=== PATIENT | male | born 1950 | race Two or more races ===

== ENCOUNTER 2024-09-24 12:18 | Inpatient (IN) | payer MEDICARE, MEDICAID, SELFPAY ==
[2024-09-24] VITALS (21 sets, daily range): BP systolic 134–183; BP diastolic 70–99; PULSE 83–107; RESP 15–100; TEMP 36.7–37.5; O2SAT 96–100; BMI 25.0; BMI 27.8
--- NOTE | 2024-09-24 12:20 | EKG_ITS ---
[facility] Test Date: 2024-09-24 Pat Name: LEONOR MCGRATH Department: Room: - Gender: Male Power[employer]: : 1950 Requested By: Erma Perez Order Number: [id number] Reading MD: Erma Perez Measurements Intervals [place] Rate: 87 P: 71 FL: 174 QRS: 9 QRSD: 80 T: 81 QT: 337 QTc: 408 Interpretive Statements SINUS RHYTHM Compared to ECG 08/01/2022 16:19:36 Sinus tachycardia no longer present /store/S0/[id number].pdf
--- NOTE | 2024-09-24 12:20 | XR_ITS ---
Examination: CT brain head without contrast. 2-D sagittal coronal reconstructions Date and time of exam:September 24, 2024 at 1222 hours Comparison August 01, 2022 INDICATIONS: Stroke alert today altered mental status CTDI: vol (mGy):57.4 DLP: (mGycm):1110 Technique: Multiple CT axial sections of the brain have been obtained, 5 mm slice thickness. Contrast has not been administered. 2-D sagittal, coronal reconstructions have been obtained Low dose protocols were performed. One or more of the following dose reduction techniques were used; automated exposure control, adjustment of the mA and/or KV according to patient size, use of iterative reconstruction technique. Findings: Large left frontal craniotomy with ipsilateral dilatation of the left ventricle noted on the prior study Extensive encephalomalacia in the left cerebral hemisphere also noted on the prior study No interval hemorrhage or mass effect IMPRESSION: No interval acute hemorrhage or mass effect
--- NOTE | 2024-09-24 12:20 | XR_ITS ---
Examination: CTA carotids with intravenous contrast CTA brain, head with intravenous contrast. 2-D sagittal, coronal reconstructions. 3-D reconstructions. Exam date and time: September 24, 2024 1234 hours INDICATIONS: Stroke alert, onset focal neurologic deficit today CTDI: vol (mGy) 11.2 DLP: (mGycm) 433 Technique: Multiple CTA axial brain, head carotid images post intravenous contrast injection 75 cc, Isovue-370. 2-D sagittal, coronal reconstructions. 3-D reconstructions, 3-D post processing including vascular maximum intensity projection images. Low dose protocols were performed. One or more of the following dose reduction techniques were used; automated exposure control, adjustment of the mA and/or KV according to patient size, use of iterative reconstruction technique. Findings: No significant common carotid carotid bifurcation or internal carotid artery stenoses Codominant vertebral arteries with no critical stenoses No cerebral large vessel arterial occlusions thrombus dissection or cerebral aneurysm IMPRESSION: No significant neck arterial stenoses No cerebral large vessel arterial occlusions
--- NOTE | 2024-09-24 12:22 | PD.EDAMS ---
Altered Mental Status RME/HPI General Chief Complaint: Altered Mental Status Stated Complaint: ams Time Seen by Provider: 09/24/24 12:20 Arrival date/time: 09/24/24 12:18 RME / HPI RME / HPI narrative: 74 year old male with history of CVA, brain tumor s/p left frontal craniotomy with residual expressive aphasia, hypertension, diabetes, COPD on 4L home oxygen presents to the ED BIBA from home for evaluation of altered mental status today. Per medics, on their arrival patient a GCS of 3, not following commands, tachycardic at 102bpm, prehospital BS 32. State they administered a total of 250mL D10 and repeat BS 162. However, report mental status did not improve. On arrival to ED patient GCS of 6 and not following commands. Evidently at baseline patient is nonverbal, able to communicate by nodding head, tracks with eyes, and able to get himself around in his home by wheelchair. Related Data Home Medications ?Medication ?Instructions ?Recorded ?Confirmed atorvastatin 40 mg tablet 40 mg PO QPM 11/04/19 08/02/22 montelukast 10 mg tablet 10 mg PO QDAY 11/04/19 08/02/22 tamsulosin 0.4 mg capsule 0.4 mg PO QDAY 10/11/20 08/02/22 escitalopram oxalate 10 mg tablet 10 mg PO QDAY 12/15/20 08/02/22 amlodipine 5 mg tablet 5 mg PO QDAY 05/31/21 08/02/22 insulin glargine 100 unit/mL (3 50 unit subcut QAM 05/31/21 08/02/22 mL) subcutaneous pen (Lantus Solostar U-100 Insulin) umeclidinium 62.5 mcg-vilanterol 1 inh inhalation QDAY 05/31/21 08/02/22 25 mcg/actuation powdr for inhalation (Anoro Ellipta) albuterol sulfate 90 mcg/actuation 2 inh inhalation QID PRN shortness 06/25/22 08/02/22 aerosol inhaler (Ventolin HFA) of breath or wheezing prednisone 10 mg tablet 10 mg PO QDAY 08/02/22 08/02/22 Previous Rx's ?Medication ?Instructions ?Recorded gabapentin 300 mg capsule 300 mg PO BID PRN pain #14 caps 10/18/22 Allergies Allergy/AdvReac Type Severity Reaction Status Date / Time silicone Allergy Severe Fever Verified 08/01/22 15:46 tuberculin,PPD,multi-puncture Allergy Verified 08/01/22 15:46 Review of Systems Review of Systems ROS Unobtainable: unobtainable due to mental status Past Medical History Past Medical History NEUROLOGIC: Positive Neurological Disorders (APHASIA), Cerebrovascular Accident, Transient Ischemic Attacks (TIA), Dementia and Brain Tumor CARDIAC: Positive Cardiac Disorders, Hypercholesterolemia and Hypertension RESPIRATORY: Positive Chronic Obstructive Pulmonary Disease (COPD) and Asthma GENITOURINARY: Positive Benign Prostatic Hyperplasia ENDOCRINE: Positive Endocrine Disorders and Diabetes Mellitus Type 2 Surgical History SURGICAL: Positive Neurologic Surgery Social History SMOKING STATUS: Unknown if ever smoked SECOND HAND EXPOSURE: No SUBSTANCE USE: does not use ED Exam Narrative Physical exam: GENERAL APPEARANCE: Not following commands, looking from side to side HEENT: Normocephalic, atraumatic; pupils equal, round, reactive to light; EOMI; mucous membranes pink, moist; oropharynx clear NECK: Supple LUNGS: CTABL; no wheezes, no rales, no rhonchi HEART: Regular rate, regular rhythm; normal S1, S2; no murmurs ABDOMEN: non distended; normal BS; soft, no tenderness, no guarding, no rebound; no masses, no organomegaly, no hernia BACK: no CVA tenderness NEUROLOGIC: Not following commands, looking from side to side, left arm is flaccid, right arm is contractured, bilateral legs are flaccid SKIN: warm, dry, normal color; no rashes Course Course Course Narrative: 1219: Patient evaluated in ED room 4 and stroke alert called overhead. 1545: I spoke with patients grandson at bedside. States at baseline the patient is able to get up out of bed and to his wheelchair and gets around their home. States patient has yet to return to his baseline. Quality Measures Suspected type of Stroke: Non Acute Last know well: unknown Tenecteplase given: Reason(s) TPA not given: Outside the time window not given stroke Orders Category Date Time Status Admit to Inpatient Status Routine Admission 09/24/24 17:41 Active Patient Condition Routine Admission 09/24/24 17:41 Ordered Activity as Tolerated Routine Care 09/24/24 17:41 Ordered Bedside Blood Glucose NOW Care 09/24/24 12:20 Active Heat Sealing Machine Operator NOW Care 09/24/24 12:20 Active Continuous Pulse Oximetry NOW Care 09/24/24 12:20 Completed EKG (ED ONLY) *Do not use* NOW Care 09/24/24 12:20 Completed Glucose [Bedside Blood Glucose] Q6HR Care 09/24/24 17:45 Active In and Out Catheter NEEDED Care 09/24/24 12:20 Completed Insert IV NOW Care 09/24/24 12:20 Active NIH Stroke Scale now Care 09/24/24 12:20 Active NPO NOW Care 09/24/24 12:20 Active NPO NOW Care 09/24/24 17:42 Active Notify provider NEEDED Care 09/24/24 17:41 Active Nurse Swallow Screen x1 Care 09/24/24 12:20 Active Consult to Neurology / Tele-Neurology Routine Cons 09/24/24 12:20 Active Diet NPO (NOW) Diet 09/24/24 17:[address] angio stroke protocol Stat Exams 09/24/24 12:[address] stroke protocol Stat Exams 09/24/24 12:20 Completed EKG (ED Only) Stat Exams 09/24/24 12:20 Draft A1C [Glycohemoglobin w (eAG)] AM DRAW Lab 09/25/24 05:00 Ordered B-Type Natriuretic Peptide Stat Lab 09/24/24 12:35 Completed Blood Culture (Lab) Stat Lab 09/24/24 14:24 Received CBC AM DRAW Lab 09/25/24 05:00 Ordered CBC AM DRAW Lab 09/26/24 05:00 Ordered CBC AM DRAW Lab 09/27/24 05:00 Ordered CBC Stat Lab 09/24/24 12:35 Completed Comprehensive Metabolic Panel AM DRAW Lab 09/25/24 05:00 Ordered Comprehensive Metabolic Panel AM DRAW Lab 09/26/24 05:00 Ordered Comprehensive Metabolic Panel AM DRAW Lab 09/27/24 05:00 Ordered Comprehensive Metabolic Panel Stat Lab 09/24/24 12:35 Completed Drug Screen,Urine Stat Lab 09/24/24 13:28 Completed Lactate (Lactic Acid) Stat Lab 09/24/24 14:24 Completed Lipid Panel AM DRAW Lab 09/25/24 05:00 Ordered Magnesium AM DRAW Lab 09/25/24 05:00 Ordered Magnesium Stat Lab 09/24/24 12:35 Completed Partial Thromboplastin Time Stat Lab 09/24/24 12:35 Completed Phosphorous AM DRAW Lab 09/25/24 05:00 Ordered Procalcitonin Stat Lab 09/24/24 12:35 Completed Prothrombin Time with INR Stat Lab 09/24/24 12:35 Completed Thyroid Stimulating Hormone AM DRAW Lab 09/25/24 05:00 Ordered Troponin I Stat Lab 09/24/24 12:35 Completed Urinalysis Stat Lab 09/24/24 13:28 Completed Urine Culture Stat Lab 09/24/24 12:20 Received Acetaminophen Tab [Tylenol Tab] Med 09/24/24 17:41 Active 650 mg PO Q6H PRN Dextrose 10%-Water 1000 ml [D10w 1000 ml] 1,000 ml Med 09/24/24 17:45 Active IV 50 mls/hr Dextrose 50% Syr [D50w Syringe Abboject] Med 09/24/24 17:46 Active 25 ml IV Q15MIN PRN Dextrose 50% Syr [D50w Syringe Abboject] Med 09/24/24 17:06 Discontinued 50 ml IV .STK-MED ONE Dextrose 50% Syr [D50w Syringe Abboject] Med 09/24/24 17:46 Active 50 ml IV Q15MIN PRN Dextrose 50% Syr [D50w Syringe Abboject] Med 09/24/24 17:11 Discontinued 50 ml IV X1 ONE Enoxaparin [Lovenox] Med 09/24/24 17:45 Active 40 mg SC QDAY Glucagon Inj Med 09/24/24 17:46 Active 1 mg IM Q15MIN PRN Insulin Regular Med 09/24/24 18:00 Active See Protocol SC Q6HR Ondansetron Inj [Zofran Inj] Med 09/24/24 12:20 Active 4 mg IV Q4HR PRN Senna [Senokot] Med 09/24/24 17:41 Active 1 tab PO QDAY PRN Code Status Routine Oth 09/24/24 17:41 Ordered Oxygen Delivery NOW RT 09/24/24 12:20 Active Oxygen Delivery PRN RT 09/24/24 17:41 Active Vital Signs Vital signs: Vital Signs Temperature 98.6 F 09/24/24 12:53 Pulse Rate 86 09/24/24 12:53 Respiratory Rate 15 09/24/24 12:53 Blood Pressure 183/97 H 09/24/24 12:53 Pulse Oximetry (%) 100 09/24/24 12:53 Oxygen Delivery Method Nasal Cannula 09/24/24 12:53 Oxygen Flow Rate 2 09/24/24 12:53 Pulse ox is 100% on 2L nasal cannula which is adequate. Altered Mental Status MDM Narrative MDM Narrative:: Yamini Live am scribing for and in the presence of Dr. Ren. Patient data External records reviewed:: [facility] previous records (I reviewed admission from 08/02/2022 through 08/05/2022) and EMS form Clinical information provided by:: EMS Social determinants that could affect healthcare access:: none Patient has the following chronic illnesses:: CVA, brain tumor s/p left frontal craniotomy with residual expressive aphasia, hypertension, diabetes, COPD on 4L home oxygen How is presenting disease/condition affected by chronic disease/condition?: exacerbated by Evaluation data The following diagnostics were reviewed and interpreted by me:: lab results, radiology exam(s) and EKG tracing(s) (sinus rhythm, rate 87, no STEMI ) Lab and/or radiology exams considered but not ordered:: None Interpretation Summary: Ordering Physician: Erma Ren MD Date of Service: 09/24/24 Procedure(s): CT stroke protocol Accession Number(s): [id number] cc: Edward Zhang MD; Erma Ren MD~ Examination: CT brain head without contrast. 2-D sagittal coronal reconstructions Date and time of exam:September 24, 2024 at 1222 hours Comparison August 01, 2022 INDICATIONS: Stroke alert today altered mental status CTDI: vol (mGy):57.4 DLP: (mGycm):1110 Technique: Multiple CT axial sections of the brain have been obtained, 5 mm slice thickness. Contrast has not been administered. 2-D sagittal, coronal reconstructions have been obtained Low dose protocols were performed. One or more of the following dose reduction techniques were used; automated exposure control, adjustment of the mA and/or KV according to patient size, use of iterative reconstruction technique. Findings: Large left frontal craniotomy with ipsilateral dilatation of the left ventricle noted on the prior study Extensive encephalomalacia in the left cerebral hemisphere also noted on the prior study No interval hemorrhage or mass effect IMPRESSION: No interval acute hemorrhage or mass effect Dictated By: Edward Zhang MD Signed By: <Electronically signed by Edward Zhang MD in OV> 09/24/24 1240 Ordering Physician: Erma Ren MD Date of Service: 09/24/24 Procedure(s): CT angio stroke protocol Accession Number(s): [id number] cc: Edward Zhang MD; Erma Ren MD~ Examination: CTA carotids with intravenous contrast CTA brain, head with intravenous contrast. 2-D sagittal, coronal reconstructions. 3-D reconstructions. Exam date and time: September 24, 2024 1234 hours INDICATIONS: Stroke alert, onset focal neurologic deficit today CTDI: vol (mGy) 11.2 DLP: (mGycm) 433 Technique: Multiple CTA axial brain, head carotid images post intravenous contrast injection 75 cc, Isovue-370. 2-D sagittal, coronal reconstructions. 3-D reconstructions, 3-D post processing including vascular maximum intensity projection images. Low dose protocols were performed. One or more of the following dose reduction techniques were used; automated exposure control, adjustment of the mA and/or KV according to patient size, use of iterative reconstruction technique. Findings: No significant common carotid carotid bifurcation or internal carotid artery stenoses Codominant vertebral arteries with no critical stenoses No cerebral large vessel arterial occlusions thrombus dissection or cerebral aneurysm IMPRESSION: No significant neck arterial stenoses No cerebral large vessel arterial occlusions Dictated By: Edward Zhang MD Signed By: <Electronically signed by Edward Zhang MD in OV> 09/24/24 135 Medications / Prescriptions Medications or Prescriptions considered but not ordered:: None Medication administrations:: Medication Administration History Acetaminophen (Acetaminophen 325 Mg Tablet) 650 mg PO Q6H PRN PRN Reason: Fever >100.3 or pain 1-3 Stop: 10/24/24 17:40 Dextrose (Dextrose 50%-Water Inj 50 Ml Syringe) 25 ml IV Q15MIN PRN PRN Reason: BG 50-70 responsive npo pt Stop: 10/24/24 17:45 Dextrose (Dextrose 50%-Water Inj 50 Ml Syringe) 50 ml IV Q15MIN PRN PRN Reason: BG <50 OR BG <70 & pt unresponsive Stop: 10/24/24 17:45 Enoxaparin Sodium (Enoxaparin Sod Inj 40 Mg/0.4 Ml Syringe) 40 mg SC QDAY MERLY Stop: 10/08/24 17:44 Glucagon (Glucagon Inj 1 Mg Vial) 1 mg IM Q15MIN PRN PRN Reason: BG <70, and no IV access Dextrose (D10w 1000 Ml) 1,000 mls @ 50 mls/hr IV .Q20H MERLY Stop: 09/25/24 13:44 Insulin Human Regular (Insulin Hum Regular 1 Unit/0.01 Ml (Per Unit)) 0 unit SC Q6HR MERLY; Protocol Stop: 10/24/24 17:59 Ondansetron HCl (Ondansetron Inj 2 Mg/Ml Inj 2 Ml) 4 mg IV Q4HR PRN PRN Reason: NAUSEA OR VOMITING Stop: 10/24/24 12:19 Sennosides (Senna Tablet) 1 tab PO QDAY PRN; Protocol PRN Reason: constipation Stop: 10/24/24 17:40 Discontinued Medications Dextrose (Dextrose 50%-Water Inj 50 Ml Syringe) 50 ml IV X1 ONE Stop: 09/24/24 17:12 Last Admin: 09/24/24 17:15 Dose: 50 ml Documented By: ED Dextrose (Dextrose 50%-Water Inj 50 Ml Syringe) Confirm Administered Dose 50 ml IV .STK-MED ONE Stop: 09/24/24 17:07 Last Admin: 09/24/24 17:18 Dose: Not Given Documented By: ED Non-Admin Reason: Duplicate Medication on eMAR See above Consultations Consultation(s) initiated? (list below): Yes Consultation #1 (Physician, Specialty, Details): I spoke with teleneurologist Dr. Pickard. States patient is not a tpa candidate as he is out of the 4.5 time window. Time: 12:40 Consultation #2 (Physician, Specialty, Details): I spoke with resident Dr. Mendes working with Dr. Pereira. Discussed patients PMHx, HPI, ED course, exam findings, labs, and radiology results. The hospitalist agree to accept the patient for admission. Diagnosis Differential diagnosis altered mental status: altered mental status, dementia, hypoglycemia, hyponatremia, subarachnoid hemorrhage, sepsis and other (CVA, TIA ) Most likely diagnosis given after review of the tests above:: AMS Hypoglycemia Admission Indicated Admission indicated?: indicated Admission Request Was there a request for admission?: Yes Admission Attestation Admission request attestation: Discussed case with [] from Hospitalist service regarding admission. Discussed patients ED course, exam findings, labs, and radiology results. The Hospitalist [agrees,declines] to accept the patient for admission. Disposition Plan Disposition Plan: Admit Discharge Plan Plan Patient Disposition: Admit Acute Care w/in Hospital Prescriptions/Referrals Prescriptions/Med Rec: No Action escitalopram oxalate 10 mg Tablet 10 mg PO QDAY amlodipine 5 mg Tablet 5 mg PO QDAY insulin glargine [Lantus Solostar U-100 Insulin] 100 unit/mL (3 mL) insulin pen 50 unit SUBCUT QAM Anoro Ellipta 62.5-25 mcg/actuation blister with device 1 inh INHALATION QDAY atorvastatin 40 mg Tablet 40 mg PO QPM montelukast 10 mg Tablet 10 mg PO QDAY tamsulosin 0.4 mg Capsule 0.4 mg PO QDAY albuterol sulfate [Ventolin HFA] 90 mcg/actuation HFA aerosol inhaler 2 inh inhalation QID PRN (Reason: shortness of breath or wheezing) prednisone 10 mg tablet 10 mg PO QDAY gabapentin 300 mg capsule 300 mg PO BID PRN (Reason: pain) Qty: 14 0RF Problem List Clinical Impression: Altered mental status, Hypoglycemia Patient/Caregiver Discharge Instructions Print Language: Mexican Stand Alone Forms: Brinda Award Info., Patient Portal Info Letter
--- NOTE | 2024-09-24 12:41 | PD.TNEUROPRO ---
Tele Neuro Progress Note Progress Note Date 09/24/24 Progress Note Narrative [facility] Consult [facility] Patient Name:???Delroy Ngo Date of :???1950 Identification Number:??? Date of Service:???09/24/2024 12:23:39 Diagnosis:Encephalopathy Impression: ?74 y/o h/o stroke, HTN, DM, hyperlipidemia and COPD who presents to the ED with worsening AMS in the setting of hypoglycemia. No focal deficits on exam Our recommendations are outlined below. Recommendations: ? Stroke/Telemetry Floor ? Neuro Checks ? Bedside Swallow Eval ? DVT Prophylaxis ? IV Fluids, Normal Saline ? Head of Bed 30 Degrees ? Euglycemia and Avoid Hyperthermia (PRN Acetaminophen) ? Initiate or continue Aspirin 81 MG daily ? Antihypertensives PRN if Blood pressure is greater than 220/120 or there is a concern for End organ damage/contraindications for permissive HTN. If blood pressure is greater than 220/120 give labetalol PO or IV or Vasotec IV with a goal of 15% reduction in BP during the first 24 hours. ?Toxic, metabolic and infectious work-up as per ED and primary team ?ASA 81 if no contraindications Sign Out: ? Discussed with Emergency Department Provider Advanced Imaging: Advanced Imaging Deferred because: Case discussed with Dr. Ren. No focal neurologic deficits. Low suspicion for LVO given the clinical presentation and current clinical exam. Can reconsider advanced neuroimaging if patient's symptoms recur or worsen or develops new symptoms. Metrics: Last Known Well: Unknown Dispatch Time: 09/24/2024 12:23:39 Arrival Time: 09/24/2024 12:18:00 Initial Response Time: 09/24/2024 12:25:32Symptoms: AMS. Initial patient interaction: 09/24/2024 12:30:31 NIHSS Assessment Completed: 09/24/2024 12:34:15Patient is not a candidate for Thrombolytic. Thrombolytic Medical Decision: 09/24/2024 12:34:15Patient was not deemed candidate for Thrombolytic because of following reasons: other diagnosis suspected Case discussed with Dr. Ren. Unclear last known well. No focal neurologic deficits. . I personally Reviewed the CT Head and it Showed left hemispheric encephalomalacia and cerebral atrophy Primary Provider Notified of Diagnostic Impression and Management Plan on: 09/24/2024 12:40:12 History of Present Illness:Patient is a 74 year old Male. Patient was brought by EMS for symptoms of AMS. 74 y/o h/o stroke, HTN, DM, hyperlipidemia and COPD who presents to the ED with worsening AMS in the setting of hypoglycemia (32). Emergent telestroke consult requested. Patient is reportedly confused at baseline, but was noted to be worse today. Unclear last known well. Dextrose given by EMS. Patient is drowsy and generally weak. Patient cannot provide a history. No focal deficits on exam. Initial GCS was reported to be 3 at the scene. Mental status has improved since dextrose. CT brain reviewed and case discussed with Dr. Ren (ED attending) Medications: Anticoagulant use:??Unknown Antiplatelet use:?Unknown Reviewed EMR for current medications Allergies:? Reviewed Allergies Unable To Obtain Due To:?Patient Is Confused Social History: Unable To Obtain Due To Patient Status :?Patient Is Confused Family History: Family History Cannot Be Obtained Because:Patient Is Confused ROS :?ROS Cannot Be Obtained Because:? Patient Is Confused Past Surgical History: Past Surgical History Cannot Be Obtained Because: Patient Is Confused Examination: BP(183/97),?Pulse(88),?Blood Glucose(136) 1A: Level of Consciousness - Requires repeated stimulation to arouse?+ 2 1B: Ask Month and Age - Could Not Answer Either Question Correctly?+ 2 1C: Blink Eyes & Squeeze Hands - Performs 0 Tasks?+ 2 2: Test Horizontal Extraocular Movements - Normal?+ 0 3: Test Visual Thomas - No Visual Loss?+ 0 4: Test Facial Palsy (Use Grimace if Obtunded) - Normal symmetry?+ 0 5A: Test Left Arm Motor Drift - No Drift for 10 Seconds?+ 0 5B: Test Right Arm Motor Drift - No Drift for 10 Seconds?+ 0 6A: Test Left Leg Motor Drift - No Effort Against Moclips?+ 3 6B: Test Right Leg Motor Drift - No Effort Against Moclips?+ 3 7: Test Limb Ataxia (FNF/Heel-Butt) - Does Not Understand?+ 0 8: Test Sensation - Normal; No sensory loss?+ 0 9: Test Language/Aphasia - Mute/Global Aphasia: No Usable Speech/Auditory Comprehension?+ 3 10: Test Dysarthria - Mute/Anarthric?+ 2 11: Test Extinction/Inattention - No abnormality?+ 0 NIHSS Score:?17 Pre-Morbid Modified [place] Scale:Unable to assess Spoke with :?Dr. Ren Consent could not be obtained due to patient status and family not available. Patient is being evaluated for possible acute neurologic impairment and high probability of imminent or life-threatening deterioration. I spent total of 20 minutes providing care to this patient, including time for face to face visit via telemedicine, review of medical records, imaging studies and discussion of findings with providers, the patient and/or family. Dr Darin Pickard [facility] For Inpatient follow-up with [facility] physician please call [facility] at . As we are not an outpatient service for any post hospital discharge needs please contact the hospital for assistance. If you have any questions for the [facility] physicians or need to reconsult for clinical or diagnostic changes please contact us via [facility] at .
[2024-09-24 12:52] LABS: Basophils # (Auto) 0.1 Thou/mm3 (0.0-0.2); Basophils % (Auto) 1 % (0-2.5); Eosinophils % (Auto) 0 % (0-10); Hematocrit 39.7 % (41.0-53.0); Hemoglobin 13.7 g/dL (13.5-16.0); Immature Granulocytes % (Auto) 0 % (0-0); Immature Granulocytes Auto 0.04 Thou/mm3 (0.00-0.00); Lymphocytes # (Auto) 0.8 Thou/mm3 (1.0-4.8); Lymphocytes % (Auto) 5 % (10-50); Mean Corpuscular HGB Conc 34.5 g/dl (31.0-37.0); Mean Corpuscular Hemoglobin 30.6 pg (25.0-35.0); Mean Corpuscular Volume 89 fL (80-100); Monocytes # (Auto) 1.5 Thou/mm3 (0.0-0.8); Monocytes % (Auto) 10 % (0-12); Neutrophils # (Auto) 12.8 Thou/mm3 (1.8-7.7); Neutrophils % (Auto) 84 % (37-80); Nucleated Red Blood Cell % 0 /100 WBC (0); Platelet Count 258 Thou/mm3 (140-440); RDW Standard Deviation 40.7 fL (35.1-43.9); Red Blood Count 4.48 Miln/mm3 (4.50-5.90); White Blood Count 15.2 Thou/mm3 (3.8-10.6)
[2024-09-24 13:00] LABS: Partial Thromboplastin Time 26.2 Seconds (22.0-36.0); Prothrombin Time 10.6 Seconds (9.0-12.2)
[2024-09-24 13:18] LABS: Alanine Aminotransferase 20 U/L (10-49); Albumin, Serum 3.6 gm/dL (3.4-4.8); Albumin/Globulin Ratio 1.3 (1.2-2.2); Alkaline Phosphatase 90 U/L (46-116); Anion Gap 6 (7-16); Aspartate Amino Transferase 27 U/L (0-34); B-Type Natriuretic Peptide < 20 pg/mL (0-100); BUN/Creatinine Ratio 26 Ratio (12-20); Bilirubin,Total 0.6 mg/dL (0.3-1.2); Blood Urea Nitrogen 26 mg/dL (9-23); Calcium 9.1 mg/dL (8.3-10.6); Calcium (Corrected) 9.4 mg/dL (8.5-10.1); Carbon Dioxide 32.5 mMol/L (20.0-31.0); Chloride 102 mMol/L (98-107); Estimated Creatinine Clearance 58.6 mL/min (>60); Globulin 2.7 gm/dL (2.3-3.5); Glucose 137 mg/dL (74-106); Magnesium 1.8 mg/dL (1.6-2.6); Osmolality,Calculated 286 (275-295); Sodium 140 mMol/L (136-145); Total Protein 6.3 gm/dL (5.7-8.2); Troponin I < 0.020 ng/mL (0.0-0.045); eGFR > 60 See Note
[2024-09-24 13:45] LABS: Collection Type, Urine Catheter
[2024-09-24 14:02] LABS: Bilirubin,Urine Negative (Negative); Blood,Urine Trace (Negative); Clarity,Urine Clear (Clear/Hazy); Color,Urine Lt-Yellow (Lt Yel-Yel); Glucose, Urine Negative (Negative); Ketones,Urine Negative (Negative); Leukocyte Esterase,Urine Negative (Negative); Nitrite,Urine Negative (Negative); PH,Urine 6.5 (5.0-7.0); Protein,Urine 2+ (Neg - Trace); RBC,Urine 1 /hpf (0-3); Specific Gravity,Urine 1.027 (1.001-1.035); Squamous Epithelial Cell,Urine 1 /hpf (0-5); Urobilinogen,Urine Negative mg/dL (0.0-1.0); WBC,Urine 2 /hpf (0-5)
[2024-09-24 14:09] LABS: Amphetamine/Methamp Scrn,U Negative (Negative); Barbiturate Screen,Urine Negative (Negative); Benzodiazepines Screen,Urine Negative (Negative); Benzoylecgonine Screen, Ur Negative (Negative); Fentanyl Screen,Urine Negative (Negative); Opiate Screen,Urine Negative (Negative); THC Screen,Urine Positive (Negative)
[2024-09-24 14:28] LABS: Lactate (Lactic Acid) 0.8 mMol/L (0.4-2.0)
[2024-09-24 15:44] LABS: Procalcitonin 0.11 ng/ml (0.0-0.49)
[2024-09-24] MEDS: DEXTROSE 50%-WATER INJ 50 ML SYRINGE IV (17:15)
--- NOTE | 2024-09-24 17:52 | ESHP_ITS ---
<Statement entered by Viky Mendes MD - 09/24/24 19:31> Patient is a 74 year old male with PMH of CVA, brain tumor s/p L frontal craniotomy and resulting expressive aphasia, DM2, COPD on 4L, GCS of 11 at baseline who was BIBA to the ED for AMS. Onsite blood glucose was 32 and was given D10 on site. Due to encephalopathy, stroke alert was called. Upon evaluation, patient was GCS of 7. Bedside blood sugar was 24 so was given an amp of D50, with significant improvement back to GCS of 11. Vitals were stable, and labs were generally unremarkable aside from mild leukocytosis. No rito source of infection was noted on physical exam. Patient to be admitted for acute hypoglycemia and acute encephalopathy. For his hypoglycemia, will give D10 at very low rate with frequent blood sugar checks. He is insulin dependent, so will follow up on home meds. For his acute encephalopathy, will complete stroke rule out and see if his mentation improves with treating the hypoglycemia. Will follow up with family at home for better history of events leading to admission. Viky Mendes MD PGY-3 Documentation for date of: 09/24/24 HPI History of Present Illness Chief complaint: AMS, hypoglycemia History of present illness: Delroy Ngo is 74 yr male with PMH of CVA, brain tumor S/PE left frontal craniotomy, expressive aphasia, hypertension, insulin-dependent diabetes, COPD on 4 L O2, BPH who was presented to ED via ambulance due to altered mental status. And route to the ED GCS score 3 and blood sugars 32. He was administered 250 mL of D10 with improvement of sugars to 162 and still slightly altered. Most history was obtained per chart review and nursing. Patient was given additional dose of D50 while at bedside. He was minimally responsive to sternal rub/painful stimuli. Blood sugars were 24 before the D50 and improved to 160 afther the D50. Per nursing, family was at bedside in the morning. Family stated that patient is able to complete ADLs but mostly non verbal since stroke. Patient admitted for acute encephalopathy most likely due to hypoglycemia. Labs: Leukocytosis 15, Hb 13.7, sodium 140, potassium 4, bicarb 32, BUN 26, creatinine 1.0. Lactic acid normal. GCS at bedside 7. Stroke alert was called and teleneuro was consulted. NIHSS score 17 most likely due to patient's aphasia. CT head negative for hemorrhage or mass effect. CTA head neck negative for stenosis or LVO. Patient did not receive any tPA. PMH: as noted above PSH: craniectomy FamHx: unknown Social: lives at daughters home who takes care of him. No drinking, smoking, or drugs Allergies: silicone-fever Meds: Tamsulosin 0.4 daily, prednisone 10 mg daily, 50 units insulin glargine, atorvastatin 40 mg daily, amlodipine 5 mg daily, albuterol inhaler (med rec still pending) Review of Systems Constitutional Comments: Unobtainable Exam Vital Signs Temp Pulse Resp BP Pulse Ox O2 Del Method O2 Flow Rate 98.0 F 98 15 170/82 H 96 Nasal Cannula 2 09/24/24 16:14 09/24/24 16:14 09/24/24 16:14 09/24/24 16:14 09/24/24 16:14 09/24/24 12:53 09/24/24 12:53 Narrative Exam General: elderly male, minimally responsive, malodorous HEENT: NCAT, No JVD noted. Mucosa moist. Missing few teeth. Pupils are equal and reactive to light bilaterally Cardiovascular: Normal S1 and S2. Regular rate and rhythm. Respiratory: Lungs are clear to auscultation bilaterally. No wheezing or crackles heard. Abdomen: Soft, nontender, not distended, normal bowel sounds. Skin: Warm to touch, dry, no rashes noted, diffuse purpura Musculoskeletal: No gross injuries. No pitting edema Neuro: GCS7 Results: Labs 09/26/24 05:20 09/26/24 05:20 Labs: Short CBC 09/24/24 Range/Units 12:35 WBC 15.2 H (3.8-10.6) Thou/mm3 Hgb 13.7 (13.5-16.0) g/dL Hct 39.7 L (41.0-53.0) % Plt Count 258 (140-440) Thou/mm3 BMP 09/24/24 12:35 Sodium 140 Potassium 4.0 Chloride 102 Carbon Dioxide 32.5 H BUN 26 H Creatinine 1.0 Glucose 137 H Calcium 9.1 Cardiac Enzymes 09/24/24 Range/Units 12:35 Troponin I < 0.020 (0.0-0.045) ng/mL Liver Function 02/13/25 Range/Units 12:35 Total Bilirubin 0.6 (0.3-1.2) mg/dL AST 27 (0-34) U/L ALT 20 (10-49) U/L Alkaline Phosphatase 90 (46-116) U/L Albumin 3.6 (3.4-4.8) gm/dL Urine 09/24/24 Range/Units 13:28 Urine Color Lt-Yellow (Lt Yel-Yel) Urine Clarity Clear (Clear/Hazy) Urine pH 6.5 (5.0-7.0) Ur Specific [place] 1.027 (1.001-1.035) Urine Protein 2+ A (Neg - Trace) Urine Glucose (UA) Negative (Negative) Quality Measures Quality Measures stroke Suspected type of Stroke: Non Acute Tenecteplase given: Reason(s) Tenecteplase not given: Outside the time window not given Rehab services: Speech Language Pathology eval ordered VTE Prophylaxis: pharmaceutical Antithrombotic by day 2:: not indicated (describe) Statin ordered: n/a Anticoagulation ordered for A-fib or flutter (current or hx): not indicated Advance care planning discussed with:: child Medications Home Medications and Allergies Home Medications ?Medication ?Instructions ?Recorded ?Confirmed ?Type atorvastatin 40 mg tablet 40 mg PO QPM 11/04/19 History tamsulosin 0.4 mg capsule 0.4 mg PO QDAY 10/11/2009/12 History escitalopram oxalate 10 mg tablet 10 mg PO QDAY 09/24/24 History amlodipine 5 mg tablet 5 mg PO QDAY 05/31/21 History albuterol sulfate 90 mcg/actuation 2 inh inhalation QI D PRN shortness 06/25/22 09/24/24 History aerosol inhaler (Ventolin HFA) of breath or wheezing prednisone 10 mg tablet 10 mg PO QDAY 08/02/2209/24 History albuterol sulfate 5 mg/mL(0.5 %) 5 mg inhalation TID 0 09/24/24 09/24/24 History solution for nebulization Allergies Allergy/AdvReac Type Severity Reaction Status Date / Time silicone Allergy Severe Fever Verified 08/01/22 15:46 tuberculin,PPD,multi-puncture Allergy Verified 08/01/22 15:46 Visit Medications Acetaminophen (Acetaminophen 325 Mg Tablet) 650 mg PO Q6H PRN PRN Reason: Fever >100.3 or pain 1-3 Stop: 10/24/24 17:40 Dextrose (Dextrose 50%-Water Inj 50 Ml Syringe) 25 ml IV Q15MIN PRN PRN Reason: BG 50-70 responsive npo pt Stop: 10/24/24 17:45 Dextrose (Dextrose 50%-Water Inj 50 Ml Syringe) 50 ml IV Q15MIN PRN PRN Reason: BG <50 OR BG <70 & pt unresponsive Stop: 10/24/24 17:45 Enoxaparin Sodium (Enoxaparin Sod Inj 40 Mg/0.4 Ml Syringe) 40 mg SC QDAY MERLY Stop: 10/08/24 17:44 Glucagon (Glucagon Inj 1 Mg Vial) 1 mg IM Q15MIN PRN PRN Reason: BG <70, and no IV access Dextrose (D10w 1000 Ml) 1,000 mls @ 50 mls/hr IV .Q20H MERLY Stop: 09/25/24 13:44 Insulin Human Regular (Insulin Hum Regular 1 Unit/0.01 Ml (Per Unit)) 0 unit SC Q6HR MERLY; Protocol Stop: 10/24/24 17:59 Ondansetron HCl (Ondansetron Inj 2 Mg/Ml Inj 2 Ml) 4 mg IV Q4HR PRN PRN Reason: NAUSEA OR VOMITING Stop: 10/24/24 12:19 Sennosides (Senna Tablet) 1 tab PO QDAY PRN; Protocol PRN Reason: constipation Stop: 10/24/24 17:40 Discontinued Medications Dextrose (Dextrose 50%-Water Inj 50 Ml Syringe) 50 ml IV X1 ONE Stop: 09/24/24 17:12 Last Admin: 09/24/24 17:15 Dose: 50 ml Assessment & Plan Plan Delroy Ngo is 74 yr male with PMH of CVA, brain tumor S/PE left frontal craniotomy, expressive aphasia, hypertension, insulin-dependent diabetes, COPD on 4 L O2, BPH who was presented to ED via ambulance due to altered mental status. And route to the ED GCS score 3 and blood sugars 32. He was administered 250 mL of D10 with improvement of sugars to 162 and still slightly altered. Stroke alert was called. Patient admitted for acute encephalopathy most likely due to hypoglycemia. #Hypoglycemia DDx: Overuse exogenouse insulin, insulinoma, infection, medication side effect, hepatic dysfunction Most likely due to overuse of insulin in this patient. Family was contacted and said that last insulin administration was yesterday morning. Typically takes 55 units of Lantus. Daughter Chyna, assist patient with medication. And route to ED sugars were 32 with improvement to 160 after 250 mL of D10. On physical exam at bedside blood sugars dropped again to 24 and improved to 160s with D10 push. Patient is still altered however has normal response and opens eyes to name when sugars improved. ?Glucose checks every 6 hours ? D10 W drip at 75 cc/h ? Watch sugars and adjust drip for goal of 180?200 ?Follow-up with TSH ? Daily CMP #Acute encephalopathy 2/2 hypoglycemia Refer above. #Leukocytosis DDx: Chronic steroid use, infection however source is unclear, physiologic stress WBC 15.2. -daily CBC -Follow-up urine culture and blood culture #Rule out CVA Due to altered status teleneuro was consulted after stroke alert. Low suspicion of acute stroke, NIHSS score 17. CT head negative for hemorrhage or mass effect. CTA head/neck neck negative for stenosis/LVO. ?aspirin 81 mg daily ?Physical therapy/speech pathology referral pending ? N.p.o. until patient passes bedside swallow screen ? Head of bed elevation 30 degrees ? Continue permissive hypertension for 24 hours as per neurorecommendations ? 10 mg IV labetalol every 4 hours as needed if BP 220/120 ?Lipid panel pending #Hx COPD Patient does not appear to be in COPD exacerbation. Sickle exam clear to wheezing. Per daughter, he uses 4 L O2 at night and steroids which seems to be the only course of treatment adequately controls the exacerbations. -Prednisone 10 mg daily -However as patient is altered and currently n.p.o., will resume IV Solu-Medrol 40 mg daily -resume albuterol -Follow-up chest x-ray -Resume 4 L O2 at bedtime -Goal O2 saturation 88-92% #History of insulin dependent type 2 diabetes On admission initial glucose 32. Last A1c 9.9 on 08/02/22. Patient takes 55 until glargine for diabetes at home. -Held home medications -Bedside blood glucose checks q6hr -Insulin lispro sliding scale -Carb consistent low diet -Diabetes education -A1c pending #Hx BPH Per daughter, patient is wheelchair-bound and needs assistance with using bathroom as he is wheelchair-bound. Has history of frequent UTIs. Wears diaper. UA negative for UTI ? Resume home medication tamsulosin 0.4 mg daily -Consider inserting Nuñez if poor urine output #Hx HTN Home medication amlodipine 5 mg daily ? Hold for permissive hypertension for 24 hours Health maintenance: Dispo: tele. Hypoglycemia glucose checks q6hr. DVT prophylaxis: Lovenox 40 daily CODE STATUS: Full code Diet: NPO pending swallow eval The patient's management plan was discussed with my attending physician Dr. Pereira and senior Dr. Mendes. Sandra Olvera, PGY-1 Attending Provider Attestation/Addendum I have discussed and was present for the essential components of the history, physical examination, diagnosis, and treatment plan with the resident. I agree with the patient's care as documented by the resident and amended herein by me. Reed Pereira DO. Although this document has been carefully reviewed, there may still be some phonetic and other typographical errors. These errors are purely grammatical due to imperfections in the software program and should not be construed in any way to compromise the substance of the patient's medical care during this visit.
[2024-09-24] MEDS: ENOXAPARIN SOD INJ 40 MG/0.4 ML SYRINGE SC (19:00)
[2024-09-24] MEDS: DEXTROSE 10%-WATER 1000 ML 1,000 ML 75 ML IV (19:00)
--- NOTE | 2024-09-24 19:08 | XR_ITS ---
Examination: AP chest single view Technique one AP portable sitting chest single view Exam date and time: September 24, 2024 1915 hrs. Indications: COPD diagnosis with shortness of breath today. Findings: Normal heart size No pneumonia or pulmonary edema Mild elevation right hemidiaphragm Impression: No pneumonia or pulmonary edema
[2024-09-24] MEDS: DEXTROSE 10%-WATER 1000 ML 1,000 ML 125 ML IV (21:17)
[2024-09-25] VITALS (8 sets, daily range): BP systolic 101–156; BP diastolic 58–83; PULSE 81–100; RESP 14–97; TEMP 36.5–36.9; O2SAT 94–97; BMI 27.6
[2024-09-25 05:58] LABS: Basophils # (Auto) 0.1 Thou/mm3 (0.0-0.2); Basophils % (Auto) 0 % (0-2.5); Eosinophils % (Auto) 0 % (0-10); Hemoglobin 13.2 g/dL (13.5-16.0); Immature Granulocytes % (Auto) 0 % (0-0); Immature Granulocytes Auto 0.04 Thou/mm3 (0.00-0.00); Lymphocytes # (Auto) 0.5 Thou/mm3 (1.0-4.8); Lymphocytes % (Auto) 3 % (10-50); Mean Corpuscular HGB Conc 34.7 g/dl (31.0-37.0); Mean Corpuscular Hemoglobin 30.9 pg (25.0-35.0); Mean Corpuscular Volume 89 fL (80-100); Monocytes # (Auto) 0.3 Thou/mm3 (0.0-0.8); Monocytes % (Auto) 2 % (0-12); Neutrophils # (Auto) 13.1 Thou/mm3 (1.8-7.7); Neutrophils % (Auto) 94 % (37-80); Nucleated Red Blood Cell % 0 /100 WBC (0); Platelet Count 240 Thou/mm3 (140-440); RDW Standard Deviation 40.8 fL (35.1-43.9); Red Blood Count 4.27 Miln/mm3 (4.50-5.90); White Blood Count 13.9 Thou/mm3 (3.8-10.6)
[2024-09-25 06:39] LABS: Glucose Estimated Average 197 mg/dL (80-131); Hemoglobin A1C 8.5 % Hgb (4.8-6.0)
[2024-09-25 06:42] LABS: Alanine Aminotransferase 19 U/L (10-49); Albumin, Serum 3.4 gm/dL (3.4-4.8); Albumin/Globulin Ratio 1.3 (1.2-2.2); Alkaline Phosphatase 84 U/L (46-116); Anion Gap 6 (7-16); Aspartate Amino Transferase 25 U/L (0-34); BUN/Creatinine Ratio 18 Ratio (12-20); Bilirubin,Total 0.7 mg/dL (0.3-1.2); Blood Urea Nitrogen 18 mg/dL (9-23); Calcium 8.9 mg/dL (8.3-10.6); Calcium (Corrected) 9.4 mg/dL (8.5-10.1); Carbon Dioxide 26.8 mMol/L (20.0-31.0); Cardiac Risk Estimate 2.6 RATIO (4.0-6.7); Chloride 102 mMol/L (98-107); Cholesterol 131 mg/dL (132-200); Estimated Creatinine Clearance 58.4 mL/min (>60); Globulin 2.6 gm/dL (2.3-3.5); Glucose 167 mg/dL (74-106); HDL Cholesterol 50 mg/dL (40-60); LDL Cholesterol,Calculated 71 mg/dL (0-130); Magnesium 1.9 mg/dL (1.6-2.6); Osmolality,Calculated 276 (275-295); Phosphorous 2.6 mg/dL (2.4-5.1); Potassium 4.2 mMol/L (3.4-5.1); Sodium 135 mMol/L (136-145); Thyroid Stimulating Hormone 0.66 uIU/mL (0.55-4.78); Triglycerides 49 mg/dL (30-150); eGFR > 60 See Note
--- NOTE | 2024-09-25 09:51 | PCS.ST ---
Swallow Evaluation completed. See report for details. Recommend to advance diet to chopped. Provide swallowing precautions with drinking liquids. ST will follow
[2024-09-25] MEDS: TAMSULOSIN HCL 0.4 MG CAPSULE PO (09:58)
[2024-09-25] MEDS: ESCITALOPRAM OXALATE 10 MG TABLET PO (09:58)
[2024-09-25] MEDS: ENOXAPARIN SOD INJ 40 MG/0.4 ML SYRINGE SC (09:59)
[2024-09-25] MEDS: ASPIRIN EC 81 MG TABEC PO (09:59)
[2024-09-25] MEDS: amLODIPine BESYLATE 5 MG TABLET PO (12:56)
--- NOTE | 2024-09-25 14:20 | PD.RESPRO ---
Documentation for date of: 09/25/24 Subjective Subjective Interval history: Patient seen and examined at bedside. Overnight glucose continued to remain on the lower side while on D10 drip. Rate was increased to 125 cc/h. After patient had passed swallow eval he was given some juice and improved to 174 in the morning. Patient is more responsive than yesterday. Opens eyes to name and grunts as responses. WBCs improved 13.9, A1c 8.5. IV methylprednisone discontinued. Resumed prednisone 10 mg daily which patient takes at home for control of his COPD. D10 drip was held-- will continue to monitor sugars. Anticipate discharge in next 24 hours pending culture results. Will adjust home lantus at time of d/c. Exam Vital Signs Temp Pulse Resp BP Pulse Ox O2 Del Method O2 Flow Rate 98.0 F 96 20 125/64 95 Room Air 2 09/25/24 12:00 09/25/24 12:56 09/25/24 12:00 09/25/24 12:56 09/25/24 12:00 09/25/24 12:00 09/24/24 12:53 Narrative Exam General: elderly male, opens eyes spontaneously HEENT: NCAT, No JVD noted. Mucosa moist. Missing few teeth. Pupils are equal and reactive to light bilaterally Cardiovascular: Normal S1 and S2. Regular rate and rhythm. Respiratory: Lungs are clear to auscultation bilaterally. No wheezing or crackles heard. Abdomen: Soft, nontender, not distended, normal bowel sounds. Skin: Warm to touch, dry, no rashes noted, diffuse purpura Musculoskeletal: No gross injuries. No pitting edema Neuro: GCS10, grunts as response Objective Labs 09/25/24 04:59 09/25/24 04:59 Labs: Laboratory Results - last 24 hr 09/24/24 09/24/24 09/25/24 12:35 14:24 04:59 WBC 13.9 H RBC 4.27 L Hgb 13.2 L Hct 38.0 L MCV 89 MCH 30.9 MCHC 34.7 RDW Std Deviation 40.8 Plt Count 240 Neut % (Auto) 94 H Lymph % (Auto) 3 L Esmeralda % (Auto) 2 Eos % (Auto) 0 Baso % (Auto) 0 Neut # (Auto) 13.1 H Lymph # (Auto) 0.5 L Esmeralda # (Auto) 0.3 Eos # (Auto) 0.0 Baso # (Auto) 0.1 Immature Gran # (Auto) 0.04 H Absolute Nucleated RBC 0.00 Immature Gran % 0 Nucleated RBC % 0 Sodium 135 L Potassium 4.2 Chloride 102 Carbon Dioxide 26.8 Anion Gap 6 L BUN 18 Creatinine 1.0 Estim Creat Clear Calc 58.4 L eGFR > 60 BUN/Creatinine Ratio [address] Glu mg/dL 197 H Hemoglobin A1c 8.5 H Calculated Osmolality 276 Lactic Acid 0.8 Calcium 8.9 Corrected Calcium 9.4 Phosphorus 2.6 Magnesium 1.9 Total Bilirubin 0.7 AST 25 ALT 19 Alkaline Phosphatase 84 Total Protein 6.0 Albumin 3.4 Globulin 2.6 Albumin/Globulin Ratio 1.3 Triglycerides 49 Cholesterol 131 L LDL Cholesterol, Calc 71 HDL Cholesterol 50 Cholesterol/HDL Ratio 2.6 L Procalcitonin 0.11 TSH 0.66 Quality Measures Quality Measures stroke Suspected type of Stroke: Non Acute Tenecteplase given: Reason(s) Tenecteplase not given: Outside the time window not given Rehab services: Speech Language Pathology eval ordered VTE Prophylaxis: pharmaceutical Antithrombotic by day 2:: not indicated (describe) Statin ordered: n/a Anticoagulation ordered for A-fib or flutter (current or hx): not indicated Advance care planning discussed with:: child Assessment & Plan Assessment Current Active Medications: Generic Name Dose Route Start Last Admin Trade Name Freq PRN Reason Stop Dose Admin Acetaminophen 650 mg 09/24/24 17:41 Acetaminophen 325 Mg Tablet PO 10/24/24 17:40 Q6H PRN Fever >100.3 or pain 1-3 Albuterol/Ipratropium 3 ml 09/24/24 19:12 Albuterol/Ipratropium (Duoneb) Rt Deepali 3 Ml Nebu INH 10/25/24 00:59 Q6HRRT PRN COPD Amlodipine Besylate 5 mg 09/25/24 11:45 09/25/24 12:56 Amlodipine Besylate 5 Mg Tablet PO 10/25/24 11:44 5 mg QDAY MERLY Administration Aspirin 81 mg 09/24/24 19:05 09/25/24 09:59 Aspirin Ec 81 Mg Tabec PO 10/24/24 19:04 81 mg DAILY MERLY Administration Atorvastatin Calcium 40 mg 09/25/24 21:00 Atorvastatin Calcium 20 Mg Tablet PO 10/25/24 20:59 QPM MERLY Dextrose 25 ml 09/24/24 17:46 Dextrose 50%-Water Inj 50 Ml Syringe IV 10/24/24 17:45 Q15MIN PRN BG 50-70 responsive npo pt Dextrose 50 ml 09/24/24 17:46 Dextrose 50%-Water Inj 50 Ml Syringe IV 10/24/24 17:45 Q15MIN PRN BG <50 OR BG <70 & pt unresponsive Enoxaparin Sodium 40 mg 09/24/24 17:45 09/25/24 09:59 Enoxaparin Sod Inj 40 Mg/0.4 Ml Syringe SC 10/08/24 17:44 40 mg QDAY MERLY Administration Escitalopram Oxalate 10 mg 09/25/24 09:00 09/25/24 09:58 Escitalopram Oxalate 10 Mg Tablet PO 10/25/24 08:59 10 mg QDAY MERLY Administration Ondansetron HCl 4 mg 09/24/24 12:20 Ondansetron Inj 2 Mg/Ml Inj 2 Ml IV 10/24/24 12:19 Q4HR PRN NAUSEA OR VOMITING Prednisone 10 mg 09/26/24 11:45 Prednisone 5 Mg Tablet PO 10/26/24 11:44 QDAY MERLY Sennosides 1 tab 09/24/24 17:41 Senna Tablet PO 10/24/24 17:40 QDAY PRN constipation Protocol Tamsulosin HCl 0.4 mg 09/25/24 09:00 09/25/24 09:58 Tamsulosin Hcl 0.4 Mg Capsule PO 10/25/24 08:59 0.4 mg QDAY MERLY Administration Plan Delroy Ngo is 74 yr male with PMH of CVA, brain tumor S/PE left frontal craniotomy, expressive aphasia, hypertension, insulin-dependent diabetes, COPD on 4 L O2, BPH who was presented to ED via ambulance due to altered mental status. And route to the ED GCS score 3 and blood sugars 32. He was administered 250 mL of D10 with improvement of sugars to 162 and still slightly altered. Stroke alert was called. Patient admitted for acute encephalopathy most likely due to hypoglycemia. #Hypoglycemia-resolved DDx: Overuse exogenouse insulin, insulinoma, infection, medication side effect, hepatic dysfunction Most likely due to overuse of insulin in this patient. Family was contacted and said that last insulin administration was yesterday morning. Typically takes 55 units of Lantus. Daughter Chyna, assist patient with medication. And route to ED sugars were 32 with improvement to 160 after 250 mL of D10. On physical exam at bedside blood sugars dropped again to 24 and improved to 160s with D10 push. Patient is still altered however has normal response and opens eyes to name when sugars improved. TSH normal 0.66 ?Glucose checks every 6 hours ? stop D10 W drip ? Daily CMP -adjust lantus dose at time of d/c #Acute encephalopathy 2/2 hypoglycemia-resolved Refer above. #Leukocytosis-improving DDx: Chronic steroid use, infection however source is unclear, physiologic stress WBC 15.2-->13.9 -daily CBC -urine culture and blood culture pending #Rule out CVA Due to altered status teleneuro was consulted after stroke alert. Low suspicion of acute stroke, NIHSS score 17. CT head negative for hemorrhage or mass effect. CTA head/neck neck negative for stenosis/LVO. Lipid pannel: TAG 49, cholesterol 131, LDL 71, HDL 50 Passed swallow screen. ?aspirin 81 mg daily ? Head of bed elevation 30 degrees -resuming home antihypertensives #Hx COPD Patient does not appear to be in COPD exacerbation. Sickle exam clear to wheezing. Per daughter, he uses 4 L O2 at night and steroids which seems to be the only course of treatment adequately controls the exacerbations. -resume home Prednisone 10 mg daily -stop IV solu medrol 40mg -resume albuterol -Resume 4 L O2 at bedtime -Goal O2 saturation 88-92% #History of insulin dependent type 2 diabetes On admission initial glucose 32. Last A1c 9.9 on 08/02/22. Patient takes 55 until glargine for diabetes at home. A1c 8.5 on 09/25/24 -Held home medications -Bedside blood glucose checks q6hr -Insulin lispro sliding scale -Carb consistent low diet -Diabetes education -adjust lantus dose before discharge #Hx BPH Per daughter, patient is wheelchair-bound and needs assistance with using bathroom as he is wheelchair-bound. Has history of frequent UTIs. Wears diaper. UA negative for UTI ? Resume home medication tamsulosin 0.4 mg daily -Consider inserting Nuñez if poor urine output #Hx HTN Home medication amlodipine 5 mg daily Health maintenance: Dispo: d/c pending urine/blood culture DVT prophylaxis: Lovenox 40 daily CODE STATUS: Full code Diet: Carb consistent The patient's management plan was discussed with my attending physician Dr. Pereira and senior Dr. Mendes. Sandra Olvera, PGY-1
--- NOTE | 2024-09-25 15:21 | PC.SS ---
Initial assessment: this is 74 year old male admitted for AMS. Patient's daughter Chyna, contacted to assist with providing information. Patient lives at home with daughter Chyna, who is the patient's SS caregiver. Per Chyna, the patient is wheelchair dependent. Patient utilizes home O2 during the night on 4L. Patient has home O2 concentrator at home. Patient PCP is Dr. Clinton at [facility]. Pharmacy is [facility] in [place], [place]. Patient's alternate medical decision maker is Chyna Crawley. Discharge plan is for patient to return home, family is able to assist with transportation home. D/c plan: home Next of kin: Chyna Crawley
--- NOTE | 2024-09-25 15:32 | PC.SS ---
Rounding note: pending cultures. Plan to d/c tomorrow.
--- NOTE | 2024-09-25 16:53 | PD.RESDS ---
Planned Discharge Date 09/26/24 DS: Providers Provider Date of admission: 09/24/24 17:41 Primary care physician: Jeremy Clinton MD Admitting Provider: Rufus Pereira DO Attending Provider on Admission: Rufus Pereira DO Consults: 09/24/24 12:20 Consult to Neurology / Tele-Neurology Routine Comment: Consulting Provider: [facility] 09/25/24 00:07 [facility] Referral - Knowledge Deficit Routine Comment: Positive screening for knowledge deficit needs. [facility] Referral - Nutrition Routine Comment: Positive screening for nutrition needs. [facility] Referral - Transportation Routine Comment: Positive screening for transportation needs. [facility] Referral - Utilities Routine Comment: Positive screening for utility assistance needs. Attending Provider on DC: Sandra Olvera MD Discharging Provider: Sandra Olvera MD DS: Diagnosis Problem List Completed Was Problem List Reviewed/Reconciled?: Yes Hospital Course Hospital Course Hospital course: Reason for hospitalization: acute encephalopathy 2/2 hypoglycemia Delroy Ngo is 74 yr male with PMH of CVA, brain tumor at s/p left frontal craniotomy, expressive aphasia due to dementia, hypertension, insulin-dependent diabetes, COPD on 4 L O2, BPH who was presented to [facility] ED on 09/24/24 via ambulance due to altered mental status. And route to the ED, GCS score 3 and blood sugars 32. He was administered 250 mL of D10 with improvement of sugars to 162 and still slightly altered. Patient was admitted for acute encephalopathy secondary to hypoglycemia. Labs showed Leukocytosis (15), BUN (26), Cr (1.0). Lactic acid normal, GCS 7, UA negative for UTI. Stroke alert was called CT head negative for hemorrhage or mass effect. CTA head neck negative for stenosis or LVO. Patient did not receive any tPA. Patient was started on DVT 10 drip which continued overnight. Sugars improved in the morning with goal of 180?200. His mental status improved opening eyes spontaneously. Responded to questions with grunting. Family at bedside stated that he is at baseline. Following day labs showed improvement in leukocytosis. Patient's home glargine units were adjusted. He will be discharged on 30 units glargine versus previous 50 units. Blood cultures were negative at 24 hours. Patient is now in stable condition and ready for discharge. Recommendations were given as below. Discharge Recommendations: Stop taking 50 units insulin. Start taking 30 units glargine every morning and check sugars. Inhale 1 puff Bagsimi in each nostril if sugars are low. Continue previous home medications. Follow up with PCP within 1 week. Return to ED if symptoms return. Hospital Diagnoses: #Hypoglycemia-resolved #Acute encephalopathy 2/2 hypoglycemia-resolved #Leukocytosis #Rule out CVA #Hx COPD #History of insulin dependent type 2 diabetes #Hx BPH #Hx HTN The patient's management plan was discussed with my attending physician Dr. Pereira. Sandra Olvera MD, PGY-1 Time Spent with Patient Time attestation: Total time spent providing and/or coordinating discharge services: Time spent: Greater than 30 minutes Exam Vital Signs Temp Pulse Resp BP Pulse Ox O2 Del Method O2 Flow Rate 97.8 F 90 16 101/58 L 95 Room Air 2 09/25/24 16:00 09/25/24 16:00 09/25/24 16:00 09/25/24 16:00 09/25/24 16:00 09/25/24 16:00 09/24/24 12:53 Narrative Exam General: elderly male, sleeping, opens eye spontaneously HEENT: NCAT, No JVD noted. Mucosa moist. Missing few teeth. Pupils are equal and reactive to light bilaterally Cardiovascular: Normal S1 and S2. Regular rate and rhythm. Respiratory: Lungs are clear to auscultation bilaterally. No wheezing or crackles heard. Abdomen: Soft, nontender, not distended, normal bowel sounds. Skin: Warm to touch, dry, no rashes noted, diffuse purpura Musculoskeletal: No gross injuries. No pitting edema Neuro: GCS10 Discharge Plan Plan Patient Disposition: HOME (Self Care) Patient condition on transfer: Stable Prescriptions/Referrals Prescriptions/Med Rec: New (DME) pen needle, diabetic 29 gauge x 1/2 needle See Rx Instructions .Route Qty: 100 3RF Rx Instructions: As directed Baqsimi 3 mg/actuation spray,non-aerosol 3 mg intranasal PRN PRN (Reason: for low blood sugars) Qty: 1 0RF (DME) FreeStyle Lavinia 3 [place] Misc See Rx Instructions .Route Qty: 1 0RF Rx Instructions: As directed (DME) FreeStyle Lavinia 3 Sensor Device See Rx Instructions .Route Qty: 1 0RF Rx Instructions: As directed insulin glargine [Lantus Solostar U-100 Insulin] 100 unit/mL (3 mL) insulin pen 30 unit subcut QAM Qty: 2 0RF Continued escitalopram oxalate 10 mg Tablet 10 mg PO QDAY amlodipine 5 mg Tablet 5 mg PO QDAY atorvastatin 40 mg Tablet 40 mg PO QPM tamsulosin 0.4 mg Capsule 0.4 mg PO QDAY albuterol sulfate [Ventolin HFA] 90 mcg/actuation HFA aerosol inhaler 2 inh inhalation QID PRN (Reason: shortness of breath or wheezing) prednisone 10 mg tablet 10 mg PO QDAY albuterol sulfate 5 mg/mL solution for nebulization 5 mg inhalation TID Discontinued insulin glargine [Lantus Solostar U-100 Insulin] 100 unit/mL (3 mL) insulin pen 50 unit SUBCUT QAM Patient Comments: Per family pt taking 60 units Referrals: Jeremy Clinton MD [Primary Care Provider] - Patient/Caregiver Discharge Instructions Other Discharge Activity Instructions:: Stop taking 50 units insulin. Start taking 30 units glargine every morning and check sugars. Inhale 1 puff Bagsimi in each nostril if sugars are low (severe hypoglycemia) Continue previous home medications. Follow up with PCP within 1 week. Patient may benefit from starting metformin for his diabetes (A1c 8.5) Return to ED if symptoms return. Education Materials: Hypoglycemia (Low Blood Sugar), Glucose Check Steps Print Language: Nepali Stand Alone Forms: Brinda Award Info., Patient Portal Info Letter Discharge Order Discharge Orders: Discharge (Routine); Ordered 09/25/24 Ordered By: Viky Mendes Quality Discharge Quality Measures VTE prophylaxis MD Attestestation MD Attestation I have discussed and was present for the essential components of the discharge history, physical examination, diagnosis, and discharge treatment plan with the resident. I agree with the patient's discharge care as documented by the resident and amended herein by me. Reed Pereira DO. The patient/daughter understood all discharge instructions, all questions were answered satisfactorily. The patient/daughter was instructed to return to the Emergency Department is symptoms worsened or persisted. Patient was back to his baseline at discharge, blood sugar well-controlled, cultures negative. Instructed family to bring the patient back to the emergency department for persistent or worsening symptoms. We did reduce the patient's Lantus to 30 units daily from his normal 55 however he will need close follow-up with PCP within 1 week for further monitoring and adjustment. The family understood, all questions answered satisfactorily. Patient was stable, afebrile and tolerating p.o. intake at time of discharge. Although this document has been carefully reviewed, there may still be some phonetic and other typographical errors. These errors are purely grammatical due to imperfections in the software program and should not be construed in any way to compromise the substance of the patient's medical care during this visit.
[2024-09-25] MEDS: ACETAMINOPHEN 325 MG TABLET 650 MG PO (19:39)
[2024-09-25] MEDS: ATORVASTATIN CALCIUM 20 MG TABLET 40 MG PO (20:14)
--- NOTE | 2024-09-25 21:39 | PC.NURSE ---
pt resting on bed with eyes open, no acute distress. pt alert to self. pt had multiple attempts trying to get out of bed, redirected but poor outcome. Wasiq notified and seen pt.. 1:1 customer trainer sitter placed in room.
[2024-09-26] VITALS (7 sets, daily range): BP systolic 127–158; BP diastolic 70–86; PULSE 76–93; RESP 15–97; TEMP 36.2–36.6; O2SAT 94–97; BMI 26.2
[2024-09-26 05:40] LABS: Basophils # (Auto) 0.2 Thou/mm3 (0.0-0.2); Basophils % (Auto) 1 % (0-2.5); Eosinophils # (Auto) 0.1 Thou/mm3 (0.0-0.5); Eosinophils % (Auto) 1 % (0-10); Hemoglobin 12.8 g/dL (13.5-16.0); Immature Granulocytes % (Auto) 0 % (0-0); Immature Granulocytes Auto 0.03 Thou/mm3 (0.00-0.00); Lymphocytes % (Auto) 16 % (10-50); Mean Corpuscular HGB Conc 34.6 g/dl (31.0-37.0); Mean Corpuscular Volume 90 fL (80-100); Monocytes # (Auto) 1.7 Thou/mm3 (0.0-0.8); Monocytes % (Auto) 13 % (0-12); Neutrophils # (Auto) 8.7 Thou/mm3 (1.8-7.7); Neutrophils % (Auto) 69 % (37-80); Nucleated Red Blood Cell % 0 /100 WBC (0); Platelet Count 249 Thou/mm3 (140-440); RDW Standard Deviation 39.8 fL (35.1-43.9); Red Blood Count 4.13 Miln/mm3 (4.50-5.90); White Blood Count 12.6 Thou/mm3 (3.8-10.6)
[2024-09-26 06:15] LABS: Alanine Aminotransferase 20 U/L (10-49); Albumin, Serum 3.2 gm/dL (3.4-4.8); Albumin/Globulin Ratio 1.2 (1.2-2.2); Alkaline Phosphatase 82 U/L (46-116); Anion Gap 5 (7-16); Aspartate Amino Transferase 21 U/L (0-34); BUN/Creatinine Ratio 22 Ratio (12-20); Bilirubin,Total 0.8 mg/dL (0.3-1.2); Blood Urea Nitrogen 22 mg/dL (9-23); Calcium 8.8 mg/dL (8.3-10.6); Calcium (Corrected) 9.4 mg/dL (8.5-10.1); Carbon Dioxide 30.6 mMol/L (20.0-31.0); Chloride 106 mMol/L (98-107); Estimated Creatinine Clearance 53.4 mL/min (>60); Globulin 2.6 gm/dL (2.3-3.5); Glucose 127 mg/dL (74-106); Osmolality,Calculated 288 (275-295); Potassium 3.6 mMol/L (3.4-5.1); Sodium 142 mMol/L (136-145); Total Protein 5.8 gm/dL (5.7-8.2); eGFR > 60 See Note
[2024-09-26] MEDS: ESCITALOPRAM OXALATE 10 MG TABLET PO (09:40)
[2024-09-26] MEDS: ENOXAPARIN SOD INJ 40 MG/0.4 ML SYRINGE SC (09:40)
[2024-09-26] MEDS: amLODIPine BESYLATE 5 MG TABLET PO (09:40)
[2024-09-26] MEDS: ASPIRIN EC 81 MG TABEC PO (09:40)
[2024-09-26] MEDS: TAMSULOSIN HCL 0.4 MG CAPSULE PO (09:40)
--- NOTE | 2024-09-26 10:59 | PD.RESPRO ---
Documentation for date of: 09/25/24 Subjective Subjective Interval history: Patient seen and examined at bedside. Back to baseline. He is able to follow basic commands and answers yes/no questions. He was to be discharged yesterday, but patient remained overnight. Family will pick him up today. Exam Vital Signs Temp Pulse Resp BP Pulse Ox O2 Del Method O2 Flow Rate 97.1 F 76 15 158/83 H 96 Room Air 2 09/26/24 08:00 09/26/24 09:40 09/26/24 08:00 09/26/24 09:40 09/26/24 08:00 09/26/24 08:00 09/24/24 12:53 Narrative Exam General: elderly male, awake, cheerful HEENT: NCAT, No JVD noted. Mucosa moist. Missing few teeth. Pupils are equal and reactive to light bilaterally Cardiovascular: Normal S1 and S2. Regular rate and rhythm. Respiratory: Lungs are clear to auscultation bilaterally. No wheezing or crackles heard. Abdomen: Soft, nontender, not distended, normal bowel sounds. Skin: Warm to touch, dry, no rashes noted, diffuse purpura Musculoskeletal: No gross injuries. No pitting edema Neuro: GCS10 Objective Labs 09/26/24 05:20 09/26/24 05:20 Labs: Laboratory Results - last 24 hr 09/26/24 05:20 WBC 12.6 H RBC 4.13 L Hgb 12.8 L Hct 37.0 L MCV 90 MCH 31.0 MCHC 34.6 RDW Std Deviation 39.8 Plt Count 249 Neut % (Auto) 69 Lymph % (Auto) 16 [place] % (Auto) 13 H Eos % (Auto) 1 Baso % (Auto) 1 Neut # (Auto) 8.7 H Lymph # (Auto) 2.0 [place] # (Auto) 1.7 H Eos # (Auto) 0.1 Baso # (Auto) 0.2 Immature Gran # (Auto) 0.03 H Absolute Nucleated RBC 0.00 Immature Gran % 0 Nucleated RBC % 0 Sodium 142 Potassium 3.6 D Chloride 106 Carbon Dioxide 30.6 Anion Gap 5 L BUN 22 Creatinine 1.0 Estim Creat Clear Calc 53.4 L eGFR > 60 BUN/Creatinine Ratio 22 H Glucose 127 H Calculated Osmolality 288 Calcium 8.8 Corrected Calcium 9.4 Total Bilirubin 0.8 AST 21 ALT 20 Alkaline Phosphatase 82 Total Protein 5.8 Albumin 3.2 L Globulin 2.6 Albumin/Globulin Ratio 1.2 Quality Measures Quality Measures VTE prophylaxis Advance care planning discussed with:: child Assessment & Plan Assessment Current Active Medications: Generic Name Dose Route Start Last Admin Trade Name Freq PRN Reason Stop Dose Admin Acetaminophen 650 mg 09/24/24 17:41 09/25/24 19:39 Acetaminophen 325 Mg Tablet PO 10/24/24 17:40 650 mg Q6H PRN Administration Fever >100.3 or pain 1-3 Albuterol/Ipratropium 3 ml 09/24/24 19:12 Albuterol/Ipratropium (Duoneb) Rt Deepali 3 Ml Nebu INH 10/25/24 00:59 Q6HRRT PRN COPD Amlodipine Besylate 5 mg 09/25/24 11:45 09/26/24 09:40 Amlodipine Besylate 5 Mg Tablet PO 10/25/24 11:44 5 mg QDAY MERLY Administration Aspirin 81 mg 09/24/24 19:05 09/26/24 09:40 Aspirin Ec 81 Mg Tabec PO 10/24/24 19:04 81 mg DAILY MERLY Administration Atorvastatin Calcium 40 mg 09/25/24 21:00 09/25/24 20:14 Atorvastatin Calcium 20 Mg Tablet PO 10/25/24 20:59 40 mg QPM MERLY Administration Dextrose 25 ml 09/24/24 17:46 Dextrose 50%-Water Inj 50 Ml Syringe IV 10/24/24 17:45 Q15MIN PRN BG 50-70 responsive npo pt Dextrose 50 ml 09/24/24 17:46 Dextrose 50%-Water Inj 50 Ml Syringe IV 10/24/24 17:45 Q15MIN PRN BG <50 OR BG <70 & pt unresponsive Enoxaparin Sodium 40 mg 09/24/24 17:45 09/26/24 09:40 Enoxaparin Sod Inj 40 Mg/0.4 Ml Syringe SC 10/08/24 17:44 40 mg QDAY MERLY Administration Escitalopram Oxalate 10 mg 09/25/24 09:00 09/26/24 09:40 Escitalopram Oxalate 10 Mg Tablet PO 10/25/24 08:59 10 mg QDAY MERLY Administration Ondansetron HCl 4 mg 09/24/24 12:20 Ondansetron Inj 2 Mg/Ml Inj 2 Ml IV 10/24/24 12:19 Q4HR PRN NAUSEA OR VOMITING Prednisone 10 mg 09/26/24 11:45 Prednisone 5 Mg Tablet PO 10/26/24 11:44 QDAY MERLY Sennosides 1 tab 09/24/24 17:41 Senna Tablet PO 10/24/24 17:40 QDAY PRN constipation Protocol Tamsulosin HCl 0.4 mg 09/25/24 09:00 09/26/24 09:40 Tamsulosin Hcl 0.4 Mg Capsule PO 10/25/24 08:59 0.4 mg QDAY [facility] Administration Plan #Hypoglycemia-resolved DDx: Overuse exogenouse insulin, insulinoma, infection, medication side effect, hepatic dysfunction Most likely due to overuse of insulin in this patient. Family was contacted and said that last insulin administration was yesterday morning. Typically takes 55 units of Lantus. Daughter Chyna, assist patient with medication. And route to ED sugars were 32 with improvement to 160 after 250 mL of D10. On physical exam at bedside blood sugars dropped again to 24 and improved to 160s with D10 push. Patient is still altered however has normal response and opens eyes to name when sugars improved. ?Glucose checks every 6 hours ? Watch sugars and adjust drip for goal of 180?200 #Acute encephalopathy 2/2 hypoglycemia-resolved Refer above. #Leukocytosis-improved DDx: Chronic steroid use, infection however source is unclear, physiologic stress WBC 15.2. -daily CBC -Follow-up urine culture and blood culture #Rule out CVA Due to altered status teleneuro was consulted after stroke alert. Low suspicion of acute stroke, NIHSS score 17. CT head negative for hemorrhage or mass effect. CTA head/neck neck negative for stenosis/LVO. ?aspirin 81 mg daily ?Physical therapy/speech pathology referral pending ? N.p.o. until patient passes bedside swallow screen ? Head of bed elevation 30 degrees ? Continue permissive hypertension for 24 hours as per neurorecommendations ? 10 mg IV labetalol every 4 hours as needed if BP 220/120 ?Lipid panel pending #Hx COPD Patient does not appear to be in COPD exacerbation. Sickle exam clear to wheezing. Per daughter, he uses 4 L O2 at night and steroids which seems to be the only course of treatment adequately controls the exacerbations. -Prednisone 10 mg daily -However as patient is altered and currently n.p.o., will resume IV Solu-Medrol 40 mg daily -resume albuterol -Follow-up chest x-ray -Resume 4 L O2 at bedtime -Goal O2 saturation 88-92% #History of insulin dependent type 2 diabetes On admission initial glucose 32. Last A1c 9.9 on 08/02/22. Patient takes 55 until glargine for diabetes at home. -Held home medications -Bedside blood glucose checks q6hr -Insulin lispro sliding scale -Carb consistent low diet -Diabetes education -d/c with 30 untils glargine #Hx BPH Per daughter, patient is wheelchair-bound and needs assistance with using bathroom as he is wheelchair-bound. Has history of frequent UTIs. Wears diaper. UA negative for UTI ? Resume home medication tamsulosin 0.4 mg daily #Hx HTN -amlodipine 5 mg daily Health maintenance: Dispo: d/c order placed yesterday. Will leave today DVT prophylaxis: Lovenox 40 daily CODE STATUS: Full code The patient's management plan was discussed with my attending physician Dr. Pereira. Sandra Olvera, PGY-1 Attending Provider Attestation/Addendum I have discussed and was present for the essential components of the history, physical examination, diagnosis, and treatment plan with the resident. I agree with the patient's care as documented by the resident and amended herein by me. Reed Pereira DO. Although this document has been carefully reviewed, there may still be some phonetic and other typographical errors. These errors are purely grammatical due to imperfections in the software program and should not be construed in any way to compromise the substance of the patient's medical care during this visit.
[2024-09-26] MEDS: predniSONE 5 MG TABLET 10 MG PO (11:33)
== END 2024-09-26 16:08 | disposition home or self-care (01) | DRG 638 ==
LOC: SERX 18:15 → SERHOLD 18:17 → S2NX 23:33
PROVIDERS: Admitting Provider Student in an Organized Health Care Education/Training Program; Emergency Provider Emergency Medicine; PCP Family Medicine; Visit Provider Student in an Organized Health Care Education/Training Program
DX: E11.649 Type 2 diabetes mellitus with hypoglycemia without coma (principal); G93.49 Other encephalopathy; J44.9 Chronic obstructive pulmonary disease, unspecified; I69.320 Aphasia following cerebral infarction; I10 Essential (primary) hypertension; N40.0 Benign prostatic hyperplasia without lower urinary tract symptoms; D72.829 Elevated white blood cell count, unspecified; E78.5 Hyperlipidemia, unspecified; Z87.440 Personal history of urinary (tract) infections; Z99.81 Dependence on supplemental oxygen; Z79.4 Long term (current) use of insulin; F03.90 Unspecified dementia, unspecified severity, without behavioral disturbance, psychotic disturbance, mood disturbance, and anxiety
CPT/HCPCS: 36415; 70450; 70496; 70498; 71045; 80053; 80061; 80307; 81001; 83036; 83605; 83735; 83880; 84100; 84145; 84443; 84484; 85025; 85610; 85730; 87040; 87086; 92610; 93005; 96372; 99285; A4649; J1650; J2919; J7512; Q9967; A9270

== ENCOUNTER 2024-11-04 05:25 | Inpatient (IN) | payer MEDICARE, MEDICAID, SELFPAY ==
[2024-11-04] VITALS (57 sets, daily range): BP systolic 79–132; BP diastolic 52–83; PULSE 93–116; RESP 13–97; TEMP 36.1–36.6; O2SAT 92–100
--- NOTE | 2024-11-04 05:41 | PD.EDAMS ---
Altered Mental Status RME/HPI General Chief Complaint: Altered Mental Status Stated Complaint: ALOC Time Seen by Provider: 11/04/24 05:40 Arrival date/time: 11/04/24 05:25 RME / HPI RME / HPI narrative: This section includes all my notes and documentations, including HPI, PE, and ED course. Aaron Tovar MD HPI: 74-year-old male here to be evaluated for AMS. Family not present. According to EMS, he was his normal self the day before yesterday. According to EMS, the house is filthy with clothes and objects and feces everywhere. Hyperglycemia noted. Patient is oxygen dependent. Patient can't give us any history. ROS: Unable to obtain from the patient due to current clinical condition. Physical Exam: General: Opens eyes to verbal stimulus. Localizes to pain. Does not follow commands. Only moans and groans. Possibly in pain. No respiratory distress noted. Eyes: Conjunctivae and lids clear. PERRL. EOMI. ENT: No nasal congestion. No signs of head trauma. Neck: Supple. Heart: Sinus tachycardia noted. Lungs: No respiratory distress. Moderately decreased air movement with bilateral rails. Abdomen: Soft with equivocal tenderness. Skin: Warm and dry. Scattered sores, varying in size and shape and age. Feet and hands edematous. Neuro: Cranial nerves II to XII grossly normal. No obvious peripheral motor deficits. I ordered diagnostic tests. At 6 AM, the care of the patient was transferred to Dr aRmirez. Aaron Tovar MD Related Data Home Medications ?Medication ?Instructions ?Recorded ?Confirmed atorvastatin 40 mg tablet 40 mg PO QPM 11/04/19 09/24/24 tamsulosin 0.4 mg capsule 0.4 mg PO QDAY 10/11/20 09/24/24 escitalopram oxalate 10 mg tablet 10 mg PO QDAY 12/15/20 09/24/24 amlodipine 5 mg tablet 5 mg PO QDAY 05/31/21 09/24/24 albuterol sulfate 90 mcg/actuation 2 inh inhalation QID PRN shortness 06/25/22 09/24/24 aerosol inhaler (Ventolin HFA) of breath or wheezing prednisone 10 mg tablet 10 mg PO QDAY 08/02/22 09/24/24 albuterol sulfate 5 mg/mL(0.5 %) 5 mg inhalation TID 09/24/24 09/24/24 solution for nebulization Previous Rx's ?Medication ?Instructions ?Recorded blood-glucose meter,continuous #1 ea 09/25/24 (FreeStyle Lavinia 3 [place]) blood-glucose sensor (FreeStyle #1 ea 09/25/24 Lavinia 3 Sensor device) glucagon 3 mg/actuation nasal 3 mg intranasal PRN PRN for low 09/25/24 spray (Baqsimi) blood sugars #1 ea pen needle, diabetic 29 gauge x #100 ea 09/25/24 1/2 insulin glargine 100 unit/mL (3 30 unit (0.3 mL) subcut QAM Type 09/26/24 mL) subcutaneous pen (Lantus II Diabetes #2 mL Solostar U-100 Insulin) Allergies Allergy/AdvReac Type Severity Reaction Status Date / Time silicone Allergy Severe Fever Verified 08/01/22 15:46 tuberculin,PPD,multi-puncture Allergy Verified 08/01/22 15:46 Course Quality Measures none Orders Category Date Time Status Bedside COVID-19 Antigen Test NOW Care 11/04/24 05:40 Active Bedside Influenza A&B Antigen Test NOW Care 11/04/24 05:40 Active Nu[place]ez to [place] Routine Care 11/04/24 05:40 Ordered Saline [Insert IV] NOW Care 11/04/24 05:40 Active Vital Signs Vital signs: Vital Signs Temperature 97.9 F 11/04/24 05:29 Pulse Rate 103 H 11/04/24 05:29 Respiratory Rate 17 11/04/24 05:29 Blood Pressure 96/59 L 11/04/24 05:29 Pulse Oximetry (%) 92 L 11/04/24 05:29 Oxygen Delivery Method Room Air 11/04/24 05:29 Altered Mental Status Patient data External records reviewed:: [facility] previous records and EMS form Clinical information provided by:: EMS Social determinants that could affect healthcare access:: other (specify) (Unknown) Patient has the following chronic illnesses:: DM and COPD How is presenting disease/condition affected by chronic disease/condition?: exacerbated by Evaluation data The following diagnostics were reviewed and interpreted by me:: other (specify) (Diagnostics ordered.) Lab and/or radiology exams considered but not ordered:: None Interpretation Summary: Diagnostics ordered. Medications / Prescriptions Medications or Prescriptions considered but not ordered:: None Medication administrations:: IV fluid and insulin. Consultations Consultation(s) initiated? (list below): No Diagnosis Differential diagnosis altered mental status: alcoholic intoxication, altered mental status, delirium, dementia, hypoglycemia, hyponatremia, subarachnoid hemorrhage and sepsis Most likely diagnosis given after review of the tests above:: Pending diagnostics. Admission Indicated Admission indicated?: not indicated Explain why admission is indicated or not indicated:: Pending diagnostics. Admission Request Was there a request for admission?: No Disposition Plan Disposition Plan: other (specify) (Care of the patient was transferred to the next shift physician.) Discharge Plan Prescriptions/Referrals Prescriptions/Med Rec: No Action escitalopram oxalate 10 mg Tablet 10 mg PO QDAY amlodipine 5 mg Tablet 5 mg PO QDAY atorvastatin 40 mg Tablet 40 mg PO QPM tamsulosin 0.4 mg Capsule 0.4 mg PO QDAY albuterol sulfate [Ventolin HFA] 90 mcg/actuation HFA aerosol inhaler 2 inh inhalation QID PRN (Reason: shortness of breath or wheezing) prednisone 10 mg tablet 10 mg PO QDAY albuterol sulfate 5 mg/mL solution for nebulization 5 mg inhalation TID (DME) pen needle, diabetic 29 gauge x 1/2 needle See Rx Instructions .Route Qty: 100 3RF Rx Instructions: As directed Baqsimi 3 mg/actuation spray,non-aerosol 3 mg intranasal PRN PRN (Reason: for low blood sugars) Qty: 1 0RF (DME) FreeStyle Lavinia 3 [place] Misc See Rx Instructions .Route Qty: 1 0RF Rx Instructions: As directed (DME) FreeStyle Lavinia 3 Sensor Device See Rx Instructions .Route Qty: 1 0RF Rx Instructions: As directed insulin glargine [Lantus Solostar U-100 Insulin] 100 unit/mL (3 mL) insulin pen 30 unit subcut QAM Qty: 2 0RF Problem List Clinical Impression: AMS (altered mental status) Patient/Caregiver Discharge Instructions Print Language: Bulgarian
--- NOTE | 2024-11-04 05:48 | XR_ITS ---
Examination: CT chest, without intravenous contrast. CT abdomen, without intravenous contrast. CT pelvis, without intravenous contrast. 2-D sagittal and coronal reconstructions. 3-D reconstructions. Date and time of exam:November 04, 2024 at 0827 hours Comparison August 02, 2022 INDICATIONS: Onset altered mental status chest pain shortness of breath abdominal pain today CTDI vol (mgy) 12.1 DLP ([id number] Technique: Multiple CT images, 3.0 mm slice thickness, obtained chest, abdomen, pelvis, with the high-resolution 64 slice scanner.. Sagittal and coronal 2-D reconstructions are obtained. 3-D reconstructions Low dose protocols were performed. One or more of the following dose reduction techniques were used; automated exposure control, adjustment of the mA and/or KV according to patient size, use of iterative reconstruction technique. Findings: Thoracic aortic calcification no aneurysmal dilatation Pulmonary artery segments are not enlarged Moderate calcification left anterior descending coronary artery. No mediastinal lymphadenopathy 7 mm pulmonary nodule right upper lobe image 68 Mild pneumonia right base No visualized liver or splenic lesion No pancreatic or adrenal mass No renal or ureteral calculi, no hydronephrosis Mildly fluid distended small bowel loops in the anterior abdomen No pericecal inflammatory change No diverticulitis Normal seminal vesicles Transverse prostate dimension 4.1 cm Urinary bladder is contracted around a Nuñez catheter urinary bladder wall thickening Severe osteopenia, chronic osteoporotic compression L3 Mild diffuse rectal wall thickening IMPRESSION: 7 mm pulmonary nodule right upper lobe Mild pneumonia right base Mildly fluid distended small bowel loops in the anterior abdomen, differential would include ileus, enteritis, clinical correlation advised Diffuse thickening of urinary bladder wall, differential would include cystitis, recommend urinary bladder sonography follow-up Mild diffuse rectal wall thickening, differential would include proctitis
--- NOTE | 2024-11-04 05:48 | XR_ITS ---
Examination: AP chest single view Technique one AP portable semiupright chest single view Exam date and time: November 04 2024 at 0559 hours Comparison September 24, 2024 INDICATIONS: Shortness of breath loss of consciousness today FINDINGS: Normal heart size. No aspiration pneumonia. The osseous structures are intact IMPRESSION: No aspiration pneumonia
--- NOTE | 2024-11-04 05:48 | XR_ITS ---
Examination: CT brain head without contrast. 2-D sagittal coronal reconstructions Date and time of exam:November 04, 2024 0823 hours Comparison September 24, 2024 INDICATIONS: Altered mental status today CTDI: vol (mGy):52.4 DLP: (mGycm):1114 Technique: Multiple CT axial sections of the brain have been obtained, 5 mm slice thickness. Contrast has not been administered. 2-D sagittal, coronal reconstructions have been obtained Low dose protocols were performed. One or more of the following dose reduction techniques were used; automated exposure control, adjustment of the mA and/or KV according to patient size, use of iterative reconstruction technique. Findings: Left frontal parietal craniotomy defect again noted Stable ventricular enlargement particularly left lateral ventricular system with encephalomalacia in the left cerebral hemisphere Extensive chronic microvascular white matter change No interval acute hemorrhage or mass effect IMPRESSION: No interval acute hemorrhage. Chronic changes as above
--- NOTE | 2024-11-04 05:48 | EKG_ITS ---
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
[2024-11-04] MEDS: SODIUM CHLORIDE 0.9% 1000 ML 1,000 ML 999 ML IV (05:54)
--- NOTE | 2024-11-04 05:54 | PD.EDADDENDU ---
Emergency Room Addendum Addendum Narrative: 0600: Care assumed from Dr. Tovar, the previous shift emergency physician. Past medical, surgical, social and family history reviewed. Vitals and home medications reviewed. I will assume the care of the patient at this time. Please refer to the emergency department record for history and examination from initial visit.? Physical exam by me shows patient under no acute distress at this time.
[2024-11-04 06:01] LABS: Collection Type, Urine Clean Catch; Lactate (Lactic Acid) 2.2 mMol/L (0.4-2.0)
[2024-11-04] MEDS: INSULIN HUM REGULAR 1 UNIT/0.01 ML (PER UNIT) 10 UNIT IV (06:01)
[2024-11-04 06:07] LABS: Base Excess -3 (-3-3); HCO3 22 mEq/L (20-26); Inspired O2, VO2 Liters 3 L/min; O2 Saturation 93 % (91-98); PCO2 39 mmHg (32.0-48.0); PO2 78 mmHg (83-108); pH, Arterial 7.37 (7.35-7.45)
[2024-11-04 06:08] LABS: Allen Test Performed/OK; Puncture Site Left Radial
--- NOTE | 2024-11-04 06:08 | PD.EDADDENDU ---
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 Tovar. Patient is a 74 years old male with PMH of CVA, brain tumor at s/p left frontal craniotomy, expressive aphasia due to dementia, hypertension, insulin-dependent diabetes, COPD on 4 L O2, BPH presented to the ED by ambulance due to AMS. His blood sugar was high. EMS reported poor living conditions. Patient was admitted due to hypoglycemia 1 month ago due to hypoglycemia and his insulin was readjusted. Patient appears confused and reports no complaints responding only okay to all questions. Gen: Well-developed elderly male. HEENT: NCAT, PERRLA, EOMI, dry mucus membranes, anicteric conjunctivae, poor dentition. CVS: normal S1 and S2. Regular tachycardia. No M/R/G. Resp: decreased B/L bases. No rhonchi, rales, crackles or wheezing. Abd: soft, suprapubic tenderness noted, non-distended. BS+ in all 4 quadrants. MSK: Good ROM in BUE & BLE. No edema. B/L feet are hyperemic but non-tender to touch. Multiple wounds over BLE. Neuro: CN II-XII grossly intact. Strength 5/5 in BUE & BLE. Alert and oriented x0. Work up: FS glucose 320, ABG pH 7.37, pCO2 39, pO2 78. EKG showed sinus tachycardia and non-specific ST changes. Labs showed Na 165 (corrected for hyperglycemia 169), Cl 127, Cr 5, eGFR 11, glucose 372, A1C 11%, lactic acid 2.2, PO4 6.2, CR 194. Free water deficit 6L. UA showed WBC 25, bacteria 1+, positive LE. CXR unremarkable. 0830: nephrology consulted, patient started on D5W 90cc/hr and bolus of 1L LR given. 0845: ICU team consulted for admission. Critical care time: 35 min excluding billable procedures. Plan of care discussed with attending Dr. Ramirez. James Akhtar MD, PGY 2. Disclaimer: This note was dictated by speech recognition. 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
[2024-11-04 06:24] LABS: INR 1.1 (0.9-1.3); Partial Thromboplastin Time 27.7 Seconds (22.0-36.0); Prothrombin Time 11.7 Seconds (9.0-12.2)
[2024-11-04 06:26] LABS: D-Dimer 3150 ng/mL (<600)
[2024-11-04 06:28] LABS: Basophils # (Auto) 0.1 Thou/mm3 (0.0-0.2); Basophils % (Auto) 0 % (0-2.5); Eosinophils % (Auto) 0 % (0-10); Hematocrit 46.1 % (41.0-53.0); Hemoglobin 15.4 g/dL (13.5-16.0); Immature Granulocytes % (Auto) 1 % (0-0); Immature Granulocytes Auto 0.11 Thou/mm3 (0.00-0.00); Lymphocytes # (Auto) 0.7 Thou/mm3 (1.0-4.8); Lymphocytes % (Auto) 3 % (10-50); Mean Corpuscular HGB Conc 33.4 g/dl (31.0-37.0); Mean Corpuscular Hemoglobin 30.5 pg (25.0-35.0); Mean Corpuscular Volume 91 fL (80-100); Monocytes % (Auto) 4 % (0-12); Neutrophils # (Auto) 22.2 Thou/mm3 (1.8-7.7); Neutrophils % (Auto) 92 % (37-80); Nucleated Red Blood Cell % 0 /100 WBC (0); Platelet Count 143 Thou/mm3 (140-440); RDW Standard Deviation 45.5 fL (35.1-43.9); Red Blood Count 5.05 Miln/mm3 (4.50-5.90); White Blood Count 24.1 Thou/mm3 (3.8-10.6)
[2024-11-04 06:33] LABS: Amphetamine/Methamp Scrn,U Negative (Negative); Barbiturate Screen,Urine Negative (Negative); Benzodiazepines Screen,Urine Negative (Negative); Benzoylecgonine Screen, Ur Negative (Negative); Fentanyl Screen,Urine Negative (Negative); Opiate Screen,Urine Negative (Negative); THC Screen,Urine Negative (Negative)
[2024-11-04 06:42] LABS: Ammonia 23 uMol/L (11-32)
[2024-11-04 07:19] LABS: Glucose Estimated Average 269 mg/dL (80-131)
[2024-11-04 07:24] LABS: B-Type Natriuretic Peptide 20 pg/mL (0-100)
[2024-11-04 07:37] LABS: Amorphous Crystals,Urine Present (Absent); Bacteria,Urine 1+; Bilirubin,Urine Negative (Negative); Blood,Urine Trace (Negative); Color,Urine Yellow (Lt Yel-Yel); Glucose, Urine 3+ (Negative); Hyaline Casts,Urine 1 /hpf (0-1); Ketones,Urine Negative (Negative); Leukocyte Esterase,Urine Positive (Negative); Nitrite,Urine Negative (Negative); PH,Urine 5.5 (5.0-7.0); Protein,Urine 2+ (Neg - Trace); RBC,Urine 1 /hpf (0-3); Specific Gravity,Urine 1.021 (1.001-1.035); Squamous Epithelial Cell,Urine 8 /hpf (0-5); Urobilinogen,Urine Negative mg/dL (0.0-1.0); WBC,Urine 25 /hpf (0-5)
[2024-11-04 07:50] LABS: Acetaminophen < 2.0 mcg/mL (10.0-20.0); Alanine Aminotransferase 45 U/L (10-49); Albumin, Serum 3.3 gm/dL (3.4-4.8); Albumin/Globulin Ratio 1.1 (1.2-2.2); Alcohol, Blood Medical < 3.0 mg/dL (0-10.0); Alkaline Phosphatase 155 U/L (46-116); Amylase < 20 U/L (30-118); Anion Gap 16 (7-16); Aspartate Amino Transferase 24 U/L (0-34); Bilirubin,Direct 0.1 mg/dL (0.0-0.3); Bilirubin,Total 0.5 mg/dL (0.3-1.2); C-Reactive Protein > 10.0 mg/dL (0.0-0.9); Calcium 8.3 mg/dL (8.3-10.6); Calcium (Corrected) 8.9 mg/dL (8.5-10.1); Carbon Dioxide 21.8 mMol/L (20.0-31.0); Chloride 127 mMol/L (98-107); Creatine Kinase 194 U/L (34-171); Glucose 372 mg/dL (74-106); Lipase 21 U/L (12-53); Magnesium 2.2 mg/dL (1.6-2.6); Phosphorous 6.2 mg/dL (2.4-5.1); Potassium 4.7 mMol/L (3.4-5.1); Salicylate < 3.0 mg/dL; Total Protein 6.3 gm/dL (5.7-8.2); eGFR 11 See Note
[2024-11-04 08:01] LABS: Sodium 165 mMol/L (136-145)
[2024-11-04 08:15] LABS: Clarity,Urine Cloudy (Clear/Hazy); Culture Indicated,Urine Yes
[2024-11-04 08:16] LABS: Sperm,Urine Present
[2024-11-04 08:23] LABS: BUN/Creatinine Ratio 24 Ratio (12-20); Osmolality,Calculated 379 (275-295)
--- NOTE | 2024-11-04 08:29 | XR_ITS ---
Examination: Retroperitoneal ultrasound, complete Technique: Multiple high resolution grayscale images of the retroperitoneum obtained, including kidneys and bladder. Exam date and time:November 04, 2024 1143 hours INDICATIONS: Acute renal insufficiency on laboratory examination today. FINDINGS: Right kidney 10.6 cm cortex 1.6 cm 8mm lower pole calculus Left kidney 9.1 cm renal cortex 1.5 cm Small left renal cyst, lower pole 15 mm upper pole 16 mm midpole 10 mm Moderate bilateral renal parenchymal scar formation Contracted urinary bladder No prostatomegaly IMPRESSION: Bilateral renal cortical thinning 8mm nonobstructing right renal calculus
[2024-11-04] MEDS: RINGERS LACTATED 1000 ML 1,000 ML 999 ML IV (08:49)
[2024-11-04 08:58] LABS: Reflex Lactate? Y
[2024-11-04 09:12] LABS: Sed Rate (ESR) 24 mm/hr (0-20)
[2024-11-04 09:15] LABS: Procalcitonin 1.03 ng/ml (0.0-0.49); Thyroid Stimulating Hormone 0.85 uIU/mL (0.55-4.78); Troponin I < 0.020 ng/mL (0.0-0.045)
[2024-11-04 09:24] LABS: Blood Urea Nitrogen 120 mg/dL (9-23)
[2024-11-04 09:26] LABS: Lactic Acid, 3 HR 1.8 mMol/L (0.4-2.0)
--- NOTE | 2024-11-04 09:47 | ESHP_ITS ---
<Statement entered by Colin Michele MD - 11/04/24 14:47> TOTAL CC TIME: 45 MIN I saw and evaluated the patient. I reviewed the resident?s note and agree with findings and plan as documented in the resident?s note. Upon my evaluation, this patient had a high probability of imminent or life- threatening deterioration due to severe hyponatremia acute kidney injury, likely prerenal, and sepsis from UTI which required my direct attention, intervention, and personal management. This time is exclusive of time spent on procedures, which are documented separately if performed. Continue with IV fluid, changed to lactated Ringer's, agree with D5W, follow-up with next sodium and adjust appropriately. Goal reduction in sodium is by 6 to 8 mEq over 24 hours. Monitor renal function carefully and avoid nephrotoxic agents. Continue antibiotics and follow-up all culture results Documentation for date of: 11/04/24 HPI History of Present Illness History of present illness: Patient is a 74 years old male with PMH of CVA, brain tumor at s/p left frontal craniotomy, expressive aphasia due to dementia, hypertension, insulin- dependent diabetes, COPD on 4 L O2, BPH presented to the ED by ambulance due to AMS. Blood sugar in 400s per EMS. EMS reported poor living conditions with patient found lying down covered in feces. Patient was admitted due to hypoglycemia 1 month ago due to hypoglycemia and his insulin was readjusted. Patient unable to answer questions and denies being in any pain or discomfort. Sodium in ED found to be 165, hyperglycemic in high 300s with corrected sodium at 169. Nephrology consulted by ED. Patient administered 10U insulin in ED and began correction for hypernatremia with 2L crystalloid and D5W. Review of Systems Review of Systems ROS Unobtainable: unobtainable due to mental status Past Medical History Past Medical History NEUROLOGIC: Positive Neurological Disorders (APHASIA), Cerebrovascular Accident, Transient Ischemic Attacks (TIA), Dementia and Brain Tumor CARDIAC: Positive Cardiac Disorders, Hypercholesterolemia and Hypertension RESPIRATORY: Positive Chronic Obstructive Pulmonary Disease (COPD) and Asthma GENITOURINARY: Positive Benign Prostatic Hyperplasia ENDOCRINE: Positive Endocrine Disorders and Diabetes Mellitus Type 2 Family History OTHER FAMILY HX: noncontributory Surgical History SURGICAL: Positive Neurologic Surgery Social History SMOKING STATUS: Unknown if ever smoked SECOND HAND EXPOSURE: No SUBSTANCE USE: does not use Exam Vital Signs Temp Pulse Resp BP Pulse Ox O2 Del Method O2 Flow Rate 97.9 F 103 H 18 91/56 L 98 Nasal Cannula 2 11/04/24 08:39 11/04/24 08:39 11/04/24 08:39 11/04/24 08:39 11/04/24 08:39 11/04/24 08:39 11/04/24 08:39 Constitutional Constitutional: no acute distress Routine HEENT Exam Head: Present atraumatic Eye: Present EOMI and PERRL ENT: Present mucous membranes dry Routine Neck Exam Neck: Present supple and trachea midline Routine Respiratory Exam Respiratory: Present chest non-tender, no resp distress and decreased breath sounds (in bases bilaterally) Routine Cardiovascular Exam Cardiovascular: Present RRR, S1 and S2 Routine Abdominal Exam Abdominal: Present soft; Absent tenderness or distended Routine Skin Exam Skin: Present intact and dry Routine Neurological Exam Neurological: Present altered mental status and moving all extremities; Absent sensory deficit, motor deficit or facial asymmetry Results: Labs 11/04/24 05:50 11/04/24 09:20 Labs: Short CBC 11/04/24 Range/Units 05:50 WBC 24.1 H (3.8-10.6) Thou/mm3 Hgb 15.4 (13.5-16.0) g/dL Hct 46.1 (41.0-53.0) % Plt Count 143 D (140-440) Thou/mm3 BMP 11/04/24 05:50 Sodium 165 H* Potassium 4.7 Chloride 127 H* Carbon Dioxide 21.8 BUN 120 H* Creatinine 5.0 H* Glucose 372 H Calcium 8.3 Cardiac Enzymes 11/04/24 Range/Units 05:50 Total Creatine Kinase 194 H (34-171) U/L Troponin I < 0.020 (0.0-0.045) ng/mL Liver Function 11/04/24 Range/Units 05:50 Total Bilirubin 0.5 (0.3-1.2) mg/dL Direct Bilirubin 0.1 (0.0-0.3) mg/dL AST 24 (0-34) U/L ALT 45 (10-49) U/L Alkaline Phosphatase 155 H (46-116) U/L Albumin 3.3 L (3.4-4.8) gm/dL Urine 11/04/24 Range/Units 05:50 Urine Color Yellow (Lt Yel-Yel) Urine Clarity Cloudy A (Clear/Hazy) Urine pH 5.5 (5.0-7.0) Ur Specific [place] 1.021 (1.001-1.035) Urine Protein 2+ A (Neg - Trace) Urine Glucose (UA) 3+ A (Negative) ABG Interpretation ABG results: 11/04/24 06:04 ABG pH 7.37 ABG pCO2 39 ABG pO2 78 L ABG HCO3 22 ABG O2 Saturation 93 ABG Base Excess -3 Quality Measures Quality Measures VTE prophylaxis Advance care planning discussed with:: child Medications Home Medications and Allergies Home Medications ?Medication ?Instructions ?Recorded ?Confirmed ?Type atorvastatin 40 mg tablet 40 mg PO QPM 11/04/19 History tamsulosin 0.4 mg capsule 0.4 mg PO QDAY 10/11/2009/12 History escitalopram oxalate 10 mg tablet 10 mg PO QDAY 09/24/24 History amlodipine 5 mg tablet 5 mg PO QDAY 05/31/21 History albuterol sulfate 90 mcg/actuation 2 inh inhalation QI D PRN shortness 06/25/22 09/24/24 History aerosol inhaler (Ventolin HFA) of breath or wheezing prednisone 10 mg tablet 10 mg PO QDAY 08/02/2209/24 History albuterol sulfate 5 mg/mL(0.5 %) 5 mg inhalation TID 0 09/24/24 09/24/24 History solution for nebulization Allergies Allergy/AdvReac Type Severity Reaction Status Date / Time silicone Allergy Severe Fever Verified 08/01/22 15:46 tuberculin,PPD,multi-puncture Allergy Verified 08/01/22 15:46 Visit Medications Acetaminophen (Acetaminophen 325 Mg Tablet) 650 mg PO Q6H PRN PRN Reason: Fever >101.5 Stop: 12/04/24 09:23 Dextrose (Dextrose 50%-Water Inj 50 Ml Syringe) 25 ml IV Q15MIN PRN PRN Reason: BG 50-70 responsive npo pt Stop: 12/04/24 09:26 Dextrose (Dextrose 50%-Water Inj 50 Ml Syringe) 50 ml IV Q15MIN PRN PRN Reason: BG <50 OR BG <70 & pt unresponsive Stop: 12/04/24 09:26 Glucagon (Glucagon Inj 1 Mg Vial) 1 mg IM Q15MIN PRN PRN Reason: BG <70, and no IV access Dextrose (D5w) 500 mls @ 90 mls/hr IV .Q5H34M [facility] Stop: 12/04/24 08:29 Insulin Human Lispro (Insulin Lispro (Admelog) 1 Unit/0.01 Ml Unit) 0 unit SC AC [facility]; Protocol Stop: 12/04/24 11:29 Ondansetron HCl (Ondansetron Inj 2 Mg/Ml Inj 2 Ml) 4 mg IV Q6H PRN; Protocol PRN Reason: NAUSEA OR VOMITING Stop: 12/04/24 09:23 Sennosides (Senna Tablet) 1 tab PO QDAY PRN; Protocol PRN Reason: constipation Stop: 12/04/24 09:23 Discontinued Medications Sodium Chloride (Ns) 1,000 mls @ 999 mls/hr IV .Q1H1M ONE Stop: 11/04/24 06:47 Last Infusion: 11/04/24 06:55 Dose: Infused Sodium Chloride (Ns) 1,000 mls @ 999 mls/hr IV .Q1H1M ONE Stop: 11/04/24 09:23 Last Admin: 11/04/24 08:50 Dose: Not Given Lactated Ringer's (Lactated Ringers) 1,000 mls @ 999 mls/hr IV .Q1H1M ONE Stop: 11/04/24 09:38 Last Admin: 11/04/24 08:49 Dose: 999 mls/hr Insulin Human Regular (Insulin Hum Regular 1 Unit/0.01 Ml (Per Unit)) 10 unit IV X1 ONE Stop: 11/04/24 05:48 Last Admin: 11/04/24 06:01 Dose: 10 unit Assessment & Plan Assessment Assessment & Plan Plan Delroy Ngo is 74 yr male with PMH of CVA, brain tumor S/PE left frontal craniotomy, expressive aphasia, hypertension, insulin-dependent diabetes, COPD on 4 L O2, BPH who was presented to ED via ambulance due to altered mental status 2/2 hypernatremia [employer] #Hx of CVA and craniectomy #Altered mental status 2/2 hypernatremia See below Baseline GCS11, able to say yes but not verbalize more than that CVS #Hx HTN - On amlodipine outpatient, will resume once patient hemodynamically stable #Hx HLD - On atorvastatin, pending med recs Resp #Hx COPD, chronic -Resume supplemental O2 PRN -Goal O2 saturation 88-92% #PNA -CT read R PNA consistent with decreased lung sounds in b/l basilar field -Zosyn #RUL Pulmonary nodule -Seen on CT increased from 2mm in 08/02/2022 to 7mm in recent scan GI No indication for stress ulcer ppx at this time Renal #Hypernatremia 2/2 poor oral intake and poor living conditions at home, likely compounded by acute infection Sodium measured 165, corrected with glucose to be 169 Rec'd 2L crystalloid by ED -D5W gtt at 90mL/hr -Q3hr sodium checks -Decrease sodium by no more than 8mEq in first 24 hrs -Free water deficit 1.7L #HILDA, prerenal Unknown baseline Endo #History of insulin dependent type 2 diabetes On admission initial glucose in ED in 300s. Patient takes 55 units glargine for diabetes at home. A1C -Bedside blood glucose checks q6hr -Insulin lispro sliding scale -Diabetes education -A1c pending Hem No issues ID #[id number] -Patient wears diapers and gets frequent UTIs -Has Nuñez inserted in ED -On Zosyn #PNA -See above Dispo: ICU DVT prophylaxis: Heparin SQ CODE STATUS: Full code Diet: NPO pending swallow sergioal
[2024-11-04 09:59] LABS: Sodium 166 mMol/L (136-145)
[2024-11-04] MEDS: DEXTROSE 5%-WATER 500 ML 90 ML IV (10:06)
[2024-11-04] MEDS: PIPER/TAZO 3.375 GM PREMIX 3.375 GM/50 ML BAG IV ×2 (10:50→21:12)
--- NOTE | 2024-11-04 11:38 | PC.NURSE ---
Patient daughter now at bedside with patient. Patient is alert and responsive with daughter. Per daughter patient is nonverbal says one letter words and understands both bolivian and pashto. Per daughter patient is in wheelchair and non-ambulatory at home. Patient is cared for by daughter. Patient with hx of prevoius CVA with right side defecit and also brain tumor resection/craniotomy to left side. Patient call light is within reach.
[2024-11-04] MEDS: HEPARIN SOD INJ 5000 UNIT/ML VIAL SC ×2 (12:26→21:12)
[2024-11-04] MEDS: INSULIN LISPRO (AdmeLOG) 1 UNIT/0.01 ML UNIT SC ×2 (12:30→18:11)
[2024-11-04 13:20] LABS: Alanine Aminotransferase 40 U/L (10-49); Alkaline Phosphatase 138 U/L (46-116); Anion Gap 14 (7-16); Aspartate Amino Transferase 28 U/L (0-34); BUN/Creatinine Ratio 23 Ratio (12-20); Bilirubin,Total 0.5 mg/dL (0.3-1.2); Calcium 8.3 mg/dL (8.3-10.6); Calcium (Corrected) 9.1 mg/dL (8.5-10.1); Carbon Dioxide 20.5 mMol/L (20.0-31.0); Chloride 130 mMol/L (98-107); Creatinine (Component) 4.5 mg/dL (0.6-1.3); Glucose 207 mg/dL (74-106); Osmolality,Calculated 363 (275-295); Potassium 4.4 mMol/L (3.4-5.1); eGFR 13 See Note
[2024-11-04 13:37] LABS: Blood Urea Nitrogen 105 mg/dL (9-23)
[2024-11-04 13:38] LABS: Sodium 164 mMol/L (136-145)
--- NOTE | 2024-11-04 14:20 | ESCONSULT_ITS ---
HPI Data of Consult Requesting Physician: Colin Michele MD Admitting Provider: Colin Michele MD Attending Provider: Colin Michele MD Primary Care Provider: Jeremy Clinton MD Consult Narrative Reason for consult: Hypernatremia History of present illness: Delroy Ngo is 74 yr male with PMH of CVA, brain tumor at s/p left frontal craniotomy, expressive aphasia due to dementia, hypertension, insulin- dependent diabetes, COPD on 4 L O2, and BPH who presented to ED from home due to AMS. En route, blood sugar was in 400s. Per EMS, patient found in poor living conditions. Patient was unable to answer questions and mostly would say yes . Sodium in ED found to be 165, hyperglycemia in high 300s with corrected sodium at 169. Nephrology was consulted HILDA and hypernatremia. He was given 10U insulin in ED for correction of hypernatremia with 2L crystalloid and D5W. UA showed WBC 25, bacteria 1+, positive LE. CXR unremarkable. MH: as noted above PSH: craniectomy FamHx: unknown Social: lives at daughters home who takes care of him. No drinking, smoking, or drugs Allergies: silicone-fever Meds: Tamsulosin 0.4 daily, prednisone 10 mg daily, 50 units insulin glargine, atorvastatin 40 mg daily, amlodipine 5 mg daily, albuterol inhaler cc:: cc: Colin Michele MD Review of Systems Review of Systems Systems Reviewed: All systems reviewed, normal except as documented Exam Vital Signs Temp Pulse Resp BP Pulse Ox O2 Del Method O2 Flow Rate 97.8 F 100 19 95/61 98 Nasal Cannula 3 11/04/24 13:00 11/04/24 13:00 11/04/24 13:00 11/04/24 13:00 11/04/24 13:00 11/04/24 13:00 11/04/24 13:00 Narrative Exam General: elderly male, sleeping, No acute distress, does not answer properly HEENT: NCAT, No JVD noted. Mucosa dry. Pupils are equal and reactive to light bilaterally Cardiovascular: Normal S1 and S2. Regular rate and rhythm. Respiratory: Lungs are clear to auscultation bilaterally. No wheezing or crackles heard. Abdomen: Soft, nontender, not distended, normal bowel sounds. Skin: Warm to touch, dry, senile purpura, healing scabs through LE Musculoskeletal: No gross injuries. Able to move all 4 extremities. No pitting edema Neuro: Alert and oriented x0. No focal neuro deficits. Results Labs 11/05/24 04:49 11/05/24 14:00 Labs: Short CBC 11/04/24 Range/Units 05:50 WBC 24.1 H (3.8-10.6) Thou/mm3 Hgb 15.4 (13.5-16.0) g/dL Hct 46.1 (41.0-53.0) % Plt Count 143 D (140-440) Thou/mm3 BMP 11/04/24 11/04/24 11/04/24 05:50 09:20 12:23 Sodium 165 H* 166 H* 164 H* Potassium 4.7 4.4 Chloride 127 H* 130 H* Carbon Dioxide 21.8 20.5 BUN 120 H* 105 H* Creatinine 5.0 H* 4.5 H* D Glucose 372 H 207 H D Calcium 8.3 8.3 Cardiac Enzymes 11/04/24 Range/Units 05:50 Total Creatine Kinase 194 H (34-171) U/L Troponin I < 0.020 (0.0-0.045) ng/mL Liver Function 11/04/24 11/04/24 Range/Units 05:50 12:23 Total Bilirubin 0.5 0.5 (0.3-1.2) mg/dL Direct Bilirubin 0.1 (0.0-0.3) mg/dL AST 24 28 (0-34) U/L ALT 45 40 (10-49) U/L Alkaline Phosphatase 155 H 138 H (46-116) U/L Albumin 3.3 L 3.0 L (3.4-4.8) gm/dL Urine 11/04/24 Range/Units 05:50 Urine Color Yellow (Lt Yel-Yel) Urine Clarity Cloudy A (Clear/Hazy) Urine pH 5.5 (5.0-7.0) Ur Specific [place] 1.021 (1.001-1.035) Urine Protein 2+ A (Neg - Trace) Urine Glucose (UA) 3+ A (Negative) ABG Interpretation ABG results: 11/04/24 06:04 ABG pH 7.37 ABG pCO2 39 ABG pO2 78 L ABG HCO3 22 ABG O2 Saturation 93 ABG Base Excess -3 Quality Measures Quality Measures VTE prophylaxis Advance care planning discussed with:: other Medications Home Medications and Allergies Home Medications ?Medication ?Instructions ?Recorded ?Confirmed ?Type atorvastatin 40 mg tablet 40 mg PO QPM 11/04/19 History tamsulosin 0.4 mg capsule 0.4 mg PO QDAY 10/11/2009/12 History escitalopram oxalate 10 mg tablet 10 mg PO QDAY 09/24/24 History amlodipine 5 mg tablet 5 mg PO QDAY 05/31/21 History albuterol sulfate 90 mcg/actuation 2 inh inhalation QI D PRN shortness 06/25/22 09/24/24 History aerosol inhaler (Ventolin HFA) of breath or wheezing prednisone 10 mg tablet 10 mg PO QDAY 08/02/2209/24 History albuterol sulfate 5 mg/mL(0.5 %) 5 mg inhalation TID 0 09/24/24 09/24/24 History solution for nebulization Allergies Allergy/AdvReac Type Severity Reaction Status Date / Time silicone Allergy Severe Fever Verified 08/01/22 15:46 tuberculin,PPD,multi-puncture Allergy Verified 08/01/22 15:46 Visit Medications Acetaminophen (Acetaminophen 325 Mg Tablet) 650 mg PO Q6H PRN PRN Reason: Fever >101.5 Stop: 12/04/24 09:23 Dextrose (Dextrose 50%-Water Inj 50 Ml Syringe) 25 ml IV Q15MIN PRN PRN Reason: BG 50-70 responsive npo pt Stop: 12/04/24 09:26 Dextrose (Dextrose 50%-Water Inj 50 Ml Syringe) 50 ml IV Q15MIN PRN PRN Reason: BG <50 OR BG <70 & pt unresponsive Stop: 12/04/24 09:26 Glucagon (Glucagon Inj 1 Mg Vial) 1 mg IM Q15MIN PRN PRN Reason: BG <70, and no IV access Heparin Sodium (Porcine) (Heparin Sod Inj 5000 Unit/Ml Vial) 5,000 unit SC Q8HR [facility] Stop: 11/18/24 10:44 Last Admin: 11/04/24 12:26 Dose: 5,000 unit Dextrose (D5w) 500 mls @ 90 mls/hr IV .Q5H34M [facility] Stop: 12/04/24 08:29 Last Admin: 11/04/24 10:06 Dose: 90 mls/hr Piperacillin/Tazobactam/Dextrose (Zosyn) 3.375 gm in 50 mls @ 12.5 mls/hr IV Q12HR [facility]; Protocol Stop: 11/11/24 20:59 Insulin Human Lispro (Insulin Lispro (Admelog) 1 Unit/0.01 Ml Unit) 0 unit SC [facility]; Protocol Stop: 12/04/24 11:29 Last Admin: 11/04/24 12:30 Dose: 1 unit Ondansetron HCl (Ondansetron Inj 2 Mg/Ml Inj 2 Ml) 4 mg IV Q6H PRN; Protocol PRN Reason: NAUSEA OR VOMITING Stop: 12/04/24 09:23 Sennosides (Senna Tablet) 1 tab PO QDAY PRN; Protocol PRN Reason: constipation Stop: 12/04/24 09:23 Discontinued Medications Heparin Sodium (Porcine) (Heparin Sod Inj 5000 Unit/Ml Vial) 5,000 unit SC Q8HR ONE Stop: 11/04/24 10:39 Last Admin: 11/04/24 10:50 Dose: Not Given Sodium Chloride (Ns) 1,000 mls @ 999 mls/hr IV .Q1H1M ONE Stop: 11/04/24 06:47 Last Infusion: 11/04/24 06:55 Dose: Infused Sodium Chloride (Ns) 1,000 mls @ 999 mls/hr IV .Q1H1M ONE Stop: 11/04/24 09:23 Last Admin: 11/04/24 08:50 Dose: Not Given Lactated Ringer's (Lactated Ringers) 1,000 mls @ 999 mls/hr IV .Q1H1M ONE Stop: 11/04/24 09:38 Last Infusion: 11/04/24 09:30 Dose: Infused Piperacillin/Tazobactam/Dextrose (Zosyn) 3.375 gm in 50 mls @ 100 mls/hr IV X1 ONE Stop: 11/04/24 10:44 Last Infusion: 11/04/24 11:22 Dose: Infused Insulin Human Regular (Insulin Hum Regular 1 Unit/0.01 Ml (Per Unit)) 10 unit IV X1 ONE Stop: 11/04/24 05:48 Last Admin: 11/04/24 06:01 Dose: 10 unit Sodium Chloride (Sodium Chloride Rt 10% 15 Ml Nebu) 5 ml INH X1 ONE Stop: 11/04/24 11:12 Assessment & Plan Plan Huber is 74 yr male with PMH of CVA, brain tumor S/PE left frontal craniotomy, expressive aphasia, hypertension, insulin-dependent diabetes, COPD on 4 L O2, BPH who was presented to ED via ambulance due to altered mental status 2/2 hypernatremia #Hyperosmolar hypercholremic hypernatremia #HILDA, prerenal Most likely pre renal in setting of dehydration. Baseline Cr appears to be around 1.0. Admission sodium measured 165, corrected with glucose to be 169, chloride 127, blood sugar in 300, phosphate 6.2, osm 379. Cr 5.0. Kidney u/s bilateral renal cortical thinning, 8mm non obstructing right renal calculus. -continue D5W gtt at 90mL/hr -Q3hr sodium checks -Decrease sodium by no more than 8mEq in first 24 hrs -Free water deficit ~2L -monitor IOs -urine electrolytes pending #8mm right renal calculus #Complicated UTI #Hx of CVA and craniectomy #Altered mental status 2/2 hypernatremia #Hx HTN #Hx HLD #Hx COPD, chronic #PNA #RUL Pulmonary nodule #History of insulin dependent type 2 diabetes #PNA The patient's management plan was discussed with my attending physician Dr. Singer. Sandra Olvera, PGY-1 Attending Provider Attestation/Addendum Pt seen and examined. Labs and radiology reviewed. Agree with assessment and plan and findings by resident. Bradley Singer MD
--- NOTE | 2024-11-04 14:44 | PC.NURSE ---
RN spoke with Vidya pharmacist, per Vidya non admin 1400 dose, to close time frame to previous dose administered.
--- NOTE | 2024-11-04 14:55 | PC.RT ---
PT UNABLE TO FOLLOW DIRECTIONS FOR SPUTUM SAMPLE
[2024-11-04] MEDS: DEXTROSE 5%-WATER 500 ML 50 ML IV ×2 (15:14→23:10)
[2024-11-04 15:28] LABS: Sodium 165 mMol/L (136-145)
[2024-11-04 16:15] LABS: Chloride,Urine Random 35.9 mMol/L (55.0-125.0); Creatinine,Random Urine 186 mg/dL (30-125); Potassium,Urine Random 83 mMol/L (12-62); Protein Total, Random Urine 126 mg/dL (1-14)
--- NOTE | 2024-11-04 16:40 | PC.CC ---
Patient is a 74 year-old male who presents to the hospital for AMS/Hypernatremia. Yanira ZAMAN made face to face contact with patient. Due to patient's AMS he is unable to complete initial assessment. ASW completed initial assessment with patient's daughter, Chyna Crawley . Daughter reports the patient lives at home with her and patient uses a wheelchair to ambulation. Patient has been having difficulty transferring from his bed into his wheelchair. Patient requires assistance in completing all ADLs. Patient requires a C-PAP, Oxygen at night, and has nebulizer for when needed. Patient receives primary care with Jeremy Clinton and uses the pharmacy at [facility]. Upon discharge patient will be going back home and the family is not interested in SNF placement. automotive services manager to follow up with any discharge needs.
[2024-11-04 18:17] LABS: Sodium 162 mMol/L (136-145)
[2024-11-04] MEDS: DEXTROSE 5%-WATER 500 ML 20 ML IV (18:44)
--- NOTE | 2024-11-04 18:48 | PC.NURSE ---
Per Dr Castro decrease D5W% to 20ml/hr
--- NOTE | 2024-11-04 18:59 | PC.NURSE ---
RN report given to Nick Grier. Patient transferring to room 257.
[2024-11-04 22:42] LABS: Sodium 165 mMol/L (136-145)
[2024-11-04 23:52] LABS: Sodium 159 mMol/L (136-145)
[2024-11-05] VITALS (33 sets, daily range): BP systolic 97–132; BP diastolic 52–85; PULSE 73–103; RESP 13–97; TEMP 36.2–37; O2SAT 94–99
[2024-11-05 03:29] LABS: Sodium 164 mMol/L (136-145)
[2024-11-05] MEDS: HEPARIN SOD INJ 5000 UNIT/ML VIAL SC ×3 (05:45→22:07)
[2024-11-05 05:58] LABS: Basophils % (Auto) 0 % (0-2.5); Eosinophils # (Auto) 0.1 Thou/mm3 (0.0-0.5); Eosinophils % (Auto) 0 % (0-10); Hematocrit 40.1 % (41.0-53.0); Hemoglobin 13.1 g/dL (13.5-16.0); Immature Granulocytes % (Auto) 0 % (0-0); Immature Granulocytes Auto 0.05 Thou/mm3 (0.00-0.00); Lymphocytes # (Auto) 0.9 Thou/mm3 (1.0-4.8); Lymphocytes % (Auto) 6 % (10-50); Mean Corpuscular HGB Conc 32.7 g/dl (31.0-37.0); Mean Corpuscular Volume 95 fL (80-100); Monocytes # (Auto) 0.8 Thou/mm3 (0.0-0.8); Monocytes % (Auto) 5 % (0-12); Neutrophils # (Auto) 13.5 Thou/mm3 (1.8-7.7); Neutrophils % (Auto) 88 % (37-80); Nucleated Red Blood Cell % 0 /100 WBC (0); Platelet Count 102 Thou/mm3 (140-440); RDW Standard Deviation 46.7 fL (35.1-43.9); Red Blood Count 4.23 Miln/mm3 (4.50-5.90); White Blood Count 15.4 Thou/mm3 (3.8-10.6)
[2024-11-05 07:18] LABS: Anion Gap 14 (7-16); Carbon Dioxide 20.5 mMol/L (20.0-31.0); Chloride 129 mMol/L (98-107); Potassium 4.4 mMol/L (3.4-5.1); Sodium 163 mMol/L (136-145)
[2024-11-05 07:19] LABS: Alanine Aminotransferase 33 U/L (10-49); Alkaline Phosphatase 139 U/L (46-116); Aspartate Amino Transferase 33 U/L (0-34); BUN/Creatinine Ratio 22 Ratio (12-20); Bilirubin,Total 0.5 mg/dL (0.3-1.2); Blood Urea Nitrogen 116 mg/dL (9-23); Calcium 8.1 mg/dL (8.3-10.6); Calcium (Corrected) 8.9 mg/dL (8.5-10.1); Creatinine (Component) 5.3 mg/dL (0.6-1.3); Estimated Creatinine Clearance 10.9 mL/min (>60); Globulin 2.9 gm/dL (2.3-3.5); Glucose 144 mg/dL (74-106); Magnesium 2.1 mg/dL (1.6-2.6); Osmolality,Calculated 362 (275-295); Phosphorous 5.1 mg/dL (2.4-5.1); Total Protein 5.9 gm/dL (5.7-8.2); eGFR 11 See Note
[2024-11-05] MEDS: DEXTROSE 5%-WATER 500 ML 40 ML IV (08:18)
[2024-11-05 08:57] LABS: Sodium 165 mMol/L (136-145)
[2024-11-05] MEDS: RINGERS LACTATED 1000 ML 1,000 ML 999 ML IV ×2 (09:47→10:43)
--- NOTE | 2024-11-05 10:04 | ESPR_ITS ---
<Statement entered by Colin Michele MD - 11/05/24 14:00> TOTAL CC TIME: 45 MIN I saw and evaluated the patient. I reviewed the resident?s note and agree with findings and plan as documented in the resident?s note. Upon my evaluation, this patient had a high probability of imminent or life- threatening deterioration due to acute severe hypernatremia complicated by acute kidney injury and possible ATN and sepsis from a urinary tract infection required my direct attention, intervention, and personal management. This time is exclusive of time spent on procedures, which are documented separately if performed. Monitor renal panel every 4 hours, rate of correction should be targeted to achieve a goal reduction in sodium of approximately 8 mEq over 24 hours. Continued IV fluids will be required due to the patient's volume depleted stage and acute kidney injury. Avoid nephrotoxic agents. No acute hemodialysis needs. Nephrology consult obtained Documentation for date of: 11/05/24 Subjective Subjective Interval history: Patient is a 74-year-old male with past medical history of CVA, brain tumor status post left frontal craniotomy, expressive aphasia, hypertension, insulin- dependent diabetes, COPD on home oxygen, BPH was admitted to ICU for severe hyponatremia treatment management. 11/05/2024 patient was seen and examined at bedside. Overnight no acute event, sodium dropped to 159, D5W rate was decreased to 40 cc/h, repeat sodium 165, free water deficit is about 6 L patient will be needing to restore intravascular volume, will give additional 2 L of LR, will continue close monitor sodium level every 3 hour. Renal panel still the same, patient most likely has a diabetic nephropathy, however will continue close monitor renal panel, patient had only 280 mL of urine output since yesterday. Nephrology is on board, will follow with recommendations. Exam Vital Signs Temp Pulse Resp BP Pulse Ox O2 Del Method O2 Flow Rate 98.6 F 97 22 H 128/64 96 Room Air 3 11/05/24 04:00 11/05/24 07:00 11/05/24 07:00 11/05/24 07:00 11/05/24 07:00 11/05/24 04:00 11/04/24 17:42 Narrative Exam GENERAL: no acute distress, AAO x1-2, minimally responsive, responds yes or no. HEENT:. Mucous membranes dry. PERRL.Large old surgical scar, well-healed on the left frontal and left parietal regions head. NECK: Supple, no lymphadenopathy, no carotid bruits. CARDIOVASCULAR: RRR. Normal S1/S2, No m/r/g. No pitting edema of bilateral LEs. RESPIRATORY: CTAB. No wheezing, rhonchi, crackles. GASTROINTESTINAL: Abdomen soft, non tender no palpable masses. Bowel sounds present in all 4 quadrants. MUSCULOSKELETAL:? No cyanosis or edema, no visible joint swelling. INTEGUMENTARY: No obvious rashes, no jaundice, normal turgor. Objective Labs 11/05/24 04:49 11/05/24 08:14 Labs: Laboratory Results - last 24 hr 11/04/24 11/04/24 11/04/24 12:23 15:01 15:20 WBC RBC Hgb Hct MCV MCH MCHC RDW Std Deviation Plt Count Neut % (Auto) Lymph % (Auto) [place] % (Auto) Eos % (Auto) Baso % (Auto) Neut # (Auto) Lymph # (Auto) [place] # (Auto) Eos # (Auto) Baso # (Auto) Immature Gran # (Auto) Absolute Nucleated RBC Immature Gran % Nucleated RBC % Sodium 164 H* 165 H* Potassium 4.4 Chloride 130 H* Carbon Dioxide 20.5 Anion Gap 14 BUN 105 H* Creatinine 4.5 H* D Estim Creat Clear Calc Not Performed. eGFR 13 L* BUN/Creatinine Ratio 23 H Glucose 207 H D Calculated Osmolality 363 H Calcium 8.3 Corrected Calcium 9.1 Phosphorus Magnesium Total Bilirubin 0.5 AST 28 ALT 40 Alkaline Phosphatase 138 H Total Protein 6.0 Albumin 3.0 L Globulin 3.0 Albumin/Globulin Ratio 1.0 L Ur Random Creatinine 186 H U Random Total Protein 126 H Ur Random Sodium 37.0 Ur Random Potassium 83 H Ur Random Chloride 35.9 L 11/04/24 11/04/24 11/04/24 17:10 21:10 23:11 WBC RBC Hgb Hct MCV MCH MCHC RDW Std Deviation Plt Count Neut % (Auto) Lymph % (Auto) [place] % (Auto) Eos % (Auto) Baso % (Auto) Neut # (Auto) Lymph # (Auto) [place] # (Auto) Eos # (Auto) Baso # (Auto) Immature Gran # (Auto) Absolute Nucleated RBC Immature Gran % Nucleated RBC % Sodium 162 H* 165 H* 159 H Potassium Chloride Carbon Dioxide Anion Gap BUN Creatinine Estim Creat Clear Calc eGFR BUN/Creatinine Ratio Glucose Calculated Osmolality Calcium Corrected Calcium Phosphorus Magnesium Total Bilirubin AST ALT Alkaline Phosphatase Total Protein Albumin Globulin Albumin/Globulin Ratio Ur Random Creatinine U Random Total Protein Ur Random Sodium Ur Random Potassium Ur Random Chloride 11/05/24 11/05/24 11/05/24 02:19 04:49 08:14 WBC 15.4 H D RBC 4.23 L Hgb 13.1 L D Hct 40.1 L MCV 95 MCH 31.0 MCHC 32.7 RDW Std Deviation 46.7 H Plt Count 102 L D Neut % (Auto) 88 H Lymph % (Auto) 6 L [place] % (Auto) 5 Eos % (Auto) 0 Baso % (Auto) 0 Neut # (Auto) 13.5 H Lymph # (Auto) 0.9 L [place] # (Auto) 0.8 Eos # (Auto) 0.1 Baso # (Auto) 0.0 Immature Gran # (Auto) 0.05 H Absolute Nucleated RBC 0.00 Immature Gran % 0 Nucleated RBC % 0 Sodium 164 H* 163 H* 165 H* Potassium 4.4 Chloride 129 H* Carbon Dioxide 20.5 Anion Gap 14 BUN 116 H* Creatinine 5.3 H* D Estim Creat Clear Calc 10.9 L eGFR 11 L* BUN/Creatinine Ratio 22 H Glucose 144 H D Calculated Osmolality 362 H Calcium 8.1 L Corrected Calcium 8.9 Phosphorus 5.1 Magnesium 2.1 Total Bilirubin 0.5 AST 33 ALT 33 Alkaline Phosphatase 139 H Total Protein 5.9 Albumin 3.0 L Globulin 2.9 Albumin/Globulin Ratio 1.0 L Ur Random Creatinine U Random Total Protein Ur Random Sodium Ur Random Potassium Ur Random Chloride ABG Interpretation ABG results: 11/04/24 06:04 ABG pH 7.37 ABG pCO2 39 ABG pO2 78 L ABG HCO3 22 ABG O2 Saturation 93 ABG Base Excess -3 Quality Measures Quality Measures VTE prophylaxis Advance care planning discussed with:: child (daughter) Assessment & Plan Assessment Current Active Medications: Generic Name Dose Route Start Last Admin Trade Name Freq PRN Reason Stop Dose Admin Acetaminophen 650 mg 11/04/24 09:24 Acetaminophen 325 Mg Tablet PO 12/04/24 09:23 Q6H PRN Fever >101.5 Dextrose 25 ml 11/04/24 09:27 Dextrose 50%-Water Inj 50 Ml Syringe IV 12/04/24 09:26 Q15MIN PRN BG 50-70 responsive npo pt Dextrose 50 ml 11/04/24 09:27 Dextrose 50%-Water Inj 50 Ml Syringe IV 12/04/24 09:26 Q15MIN PRN BG <50 OR BG <70 & pt unresponsive Glucagon 1 mg 11/04/24 09:27 Glucagon Inj 1 Mg Vial IM Q15MIN PRN BG <70, and no IV access Heparin Sodium (Porcine) 5,000 unit 11/04/24 10:45 11/05/24 05:45 Heparin Sod Inj 5000 Unit/Ml Vial SC 11/18/24 10:44 5,000 unit Q8HR [facility] Administration Dextrose 500 mls @ 40 mls/hr 11/05/24 03:32 11/05/24 05:16 D5w IV 12/05/24 03:31 Not Given .[id number] [facility] Lactated Ringer's 1,000 mls @ 999 mls/hr 11/05/24 09:24 11/05/24 09:47 Lactated Ringers IV 11/05/24 10:24 999 mls/hr .Q1H1M ONE Administration Lactated Ringer's 1,000 mls @ 999 mls/hr 11/05/24 09:25 Lactated Ringers IV 11/05/24 10:25 .Q1H1M ONE Ceftriaxone Sodium/Dextrose 1 g in 50 mls @ 100 mls/hr 11/05/24 09:26 Rocephin/D5w 1gm Iv Premix IV 11/12/24 09:25 QDAY [facility] Insulin Human Lispro 0 unit 11/04/24 11:30 11/05/24 08:12 Insulin Lispro (Admelog) 1 Unit/0.01 Ml Unit SC 12/04/24 11:29 Not Given AC [facility] Protocol Ondansetron HCl 4 mg 11/04/24 09:24 Ondansetron Inj 2 Mg/Ml Inj 2 Ml IV 12/04/24 09:23 Q6H PRN NAUSEA OR VOMITING Protocol Sennosides 1 tab 11/04/24 09:24 Senna Tablet PO 12/04/24 09:23 QDAY PRN constipation Protocol Plan Delroy Ngo is 74 yr male with PMH of CVA, brain tumor S/PE left frontal craniotomy, expressive aphasia, hypertension, insulin-dependent diabetes, COPD on 4 L O2, BPH who was presented to ED via ambulance due to altered mental status 2/2 hypernatremia [employer] #Hx of CVA and craniectomy #Altered mental status 2/2 hypernatremia See below Baseline GCS11, able to say yes but not verbalize more than that CVS #Hx HTN - On amlodipine outpatient, will resume once patient hemodynamically stable #Hx HLD - On atorvastatin Resp #Hx COPD, chronic -Resume supplemental O2 PRN -Goal O2 saturation 88-92% #PNA -CT read R PNA consistent with decreased lung sounds in b/l basilar field -Rocephin #RUL Pulmonary nodule -Seen on CT increased from 2mm in 08/02/2022 to 7mm in recent scan GI PPI prophylaxis Renal #Hypernatremia 2/2 poor oral intake and poor living conditions at home, likely compounded by acute infection Sodium measured 165, corrected with glucose to be 169 Rec'd 2L crystalloid by ED US renal:Bilateral renal cortical thinning. 8mm nonobstructing right renal calculus -Give additional 2 LR, as Free water deficit is about 6 L with sodium goal 140, -Q3hr sodium checks -Decrease sodium by no more than 8mEq in first 24 hrs -Free water deficit 1.7L #HILDA, prerenal in the setting of dehydration #Diabetic nephropathy Creatinine baseline is 1 -IVF -Monitor renal function -Monitor urine output Endo #History of insulin dependent type 2 diabetes On admission initial glucose in ED in 300s. Patient takes 55 units glargine for diabetes at home. A1C -Bedside blood glucose checks q6hr -Insulin lispro sliding scale -Diabetes education -A1c 11 Hem No issues ID #[id number] consistent for UTI -Patient wears diapers and gets frequent UTIs -Has Nuñez inserted in ED -Zosyn was de-escalated to ceftriaxone -Cultures pending #PNA -See above Disposition: ICU DVT prophylaxis: Heparin GI prophylaxis: PPI Diet: N.p.o. Lines: PIV CODE STATUS:Full code Patient care was discussed with attending physician Dr. Ryne Castro MD PGY-2
[2024-11-05] MEDS: cefTRIAXone/D5w 1gm IV premix 1 G/50 ML BAG IV (10:43)
[2024-11-05 11:55] LABS: Sodium 161 mMol/L (136-145)
[2024-11-05 12:53] LABS: Creatine Kinase 151 U/L (34-171)
[2024-11-05 14:19] LABS: Sodium 160 mMol/L (136-145)
[2024-11-05] MEDS: RINGERS LACTATED 1000 ML 1,000 ML 150 ML IV (14:54)
--- NOTE | 2024-11-05 15:02 | PD.RESPRO ---
Documentation for date of: 11/05/24 Subjective Subjective Interval history: Patient examined at bedside. Remains on D5W for hypernatremia. Rate was decreased yesterday. Most recent sodium at 2pm shows improvement to 160. Potassium 4.4, Cr uptrended to 5.3. Urine output overnight was 260mL. Will continue to monitor closely. Possible HD due to worsening kidney function indicated by increasing creatnine. Repeat CK 150. Exam Vital Signs Temp Pulse Resp BP Pulse Ox O2 Del Method O2 Flow Rate 97.1 F 97 20 123/71 96 Room Air 3 11/05/24 12:00 11/05/24 14:49 11/05/24 14:49 11/05/24 14:00 11/05/24 14:00 11/05/24 04:00 11/04/24 17:42 Narrative Exam GENERAL: no acute distress, AAO x1-2, minimally responsive, responds yes or no. HEENT:. Mucous membranes dry. PERRL.Large old surgical scar, well-healed on the left frontal and left parietal regions head. NECK: Supple, no lymphadenopathy, no carotid bruits. CARDIOVASCULAR: RRR. Normal S1/S2, No m/r/g. No pitting edema of bilateral LEs. RESPIRATORY: CTAB. No wheezing, rhonchi, crackles. GASTROINTESTINAL: Abdomen soft, non tender no palpable masses. Bowel sounds present in all 4 quadrants. MUSCULOSKELETAL:? No cyanosis or edema, no visible joint swelling. INTEGUMENTARY: No obvious rashes, no jaundice, normal turgor. Objective Labs 11/07/24 05:55 11/07/24 14:11 Labs: Laboratory Results - last 24 hr 11/04/24 11/04/24 11/04/24 15:01 15:20 17:10 WBC RBC Hgb Hct MCV MCH MCHC RDW Std Deviation Plt Count Neut % (Auto) Lymph % (Auto) [place] % (Auto) Eos % (Auto) Baso % (Auto) Neut # (Auto) Lymph # (Auto) [place] # (Auto) Eos # (Auto) Baso # (Auto) Immature Gran # (Auto) Absolute Nucleated RBC Immature Gran % Nucleated RBC % Sodium 165 H* 162 H* Potassium Chloride Carbon Dioxide Anion Gap BUN Creatinine Estim Creat Clear Calc eGFR BUN/Creatinine Ratio Glucose Calculated Osmolality Calcium Corrected Calcium Phosphorus Magnesium Total Bilirubin AST ALT Alkaline Phosphatase Total Creatine Kinase Total Protein Albumin Globulin Albumin/Globulin Ratio Ur Random Creatinine 186 H U Random Total Protein 126 H Ur Random Sodium 37.0 Ur Random Potassium 83 H Ur Random Chloride 35.9 L 11/04/24 11/04/24 11/05/24 21:10 23:11 02:19 WBC RBC Hgb Hct MCV MCH MCHC RDW Std Deviation Plt Count Neut % (Auto) Lymph % (Auto) [place] % (Auto) Eos % (Auto) Baso % (Auto) Neut # (Auto) Lymph # (Auto) [place] # (Auto) Eos # (Auto) Baso # (Auto) Immature Gran # (Auto) Absolute Nucleated RBC Immature Gran % Nucleated RBC % Sodium 165 H* 159 H 164 H* Potassium Chloride Carbon Dioxide Anion Gap BUN Creatinine Estim Creat Clear Calc eGFR BUN/Creatinine Ratio Glucose Calculated Osmolality Calcium Corrected Calcium Phosphorus Magnesium Total Bilirubin AST ALT Alkaline Phosphatase Total Creatine Kinase Total Protein Albumin Globulin Albumin/Globulin Ratio Ur Random Creatinine U Random Total Protein Ur Random Sodium Ur Random Potassium Ur Random Chloride 11/05/24 11/05/24 11/05/24 04:49 08:14 11:16 WBC 15.4 H D RBC 4.23 L Hgb 13.1 L D Hct 40.1 L MCV 95 MCH 31.0 MCHC 32.7 RDW Std Deviation 46.7 H Plt Count 102 L D Neut % (Auto) 88 H Lymph % (Auto) 6 L [place] % (Auto) 5 Eos % (Auto) 0 Baso % (Auto) 0 Neut # (Auto) 13.5 H Lymph # (Auto) 0.9 L [place] # (Auto) 0.8 Eos # (Auto) 0.1 Baso # (Auto) 0.0 Immature Gran # (Auto) 0.05 H Absolute Nucleated RBC 0.00 Immature Gran % 0 Nucleated RBC % 0 Sodium 163 H* 165 H* 161 H* Potassium 4.4 Chloride 129 H* Carbon Dioxide 20.5 Anion Gap 14 BUN 116 H* Creatinine 5.3 H* D Estim Creat Clear Calc 10.9 L eGFR 11 L* BUN/Creatinine Ratio 22 H Glucose 144 H D Calculated Osmolality 362 H Calcium 8.1 L Corrected Calcium 8.9 Phosphorus 5.1 Magnesium 2.1 Total Bilirubin 0.5 AST 33 ALT 33 Alkaline Phosphatase 139 H Total Creatine Kinase 151 D Total Protein 5.9 Albumin 3.0 L Globulin 2.9 Albumin/Globulin Ratio 1.0 L Ur Random Creatinine U Random Total Protein Ur Random Sodium Ur Random Potassium Ur Random Chloride 11/05/24 14:00 WBC RBC Hgb Hct MCV MCH MCHC RDW Std Deviation Plt Count Neut % (Auto) Lymph % (Auto) [place] % (Auto) Eos % (Auto) Baso % (Auto) Neut # (Auto) Lymph # (Auto) [place] # (Auto) Eos # (Auto) Baso # (Auto) Immature Gran # (Auto) Absolute Nucleated RBC Immature Gran % Nucleated RBC % Sodium 160 H Potassium Chloride Carbon Dioxide Anion Gap BUN Creatinine Estim Creat Clear Calc eGFR BUN/Creatinine Ratio Glucose Calculated Osmolality Calcium Corrected Calcium Phosphorus Magnesium Total Bilirubin AST ALT Alkaline Phosphatase Total Creatine Kinase Total Protein Albumin Globulin Albumin/Globulin Ratio Ur Random Creatinine U Random Total Protein Ur Random Sodium Ur Random Potassium Ur Random Chloride ABG Interpretation ABG results: 11/04/24 06:04 ABG pH 7.37 ABG pCO2 39 ABG pO2 78 L ABG HCO3 22 ABG O2 Saturation 93 ABG Base Excess -3 Quality Measures Quality Measures VTE prophylaxis Advance care planning discussed with:: other Assessment & Plan Assessment Current Active Medications: Generic Name Dose Route Start Last Admin Trade Name Freq PRN Reason Stop Dose Admin Acetaminophen 650 mg 11/04/24 09:24 Acetaminophen 325 Mg Tablet PO 12/04/24 09:23 Q6H PRN Fever >101.5 Dextrose 25 ml 11/04/24 09:27 Dextrose 50%-Water Inj 50 Ml Syringe IV 12/04/24 09:26 Q15MIN PRN BG 50-70 responsive npo pt Dextrose 50 ml 11/04/24 09:27 Dextrose 50%-Water Inj 50 Ml Syringe IV 12/04/24 09:26 Q15MIN PRN BG <50 OR BG <70 & pt unresponsive Glucagon 1 mg 11/04/24 09:27 Glucagon Inj 1 Mg Vial IM Q15MIN PRN BG <70, and no IV access Heparin Sodium (Porcine) 5,000 unit 11/04/24 10:45 11/05/24 14:54 Heparin Sod Inj 5000 Unit/Ml Vial SC 11/18/24 10:44 5,000 unit Q8HR [facility] Administration Dextrose 500 mls @ 40 mls/hr 11/05/24 03:32 11/05/24 14:55 D5w IV 12/05/24 03:31 0 mls/hr .[id number] [facility] Infusion Ceftriaxone Sodium/Dextrose 1 g in 50 mls @ 100 mls/hr 11/05/24 09:26 11/05/24 10:43 Rocephin/D5w 1gm Iv Premix IV 11/12/24 09:25 100 mls/hr QDAY [facility] Administration Lactated Ringer's 1,000 mls @ 150 mls/hr 11/05/24 14:38 11/05/24 14:54 Lactated Ringers IV 12/05/24 14:37 150 mls/hr .[id number] [facility] Administration Insulin Human Lispro 0 unit 11/04/24 11:30 11/05/24 11:28 Insulin Lispro (Admelog) 1 Unit/0.01 Ml Unit SC 12/04/24 11:29 Not Given AC [facility] Protocol Ondansetron HCl 4 mg 11/04/24 09:24 Ondansetron Inj 2 Mg/Ml Inj 2 Ml IV 12/04/24 09:23 Q6H PRN NAUSEA OR VOMITING Protocol Pantoprazole Sodium 40 mg 11/06/24 09:00 Pantoprazole 40 Mg Tablet PO 12/06/24 08:59 QDAY [facility] Sennosides 1 tab 11/04/24 09:24 Senna Tablet PO 12/04/24 09:23 QDAY PRN constipation Protocol Plan Huber is 74 yr male with PMH of CVA, brain tumor S/PE left frontal craniotomy, expressive aphasia, hypertension, insulin-dependent diabetes, COPD on 4 L O2, BPH who was presented to ED via ambulance due to altered mental status 2/2 hypernatremia #Hyperosmolar hypercholremic hypernatremia-resolving #HILDA, prerenal Most likely pre renal in setting of dehydration. Baseline Cr appears to be around 1.0. Admission sodium measured 165, corrected with glucose to be 169, chloride 127, blood sugar in 300, phosphate 6.2, osm 379. Cr 5.0. Kidney u/s bilateral renal cortical thinning, 8mm non obstructing right renal calculus. -continue D5W gtt at 40mL/hr -Q3hr sodium checks -Decrease sodium by no more than 8mEq in next 24 hrs -Free water deficit ~1.5L -monitor IOs -urine electrolytes pending -will closely monitor kidney function. Possible dialysis if worsening. #8mm right renal calculus #Complicated UTI #Hx of CVA and craniectomy #Altered mental status 2/2 hypernatremia #Hx HTN #Hx HLD #Hx COPD, chronic #PNA #RUL Pulmonary nodule #History of insulin dependent type 2 diabetes #PNA The patient's management plan was discussed with my attending physician Dr. Singer. Sandra Olvera, PGY-1 Attending Provider Attestation/Addendum Pt seen and examined. Labs and radiology reviewed. Agree with assessment and plan and findings by resident. Bradley Singer MD
--- NOTE | 2024-11-05 17:17 | PC.PT ---
PT eval only. Patient is non-ambulatory and appears to be at his baseline/PLOF based on chart review and history. Patient is not a candidate for skilled PT intervention at this time. Please see PT eval details.
[2024-11-05] MEDS: INSULIN LISPRO (AdmeLOG) 1 UNIT/0.01 ML UNIT SC (17:40)
[2024-11-05 18:38] LABS: Albumin, Serum 2.7 gm/dL (3.4-4.8); Anion Gap 11 (7-16); BUN/Creatinine Ratio 22 Ratio (12-20); Calcium 7.6 mg/dL (8.3-10.6); Calcium (Corrected) 8.6 mg/dL (8.5-10.1); Carbon Dioxide 21.6 mMol/L (20.0-31.0); Chloride 126 mMol/L (98-107); Creatinine (Component) 5.2 mg/dL (0.6-1.3); Estimated Creatinine Clearance 11.1 mL/min (>60); Glucose 170 mg/dL (74-106); Osmolality,Calculated 354 (275-295); Sodium 159 mMol/L (136-145); eGFR 11 See Note
[2024-11-05 18:45] LABS: Blood Urea Nitrogen 112 mg/dL (9-23)
[2024-11-05 21:14] LABS: Sodium 161 mMol/L (136-145)
[2024-11-05] MEDS: RINGERS LACTATED 1000 ML 1,000 ML 100 ML IV (22:07)
[2024-11-05] MEDS: DEXTROSE 5%-WATER 500 ML 50 ML IV (22:08)
[2024-11-06] VITALS (28 sets, daily range): BP systolic 110–151; BP diastolic 60–87; PULSE 60–92; RESP 11–98; O2SAT 93–99; BMI 24.0; BMI 23.9
[2024-11-06 00:05] LABS: Sodium 161 mMol/L (136-145)
[2024-11-06] MEDS: HEPARIN SOD INJ 5000 UNIT/ML VIAL SC ×3 (05:32→21:48)
[2024-11-06 05:57] LABS: Basophils % (Auto) 0 % (0-2.5); Eosinophils # (Auto) 0.2 Thou/mm3 (0.0-0.5); Eosinophils % (Auto) 2 % (0-10); Hematocrit 36.1 % (41.0-53.0); Hemoglobin 11.8 g/dL (13.5-16.0); Immature Granulocytes % (Auto) 0 % (0-0); Immature Granulocytes Auto 0.03 Thou/mm3 (0.00-0.00); Lymphocytes # (Auto) 1.2 Thou/mm3 (1.0-4.8); Lymphocytes % (Auto) 13 % (10-50); Mean Corpuscular HGB Conc 32.7 g/dl (31.0-37.0); Mean Corpuscular Hemoglobin 30.5 pg (25.0-35.0); Mean Corpuscular Volume 93 fL (80-100); Monocytes # (Auto) 0.8 Thou/mm3 (0.0-0.8); Monocytes % (Auto) 9 % (0-12); Neutrophils # (Auto) 7.1 Thou/mm3 (1.8-7.7); Neutrophils % (Auto) 77 % (37-80); Nucleated Red Blood Cell % 0 /100 WBC (0); Platelet Count 102 Thou/mm3 (140-440); RDW Standard Deviation 45.2 fL (35.1-43.9); Red Blood Count 3.87 Miln/mm3 (4.50-5.90); White Blood Count 9.3 Thou/mm3 (3.8-10.6)
[2024-11-06 06:50] LABS: Alanine Aminotransferase 31 U/L (10-49); Albumin, Serum 2.8 gm/dL (3.4-4.8); Albumin/Globulin Ratio 1.1 (1.2-2.2); Alkaline Phosphatase 114 U/L (46-116); Anion Gap 10 (7-16); Aspartate Amino Transferase 32 U/L (0-34); BUN/Creatinine Ratio 22 Ratio (12-20); Bilirubin,Total 0.5 mg/dL (0.3-1.2); Calcium 7.6 mg/dL (8.3-10.6); Calcium (Corrected) 8.6 mg/dL (8.5-10.1); Creatinine (Component) 5.1 mg/dL (0.6-1.3); Estimated Creatinine Clearance 11.3 mL/min (>60); Globulin 2.5 gm/dL (2.3-3.5); Glucose 161 mg/dL (74-106); Magnesium 1.8 mg/dL (1.6-2.6); Osmolality,Calculated 350 (275-295); Phosphorous 4.5 mg/dL (2.4-5.1); Potassium 3.8 mMol/L (3.4-5.1); Sodium 158 mMol/L (136-145); Total Protein 5.3 gm/dL (5.7-8.2); eGFR 11 See Note
[2024-11-06 07:14] LABS: Chloride 126 mMol/L (98-107)
[2024-11-06] MEDS: INSULIN LISPRO (AdmeLOG) 1 UNIT/0.01 ML UNIT SC ×3 (07:58→16:52)
[2024-11-06] MEDS: DEXTROSE 5%-WATER 500 ML 50 ML IV (08:01)
[2024-11-06] MEDS: RINGERS LACTATED 1000 ML 1,000 ML 100 ML IV (08:01)
[2024-11-06] MEDS: cefTRIAXone/D5w 1gm IV premix 1 G/50 ML BAG IV (08:02)
[2024-11-06] MEDS: PANTOPRAZOLE 40 MG TABLET PO (08:02)
--- NOTE | 2024-11-06 10:42 | ESPR_ITS ---
Documentation for date of: 11/06/24 Subjective Subjective Interval history: Patient is a 74-year-old male with past medical history of CVA, brain tumor status post left frontal craniotomy, expressive aphasia, hypertension, insulin- dependent diabetes, COPD on home oxygen, BPH was admitted to ICU for severe hyponatremia treatment management. 11/05/2024 patient was seen and examined at bedside. Overnight no acute event, sodium dropped to 159, D5W rate was decreased to 40 cc/h, repeat sodium 165, free water deficit is about 6 L patient will be needing to restore intravascular volume, will give additional 2 L of LR, will continue close monitor sodium level every 3 hour. Renal panel still the same, patient most likely has a diabetic nephropathy, however will continue close monitor renal panel, patient had only 280 mL of urine output since yesterday. Nephrology is on board, will follow with recommendations. 11/06/2024 : Patient was examined bedside this morning, no acute overnight event. His sodium went up to 161 so started him back on D5W at the rate 50 cc/hr with LR at the rate of 100 mL/h. Morning sodium was 158 will do sodium checks every 4 hours. In 24 hours he had 1.2 L of urine output. His creatinine has been stable at 5 . Will continue to monitor his urine output hold dialysis for today. Nephrology following. urine culture was negative , antibiotics discontinued. will Dc foleys catheter . Exam Vital Signs Temp Pulse Resp BP Pulse Ox O2 Del Method O2 Flow Rate 97.1 F 81 19 127/71 96 Room Air 3 11/05/24 12:00 11/06/24 09:00 11/06/24 09:00 11/06/24 09:00 11/06/24 09:00 11/05/24 04:00 11/04/24 17:42 Narrative Exam GENERAL: no acute distress, AAO x1-2, minimally responsive, responds yes or no. HEENT:. Mucous membranes dry. PERRL.Large old surgical scar, well-healed on the left frontal and left parietal regions head. NECK: Supple, no lymphadenopathy, no carotid bruits. CARDIOVASCULAR: RRR. Normal S1/S2, No m/r/g. No pitting edema of bilateral LEs. RESPIRATORY: CTAB. No wheezing, rhonchi, crackles. GASTROINTESTINAL: Abdomen soft, non tender no palpable masses. Bowel sounds present in all 4 quadrants. MUSCULOSKELETAL:? No cyanosis or edema, no visible joint swelling. INTEGUMENTARY: No obvious rashes, no jaundice Objective Labs 11/06/24 05:12 11/06/24 14:14 Labs: Laboratory Results - last 24 hr 11/05/24 11/05/24 11/05/24 11:16 14:00 17:21 WBC RBC Hgb Hct MCV MCH MCHC RDW Std Deviation Plt Count Neut % (Auto) Lymph % (Auto) [place] % (Auto) Eos % (Auto) Baso % (Auto) Neut # (Auto) Lymph # (Auto) [place] # (Auto) Eos # (Auto) Baso # (Auto) Immature Gran # (Auto) Absolute Nucleated RBC Immature Gran % Nucleated RBC % Sodium 161 H* 160 H 159 H Potassium 4.0 Chloride 126 H* Carbon Dioxide 21.6 Anion Gap 11 BUN 112 H* Creatinine 5.2 H* Estim Creat Clear Calc 11.1 L eGFR 11 L* BUN/Creatinine Ratio 22 H Glucose 170 H Calculated Osmolality 354 H Calcium 7.6 L Corrected Calcium 8.6 Phosphorus 5.0 Magnesium Total Bilirubin AST ALT Alkaline Phosphatase Total Creatine Kinase 151 D Total Protein Albumin 2.7 L Globulin Albumin/Globulin Ratio 11/05/24 11/05/24 11/06/24 20:30 23:40 05:12 WBC 9.3 D RBC 3.87 L Hgb 11.8 L Hct 36.1 L MCV 93 MCH 30.5 MCHC 32.7 RDW Std Deviation 45.2 H Plt Count 102 L Neut % (Auto) 77 Lymph % (Auto) 13 [place] % (Auto) 9 Eos % (Auto) 2 Baso % (Auto) 0 Neut # (Auto) 7.1 Lymph # (Auto) 1.2 [place] # (Auto) 0.8 Eos # (Auto) 0.2 Baso # (Auto) 0.0 Immature Gran # (Auto) 0.03 H Absolute Nucleated RBC 0.00 Immature Gran % 0 Nucleated RBC % 0 Sodium 161 H* 161 H* 158 H Potassium 3.8 Chloride 126 H* Carbon Dioxide 22.0 Anion Gap 10 BUN Creatinine 5.1 H* Estim Creat Clear Calc 11.3 L eGFR 11 L* BUN/Creatinine Ratio 22 H Glucose 161 H Calculated Osmolality 350 H Calcium 7.6 L Corrected Calcium 8.6 Phosphorus 4.5 Magnesium 1.8 Total Bilirubin 0.5 AST 32 ALT 31 Alkaline Phosphatase 114 D Total Creatine Kinase Total Protein 5.3 L Albumin 2.8 L Globulin 2.5 Albumin/Globulin Ratio 1.1 L ABG Interpretation ABG results: 11/04/24 06:04 ABG pH 7.37 ABG pCO2 39 ABG pO2 78 L ABG HCO3 22 ABG O2 Saturation 93 ABG Base Excess -3 Quality Measures Quality Measures VTE prophylaxis Advance care planning discussed with:: patient Assessment & Plan Assessment Current Active Medications: Generic Name Dose Route Start Last Admin Trade Name Freq PRN Reason Stop Dose Admin Acetaminophen 650 mg 11/04/24 09:24 Acetaminophen 325 Mg Tablet PO 12/04/24 09:23 Q6H PRN Fever >101.5 Dextrose 25 ml 11/04/24 09:27 Dextrose 50%-Water Inj 50 Ml Syringe IV 12/04/24 09:26 Q15MIN PRN BG 50-70 responsive npo pt Dextrose 50 ml 11/04/24 09:27 Dextrose 50%-Water Inj 50 Ml Syringe IV 12/04/24 09:26 Q15MIN PRN BG <50 OR BG <70 & pt unresponsive Glucagon 1 mg 11/04/24 09:27 Glucagon Inj 1 Mg Vial IM Q15MIN PRN BG <70, and no IV access Heparin Sodium (Porcine) 5,000 unit 11/04/24 10:45 11/06/24 05:32 Heparin Sod Inj 5000 Unit/Ml Vial SC 11/18/24 10:44 5,000 unit Q8HR MERLY Administration Dextrose 500 mls @ 50 mls/hr 11/05/24 21:57 11/06/24 08:01 D5w IV 12/05/24 21:55 50 mls/hr .Q10H MERLY Administration Lactated Ringer's 1,000 mls @ 100 mls/hr 11/05/24 21:57 11/06/24 08:01 Lactated Ringers IV 12/05/24 21:55 100 mls/hr .Q10H MERLY Administration Insulin Human Lispro 0 unit 11/04/24 11:30 11/06/24 07:58 Insulin Lispro (Admelog) 1 Unit/0.01 Ml Unit SC 12/04/24 11:29 1 unit AC MERLY Administration Protocol Ondansetron HCl 4 mg 11/04/24 09:24 Ondansetron Inj 2 Mg/Ml Inj 2 Ml IV 12/04/24 09:23 Q6H PRN NAUSEA OR VOMITING Protocol Pantoprazole Sodium 40 mg 11/06/24 09:00 11/06/24 08:02 Pantoprazole 40 Mg Tablet PO 12/06/24 08:59 40 mg QDAY MERLY Administration Sennosides 1 tab 11/04/24 09:24 Senna Tablet PO 12/04/24 09:23 QDAY PRN constipation Protocol Plan Delroy Ngo is 74 yr male with PMH of CVA, brain tumor S/PE left frontal craniotomy, expressive aphasia, hypertension, insulin-dependent diabetes, COPD on 4 L O2, BPH who was presented to ED via ambulance due to altered mental status 2/2 hypernatremia [employer] #Hx of CVA and craniectomy #Altered mental status 2/2 hypernatremia- baseline -Baseline GCS11, able to say yes but not verbalize more than that CVS #Hx HTN -On amlodipine outpatient, will resume once patient hemodynamically stable, -Currently normotensive #Hx HLD - On atorvastatin Resp #Hx COPD, chronic -Resume supplemental O2 PRN -Goal O2 saturation 88-92% #PNA as per CT -CT read R PNA consistent with decreased lung sounds in b/l basilar field -Rocephin discontinued today , he is asymptomatic #RUL Pulmonary nodule -Seen on CT increased from 2mm in 08/02/2022 to 7mm in recent scan -follow up outpatient GI PPI prophylaxis Renal #Hypernatremia 2/2 poor oral intake and poor living conditions at home, likely compounded by acute infection Sodium measured 165, corrected with glucose to be 169 Rec'd 2L crystalloid by ED US renal:Bilateral renal cortical thinning. 8mm nonobstructing right renal calculus -Give additional 2 LR, as Free water deficit is about 6 L with sodium goal 140, -Q4hr sodium checks -Decrease sodium by no more than 8mEq in first 24 hrs -Free water deficit 1.8L(for goal of 150 ) -will continue D5W @90 ml/hr #HILDA, prerenal in the setting of dehydration vs ATN #Diabetic nephropathy Creatinine baseline is 1 -IVF -renal function, CR 5.1 today -urine output- 1200 L in 24 hr - will continue to monitor no dialysis for today Endo #History of insulin dependent type 2 diabetes On admission initial glucose in ED in 300s. Patient takes 55 units glargine for diabetes at home. -Bedside blood glucose checks q6hr -Insulin lispro sliding scale -Diabetes education -A1c 11 Hem No issues ID #[id number] consistent for UTI -Patient wears diapers and gets frequent UTIs -Has Nuñez inserted in ED, will discontinue today -Urine culture - negative -Discontinued ceftriaxone today Disposition: ICU DVT prophylaxis: Heparin GI prophylaxis: PPI Diet: renal witn no salt Lines: PIV CODE STATUS:Full code Patient care was discussed with attending physician Dr. Ryne Ervin MD,PGY-3
[2024-11-06 10:52] LABS: Sodium 160 mMol/L (136-145)
[2024-11-06] MEDS: DEXTROSE 5%-WATER 500 ML 90 ML IV ×2 (11:38→16:00)
--- NOTE | 2024-11-06 11:51 | PD.RESPRO ---
Documentation for date of: 11/06/24 Subjective Subjective Interval history: Patient examined at bedside. Overnight urine output was 840mL. Hypernatremia has improved to 158, potassium 3.8, slight downtrend in Cr to 5.1 today. He received total of 4L LR yesterday. Continue D5W at 50 cc/hr for hypernatremia. Will hold off dialysis for now and continue to closely monitor. Exam Vital Signs Temp Pulse Resp BP Pulse Ox O2 Del Method O2 Flow Rate 97.1 F 81 19 127/71 96 Room Air 3 11/05/24 12:00 11/06/24 09:00 11/06/24 09:00 11/06/24 09:00 11/06/24 09:00 11/05/24 04:00 11/04/24 17:42 Narrative Exam General: no acute distress, AAO x1-2, minimally responsive, responds yes or no. HEENT: NCAT, No JVD noted. Mucosa moist. Pupils are equal and reactive to light bilaterally, Large old surgical scar, well-healed on the left frontal and left parietal regions head. Cardiovascular: Normal S1 and S2. Regular rate and rhythm. Respiratory: Lungs are clear to auscultation bilaterally. No wheezing or crackles heard. Abdomen: Soft, nontender, not distended, normal bowel sounds. Skin: Warm to touch, dry, scabs through LE Musculoskeletal: No gross injuries. Able to move all 4 extremities. No pitting edema Neuro: Alert and oriented x3. No focal neuro deficits. Psych: Normal affect and mood Objective Labs 11/07/24 05:55 11/07/24 14:11 Labs: Laboratory Results - last 24 hr 11/05/24 11/05/24 11/05/24 11:16 14:00 17:21 WBC RBC Hgb Hct MCV MCH MCHC RDW Std Deviation Plt Count Neut % (Auto) Lymph % (Auto) [place] % (Auto) Eos % (Auto) Baso % (Auto) Neut # (Auto) Lymph # (Auto) [place] # (Auto) Eos # (Auto) Baso # (Auto) Immature Gran # (Auto) Absolute Nucleated RBC Immature Gran % Nucleated RBC % Sodium 161 H* 160 H 159 H Potassium 4.0 Chloride 126 H* Carbon Dioxide 21.6 Anion Gap 11 BUN 112 H* Creatinine 5.2 H* Estim Creat Clear Calc 11.1 L eGFR 11 L* BUN/Creatinine Ratio 22 H Glucose 170 H Calculated Osmolality 354 H Calcium 7.6 L Corrected Calcium 8.6 Phosphorus 5.0 Magnesium Total Bilirubin AST ALT Alkaline Phosphatase Total Creatine Kinase 151 D Total Protein Albumin 2.7 L Globulin Albumin/Globulin Ratio 11/05/24 11/05/24 11/06/24 20:30 23:40 05:12 WBC 9.3 D RBC 3.87 L Hgb 11.8 L Hct 36.1 L MCV 93 MCH 30.5 MCHC 32.7 RDW Std Deviation 45.2 H Plt Count 102 L Neut % (Auto) 77 Lymph % (Auto) 13 [place] % (Auto) 9 Eos % (Auto) 2 Baso % (Auto) 0 Neut # (Auto) 7.1 Lymph # (Auto) 1.2 [place] # (Auto) 0.8 Eos # (Auto) 0.2 Baso # (Auto) 0.0 Immature Gran # (Auto) 0.03 H Absolute Nucleated RBC 0.00 Immature Gran % 0 Nucleated RBC % 0 Sodium 161 H* 161 H* 158 H Potassium 3.8 Chloride 126 H* Carbon Dioxide 22.0 Anion Gap 10 BUN Creatinine 5.1 H* Estim Creat Clear Calc 11.3 L eGFR 11 L* BUN/Creatinine Ratio 22 H Glucose 161 H Calculated Osmolality 350 H Calcium 7.6 L Corrected Calcium 8.6 Phosphorus 4.5 Magnesium 1.8 Total Bilirubin 0.5 AST 32 ALT 31 Alkaline Phosphatase 114 D Total Creatine Kinase Total Protein 5.3 L Albumin 2.8 L Globulin 2.5 Albumin/Globulin Ratio 1.1 L 11/06/24 10:35 WBC RBC Hgb Hct MCV MCH MCHC RDW Std Deviation Plt Count Neut % (Auto) Lymph % (Auto) [place] % (Auto) Eos % (Auto) Baso % (Auto) Neut # (Auto) Lymph # (Auto) [place] # (Auto) Eos # (Auto) Baso # (Auto) Immature Gran # (Auto) Absolute Nucleated RBC Immature Gran % Nucleated RBC % Sodium 160 H Potassium Chloride Carbon Dioxide Anion Gap BUN Creatinine Estim Creat Clear Calc eGFR BUN/Creatinine Ratio Glucose Calculated Osmolality Calcium Corrected Calcium Phosphorus Magnesium Total Bilirubin AST ALT Alkaline Phosphatase Total Creatine Kinase Total Protein Albumin Globulin Albumin/Globulin Ratio ABG Interpretation ABG results: 11/04/24 06:04 ABG pH 7.37 ABG pCO2 39 ABG pO2 78 L ABG HCO3 22 ABG O2 Saturation 93 ABG Base Excess -3 Quality Measures Quality Measures VTE prophylaxis Advance care planning discussed with:: other Assessment & Plan Assessment Current Active Medications: Generic Name Dose Route Start Last Admin Trade Name Freq PRN Reason Stop Dose Admin Acetaminophen 650 mg 11/04/24 09:24 Acetaminophen 325 Mg Tablet PO 12/04/24 09:23 Q6H PRN Fever >101.5 Dextrose 25 ml 11/04/24 09:27 Dextrose 50%-Water Inj 50 Ml Syringe IV 12/04/24 09:26 Q15MIN PRN BG 50-70 responsive npo pt Dextrose 50 ml 11/04/24 09:27 Dextrose 50%-Water Inj 50 Ml Syringe IV 12/04/24 09:26 Q15MIN PRN BG <50 OR BG <70 & pt unresponsive Glucagon 1 mg 11/04/24 09:27 Glucagon Inj 1 Mg Vial IM Q15MIN PRN BG <70, and no IV access Heparin Sodium (Porcine) 5,000 unit 11/04/24 10:45 11/06/24 05:32 Heparin Sod Inj 5000 Unit/Ml Vial SC 11/18/24 10:44 5,000 unit Q8HR MERLY Administration Lactated Ringer's 1,000 mls @ 100 mls/hr 11/05/24 21:57 11/06/24 08:01 Lactated Ringers IV 12/05/24 21:56 100 mls/hr .Q10H MERLY Administration Dextrose 500 mls @ 90 mls/hr 11/06/24 11:34 D5w IV 12/06/24 11:33 .Q5H34M MERLY Insulin Human Lispro 0 unit 11/04/24 11:30 11/06/24 07:58 Insulin Lispro (Admelog) 1 Unit/0.01 Ml Unit SC 12/04/24 11:29 1 unit AC MERLY Administration Protocol Ondansetron HCl 4 mg 11/04/24 09:24 Ondansetron Inj 2 Mg/Ml Inj 2 Ml IV 12/04/24 09:23 Q6H PRN NAUSEA OR VOMITING Protocol Pantoprazole Sodium 40 mg 11/06/24 09:00 11/06/24 08:02 Pantoprazole 40 Mg Tablet PO 12/06/24 08:59 40 mg QDAY MERLY Administration Sennosides 1 tab 11/04/24 09:24 Senna Tablet PO 12/04/24 09:23 QDAY PRN constipation Protocol Plan Huber is 74 yr male with PMH of CVA, brain tumor S/PE left frontal craniotomy, expressive aphasia, hypertension, insulin-dependent diabetes, COPD on 4 L O2, BPH who was presented to ED via ambulance due to altered mental status 2/2 hypernatremia #Hyperosmolar hypercholremic hypernatremia-resolving #HILDA, prerenal Most likely pre renal in setting of dehydration. Baseline Cr appears to be around 1.0. Admission sodium measured 165, corrected with glucose to be 169, chloride 127, blood sugar in 300, phosphate 6.2, osm 379. Cr 5.0. Kidney u/s bilateral renal cortical thinning, 8mm non obstructing right renal calculus. -continue D5W maintainence -Q3hr sodium checks -Decrease sodium by no more than 8mEq in next 24 hrs -Free water deficit 1.8L for goal of 150 -monitor IOs -urine electrolytes pending -will closely monitor kidney function. No indication for dialysis at this time. #8mm right renal calculus #Complicated UTI #Hx of CVA and craniectomy #Altered mental status 2/2 hypernatremia #Hx HTN #Hx HLD #Hx COPD, chronic #PNA #RUL Pulmonary nodule #History of insulin dependent type 2 diabetes #PNA The patient's management plan was discussed with my attending physician Dr. Singer. Sandra Olvera, PGY-1 Attending Provider Attestation/Addendum Pt seen and examined. Labs and radiology reviewed. Agree with assessment and plan and findings by resident. Bradley Singer MD
[2024-11-06 13:58] LABS: Blood Urea Nitrogen 111 mg/dL (9-23)
[2024-11-06 14:38] LABS: Sodium 158 mMol/L (136-145)
--- NOTE | 2024-11-06 16:18 | PC.SS ---
Verbal APS report submitted to APS staff, Arminda Jones. Written report faxed to [phone]. Soc 341 filed in patient's chart. Bedside nurse updated.
--- NOTE | 2024-11-06 17:16 | PC.SS ---
volunteer services coordinator to follow up with APS at time of patient's discharge to confirm patient's transition home.
[2024-11-06 18:04] LABS: Sodium 158 mMol/L (136-145)
[2024-11-06] MEDS: DEXTROSE 5%-WATER 500 ML 120 ML IV ×2 (18:15→21:48)
[2024-11-06 22:46] LABS: Sodium 157 mMol/L (136-145)
[2024-11-07] VITALS (31 sets, daily range): BP systolic 120–167; BP diastolic 60–110; PULSE 65–92; RESP 14–99; TEMP 36.1–36.7; O2SAT 94–99; BMI 23.6
[2024-11-07] MEDS: INSULIN LISPRO (AdmeLOG) 1 UNIT/0.01 ML UNIT SC ×5 (00:29→23:23)
[2024-11-07] MEDS: DEXTROSE 5%-WATER 500 ML 120 ML IV ×2 (02:12→06:14)
[2024-11-07 02:36] LABS: Sodium 159 mMol/L (136-145)
[2024-11-07] MEDS: HEPARIN SOD INJ 5000 UNIT/ML VIAL SC ×3 (05:08→21:51)
[2024-11-07 06:16] LABS: Basophils % (Auto) 0 % (0-2.5); Eosinophils # (Auto) 0.2 Thou/mm3 (0.0-0.5); Eosinophils % (Auto) 3 % (0-10); Hematocrit 36.7 % (41.0-53.0); Hemoglobin 12.2 g/dL (13.5-16.0); Immature Granulocytes % (Auto) 1 % (0-0); Immature Granulocytes Auto 0.03 Thou/mm3 (0.00-0.00); Lymphocytes # (Auto) 0.9 Thou/mm3 (1.0-4.8); Lymphocytes % (Auto) 15 % (10-50); Mean Corpuscular HGB Conc 33.2 g/dl (31.0-37.0); Mean Corpuscular Hemoglobin 30.1 pg (25.0-35.0); Mean Corpuscular Volume 91 fL (80-100); Monocytes # (Auto) 0.7 Thou/mm3 (0.0-0.8); Monocytes % (Auto) 12 % (0-12); Neutrophils # (Auto) 4.1 Thou/mm3 (1.8-7.7); Neutrophils % (Auto) 70 % (37-80); Nucleated Red Blood Cell % 0 /100 WBC (0); Platelet Count 92 Thou/mm3 (140-440); RDW Standard Deviation 42.8 fL (35.1-43.9); Red Blood Count 4.05 Miln/mm3 (4.50-5.90); White Blood Count 5.9 Thou/mm3 (3.8-10.6)
[2024-11-07 06:56] LABS: Alanine Aminotransferase 28 U/L (10-49); Albumin, Serum 2.8 gm/dL (3.4-4.8); Albumin/Globulin Ratio 1.1 (1.2-2.2); Alkaline Phosphatase 110 U/L (46-116); Anion Gap 11 (7-16); Aspartate Amino Transferase 33 U/L (0-34); BUN/Creatinine Ratio 19 Ratio (12-20); Bilirubin,Total 0.5 mg/dL (0.3-1.2); Blood Urea Nitrogen 89 mg/dL (9-23); Calcium 7.9 mg/dL (8.3-10.6); Calcium (Corrected) 8.9 mg/dL (8.5-10.1); Carbon Dioxide 21.9 mMol/L (20.0-31.0); Chloride 122 mMol/L (98-107); Creatinine (Component) 4.8 mg/dL (0.6-1.3); Globulin 2.6 gm/dL (2.3-3.5); Glucose 253 mg/dL (74-106); Magnesium 1.8 mg/dL (1.6-2.6); Osmolality,Calculated 343 (275-295); Phosphorous 3.8 mg/dL (2.4-5.1); Potassium 3.5 mMol/L (3.4-5.1); Sodium 155 mMol/L (136-145); Total Protein 5.4 gm/dL (5.7-8.2); eGFR 12 See Note
[2024-11-07] MEDS: RINGERS LACTATED 1000 ML 1,000 ML 100 ML IV (06:59)
--- NOTE | 2024-11-07 09:54 | ESPR_ITS ---
<Statement entered by Colin Michele MD - 11/08/24 11:25> TOTAL TIME: 45MINUTES ON DIRECT MEDICAL CARE, MANAGEMENT - COORDINATION AND COUNSELING > 50% OF TOTAL TIME I saw and evaluated the patient. I reviewed the resident?s note and agree with findings and plan as documented in the resident?s note. Continue free water as ordered. Patient has failed swallow evaluation and PEG tube may even be required. Follow-up will swallow evaluation will be prudent once sodium is within normal limits which may improve the patient's cognition further. Stable to be transferred out of ICU Documentation for date of: 11/07/24 Subjective Subjective Interval history: Patient is a 74-year-old male with past medical history of CVA, brain tumor status post left frontal craniotomy, expressive aphasia, hypertension, insulin- dependent diabetes, COPD on home oxygen, BPH was admitted to ICU for severe hyponatremia treatment management. 11/05/2024 patient was seen and examined at bedside. Overnight no acute event, sodium dropped to 159, D5W rate was decreased to 40 cc/h, repeat sodium 165, free water deficit is about 6 L patient will be needing to restore intravascular volume, will give additional 2 L of LR, will continue close monitor sodium level every 3 hour. Renal panel still the same, patient most likely has a diabetic nephropathy, however will continue close monitor renal panel, patient had only 280 mL of urine output since yesterday. Nephrology is on board, will follow with recommendations. 11/06/2024 : Patient was examined bedside this morning, no acute overnight event. His sodium went up to 161 so started him back on D5W at the rate 50 cc/hr with LR at the rate of 100 mL/h. Morning sodium was 158 will do sodium checks every 4 hours. In 24 hours he had 1.2 L of urine output. His creatinine has been stable at 5 . Will continue to monitor his urine output hold dialysis for today. Nephrology following. urine culture was negative , antibiotics discontinued. will Dc foleys catheter . 11/07/2024. Patient was seen and examined at bedside no acute overnight events. Sodium was corrected to 154, currently patient is D5W 150 cc/h. LR was held. Patient failed water swallow test, he is choking on water, will continue thick liquid diet patient was encouraged to increase p.o. intake. Nurse was notified to chart oral intake. Continue close monitor for fluid status. Patient is making a good urine output. Also blood sugar is not well controlled, we will start Lantus 5 units, patient was on insulin sliding scale. Renal panel slowly improving, creatinine down to 4.8 from 5.1, making adequate urine output. Continue monitor renal panel. Patient currently stable to be transferred to telemetry, hospitalist team was notified. Exam Vital Signs Temp Pulse Resp BP Pulse Ox O2 Del Method O2 Flow Rate 97.5 F 81 18 153/77 H 98 Room Air 3 11/07/24 08:00 11/07/24 09:00 11/07/24 09:00 11/07/24 09:00 11/07/24 09:00 11/07/24 08:00 11/04/24 17:42 Narrative Exam GENERAL: no acute distress, AAO x1-2, minimally responsive, responds yes or no. HEENT:. Mucous membranes dry. PERRL.Large old surgical scar, well-healed on the left frontal and left parietal regions head. NECK: Supple, no lymphadenopathy, no carotid bruits. CARDIOVASCULAR: RRR. Normal S1/S2, No m/r/g. No pitting edema of bilateral LEs. RESPIRATORY: CTAB. No wheezing, rhonchi, crackles. GASTROINTESTINAL: Abdomen soft, non tender no palpable masses. Bowel sounds present in all 4 quadrants. MUSCULOSKELETAL:? No cyanosis or edema, no visible joint swelling. INTEGUMENTARY: No obvious rashes, no jaundice, normal turgor. Objective Labs 11/07/24 05:55 11/07/24 09:50 Labs: Laboratory Results - last 24 hr 11/06/24 11/06/24 11/06/24 05:12 10:35 14:14 WBC RBC Hgb Hct MCV MCH MCHC RDW Std Deviation Plt Count Neut % (Auto) Lymph % (Auto) [place] % (Auto) Eos % (Auto) Baso % (Auto) Neut # (Auto) Lymph # (Auto) [place] # (Auto) Eos # (Auto) Baso # (Auto) Immature Gran # (Auto) Absolute Nucleated RBC Immature Gran % Nucleated RBC % Sodium 160 H 158 H Potassium Chloride Carbon Dioxide Anion Gap BUN 111 H* Creatinine Estim Creat Clear Calc eGFR BUN/Creatinine Ratio Glucose Calculated Osmolality Calcium Corrected Calcium Phosphorus Magnesium Total Bilirubin AST ALT Alkaline Phosphatase Total Protein Albumin Globulin Albumin/Globulin Ratio 11/06/24 11/06/24 11/07/24 17:45 22:21 02:09 WBC RBC Hgb Hct MCV MCH MCHC RDW Std Deviation Plt Count Neut % (Auto) Lymph % (Auto) [place] % (Auto) Eos % (Auto) Baso % (Auto) Neut # (Auto) Lymph # (Auto) [place] # (Auto) Eos # (Auto) Baso # (Auto) Immature Gran # (Auto) Absolute Nucleated RBC Immature Gran % Nucleated RBC % Sodium 158 H 157 H 159 H Potassium Chloride Carbon Dioxide Anion Gap BUN Creatinine Estim Creat Clear Calc eGFR BUN/Creatinine Ratio Glucose Calculated Osmolality Calcium Corrected Calcium Phosphorus Magnesium Total Bilirubin AST ALT Alkaline Phosphatase Total Protein Albumin Globulin Albumin/Globulin Ratio 11/07/24 05:55 WBC 5.9 RBC 4.05 L Hgb 12.2 L Hct 36.7 L MCV 91 MCH 30.1 MCHC 33.2 RDW Std Deviation 42.8 Plt Count 92 L Neut % (Auto) 70 Lymph % (Auto) 15 [place] % (Auto) 12 Eos % (Auto) 3 Baso % (Auto) 0 Neut # (Auto) 4.1 Lymph # (Auto) 0.9 L [place] # (Auto) 0.7 Eos # (Auto) 0.2 Baso # (Auto) 0.0 Immature Gran # (Auto) 0.03 H Absolute Nucleated RBC 0.00 Immature Gran % 1 H Nucleated RBC % 0 Sodium 155 H Potassium 3.5 Chloride 122 H* Carbon Dioxide 21.9 Anion Gap 11 BUN 89 H Creatinine 4.8 H* Estim Creat Clear Calc 12.0 L eGFR 12 L* BUN/Creatinine Ratio 19 Glucose 253 H D Calculated Osmolality 343 H Calcium 7.9 L Corrected Calcium 8.9 Phosphorus 3.8 Magnesium 1.8 Total Bilirubin 0.5 AST 33 ALT 28 Alkaline Phosphatase 110 Total Protein 5.4 L Albumin 2.8 L Globulin 2.6 Albumin/Globulin Ratio 1.1 L ABG Interpretation ABG results: 11/04/24 06:04 ABG pH 7.37 ABG pCO2 39 ABG pO2 78 L ABG HCO3 22 ABG O2 Saturation 93 ABG Base Excess -3 Quality Measures Quality Measures VTE prophylaxis Advance care planning discussed with:: patient Assessment & Plan Assessment Current Active Medications: Generic Name Dose Route Start Last Admin Trade Name Freq PRN Reason Stop Dose Admin Acetaminophen 650 mg 11/04/24 09:24 Acetaminophen 325 Mg Tablet PO 12/04/24 09:23 Q6H PRN Fever >101.5 Dextrose 25 ml 11/04/24 09:27 Dextrose 50%-Water Inj 50 Ml Syringe IV 12/04/24 09:26 Q15MIN PRN BG 50-70 responsive npo pt Dextrose 50 ml 11/04/24 09:27 Dextrose 50%-Water Inj 50 Ml Syringe IV 12/04/24 09:26 Q15MIN PRN BG <50 OR BG <70 & pt unresponsive Glucagon 1 mg 11/04/24 09:27 Glucagon Inj 1 Mg Vial IM Q15MIN PRN BG <70, and no IV access Heparin Sodium (Porcine) 5,000 unit 11/04/24 10:45 11/07/24 05:08 Heparin Sod Inj 5000 Unit/Ml Vial SC 11/18/24 10:44 5,000 unit Q8HR MERLY Administration Dextrose 500 mls @ 150 mls/hr 11/07/24 06:50 11/07/24 07:00 D5w IV 12/07/24 06:49 Not Given .Q3H20M MERLY Lactated Ringer's 1,000 mls @ 100 mls/hr 11/07/24 06:50 11/07/24 09:54 Lactated Ringers IV 12/07/24 06:49 0 mls/hr .Q10H MERLY Infusion Insulin Human Lispro 0 unit 11/06/24 19:00 11/07/24 06:12 Insulin Lispro (Admelog) 1 Unit/0.01 Ml Unit SC 12/06/24 18:59 2 unit Q6H MERLY Administration Protocol Ondansetron HCl 4 mg 11/04/24 09:24 Ondansetron Inj 2 Mg/Ml Inj 2 Ml IV 12/04/24 09:23 Q6H PRN NAUSEA OR VOMITING Protocol Pantoprazole Sodium 40 mg 11/06/24 09:00 11/06/24 08:02 Pantoprazole 40 Mg Tablet PO 12/06/24 08:59 40 mg QDAY MERLY Administration Sennosides 1 tab 11/04/24 09:24 Senna Tablet PO 12/04/24 09:23 QDAY PRN constipation Protocol Plan Delroy Ngo is 74 yr male with PMH of CVA, brain tumor S/PE left frontal craniotomy, expressive aphasia, hypertension, insulin-dependent diabetes, COPD on 4 L O2, BPH who was presented to ED via ambulance due to altered mental status 2/2 hypernatremia BLOCK TESTER #Hx of CVA and craniectomy #Altered mental status 2/2 hypernatremia- baseline -Baseline GCS11, able to say yes but not verbalize more than that CVS #Hx HTN -On amlodipine outpatient, will resume once patient hemodynamically stable, -Currently normotensive #Hx HLD - On atorvastatin Resp #Hx COPD, chronic -Resume supplemental O2 PRN -Goal O2 saturation 88-92% #PNA as per CT -CT read R PNA consistent with decreased lung sounds in b/l basilar field -abx discontinued , he is asymptomatic #RUL Pulmonary nodule -Seen on CT increased from 2mm in 08/02/2022 to 7mm in recent scan -follow up outpatient GI PPI prophylaxis Renal #Hypernatremia 2/2 poor oral intake and poor living conditions at home, likely compounded by acute infection Sodium measured 165, corrected with glucose to be 169 Rec'd 2L crystalloid by ED US renal:Bilateral renal cortical thinning. 8mm nonobstructing right renal calculus -Received multiple boluses, as Free water deficit is about 6 L with sodium goal 140, -Q4hr sodium checks -Decrease sodium by no more than 8mEq in first 24 hrs -will continue D5W @150 ml/hr #HILDA, prerenal in the setting of dehydration vs ATN #Diabetic nephropathy Creatinine baseline is 1 -IVF -renal function, CR 5.1->4.8 today -Patient is having adequate urine output 24 hr -will continue to monitor no dialysis for today Endo #History of insulin dependent type 2 diabetes On admission initial glucose in ED in 300s. Patient takes 55 units glargine for diabetes at home. -Bedside blood glucose checks q6hr -Lantus 5 at bedtime -Insulin lispro sliding scale -Diabetes education -A1c 11 Hem No issues ID #[id number] consistent for UTI -Patient wears diapers and gets frequent UTIs -Discontinue Nuñez -Urine culture - negative -Discontinued antibiotic Disposition: ICU DVT prophylaxis: Heparin GI prophylaxis: PPI Diet: renal with no salt, thick liquid, patient chokes on water Lines: PIV CODE STATUS:Full code Patient care was discussed with attending physician Dr. Ryne Castro MD PGY-2
[2024-11-07 10:30] LABS: Sodium 154 mMol/L (136-145)
[2024-11-07] MEDS: DEXTROSE 5%-WATER 1,000 ML 150 ML IV (11:21)
--- NOTE | 2024-11-07 12:48 | ESPR_ITS ---
Documentation for date of: 11/07/24 Subjective Subjective Interval history: Pt is seen and examined at bedside in ICU. Pt was admitted to the ICU due to hypernatremia. Pt has has broca's aphasia but can formulated some words. Pt complain to severe right foot pain. Denies any traumatic injury to it however is unsure if he stepped on something. Vitals are stable, pt is saturating on room air. labs are significant for Hgb 12.2, Hct 36.7, plt 92, Na 150 at 2pm, cr 4.8 and GFR 12. Exam Vital Signs Temp Pulse Resp BP Pulse Ox O2 Del Method O2 Flow Rate 97.5 F 81 21 H 148/74 H 98 Room Air 3 11/07/24 08:00 11/07/24 11:00 11/07/24 11:00 11/07/24 11:00 11/07/24 11:00 11/07/24 08:00 11/04/24 17:42 Narrative Exam GENERAL: Awake and alert, has broca's aphagia NEURO: unable to fully asses due to level of comprehension pt has, but he has flaccid paralysis of the right UE HEENT: Atraumatic, Normocephalic. mucous membranes moist. Eyes open, symmetrical, & clear HEART: Normal Heart Sounds LUNGS: Clear to auscultation with no wheezing or crackles. ABDOMEN: soft, non-distended, non-tender, bowel sounds heard, no guarding or rebound tenderness SKIN: No Rash or ecchymoses EXTREMITIES: No edema, pedal pulses palpated, moderate tenderness to palpation over the right foot Objective Labs 11/08/24 06:05 11/08/24 10:00 Labs: Laboratory Results - last 24 hr 11/06/24 11/06/24 11/06/24 05:12 14:14 17:45 WBC RBC Hgb Hct MCV MCH MCHC RDW Std Deviation Plt Count Neut % (Auto) Lymph % (Auto) [place] % (Auto) Eos % (Auto) Baso % (Auto) Neut # (Auto) Lymph # (Auto) [place] # (Auto) Eos # (Auto) Baso # (Auto) Immature Gran # (Auto) Absolute Nucleated RBC Immature Gran % Nucleated RBC % Sodium 158 H 158 H Potassium Chloride Carbon Dioxide Anion Gap BUN 111 H* Creatinine Estim Creat Clear Calc eGFR BUN/Creatinine Ratio Glucose Calculated Osmolality Calcium Corrected Calcium Phosphorus Magnesium Total Bilirubin AST ALT Alkaline Phosphatase Total Protein Albumin Globulin Albumin/Globulin Ratio 11/06/24 11/07/24 11/07/24 22:21 02:09 05:55 WBC 5.9 RBC 4.05 L Hgb 12.2 L Hct 36.7 L MCV 91 MCH 30.1 MCHC 33.2 RDW Std Deviation 42.8 Plt Count 92 L Neut % (Auto) 70 Lymph % (Auto) 15 [place] % (Auto) 12 Eos % (Auto) 3 Baso % (Auto) 0 Neut # (Auto) 4.1 Lymph # (Auto) 0.9 L [place] # (Auto) 0.7 Eos # (Auto) 0.2 Baso # (Auto) 0.0 Immature Gran # (Auto) 0.03 H Absolute Nucleated RBC 0.00 Immature Gran % 1 H Nucleated RBC % 0 Sodium 157 H 159 H 155 H Potassium 3.5 Chloride 122 H* Carbon Dioxide 21.9 Anion Gap 11 BUN 89 H Creatinine 4.8 H* Estim Creat Clear Calc 12.0 L eGFR 12 L* BUN/Creatinine Ratio 19 Glucose 253 H D Calculated Osmolality 343 H Calcium 7.9 L Corrected Calcium 8.9 Phosphorus 3.8 Magnesium 1.8 Total Bilirubin 0.5 AST 33 ALT 28 Alkaline Phosphatase 110 Total Protein 5.4 L Albumin 2.8 L Globulin 2.6 Albumin/Globulin Ratio 1.1 L 11/07/24 09:50 WBC RBC Hgb Hct MCV MCH MCHC RDW Std Deviation Plt Count Neut % (Auto) Lymph % (Auto) [place] % (Auto) Eos % (Auto) Baso % (Auto) Neut # (Auto) Lymph # (Auto) [place] # (Auto) Eos # (Auto) Baso # (Auto) Immature Gran # (Auto) Absolute Nucleated RBC Immature Gran % Nucleated RBC % Sodium 154 H Potassium Chloride Carbon Dioxide Anion Gap BUN Creatinine Estim Creat Clear Calc eGFR BUN/Creatinine Ratio Glucose Calculated Osmolality Calcium Corrected Calcium Phosphorus Magnesium Total Bilirubin AST ALT Alkaline Phosphatase Total Protein Albumin Globulin Albumin/Globulin Ratio ABG Interpretation ABG results: 11/04/24 06:04 ABG pH 7.37 ABG pCO2 39 ABG pO2 78 L ABG HCO3 22 ABG O2 Saturation 93 ABG Base Excess -3 Quality Measures Quality Measures VTE prophylaxis Advance care planning discussed with:: other Assessment & Plan Assessment Current Active Medications: Generic Name Dose Route Start Last Admin Trade Name Tlq PRN Reason Stop Dose Admin Acetaminophen 650 mg 11/04/24 09:24 Acetaminophen 325 Mg Tablet PO 12/04/24 09:23 Q6H PRN Fever >101.5 Dextrose 25 ml 11/04/24 09:27 Dextrose 50%-Water Inj 50 Ml Syringe IV 12/04/24 09:26 Q15MIN PRN BG 50-70 responsive npo pt Dextrose 50 ml 11/04/24 09:27 Dextrose 50%-Water Inj 50 Ml Syringe IV 12/04/24 09:26 Q15MIN PRN BG <50 OR BG <70 & pt unresponsive Glucagon 1 mg 11/04/24 09:27 Glucagon Inj 1 Mg Vial IM Q15MIN PRN BG <70, and no IV access Heparin Sodium (Porcine) 5,000 unit 11/04/24 10:45 11/07/24 05:08 Heparin Sod Inj 5000 Unit/Ml Vial SC 11/18/24 10:44 5,000 unit Q8HR MERLY Administration Lactated Ringer's 1,000 mls @ 100 mls/hr 11/07/24 06:50 11/07/24 09:54 Lactated Ringers IV 12/07/24 06:49 0 mls/hr .Q10H MERLY Infusion Dextrose 1,000 mls @ 150 mls/hr 11/07/24 11:16 11/07/24 11:21 D5w IV 12/07/24 11:15 150 mls/hr .Q6H40M MERLY Administration Insulin Glargine 5 unit 11/07/24 21:00 Insulin Glargine (Lantus) 5 Unit/0.05 Ml (Per 5 Units) SC 12/07/24 20:59 HS [facility]1983 Insulin Human Lispro 0 unit 11/07/24 12:35 Insulin Lispro (Admelog) 1 Unit/0.01 Ml Unit SC 12/07/24 12:34 ACHS [facility]1983 Protocol Ondansetron HCl 4 mg 11/04/24 09:24 Ondansetron Inj 2 Mg/Ml Inj 2 Ml IV 12/04/24 09:23 Q6H PRN NAUSEA OR VOMITING Protocol Pantoprazole Sodium 40 mg 11/06/24 09:00 11/07/24 11:30 Pantoprazole 40 Mg Tablet PO 12/06/24 08:59 Not Given QDAY MERLY Sennosides 1 tab 11/04/24 09:24 Senna Tablet PO 12/04/24 09:23 QDAY PRN constipation Protocol Plan Huber is 74 yr male with PMH of brain tumor at s/p left frontal craniotomy, Acute CVA with residual deficit of broca's aphagia, hypertension, insulin-dependent diabetes, COPD on 4 L O2, BPH who was presented to [facility] ED on 11/04/24 via ambulance due to altered mental status. Pt was admitted to the ICU on 11/04-11/07 for hypernatremia which is slowly corrected over the last few days. #Hypernatremia -2/2 poor oral intake and poor living conditions at home, likely compounded by acute infection -on admission Sodium measured 165, corrected with glucose to be 169 - Pt Rec'd 2L crystalloid by ED US renal:Bilateral renal cortical thinning. 8mm nonobstructing right renal calculus -Give additional 2 LR, as Free water deficit is about 6 L with sodium goal 140, -Q4hr sodium checks -Decrease sodium by no more than 8mEq in first 24 hrs -Free water deficit 1.8L(for goal of 150 ) -will continue D5W 75 ml/hr #HILDA, prerenal in the setting of dehydration vs ATN #Diabetic nephropathy Creatinine baseline is 1, Creatinine on admission 5.0 -IV fluids given and will continue with maintenance fluids -avoid nephrotoxic drugs and renally dose medications -Pt is making urine, and continues to have increased urine output -nephrology consulted and following #Hx. of CVA, residual deficit of #Broca's aphasia #new onset of dysphagia #Hx of brain tumor s/p craniotomy in childhood -Pt has history of significant stroke that has left him with residual deficits of broca's aphasia as well as wheel chair bound. -At baseline pt was able to swallow however, during this hospital admission it is noticed pt has increased difficulty with swallowing solids, liquids including thickened liquids -Speech therapy evaluation was done during his ICU stay and recommended to avoid oral intake -Will discuss with family alternative options including PEG tube -GI is consulted and will be evaluating #Insulin dependent type 2 diabetes, uncontrolled -A1c 11.0 on 11/04/24 -Glargine 5 units HS -Insulin sliding scale started adn hypoglycemia protocol in place #Hx HTN -resumed home amlodipine 5 mg daily #Hx COPD -Currently Patient is not in COPD exacerbation. Per daughter, he uses 4 L O2 at night and steroids which seems to be the only course of treatment adequately controls the exacerbations. -take Prednisone 10 mg daily at home as well as 4L O2 -Goal O2 saturation 88-92% , will resume supplemental O2 if O2 saturating is below 88%, currently pt is comfortably saturating above 95% on room air #Hx BPH -Per daughter, patient is wheelchair-bound and needs assistance with using bathroom. Has history of frequent UTIs. Wears diaper. -urine analysis during this admission is negative for UTI -unable to resume home tamsulosin 0.4 mg daily due to pt has increased difficulty with swallow. Health Maintenance Disposition: telemetry DVT Prophylaxis: Heparin 5000 units SC Q8 hrs GI Prophylaxis: Pantoprozol-40 IV Qday Diet: NPO due to dysphagia, pending further evaluation by GI specialist Lines: Peripheral lines Code status: Full Assessment and plan discussed with my attending physician Dr. Jody Joyner (PGY-1)- Internal medicine resident Attending Provider Attestation/Addendum I reviewed labs, imaging, EKG, home medications and prior available records. Face to face evaluation was performed by me. I have personally examined the patient and discussed assessment and plan with the IM team. I reviewed the resident note and agree with the plan with exceptions as below. Hypernatremia HILDA, possible prerenal Uncontrolled diabetes mellitus with hyperglycemia Brain tumor status postcraniotomy with neurodeficits Expressive aphasia Dysphagia COPD Chronic hypoxic respiratory failure 8 mm right renal calculus Decreased the rate of D5W Close monitoring of BMP. Avoid rapid correction Repeat CT scan of the head given the concern for new focal neurodeficit after discussion with the patient's sister Monitor kidney function. Avoid nephrotoxins. Renally dose medications N.p.o. Consulted GI for EGD Nephrology consulted Started Lantus plus sliding scale insulin. Monitor fingersticks Outpatient follow-up with urology
--- NOTE | 2024-11-07 14:40 | XR_ITS ---
Examination: Foot, right, 3 views Technique: AP, oblique, lateral views foot, 3 views Date and time of exam: November 07, 2024 1459 hrs. Indications: Right foot pain beginning 2 days ago Findings: Significant osteopenia Moderate narrowing first metatarsophalangeal joint Soft tissue swelling surrounding the foot Apparent soft tissue defect dorsum of the foot at the level in attendance on the lateral view No rito cortical bone destruction If soft tissue abscess, early osteomyelitis or clinical considerations, consider MRI foot without contrast follow-up Impression: Significant osteopenia No fracture No rito cortical bone destruction
[2024-11-07 14:52] LABS: Sodium 150 mMol/L (136-145)
--- NOTE | 2024-11-07 16:54 | XR_ITS ---
Examination: CT brain head without contrast. 2-D sagittal coronal reconstructions Date and time of exam:November 07, 2024, 1804 hours Comparison November 04, 2024 INDICATIONS: Onset altered mental status beginning November 04, 2024, clinical diagnosis CVA CTDI: vol (mGy):53.9 DLP: (mGycm):1108 Technique: Multiple CT axial sections of the brain have been obtained, 5 mm slice thickness. Contrast has not been administered. 2-D sagittal, coronal reconstructions have been obtained Low dose protocols were performed. One or more of the following dose reduction techniques were used; automated exposure control, adjustment of the mA and/or KV according to patient size, use of iterative reconstruction technique. Findings: Again noted large left frontotemporal parietal craniotomy defect with extensive left cerebral hemisphere encephalomalacia and ipsilateral ventricular enlargement Right ventricle is enlarged to a lesser degree No interval hemorrhage or mass effect No cranial vault fracture IMPRESSION: Again noted extensive chronic changes including left cerebral hemisphere encephalomalacia No interval hemorrhage or mass effect As clinically warranted, brain MRI follow-up would best assess for acute ischemic change
--- NOTE | 2024-11-07 18:18 | PD.IMCONS ---
HPI Data of Consult Requesting Physician: Medhat Vera MD Primary Care Provider: Jeremy Clinton MD Consult Narrative Reason for consult: Dysphagia History of present illness: 74 years old male evaluated in the ICU room 257 with dysphagia Daughter was likely present during my interview with the patient who is aphasic Daughter told me that for the last few days she has been noticing that he is choking a lot And even difficult for him to swallow water He has a very interesting past medical history with brain tumor at childhood requiring left frontal craniotomy CVA aphasia dementia hypertension insulin-dependent diabetes mellitus and COPD on 4 L nasal cannula He lives at home with her daughter and it was an ambulance call when he was found flat on the face on the floor with the feces all around him Living conditions at home were not very good No hematemesis cc:: cc: Medhat Vera MD Review of Systems Review of Systems ROS Unobtainable: unobtainable due to medical condition Past Medical History Surgical History OTHER SURGICAL HX: As in the history of present illness Meds Home Medications and Allergies Home Medications ?Medication ?Instructions ?Recorded ?Confirmed ?Type atorvastatin 40 mg tablet 40 mg PO QPM 11/04/19 09/24/24 History tamsulosin 0.4 mg capsule 0.4 mg PO QDAY 10/11/20 09/24/24 History escitalopram oxalate 10 mg tablet 10 mg PO QDAY 12/15/20 09/24/24 History amlodipine 5 mg tablet 5 mg PO QDAY 05/31/21 09/24/24 History albuterol sulfate 90 mcg/actuation 2 inh inhalation QID PRN shortness 06/25/22 09/24/24 History aerosol inhaler (Ventolin HFA) of breath or wheezing prednisone 10 mg tablet 10 mg PO QDAY 08/02/22 09/24/24 History albuterol sulfate 5 mg/mL(0.5 %) 5 mg inhalation TID 09/24/24 09/24/24 History solution for nebulization Allergies Allergy/AdvReac Type Severity Reaction Status Date / Time silicone Allergy Severe Fever Verified 08/01/22 15:46 tuberculin,PPD,multi-puncture Allergy Verified 08/01/22 15:46 Exam Vital Signs Temp Pulse Resp BP Pulse Ox O2 Del Method O2 Flow Rate 97.6 F 92 20 150/73 H 99 Room Air 3 11/07/24 16:00 11/07/24 16:00 11/07/24 16:00 11/07/24 16:00 11/07/24 16:00 11/07/24 16:00 11/04/24 17:42 Constitutional Comments: Chronically ill-appearing Routine Respiratory Exam Comments: Scattered rhonchi Routine Abdominal Exam Comments: Soft nontender Results Labs 11/07/24 05:55 11/07/24 14:11 Labs: Short CBC 11/07/24 Range/Units 05:55 WBC 5.9 (3.8-10.6) Thou/mm3 Hgb 12.2 L (13.5-16.0) g/dL Hct 36.7 L (41.0-53.0) % Plt Count 92 L (140-440) Thou/mm3 BMP 11/06/24 11/07/24 11/07/24 22:21 02:09 05:55 Sodium 157 H 159 H 155 H Potassium 3.5 Chloride 122 H* Carbon Dioxide 21.9 BUN 89 H Creatinine 4.8 H* Glucose 253 H D Calcium 7.9 L 11/07/24 11/07/24 09:50 14:11 Sodium 154 H 150 H Potassium Chloride Carbon Dioxide BUN Creatinine Glucose Calcium Liver Function 11/07/24 Range/Units 05:55 Total Bilirubin 0.5 (0.3-1.2) mg/dL AST 33 (0-34) U/L ALT 28 (10-49) U/L Alkaline Phosphatase 110 (46-116) U/L Albumin 2.8 L (3.4-4.8) gm/dL ABG Interpretation ABG results: 11/04/24 06:04 ABG pH 7.37 ABG pCO2 39 ABG pO2 78 L ABG HCO3 22 ABG O2 Saturation 93 ABG Base Excess -3 Assessment and Plan Additional Assessment & Plan Additional Plan: # Dysphagia Informed consent obtained from the daughter in the presence of the patient for fiberoptic esophagogastroduodenoscopy with possible esophageal dilatation possible biopsies under intravenous moderate sedation scheduled for tomorrow N.p.o. midnight tonight TSH JAMIE Other medical problems include CVA Brain tumor requiring left frontal craniotomy Expressive aphasia Dementia Essential hypertension Dehydration with hypernatremia IDDM COPD on home oxygen at 4 L nasal cannula Thank you very much for the opportunity to participate in the care of this patient
[2024-11-07 18:56] LABS: Sodium 151 mMol/L (136-145)
[2024-11-07] MEDS: DEXTROSE 5%-WATER 1,000 ML 75 ML IV (21:12)
[2024-11-07] MEDS: INSULIN GLARGINE (Lantus) 5 UNIT/0.05 ML (PER 5 UNITS) SC (21:51)
[2024-11-07 23:15] LABS: Sodium 151 mMol/L (136-145)
[2024-11-08] VITALS (16 sets, daily range): BP systolic 107–156; BP diastolic 60–83; PULSE 70–102; RESP 8–96; TEMP 36.2–36.8; O2SAT 94–100; BMI 23.4
[2024-11-08 03:01] LABS: Sodium 151 mMol/L (136-145)
--- NOTE | 2024-11-08 04:20 | PC.NURSE ---
CORRUGATOR HELPER found patient trying to get out of bed and his feet dangling on the bed. Bed alarm was already on but did not go off. Avasure is started for patient safety.
[2024-11-08] MEDS: HEPARIN SOD INJ 5000 UNIT/ML VIAL SC ×3 (05:16→21:48)
[2024-11-08] MEDS: INSULIN LISPRO (AdmeLOG) 1 UNIT/0.01 ML UNIT SC ×3 (05:16→23:26)
[2024-11-08 07:05] LABS: Anion Gap 9 (7-16); BUN/Creatinine Ratio 16 Ratio (12-20); Basophils % (Auto) 1 % (0-2.5); Blood Urea Nitrogen 70 mg/dL (9-23); Calcium 7.8 mg/dL (8.3-10.6); Carbon Dioxide 25.5 mMol/L (20.0-31.0); Chloride 117 mMol/L (98-107); Creatinine (Component) 4.3 mg/dL (0.6-1.3); Eosinophils # (Auto) 0.2 Thou/mm3 (0.0-0.5); Eosinophils % (Auto) 3 % (0-10); Estimated Creatinine Clearance 13.4 mL/min (>60); Glucose 194 mg/dL (74-106); Hematocrit 35.3 % (41.0-53.0); Hemoglobin 12.1 g/dL (13.5-16.0); Immature Granulocytes % (Auto) 1 % (0-0); Immature Granulocytes Auto 0.04 Thou/mm3 (0.00-0.00); Lymphocytes % (Auto) 13 % (10-50); Mean Corpuscular HGB Conc 34.3 g/dl (31.0-37.0); Mean Corpuscular Hemoglobin 30.3 pg (25.0-35.0); Mean Corpuscular Volume 89 fL (80-100); Monocytes # (Auto) 0.6 Thou/mm3 (0.0-0.8); Monocytes % (Auto) 8 % (0-12); Neutrophils # (Auto) 5.6 Thou/mm3 (1.8-7.7); Neutrophils % (Auto) 75 % (37-80); Nucleated Red Blood Cell % 0 /100 WBC (0); Osmolality,Calculated 325 (275-295); Platelet Count 99 Thou/mm3 (140-440); RDW Standard Deviation 40.2 fL (35.1-43.9); Red Blood Count 3.99 Miln/mm3 (4.50-5.90); Sodium 151 mMol/L (136-145); White Blood Count 7.5 Thou/mm3 (3.8-10.6); eGFR 14 See Note
[2024-11-08] MEDS: PANTOPRAZOLE INJ 40 MG VIAL IV (08:05)
[2024-11-08] MEDS: POTASSIUM CHL 10 mEq IVPB 10 MEQ/100 ML BAG 100 MEQ IV ×3 (08:06→10:04)
[2024-11-08 08:08] LABS: Magnesium 1.5 mg/dL (1.6-2.6)
--- NOTE | 2024-11-08 10:13 | PD.RESPRO ---
Documentation for date of: 11/08/24 Subjective Subjective Interval history: Delroy Ngo is a 74-y/o male with PMHx of CVA, brain tumor at s/p left frontal craniotomy, expressive aphasia, dementia, HTN, IDDM, COPD on 4 L O2, and BPH who presented on 11/04 with encephalopathy and admitted for management of hyperosmotic hypernatremia and now dysphagia. 11/08: No acute overnight events noted. Seen and examined at bedside. Upon evaluation, patient answering questions and follow some commands but has difficulty with verbilization. Currently on room air and laying down comfortably in bed but grimaces upon palpation of lower extremities. Pending EGD and n.p.o. at this time. Exam Vital Signs Temp Pulse Resp BP Pulse Ox O2 Del Method O2 Flow Rate 97.4 F 87 20 135/72 H 96 Room Air 3 11/08/24 08:00 11/08/24 08:00 11/08/24 08:00 11/08/24 08:00 11/08/24 08:00 11/08/24 08:00 11/04/24 17:42 Narrative Exam General: Alert, laying comfortably in bed on RA, follows some commands HEENT: NC/AT, mucous membranes moist, bilateral sclera anicteric Cardiovascular: regular rate and rhythm, S1/S2 present, no murmurs appreciated Pulmonary: clear to auscultation bilaterally, no rales/rhonchi/wheezes Abdominal: diffuse tenderness to palpation, non-distended, no rebound/guarding Musculoskeletal: normal ROM, no peripheral edema, pain to palpation of right and left lower extremities Skin: warm and dry, intact, no rashes Neuro: unable to assess Objective Labs 11/09/24 04:49 11/09/24 04:49 Labs: Laboratory Results - last 24 hr 11/07/24 11/07/24 11/07/24 09:50 14:11 18:31 WBC RBC Hgb Hct MCV MCH MCHC RDW Std Deviation Plt Count Neut % (Auto) Lymph % (Auto) [place] % (Auto) Eos % (Auto) Baso % (Auto) Neut # (Auto) Lymph # (Auto) [place] # (Auto) Eos # (Auto) Baso # (Auto) Immature Gran # (Auto) Absolute Nucleated RBC Immature Gran % Nucleated RBC % Sodium 154 H 150 H 151 H Potassium Chloride Carbon Dioxide Anion Gap BUN Creatinine Estim Creat Clear Calc eGFR BUN/Creatinine Ratio Glucose Calculated Osmolality Calcium Magnesium 11/07/24 11/08/24 11/08/24 22:27 02:16 06:05 WBC 7.5 RBC 3.99 L Hgb 12.1 L Hct 35.3 L MCV 89 MCH 30.3 MCHC 34.3 RDW Std Deviation 40.2 Plt Count 99 L Neut % (Auto) 75 Lymph % (Auto) 13 [place] % (Auto) 8 Eos % (Auto) 3 Baso % (Auto) 1 Neut # (Auto) 5.6 Lymph # (Auto) 1.0 [place] # (Auto) 0.6 Eos # (Auto) 0.2 Baso # (Auto) 0.0 Immature Gran # (Auto) 0.04 H Absolute Nucleated RBC 0.00 Immature Gran % 1 H Nucleated RBC % 0 Sodium 151 H 151 H 151 H Potassium 3.0 L D Chloride 117 H Carbon Dioxide 25.5 Anion Gap 9 BUN 70 H Creatinine 4.3 H* D Estim Creat Clear Calc 13.4 L eGFR 14 L* BUN/Creatinine Ratio 16 Glucose 194 H D Calculated Osmolality 325 H Calcium 7.8 L Magnesium 1.5 L ABG Interpretation ABG results: 11/04/24 06:04 ABG pH 7.37 ABG pCO2 39 ABG pO2 78 L ABG HCO3 22 ABG O2 Saturation 93 ABG Base Excess -3 Quality Measures Quality Measures VTE prophylaxis Advance care planning discussed with:: patient Assessment & Plan Assessment Current Active Medications: Generic Name Dose Route Start Last Admin Trade Name Freq PRN Reason Stop Dose Admin Acetaminophen 650 mg 11/04/24 09:24 Acetaminophen 325 Mg Tablet PO 12/04/24 09:23 Q6H PRN Fever >101.5 Amlodipine Besylate 5 mg 11/08/24 09:00 11/08/24 07:42 Amlodipine Besylate 5 Mg Tablet PO 12/08/24 08:59 Not Given QDAY MERLY Dextrose 25 ml 11/04/24 09:27 Dextrose 50%-Water Inj 50 Ml Syringe IV 12/04/24 09:26 Q15MIN PRN BG 50-70 responsive npo pt Dextrose 50 ml 11/04/24 09:27 Dextrose 50%-Water Inj 50 Ml Syringe IV 12/04/24 09:26 Q15MIN PRN BG <50 OR BG <70 & pt unresponsive Glucagon 1 mg 11/04/24 09:27 Glucagon Inj 1 Mg Vial IM Q15MIN PRN BG <70, and no IV access Heparin Sodium (Porcine) 5,000 unit 11/04/24 10:45 11/08/24 05:16 Heparin Sod Inj 5000 Unit/Ml Vial SC 11/18/24 10:44 5,000 unit Q8HR MERLY Administration Dextrose 1,000 mls @ 75 mls/hr 11/07/24 15:20 11/07/24 21:12 D5w IV 11/10/24 15:18 75 mls/hr .[id number] MERLY Administration Potassium Chloride 10 meq in 100 mls @ 100 mls/hr 11/08/24 07:30 11/08/24 10:04 Kcl Ivpb IV 11/08/24 11:29 100 mls/hr Q1H MERLY Administration Potassium Chloride 10 meq in 100 mls @ 100 mls/hr 11/08/24 12:00 Kcl Ivpb IV 11/08/24 13:59 Q1H MERLY Insulin Glargine 5 unit 11/07/24 21:00 11/07/24 21:51 Insulin Glargine (Lantus) 5 Unit/0.05 Ml (Per 5 Units) SC 12/07/24 20:59 5 unit HS MERLY Administration Insulin Human Lispro 0 unit 11/08/24 00:00 11/08/24 05:16 Insulin Lispro (Admelog) 1 Unit/0.01 Ml Unit SC 12/08/24 00:00 1 unit Q6HR MERLY Administration Protocol Ondansetron HCl 4 mg 11/04/24 09:24 Ondansetron Inj 2 Mg/Ml Inj 2 Ml IV 12/04/24 09:23 Q6H PRN NAUSEA OR VOMITING Protocol Pantoprazole Sodium 40 mg 11/08/24 09:00 11/08/24 08:05 Pantoprazole Inj 40 Mg Vial IV 12/08/24 08:59 40 mg DAILY MERLY Administration Sennosides 1 tab 11/04/24 09:24 Senna Tablet PO 12/04/24 09:23 QDAY PRN constipation Protocol Isela Huber is 74 yr male with PMH of brain tumor at s/p left frontal craniotomy, Acute CVA with residual deficit of broca's aphagia, hypertension, insulin-dependent diabetes, COPD on 4 L O2, BPH who was presented to [facility] [place] [facility] ED on 11/04/24 via ambulance due to altered mental status. Pt was admitted to the ICU on 11/04-11/07 for hypernatremia which is slowly corrected over the last few days. #Hyperosmotic hypernatremia, improving On admission, Na 165 (corrected with glucose to be 169). Received 2 L crystalloid in ED. US renal: bilateral renal cortical thinning, 8 mm nonobstructing right renal calculus Free water deficit ~1.4 L with goal Na of 145 ? Nephrology consulted, appreciate recommendations ? Every 4 hours Na checks ? D5W increasd from 75 to 100 ml/hr #HILDA, prerenal in the setting of dehydration vs ATN #Diabetic nephropathy Baseline Cr 1.0, 5.0 on admission. Continues to have good urine output. ? Nephrology consulted, appreciate recommendations ? Continue IVF as above ? Avoid nephrotoxic agents, renally dose medications ? Urine protein to creatinine ratio of 677 (0.7 g/day) #History of CVA with residual deficit of #Broca's aphasia #New onset dysphagia #History of childhood brain tumor s/p craniotomy At baseline able to swallow but noticed during admission increased difficulty swallowing solids and liquids ? GI consulted, appreciate recommendations ? EGD with possible dilatation and biopsies 11/08 ? N.p.o. after midnight, follow-up TSH and JAMIE ? Speech therapy evaluated in ICU and recommended to avoid oral intake ? Pending EGD results, will discuss with family alternative options (i.e. PEG tube) #Hypokalemia #Hypomagnesemia Repleted with 30 mill equivalents KCl and 2 g magnesium ? Follow-up AM labs and replete as needed #IDDM, A1c 11% on 11/04/24 ? 5 units glargine HS ? SSI, hypoglycemia protocol in place #History of COPD Per daughter, uses 4 L O2 at night and prednisone 10 mg daily. ? Supplemental O2 if less than 88%, with goal of 88 to 92% #History of BPH Per daughter, patient is wheelchair-bound and wears diapers ? Unable to resume home tamsulosin 0.4 mg daily due to dysphagia #History of HTN ? Resumed home amlodipine 5 mg daily Health Maintenance Disposition: Pending EGD, continue management of hyperosmolar hyponatremia DVT Prophylaxis: Heparin 5000 units SC q8hr GI Prophylaxis: Pantoprozol 40 IV daily Diet: NPO due to dysphagia, pending further evaluation by GI specialist Lines: Peripheral lines Code status: full code ----- Plan discussed with attending physician Dr. Jody Brandon MD PGY-1 Internal Medicine Attending Provider Attestation/Addendum I reviewed labs, imaging, EKG, home medications and prior available records. Face to face evaluation was performed by me. I have personally examined the patient and discussed assessment and plan with the IM team. I reviewed the resident note and agree with the plan with exceptions as below. Hypernatremia HILDA, possible prerenal Uncontrolled diabetes mellitus with hyperglycemia Brain tumor status postcraniotomy with neurodeficits Expressive aphasia Dysphagia COPD Chronic hypoxic respiratory failure 8 mm right renal calculus Thrombocytopenia Sodium level improved Decreased the rate of D5W Close monitoring of BMP. Avoid rapid correction Repeat CT scan of the head given the concern for new focal neurodeficit after discussion with the patient's sister: Showed significant encephalomalacia and chronic changes consistent with his prior history of craniotomy Monitor kidney function: Slightly improved. Avoid nephrotoxins. Renally dose medications N.p.o. Consulted GI: Plan for EGD on 11/08 Nephrology consulted Started Lantus plus sliding scale insulin. Monitor fingersticks Outpatient follow-up with urology given the renal stone Monitor platelet level
[2024-11-08 10:52] LABS: Sodium 150 mMol/L (136-145)
[2024-11-08] MEDS: DEXTROSE 5%-WATER 1,000 ML 75 ML IV (11:13)
[2024-11-08] MEDS: ACETAMINOPHEN SUPP 650 MG SUPP PR (11:13)
[2024-11-08 14:01] LABS: Sodium 150 mMol/L (136-145)
[2024-11-08] MEDS: Magnesium Sulfate 2 GM Ivpb 2 GM/50 ML BAG IV (14:48)
--- NOTE | 2024-11-08 16:16 | PD.RESPRO ---
Documentation for date of: 11/08/24 Subjective Subjective Interval history: Patient examined at bedside. Urine output overnight was 2L. Patient will be getting EGD to evaluate acute anemia. Hypernatremia is improving with D5W. Today sodium is 150. Continue with D5W. HILDA also improving with Cr 4.3 today, GFR 12. Will continue to monitor kidney function. Exam Vital Signs Temp Pulse Resp BP Pulse Ox O2 Del Method O2 Flow Rate 97.1 F 94 8 L 113/78 95 Room Air 3 11/08/24 12:00 11/08/24 16:10 11/08/24 16:10 11/08/24 16:10 11/08/24 16:10 11/08/24 12:00 11/08/24 16:10 Narrative Exam General: no acute distress, AAO x1-2, sleeping, responds yes or no. HEENT: NCAT, No JVD noted. Mucosa moist. Pupils are equal and reactive to light bilaterally, Large old surgical scar, well-healed on the left frontal and left parietal regions head. Cardiovascular: Normal S1 and S2. Regular rate and rhythm. Respiratory: Lungs are clear to auscultation bilaterally. No wheezing or crackles heard. Abdomen: Soft, nontender, not distended, normal bowel sounds. Skin: Warm to touch, dry, scabs through LE Musculoskeletal: No gross injuries. Able to move all 4 extremities. No pitting edema Neuro: Alert and oriented x3. No focal neuro deficits. Psych: Normal affect and mood Objective Labs 11/11/24 04:33 11/11/24 04:33 Labs: Laboratory Results - last 24 hr 11/07/24 11/07/24 11/08/24 18:31 22:27 02:16 WBC RBC Hgb Hct MCV MCH MCHC RDW Std Deviation Plt Count Neut % (Auto) Lymph % (Auto) [place] % (Auto) Eos % (Auto) Baso % (Auto) Neut # (Auto) Lymph # (Auto) [place] # (Auto) Eos # (Auto) Baso # (Auto) Immature Gran # (Auto) Absolute Nucleated RBC Immature Gran % Nucleated RBC % Sodium 151 H 151 H 151 H Potassium Chloride Carbon Dioxide Anion Gap BUN Creatinine Estim Creat Clear Calc eGFR BUN/Creatinine Ratio Glucose Calculated Osmolality Calcium Magnesium 11/08/24 11/08/24 11/08/24 06:05 10:00 13:42 WBC 7.5 RBC 3.99 L Hgb 12.1 L Hct 35.3 L MCV 89 MCH 30.3 MCHC 34.3 RDW Std Deviation 40.2 Plt Count 99 L Neut % (Auto) 75 Lymph % (Auto) 13 [place] % (Auto) 8 Eos % (Auto) 3 Baso % (Auto) 1 Neut # (Auto) 5.6 Lymph # (Auto) 1.0 [place] # (Auto) 0.6 Eos # (Auto) 0.2 Baso # (Auto) 0.0 Immature Gran # (Auto) 0.04 H Absolute Nucleated RBC 0.00 Immature Gran % 1 H Nucleated RBC % 0 Sodium 151 H 150 H 150 H Potassium 3.0 L D Chloride 117 H Carbon Dioxide 25.5 Anion Gap 9 BUN 70 H Creatinine 4.3 H* D Estim Creat Clear Calc 13.4 L eGFR 14 L* BUN/Creatinine Ratio 16 Glucose 194 H D Calculated Osmolality 325 H Calcium 7.8 L Magnesium 1.5 L ABG Interpretation ABG results: 11/04/24 06:04 ABG pH 7.37 ABG pCO2 39 ABG pO2 78 L ABG HCO3 22 ABG O2 Saturation 93 ABG Base Excess -3 Quality Measures Quality Measures VTE prophylaxis Advance care planning discussed with:: other Assessment & Plan Assessment Current Active Medications: Generic Name Dose Route Start Last Admin Trade Name Freq PRN Reason Stop Dose Admin Acetaminophen 650 mg 11/08/24 10:50 11/08/24 11:13 Acetaminophen Supp 650 Mg Supp GA 12/08/24 10:49 650 mg Q6HR PRN Administration PAIN OR FEVER > 100.4 Amlodipine Besylate 5 mg 11/08/24 09:00 11/08/24 07:42 Amlodipine Besylate 5 Mg Tablet PO 12/08/24 08:59 Not Given QDAY MERLY Dextrose 25 ml 11/04/24 09:27 Dextrose 50%-Water Inj 50 Ml Syringe IV 12/04/24 09:26 Q15MIN PRN BG 50-70 responsive npo pt Dextrose 50 ml 11/04/24 09:27 Dextrose 50%-Water Inj 50 Ml Syringe IV 12/04/24 09:26 Q15MIN PRN BG <50 OR BG <70 & pt unresponsive Glucagon 1 mg 11/04/24 09:27 Glucagon Inj 1 Mg Vial IM Q15MIN PRN BG <70, and no IV access Heparin Sodium (Porcine) 5,000 unit 11/04/24 10:45 11/08/24 05:16 Heparin Sod Inj 5000 Unit/Ml Vial SC 11/18/24 10:44 5,000 unit Q8HR MERLY Administration Dextrose 1,000 mls @ 75 mls/hr 11/07/24 15:20 11/08/24 11:13 D5w IV 11/10/24 15:18 75 mls/hr .[id number] MERLY Administration Insulin Glargine 5 unit 11/07/24 21:00 11/07/24 21:51 Insulin Glargine (Lantus) 5 Unit/0.05 Ml (Per 5 Units) SC 12/07/24 20:59 5 unit HS MERLY Administration Insulin Human Lispro 0 unit 11/08/24 00:00 11/08/24 11:42 Insulin Lispro (Admelog) 1 Unit/0.01 Ml Unit SC 12/08/24 00:00 Not Given Q6HR MERLY Protocol Ondansetron HCl 4 mg 11/04/24 09:24 Ondansetron Inj 2 Mg/Ml Inj 2 Ml IV 12/04/24 09:23 Q6H PRN NAUSEA OR VOMITING Protocol Pantoprazole Sodium 40 mg 11/08/24 09:00 11/08/24 08:05 Pantoprazole Inj 40 Mg Vial IV 12/08/24 08:59 40 mg DAILY MERLY Administration Sennosides 1 tab 11/04/24 09:24 Senna Tablet PO 12/04/24 09:23 QDAY PRN constipation Protocol Plan Huber is 74 yr male with PMH of CVA, brain tumor S/PE left frontal craniotomy, expressive aphasia, hypertension, insulin-dependent diabetes, COPD on 4 L O2, BPH who was presented to ED via ambulance due to altered mental status 2/2 hypernatremia #Hyperosmolar hypercholremic hypernatremia-improving #HILDA, prerenal-improving Most likely pre renal in setting of dehydration. Baseline Cr appears to be around 1.0. Admission sodium measured 165, corrected with glucose to be 169, chloride 127, blood sugar in 300, phosphate 6.2, osm 379. Cr 5.0. Kidney u/s bilateral renal cortical thinning, 8mm non obstructing right renal calculus. -continue D5W maintainence -Q3hr sodium checks -Decrease sodium by no more than 8mEq in next 24 hrs -Free water deficit 0.7L for goal of 143 -monitor IOs -will closely monitor kidney function. No indication for dialysis at this time. #8mm right renal calculus #Complicated UTI #Hx of CVA and craniectomy #Altered mental status 2/2 hypernatremia #Hx HTN #Hx HLD #Hx COPD, chronic #PNA #RUL Pulmonary nodule #History of insulin dependent type 2 diabetes #PNA The patient's management plan was discussed with my attending physician Dr. Singer. Sandra Olvera, PGY-1 Attending Provider Attestation/Addendum Pt is seen and examined. Lans and other investigations reviewed. Agree with assessment and plan and finding by resident. Bradley Singer MD
[2024-11-08 18:28] LABS: Sodium 149 mMol/L (136-145)
--- NOTE | 2024-11-08 19:06 | PC.NURSE ---
Pt transfer from Tele, brought to room 269 via bed. Resting no s/s of distress avsure in place call light wtihin reach and be din low position with alarm in place.
[2024-11-08] MEDS: INSULIN GLARGINE (Lantus) 5 UNIT/0.05 ML (PER 5 UNITS) SC (21:48)
[2024-11-08 23:24] LABS: Sodium 148 mMol/L (136-145)
[2024-11-08] MEDS: DEXTROSE 5%-WATER 1,000 ML 100 ML IV (23:35)
[2024-11-09] VITALS (9 sets, daily range): BP systolic 118–167; BP diastolic 64–82; PULSE 53–85; RESP 18–21; TEMP 36.1–36.7; O2SAT 95–99
--- NOTE | 2024-11-09 | XR_ITS ---
Examination: Modified barium swallow Barium esophagram Exam date and time: November 09, 2024 1146 hours INDICATIONS: Difficulty swallowing months TECHNIQUE AND FINDINGS: Patient swallowed multiple barium mixtures with 113 spot fluoroscopic images soft tissue lateral neck Fluoroscopy 0.8 minutes radiation dose 104.11 milligray No oral control Premature transfer Aspiration with thin barium via cup IMPRESSION: Pharyngeal aspiration
[2024-11-09 02:33] LABS: Sodium 149 mMol/L (136-145)
[2024-11-09 06:07] LABS: Basophils % (Auto) 1 % (0-2.5); Eosinophils # (Auto) 0.3 Thou/mm3 (0.0-0.5); Eosinophils % (Auto) 4 % (0-10); Hematocrit 36.2 % (41.0-53.0); Hemoglobin 12.4 g/dL (13.5-16.0); Immature Granulocytes % (Auto) 1 % (0-0); Immature Granulocytes Auto 0.06 Thou/mm3 (0.00-0.00); Lymphocytes # (Auto) 1.1 Thou/mm3 (1.0-4.8); Lymphocytes % (Auto) 17 % (10-50); Mean Corpuscular HGB Conc 34.3 g/dl (31.0-37.0); Mean Corpuscular Hemoglobin 30.4 pg (25.0-35.0); Mean Corpuscular Volume 89 fL (80-100); Monocytes # (Auto) 0.8 Thou/mm3 (0.0-0.8); Monocytes % (Auto) 12 % (0-12); Neutrophils # (Auto) 4.2 Thou/mm3 (1.8-7.7); Neutrophils % (Auto) 66 % (37-80); Nucleated Red Blood Cell % 0 /100 WBC (0); Red Blood Count 4.08 Miln/mm3 (4.50-5.90); White Blood Count 6.3 Thou/mm3 (3.8-10.6)
[2024-11-09 06:31] LABS: Alanine Aminotransferase 102 U/L (10-49); Albumin, Serum 2.9 gm/dL (3.4-4.8); Alkaline Phosphatase 107 U/L (46-116); Anion Gap 10 (7-16); Aspartate Amino Transferase 163 U/L (0-34); BUN/Creatinine Ratio 14 Ratio (12-20); Bilirubin,Total 0.4 mg/dL (0.3-1.2); Blood Urea Nitrogen 52 mg/dL (9-23); Calcium 8.5 mg/dL (8.3-10.6); Calcium (Corrected) 9.4 mg/dL (8.5-10.1); Carbon Dioxide 24.7 mMol/L (20.0-31.0); Chloride 113 mMol/L (98-107); Creatinine (Component) 3.6 mg/dL (0.6-1.3); Globulin 2.8 gm/dL (2.3-3.5); Glucose 153 mg/dL (74-106); Magnesium 1.9 mg/dL (1.6-2.6); Osmolality,Calculated 311 (275-295); Phosphorous 3.2 mg/dL (2.4-5.1); Potassium 3.7 mMol/L (3.4-5.1); Sodium 148 mMol/L (136-145); Total Protein 5.7 gm/dL (5.7-8.2); eGFR 17 See Note
[2024-11-09 07:23] LABS: Platelet Count 92 Thou/mm3 (140-440)
[2024-11-09 07:24] LABS: Slide Review Platelets confirmed
[2024-11-09] MEDS: PANTOPRAZOLE INJ 40 MG VIAL IV (08:36)
[2024-11-09] MEDS: amLODIPine BESYLATE 5 MG TABLET PO (08:38)
[2024-11-09] MEDS: DEXTROSE 5%-WATER 1,000 ML 100 ML IV (10:42)
--- NOTE | 2024-11-09 11:29 | PD.RESPRO ---
Documentation for date of: 11/09/24 Subjective Subjective Interval history: Delroy Ngo is a 74-y/o male with PMHx of CVA, brain tumor at s/p left frontal craniotomy, expressive aphasia, dementia, HTN, IDDM, COPD on 4 L O2, and BPH who presented on 11/04 with encephalopathy and admitted for management of hyperosmotic hypernatremia and now dysphagia. 11/08: No acute overnight events noted. Seen and examined at bedside. Upon evaluation, patient answering questions and follow some commands but has difficulty with verbilization. Currently on room air and laying down comfortably in bed but grimaces upon palpation of lower extremities. Pending EGD and n.p.o. at this time. 11/09: No acute overnight events noted. Seen and examined at bedside, resting comfortably in bed. Underwent EGD yesterday without complications and without significant findings. Otherwise, patient does not have any complaints at this time. Exam Vital Signs Temp Pulse Resp BP Pulse Ox O2 Del Method O2 Flow Rate 97.0 F 70 18 157/74 H 98 Room Air 3 11/09/24 08:00 11/09/24 08:38 11/09/24 08:00 11/09/24 08:38 11/09/24 08:00 11/09/24 08:00 11/08/24 16:15 Narrative Exam General: Alert, laying comfortably in bed on RA, follows some commands HEENT: NC/AT, mucous membranes moist, bilateral sclera anicteric Cardiovascular: regular rate and rhythm, S1/S2 present, no murmurs appreciated Pulmonary: clear to auscultation bilaterally, no rales/rhonchi/wheezes Abdominal: diffuse tenderness to palpation, non-distended, no rebound/guarding Musculoskeletal: normal ROM, no peripheral edema, pain to palpation of right and left lower extremities Skin: warm and dry, intact, no rashes Neuro: unable to assess Objective Labs 11/10/24 05:08 11/10/24 05:08 Labs: Laboratory Results - last 24 hr 11/08/24 11/08/24 11/08/24 13:42 18:11 22:20 WBC RBC Hgb Hct MCV MCH MCHC RDW Std Deviation Plt Count Neut % (Auto) Lymph % (Auto) [place] % (Auto) Eos % (Auto) Baso % (Auto) Neut # (Auto) Lymph # (Auto) [place] # (Auto) Eos # (Auto) Baso # (Auto) Immature Gran # (Auto) Absolute Nucleated RBC Immature Gran % Nucleated RBC % Sodium 150 H 149 H 148 H Potassium Chloride Carbon Dioxide Anion Gap BUN Creatinine Estim Creat Clear Calc eGFR BUN/Creatinine Ratio Glucose Calculated Osmolality Calcium Corrected Calcium Phosphorus Magnesium Total Bilirubin AST ALT Alkaline Phosphatase Total Protein Albumin Globulin Albumin/Globulin Ratio Misc Test Result 11/09/24 11/09/24 01:55 04:49 WBC 6.3 RBC 4.08 L Hgb 12.4 L Hct 36.2 L MCV 89 MCH 30.4 MCHC 34.3 RDW Std Deviation 40.0 Plt Count 92 L Neut % (Auto) 66 Lymph % (Auto) 17 [place] % (Auto) 12 Eos % (Auto) 4 Baso % (Auto) 1 Neut # (Auto) 4.2 Lymph # (Auto) 1.1 [place] # (Auto) 0.8 Eos # (Auto) 0.3 Baso # (Auto) 0.0 Immature Gran # (Auto) 0.06 H Absolute Nucleated RBC 0.00 Immature Gran % 1 H Nucleated RBC % 0 Sodium 149 H 148 H Potassium 3.7 D Chloride 113 H Carbon Dioxide 24.7 Anion Gap 10 BUN 52 H Creatinine 3.6 H D Estim Creat Clear Calc 16.0 L eGFR 17 L BUN/Creatinine Ratio 14 Glucose 153 H Calculated Osmolality 311 H Calcium 8.5 Corrected Calcium 9.4 Phosphorus 3.2 Magnesium 1.9 Total Bilirubin 0.4 AST 163 H ALT 102 H Alkaline Phosphatase 107 Total Protein 5.7 Albumin 2.9 L Globulin 2.8 Albumin/Globulin Ratio 1.0 L Misc Test Result Platelets confirmed ABG Interpretation ABG results: 11/04/24 06:04 ABG pH 7.37 ABG pCO2 39 ABG pO2 78 L ABG HCO3 22 ABG O2 Saturation 93 ABG Base Excess -3 Quality Measures Quality Measures VTE prophylaxis Advance care planning discussed with:: patient Assessment & Plan Assessment Current Active Medications: Generic Name Dose Route Start Last Admin Trade Name Freq PRN Reason Stop Dose Admin Acetaminophen 650 mg 11/08/24 10:50 11/08/24 11:13 Acetaminophen Supp 650 Mg Supp TX 12/08/24 10:49 650 mg Q6HR PRN Administration PAIN OR FEVER > 100.4 Amlodipine Besylate 5 mg 11/08/24 09:00 11/09/24 08:38 Amlodipine Besylate 5 Mg Tablet PO 12/08/24 08:59 5 mg QDAY MERLY Administration Dextrose 25 ml 11/04/24 09:27 Dextrose 50%-Water Inj 50 Ml Syringe IV 12/04/24 09:26 Q15MIN PRN BG 50-70 responsive npo pt Dextrose 50 ml 11/04/24 09:27 Dextrose 50%-Water Inj 50 Ml Syringe IV 12/04/24 09:26 Q15MIN PRN BG <50 OR BG <70 & pt unresponsive Glucagon 1 mg 11/04/24 09:27 Glucagon Inj 1 Mg Vial IM Q15MIN PRN BG <70, and no IV access Heparin Sodium (Porcine) 5,000 unit 11/04/24 10:45 11/09/24 05:45 Heparin Sod Inj 5000 Unit/Ml Vial SC 11/18/24 10:44 Not Given Q8HR MERLY Dextrose 1,000 mls @ 100 mls/hr 11/08/24 17:10 11/09/24 10:42 D5w IV 12/08/24 17:09 100 mls/hr .Q10H MERLY Administration Insulin Glargine 5 unit 11/07/24 21:00 11/08/24 21:48 Insulin Glargine (Lantus) 5 Unit/0.05 Ml (Per 5 Units) SC 12/07/24 20:59 5 unit HS MERLY Administration Insulin Human Lispro 0 unit 11/08/24 00:00 11/09/24 05:36 Insulin Lispro (Admelog) 1 Unit/0.01 Ml Unit SC 12/08/24 00:00 Not Given Q6HR MERLY Protocol Ondansetron HCl 4 mg 11/04/24 09:24 Ondansetron Inj 2 Mg/Ml Inj 2 Ml IV 12/04/24 09:23 Q6H PRN NAUSEA OR VOMITING Protocol Pantoprazole Sodium 40 mg 11/08/24 09:00 11/09/24 08:36 Pantoprazole Inj 40 Mg Vial IV 12/08/24 08:59 40 mg DAILY MERLY Administration Sennosides 1 tab 11/04/24 09:24 Senna Tablet PO 12/04/24 09:23 QDAY PRN constipation Protocol Isela Delroy Ngo is a 74-year-old male with a PMHx of brain tumor at s/p left frontal craniotomy, acute CVA with residual deficit of broca's aphagia, hypertension, insulin-dependent diabetes, COPD on 4 L O2, and BPH who presented on 11/04/24 via ambulance due to altered mental status. Patient was admitted to the ICU on 11/04-11/07 for hypernatremia after which he was then downgraded to floors. #Hyperosmotic hypernatremia, improving On admission, Na 165 (corrected with glucose to be 169). Received 2 L crystalloid in ED. US renal: bilateral renal cortical thinning, 8 mm nonobstructing right renal calculus Free water deficit ~1.4 L with goal Na of 145 ? Nephrology consulted, appreciate recommendations ? Sodium check at noon today, follow-up ? D5W discontinued after most recent Na 143 ? Repeat Na at 8 PM, if elevated can do 500 cc of D5W or change maintenance IVF to D5W #HILDA, prerenal in the setting of dehydration vs ATN #Diabetic nephropathy Baseline Cr 1.0, 5.0 on admission. Continues to have good urine output. ? Nephrology consulted, appreciate recommendations ? Continue IVF as above ? Avoid nephrotoxic agents, renally dose medications ? Urine protein to creatinine ratio of 677 (0.7 g/day) #History of CVA with residual deficit of #Broca's aphasia #New onset dysphagia #History of childhood brain tumor s/p craniotomy At baseline able to swallow but noticed during admission increased difficulty swallowing solids and liquids ? GI consulted, appreciate recommendations ? Status post EGD on 11/08 that showed benign-appearing esophageal stenosis that was dilated and biopsies taken ? Barium swallow showed pharyngeal aspiration ? Discussed with speech therapy that patient has trouble with thin liquids and will continue with recommended diet ? If patient does not tolerate, will discuss with family alternative feeding options (i.e. PEG tube) #Hypokalemia, resolved #Hypomagnesemia Repleted with 30 mill equivalents KCl and 2 g magnesium ? Follow-up AM labs and replete as needed #Transaminitis Suspect to be due to anesthetics from endoscopy ? Continue to monitor #IDDM, A1c 11% on 11/04/24 ? 5 units glargine HS ? SSI, hypoglycemia protocol in place #History of COPD Per daughter, uses 4 L O2 at night and prednisone 10 mg daily. ? Supplemental O2 if less than 88%, with goal of 88 to 92% #History of BPH Per daughter, patient is wheelchair-bound and wears diapers ? Unable to resume home tamsulosin 0.4 mg daily due to dysphagia #History of HTN ? Resumed home amlodipine 5 mg daily Health Maintenance Disposition: monitoring on new diet, management of hypernatremia DVT Prophylaxis: Heparin SC BID GI Prophylaxis: Pantoprozol 40 IV daily Diet: Dysphagia 1 (puree consistency) with mildly thick liquids (nectar thick) IVF: D5LR given NPO status Lines: Peripheral lines Code status: full code ----- Plan discussed with attending physician Dr. Jody Brandon MD PGY-1 Internal Medicine Attending Provider Attestation/Addendum I reviewed labs, imaging, EKG, home medications and prior available records. Face to face evaluation was performed by me. I have personally examined the patient and discussed assessment and plan with the IM team. I reviewed the resident note and agree with the plan with exceptions as below. Hypernatremia HILDA, possible prerenal Uncontrolled diabetes mellitus with hyperglycemia Brain tumor status postcraniotomy with neurodeficits Expressive aphasia Dysphagia COPD Chronic hypoxic respiratory failure 8 mm right renal calculus Thrombocytopenia Sodium level improved Continue D5W Close monitoring of BMP. Avoid rapid correction Monitor kidney function: Slightly improved. Avoid nephrotoxins. Renally dose medications Consulted GI: Status post EGD that showed esophageal stricture status post dilation Ordered modified barium swallow that showed pharyngeal aspiration. Gave the patient NPO. Will discuss PEG tube with family Nephrology is following Started Lantus plus sliding scale insulin. Monitor fingersticks Outpatient follow-up with urology given the renal stone Monitor platelet level
--- NOTE | 2024-11-09 12:29 | PC.SS ---
SS follow up note; EGD pending at the time, when medically cleared, patient will return back home.
[2024-11-09] MEDS: HEPARIN SOD INJ 5000 UNIT/ML VIAL SC ×2 (13:34→20:15)
[2024-11-09] MEDS: INSULIN LISPRO (AdmeLOG) 1 UNIT/0.01 ML UNIT SC ×2 (13:35→20:16)
[2024-11-09 14:35] LABS: Sodium 143 mMol/L (136-145)
--- NOTE | 2024-11-09 20:11 | PC.NURSE ---
Notify MD Serra of pt's platelet 92. said okay to give Heparin.
[2024-11-09] MEDS: INSULIN GLARGINE (Lantus) 5 UNIT/0.05 ML (PER 5 UNITS) SC (20:16)
--- NOTE | 2024-11-09 21:22 | ESPR_ITS ---
Documentation for date of: 11/09/24 Subjective Subjective Interval history: Patient evaluated spoke with the dietitian and swallowing evaluation is in progress to find the right can affect diet for him Endoscopic dilatation of the proximal esophageal return yesterday with 45 [place] dilators. Exam Vital Signs Temp Pulse Resp BP Pulse Ox O2 Del Method O2 Flow Rate 97.3 F 83 18 118/64 95 Room Air 3 11/09/24 16:00 11/09/24 16:00 11/09/24 16:00 11/09/24 16:00 11/09/24 16:00 11/09/24 16:00 11/08/24 16:15 Objective Labs 11/09/24 04:49 11/09/24 13:30 Labs: Laboratory Results - last 24 hr 11/08/24 11/09/24 11/09/24 22:20 01:55 04:49 WBC 6.3 RBC 4.08 L Hgb 12.4 L Hct 36.2 L MCV 89 MCH 30.4 MCHC 34.3 RDW Std Deviation 40.0 Plt Count 92 L Neut % (Auto) 66 Lymph % (Auto) 17 [place] % (Auto) 12 Eos % (Auto) 4 Baso % (Auto) 1 Neut # (Auto) 4.2 Lymph # (Auto) 1.1 [place] # (Auto) 0.8 Eos # (Auto) 0.3 Baso # (Auto) 0.0 Immature Gran # (Auto) 0.06 H Absolute Nucleated RBC 0.00 Immature Gran % 1 H Nucleated RBC % 0 Sodium 148 H 149 H 148 H Potassium 3.7 D Chloride 113 H Carbon Dioxide 24.7 Anion Gap 10 BUN 52 H Creatinine 3.6 H D Estim Creat Clear Calc 16.0 L eGFR 17 L BUN/Creatinine Ratio 14 Glucose 153 H Calculated Osmolality 311 H Calcium 8.5 Corrected Calcium 9.4 Phosphorus 3.2 Magnesium 1.9 Total Bilirubin 0.4 AST 163 H ALT 102 H Alkaline Phosphatase 107 Total Protein 5.7 Albumin 2.9 L Globulin 2.8 Albumin/Globulin Ratio 1.0 L Misc Test Result Platelets confirmed 11/09/24 13:30 WBC RBC Hgb Hct MCV MCH MCHC RDW Std Deviation Plt Count Neut % (Auto) Lymph % (Auto) [place] % (Auto) Eos % (Auto) Baso % (Auto) Neut # (Auto) Lymph # (Auto) [place] # (Auto) Eos # (Auto) Baso # (Auto) Immature Gran # (Auto) Absolute Nucleated RBC Immature Gran % Nucleated RBC % Sodium 143 Potassium Chloride Carbon Dioxide Anion Gap BUN Creatinine Estim Creat Clear Calc eGFR BUN/Creatinine Ratio Glucose Calculated Osmolality Calcium Corrected Calcium Phosphorus Magnesium Total Bilirubin AST ALT Alkaline Phosphatase Total Protein Albumin Globulin Albumin/Globulin Ratio Misc Test Result Impressions Impression: Dysphagia esophageal stricture Await dietary evaluation ABG Interpretation ABG results: 11/04/24 06:04 ABG pH 7.37 ABG pCO2 39 ABG pO2 78 L ABG HCO3 22 ABG O2 Saturation 93 ABG Base Excess -3 Assessment & Plan A&P Narrative # Dysphagia Informed consent obtained from the daughter in the presence of the patient for fiberoptic esophagogastroduodenoscopy with possible esophageal dilatation possible biopsies under intravenous moderate sedation scheduled for tomorrow N.p.o. midnight tonight TSH JAMIE Other medical problems include CVA Brain tumor requiring left frontal craniotomy Expressive aphasia Dementia Essential hypertension Dehydration with hypernatremia IDDM COPD on home oxygen at 4 L nasal cannula Thank you very much for the opportunity to participate in the care of this patient Time Spent With Patient Time: Total time spent is greater than 50% in coordination of care (as documented) at patient's floor/unit and/or counseling patient:
[2024-11-09 22:16] LABS: Sodium 144 mMol/L (136-145)
[2024-11-10] VITALS (10 sets, daily range): BP systolic 117–133; BP diastolic 58–70; PULSE 82–97; RESP 18–20; TEMP 36.1–36.7; O2SAT 95–99; BMI 23.3
[2024-11-10 06:19] LABS: Basophils % (Auto) 1 % (0-2.5); Eosinophils # (Auto) 0.3 Thou/mm3 (0.0-0.5); Eosinophils % (Auto) 4 % (0-10); Hematocrit 32.6 % (41.0-53.0); Immature Granulocytes % (Auto) 1 % (0-0); Lymphocytes # (Auto) 1.3 Thou/mm3 (1.0-4.8); Lymphocytes % (Auto) 16 % (10-50); Mean Corpuscular HGB Conc 33.7 g/dl (31.0-37.0); Mean Corpuscular Hemoglobin 30.1 pg (25.0-35.0); Mean Corpuscular Volume 89 fL (80-100); Monocytes # (Auto) 0.7 Thou/mm3 (0.0-0.8); Monocytes % (Auto) 9 % (0-12); Neutrophils % (Auto) 70 % (37-80); Nucleated Red Blood Cell % 0 /100 WBC (0); Platelet Count 90 Thou/mm3 (140-440); RDW Standard Deviation 39.3 fL (35.1-43.9); Red Blood Count 3.66 Miln/mm3 (4.50-5.90); White Blood Count 8.5 Thou/mm3 (3.8-10.6)
[2024-11-10 07:03] LABS: Alanine Aminotransferase 112 U/L (10-49); Albumin, Serum 2.7 gm/dL (3.4-4.8); Alkaline Phosphatase 128 U/L (46-116); Anion Gap 10 (7-16); Aspartate Amino Transferase 136 U/L (0-34); BUN/Creatinine Ratio 14 Ratio (12-20); Bilirubin,Total 0.4 mg/dL (0.3-1.2); Blood Urea Nitrogen 48 mg/dL (9-23); Calcium 7.9 mg/dL (8.3-10.6); Calcium (Corrected) 8.9 mg/dL (8.5-10.1); Carbon Dioxide 25.4 mMol/L (20.0-31.0); Chloride 110 mMol/L (98-107); Creatinine (Component) 3.4 mg/dL (0.6-1.3); Estimated Creatinine Clearance 16.9 mL/min (>60); Globulin 2.7 gm/dL (2.3-3.5); Glucose 160 mg/dL (74-106); Magnesium 1.7 mg/dL (1.6-2.6); Osmolality,Calculated 304 (275-295); Phosphorous 3.3 mg/dL (2.4-5.1); Potassium 3.2 mMol/L (3.4-5.1); Sodium 145 mMol/L (136-145); Total Protein 5.4 gm/dL (5.7-8.2); eGFR 18 See Note
[2024-11-10] MEDS: HEPARIN SOD INJ 5000 UNIT/ML VIAL SC (08:49)
[2024-11-10] MEDS: PANTOPRAZOLE INJ 40 MG VIAL IV (08:52)
[2024-11-10] MEDS: amLODIPine BESYLATE 5 MG TABLET PO (08:53)
[2024-11-10] MEDS: POT PHOS 15 mMol in NS 250 ML 15 MMOL/250 ML BAG 62.5 MMOL IV (08:53)
[2024-11-10] MEDS: INSULIN LISPRO (AdmeLOG) 1 UNIT/0.01 ML UNIT SC ×3 (11:53→20:26)
--- NOTE | 2024-11-10 13:29 | PC.SS ---
Hospital Bed Patient?s diagnosis requires positioning of the head or upper body to be elevated more than 30 degrees. Also the diagnosis requires positioning in order to alleviate pain and if the patient requires frequent changes in the body positioning and/or has an immediate need for change in the body position. Pillows and wedges have been considered and ruled out. [place] Lift Patient requires transfer between the bed, chair, wheelchair and commode that requires the assistance of more than one person. Without the use of the lift the patient would be confined or a dependent transfer.
[2024-11-10 14:37] LABS: Sodium 143 mMol/L (136-145)
--- NOTE | 2024-11-10 14:42 | PC.SS ---
Patient's family requesting following forms of DME: hospital bed and [facility]. DME referral submitted on [facility].
--- NOTE | 2024-11-10 14:43 | PC.SS ---
Rounding Note: Plan is to d/c the patient home with home health (nursing).
--- NOTE | 2024-11-10 15:14 | PC.SS ---
Transport request submitted to [facility]. Reference #[id number]. [facility] identified as preferred vendor. Response pending.
--- NOTE | 2024-11-10 16:23 | PC.SS ---
[employer] notified by resident team that patient is not medically cleared for discharge today due to HILDA continuing to be resolved.
--- NOTE | 2024-11-10 16:25 | PC.SS ---
[employer] contacted [employer] to cancel transportation request. Basis due to patient not meeting medical clearance. [employer] also updated bedside nurse and patient's daughter.
--- NOTE | 2024-11-10 18:33 | PC.NURSE ---
spoke with Pts daughter Chyna regarding bringing in pt medications, she stated she was on her way and would bring them in
--- NOTE | 2024-11-10 20:01 | PD.IMPROG ---
Documentation for date of: 11/10/24 Subjective Subjective Interval history: Patient evaluated Have already called patient status post endoscopic dilatation Also has gastritis and esophagitis Exam Vital Signs Temp Pulse Resp BP Pulse Ox O2 Del Method O2 Flow Rate 97.2 F 86 19 128/70 98 Room Air 3 11/10/24 16:00 11/10/24 16:00 11/10/24 16:00 11/10/24 16:00 11/10/24 16:00 11/10/24 16:00 11/08/24 16:15 Objective Labs 11/10/24 05:08 11/10/24 13:00 Labs: Laboratory Results - last 24 hr 11/09/24 11/10/24 11/10/24 21:51 05:08 13:00 WBC 8.5 RBC 3.66 L Hgb 11.0 L Hct 32.6 L MCV 89 MCH 30.1 MCHC 33.7 RDW Std Deviation 39.3 Plt Count 90 L Neut % (Auto) 70 Lymph % (Auto) 16 [place] % (Auto) 9 Eos % (Auto) 4 Baso % (Auto) 1 Neut # (Auto) 6.0 Lymph # (Auto) 1.3 [place] # (Auto) 0.7 Eos # (Auto) 0.3 Baso # (Auto) 0.0 Immature Gran # (Auto) 0.10 H Absolute Nucleated RBC 0.00 Immature Gran % 1 H Nucleated RBC % 0 Sodium 144 145 143 Potassium 3.2 L D Chloride 110 H Carbon Dioxide 25.4 Anion Gap 10 BUN 48 H Creatinine 3.4 H Estim Creat Clear Calc 16.9 L eGFR 18 L BUN/Creatinine Ratio 14 Glucose 160 H Calculated Osmolality 304 H Calcium 7.9 L Corrected Calcium 8.9 Phosphorus 3.3 Magnesium 1.7 Total Bilirubin 0.4 AST 136 H ALT 112 H Alkaline Phosphatase 128 H D Total Protein 5.4 L Albumin 2.7 L Globulin 2.7 Albumin/Globulin Ratio 1.0 L Impressions Impression: Gastritis Esophagitis Proximal esophagus 60 status post endoscopic dilatation Continue current management ABG Interpretation ABG results: 11/04/24 06:04 ABG pH 7.37 ABG pCO2 39 ABG pO2 78 L ABG HCO3 22 ABG O2 Saturation 93 ABG Base Excess -3 Assessment & Plan A&P Narrative # Dysphagia Informed consent obtained from the daughter in the presence of the patient for fiberoptic esophagogastroduodenoscopy with possible esophageal dilatation possible biopsies under intravenous moderate sedation scheduled for tomorrow N.p.o. midnight tonight TSH JAMIE Other medical problems include CVA Brain tumor requiring left frontal craniotomy Expressive aphasia Dementia Essential hypertension Dehydration with hypernatremia IDDM COPD on home oxygen at 4 L nasal cannula Thank you very much for the opportunity to participate in the care of this patient Time Spent With Patient Time: Total time spent is greater than 50% in coordination of care (as documented) at patient's floor/unit and/or counseling patient:
[2024-11-10] MEDS: INSULIN GLARGINE (Lantus) 5 UNIT/0.05 ML (PER 5 UNITS) SC (20:26)
[2024-11-11] VITALS (12 sets, daily range): BP systolic 112–170; BP diastolic 63–91; PULSE 78–108; RESP 16–37; TEMP 36.1–36.4; O2SAT 85–99
[2024-11-11 05:21] LABS: Basophils % (Auto) 0 % (0-2.5); Eosinophils # (Auto) 0.3 Thou/mm3 (0.0-0.5); Eosinophils % (Auto) 3 % (0-10); Hematocrit 31.1 % (41.0-53.0); Hemoglobin 10.6 g/dL (13.5-16.0); Immature Granulocytes % (Auto) 2 % (0-0); Immature Granulocytes Auto 0.13 Thou/mm3 (0.00-0.00); Lymphocytes # (Auto) 1.6 Thou/mm3 (1.0-4.8); Lymphocytes % (Auto) 19 % (10-50); Mean Corpuscular HGB Conc 34.1 g/dl (31.0-37.0); Mean Corpuscular Hemoglobin 30.4 pg (25.0-35.0); Mean Corpuscular Volume 89 fL (80-100); Monocytes # (Auto) 0.8 Thou/mm3 (0.0-0.8); Monocytes % (Auto) 9 % (0-12); Neutrophils # (Auto) 5.5 Thou/mm3 (1.8-7.7); Neutrophils % (Auto) 67 % (37-80); Nucleated Red Blood Cell % 0 /100 WBC (0); Platelet Count 125 Thou/mm3 (140-440); RDW Standard Deviation 39.9 fL (35.1-43.9); Red Blood Count 3.49 Miln/mm3 (4.50-5.90); White Blood Count 8.3 Thou/mm3 (3.8-10.6)
[2024-11-11 05:51] LABS: Alanine Aminotransferase 115 U/L (10-49); Albumin, Serum 2.7 gm/dL (3.4-4.8); Alkaline Phosphatase 122 U/L (46-116); Anion Gap 8 (7-16); Aspartate Amino Transferase 120 U/L (0-34); BUN/Creatinine Ratio 14 Ratio (12-20); Bilirubin,Total 0.4 mg/dL (0.3-1.2); Blood Urea Nitrogen 46 mg/dL (9-23); Chloride 112 mMol/L (98-107); Creatinine (Component) 3.4 mg/dL (0.6-1.3); Estimated Creatinine Clearance 16.9 mL/min (>60); Globulin 2.8 gm/dL (2.3-3.5); Glucose 147 mg/dL (74-106); Magnesium 1.7 mg/dL (1.6-2.6); Osmolality,Calculated 307 (275-295); Phosphorous 3.6 mg/dL (2.4-5.1); Potassium 3.1 mMol/L (3.4-5.1); Sodium 147 mMol/L (136-145); Total Protein 5.5 gm/dL (5.7-8.2); eGFR 18 See Note
[2024-11-11] MEDS: Magnesium Sulfate 2 GM Ivpb 2 GM/50 ML BAG IV (08:07)
[2024-11-11] MEDS: DEXTROSE 5%-WATER 500 ML 150 ML IV (08:09)
[2024-11-11] MEDS: POTASSIUM CHLORIDE 10% 20 MEQ/15 ML UDC 40 MEQ PO (08:10)
[2024-11-11] MEDS: amLODIPine BESYLATE 5 MG TABLET PO (08:10)
[2024-11-11] MEDS: PANTOPRAZOLE INJ 40 MG VIAL IV (08:10)
--- NOTE | 2024-11-11 09:06 | PD.ADDPROG ---
Addendum Progress Note Addendum Date of report being addended: 11/10/24 Narrative: I reviewed labs, imaging, EKG, home medications and prior available records. Face to face evaluation was performed by me. I have personally examined the patient and discussed assessment and plan with the IM team. I reviewed the resident note and agree with the plan with exceptions as below. Hypernatremia HILDA, possible prerenal Uncontrolled diabetes mellitus with hyperglycemia Brain tumor status postcraniotomy with neurodeficits Expressive aphasia Dysphagia COPD Chronic hypoxic respiratory failure 8 mm right renal calculus Thrombocytopenia Sodium level improved and back to baseline Continue D5W Continue to monitor BMP Monitor kidney function: Slightly improved. Avoid nephrotoxins. Renally dose medications Consulted GI: Status post EGD that showed esophageal stricture status post dilation Ordered modified barium swallow that showed pharyngeal aspiration. However, he does not aspirate on thin liquids. Continue dysphagia 1 diet with thick liquids Nephrology is following: Recommended to keep the patient till/2 for further monitoring of his creatinine Started Lantus plus sliding scale insulin. Monitor fingersticks Outpatient follow-up with urology given the renal stone Monitor platelet level Ordered home health
--- NOTE | 2024-11-11 10:18 | ESPR_ITS ---
Documentation for date of: 11/10/24 Subjective Subjective Interval history: Delroy Ngo is a 74-y/o male with PMHx of CVA, brain tumor at s/p left frontal craniotomy, expressive aphasia, dementia, HTN, IDDM, COPD on 4 L O2, and BPH who presented on 11/04 with encephalopathy and admitted for management of hyperosmotic hypernatremia and now dysphagia. 11/08: No acute overnight events noted. Seen and examined at bedside. Upon evaluation, patient answering questions and follow some commands but has difficulty with verbilization. Currently on room air and laying down comfortably in bed but grimaces upon palpation of lower extremities. Pending EGD and n.p.o. at this time. 11/09: No acute overnight events noted. Seen and examined at bedside, resting comfortably in bed. Underwent EGD yesterday without complications and without significant findings. Otherwise, patient does not have any complaints at this time. 11/10: No acute overnight events noted. Seen and examined at bedside, resting comfortably in bed. Otherwise, patient does not have any complaints at this time. Spoke to roll shop supervisor regarding hypernatremia and HILDA and observed for one more night. Exam Vital Signs Temp Pulse Resp BP Pulse Ox O2 Del Method O2 Flow Rate 96.9 F 78 20 129/68 99 Room Air 3 11/11/24 07:41 11/11/24 08:10 11/11/24 07:41 11/11/24 08:10 11/11/24 07:41 11/11/24 07:41 11/08/24 16:15 Narrative Exam General: Alert, laying comfortably in bed on RA, follows some commands HEENT: NC/AT, mucous membranes moist, bilateral sclera anicteric Cardiovascular: regular rate and rhythm, S1/S2 present, no murmurs appreciated Pulmonary: clear to auscultation bilaterally, no rales/rhonchi/wheezes Abdominal: diffuse tenderness to palpation, non-distended, no rebound/guarding Musculoskeletal: normal ROM, no peripheral edema, pain to palpation of right and left lower extremities Skin: warm and dry, intact, no rashes Neuro: unable to assess Objective Labs 11/11/24 04:33 11/11/24 04:33 Labs: Laboratory Results - last 24 hr 11/10/24 11/11/24 13:00 04:33 WBC 8.3 RBC 3.49 L Hgb 10.6 L Hct 31.1 L MCV 89 MCH 30.4 MCHC 34.1 RDW Std Deviation 39.9 Plt Count 125 L D Neut % (Auto) 67 Lymph % (Auto) 19 Crawford % (Auto) 9 Eos % (Auto) 3 Baso % (Auto) 0 Neut # (Auto) 5.5 Lymph # (Auto) 1.6 Crawford # (Auto) 0.8 Eos # (Auto) 0.3 Baso # (Auto) 0.0 Immature Gran # (Auto) 0.13 H Absolute Nucleated RBC 0.00 Immature Gran % 2 H Nucleated RBC % 0 Sodium 143 147 H Potassium 3.1 L Chloride 112 H Carbon Dioxide 27.0 Anion Gap 8 BUN 46 H Creatinine 3.4 H Estim Creat Clear Calc 16.9 L eGFR 18 L BUN/Creatinine Ratio 14 Glucose 147 H Calculated Osmolality 307 H Calcium 8.0 L Corrected Calcium 9.0 Phosphorus 3.6 Magnesium 1.7 Total Bilirubin 0.4 AST 120 H ALT 115 H Alkaline Phosphatase 122 H Total Protein 5.5 L Albumin 2.7 L Globulin 2.8 Albumin/Globulin Ratio 1.0 L ABG Interpretation ABG results: 11/04/24 06:04 ABG pH 7.37 ABG pCO2 39 ABG pO2 78 L ABG HCO3 22 ABG O2 Saturation 93 ABG Base Excess -3 Quality Measures Quality Measures VTE prophylaxis Advance care planning discussed with:: patient Assessment & Plan Assessment Current Active Medications: Generic Name Dose Route Start Last Admin Trade Name Freq PRN Reason Stop Dose Admin Acetaminophen 650 mg 11/08/24 10:50 11/08/24 11:13 Acetaminophen Supp 650 Mg Supp NV 12/08/24 10:49 650 mg Q6HR PRN Administration PAIN OR FEVER > 100.4 Amlodipine Besylate 5 mg 11/08/24 09:00 11/11/24 08:10 Amlodipine Besylate 5 Mg Tablet PO 12/08/24 08:59 5 mg QDAY MERLY Administration Dextrose 25 ml 11/04/24 09:27 Dextrose 50%-Water Inj 50 Ml Syringe IV 12/04/24 09:26 Q15MIN PRN BG 50-70 responsive npo pt Dextrose 50 ml 11/04/24 09:27 Dextrose 50%-Water Inj 50 Ml Syringe IV 12/04/24 09:26 Q15MIN PRN BG <50 OR BG <70 & pt unresponsive Glucagon 1 mg 11/04/24 09:27 Glucagon Inj 1 Mg Vial IM Q15MIN PRN BG <70, and no IV access Heparin Sodium (Porcine) 5,000 unit 11/09/24 21:00 11/11/24 08:11 Heparin Sod Inj 5000 Unit/Ml Vial SC 11/23/24 20:59 Not Given BID MERLY Dextrose 500 mls @ 150 mls/hr 11/11/24 07:49 11/11/24 08:09 D5w IV 11/11/24 11:08 150 mls/hr .Q3H20M ONE Administration Insulin Glargine 5 unit 11/07/24 21:00 11/10/24 20:26 Insulin Glargine (Lantus) 5 Unit/0.05 Ml (Per 5 Units) SC 12/07/24 20:59 5 unit HS MERLY Administration Insulin Human Lispro 0 unit 11/09/24 17:00 11/11/24 07:37 Insulin Lispro (Admelog) 1 Unit/0.01 Ml Unit SC 12/09/24 16:59 Not Given ACHS MERLY Protocol Ondansetron HCl 4 mg 11/04/24 09:24 Ondansetron Inj 2 Mg/Ml Inj 2 Ml IV 12/04/24 09:23 Q6H PRN NAUSEA OR VOMITING Protocol Pantoprazole Sodium 40 mg 11/08/24 09:00 11/11/24 08:10 Pantoprazole Inj 40 Mg Vial IV 12/08/24 08:59 40 mg DAILY MERLY Administration Sennosides 1 tab 11/04/24 09:24 Senna Tablet PO 12/04/24 09:23 QDAY PRN constipation Protocol Plan Delroy Ngo is a 74-year-old male with a PMHx of brain tumor at s/p left frontal craniotomy, acute CVA with residual deficit of broca's aphagia, hypertension, insulin-dependent diabetes, COPD on 4 L O2, and BPH who presented on 11/04/24 via ambulance due to altered mental status. Patient was admitted to the ICU on 11/04-11/07 for hypernatremia after which he was then downgraded to floors. #Hyperosmotic hypernatremia, improving On admission, Na 165 (corrected with glucose to be 169). Received 2 L crystalloid in ED. US renal: bilateral renal cortical thinning, 8 mm nonobstructing right renal calculus Free water deficit ~1.4 L with goal Na of 145 ? Nephrology consulted, appreciate recommendations ? Observe for one more hospital night, likely discharge tomorrow #HILDA, prerenal in the setting of dehydration vs ATN, improving #Diabetic nephropathy Baseline Cr 1.0, 5.0 on admission. Continues to have good urine output. ? Nephrology consulted, appreciate recommendations ? Continue IVF as above ? Avoid nephrotoxic agents, renally dose medications ? Urine protein to creatinine ratio of 677 (0.7 g/day) #History of CVA with residual deficit of #Broca's aphasia #New onset dysphagia #History of childhood brain tumor s/p craniotomy At baseline able to swallow but noticed during admission increased difficulty swallowing solids and liquids ? GI consulted, appreciate recommendations ? Status post EGD on 11/08 that showed benign-appearing esophageal stenosis that was dilated and biopsies taken ? Barium swallow showed pharyngeal aspiration ? Discussed with speech therapy that patient has trouble with thin liquids and will continue with recommended diet #Hypokalemia #Hypomagnesemia Repleted with 30 mill equivalents KCl and 2 g magnesium ? Follow-up AM labs and replete as needed #Transaminitis, improving Suspect to be due to anesthetics from endoscopy ? Continue to monitor #IDDM, A1c 11% on 11/04/24 ? 5 units glargine HS ? SSI, hypoglycemia protocol in place #History of COPD Per daughter, uses 4 L O2 at night and prednisone 10 mg daily. ? Supplemental O2 if less than 88%, with goal of 88 to 92% #History of BPH Per daughter, patient is wheelchair-bound and wears diapers ? Unable to resume home tamsulosin 0.4 mg daily due to dysphagia #History of HTN ? Resumed home amlodipine 5 mg daily Health Maintenance Disposition: monitoring on new diet, management of hypernatremia DVT Prophylaxis: Heparin SC BID GI Prophylaxis: Pantoprozol 40 IV daily Diet: Dysphagia 1 (puree consistency) with mildly thick liquids (nectar thick) Lines: Peripheral lines Code status: full code ----- Plan discussed with attending physician Dr. Jody Brandon MD PGY-1 Internal Medicine Attending Provider Attestation/Addendum I reviewed labs, imaging, EKG, home medications and prior available records. Face to face evaluation was performed by me. I have personally examined the patient and discussed assessment and plan with the IM team. I reviewed the resident note and agree with the plan with exceptions as below. See my addendum
[2024-11-11] MEDS: INSULIN LISPRO (AdmeLOG) 1 UNIT/0.01 ML UNIT SC ×2 (11:52→16:47)
[2024-11-11] MEDS: INSULIN LISPRO (AdmeLOG) 1 UNIT/0.01 ML UNIT 10 UNIT SC (11:54)
--- NOTE | 2024-11-11 12:30 | PC.SS ---
Addendum entered by YORDAN Gooden 11/11/24 16:35: [facility] called with ETA of 1830. Bed side nurse and patient's daughter Chyna were updated. Addendum entered by YORDAN Gooden 11/11/24 15:35: SS update: contacted transport company, continues pending ETA and transport vendor. Addendum entered by YORDAN Gooden 11/11/24 13:48: DC orders are in. Patient returning home. Daughter Chyna aware and is requesting ambulance transport home. [facility] transportation arranged. Reference number:[id number]. Pending ETA. Original Note: SS update: possible d/c home today w/ HH services.
--- NOTE | 2024-11-11 12:44 | PD.RESDS ---
Planned Discharge Date 11/11/24 DS: Providers Provider Date of admission: 11/04/24 09:24 Primary care physician: Jeremy Clinton MD Admitting Provider: Colin Michele MD Attending Provider on Admission: Medhat Vera MD Consults: 11/04/24 08:27 Consult to Nephrology Stat Comment: ARF Consulting Provider: Bradley Singer 11/04/24 19:43 Referral Speech Therapy Routine Comment: 11/04/24 20:38 Referral Physical Therapy Routine Comment: Physician Instructions: Referral Respiratory Therapy Routine Comment: Referral Speech Therapy Routine Comment: Health Equity Referral - Knowledge Deficit Routine Comment: Positive screening for knowledge deficit needs. 11/06/24 00:56 Referral Wound Care Stat Comment: 11/06/24 10:16 Referral Nutritional Services Routine Comment: Instructions: Wounds 11/07/24 15:20 Consult to Gastroenterology Routine Comment: aspiration risk, ?PEG placement Consulting Provider: James Elaine Attending Provider on DC: Richard Brandon MD Discharging Provider: Richard Brandon MD Hospital Course Hospital Course Hospital course: Delroy Ngo is a 74-y/o male with PMHx of CVA, brain tumor at s/p left frontal craniotomy, expressive aphasia, dementia, HTN, IDDM, COPD, and BPH who presented on 11/04 with encephalopathy and admitted for management of hyperosmotic hypernatremia and now dysphagia. 11/08: No acute overnight events noted. Seen and examined at bedside. Upon evaluation, patient answering questions and follow some commands but has difficulty with verbilization. Currently on room air and laying down comfortably in bed but grimaces upon palpation of lower extremities. Pending EGD and n.p.o. at this time. 11/09: No acute overnight events noted. Seen and examined at bedside, resting comfortably in bed. Underwent EGD yesterday without complications and without significant findings. Otherwise, patient does not have any complaints at this time. 11/10: No acute overnight events noted. Seen and examined at bedside, resting comfortably in bed. Otherwise, patient does not have any complaints at this time. Spoke to community health agent regarding hypernatremia and HILDA and observed for one more night. Time Spent with Patient Time attestation: Total time spent providing and/or coordinating discharge services: Home Health Home Health Referral Orders: 11/11/24 09:07 Home Health Referral Routine Reason For Exam: Home PT Home-Bound The patient must either because of illness or injury, need the aid of supportive devices such as crutches, canes, wheelchairs, and walkers; the use of special transportation; or the assistance of another person in order to leave their place of residence; OR have a condition such that leaving his or her home is medically contraindicated. In addition, the patient also meets the following criteria: patient is normally unable to leave the home and leaving home requires considerable taxing effort. Addendum to Home Health Certification Practitioner's Certification: I certify that the patient has been under my care in the hospital and the care of attending physician (see below). We had a [id number]-[id number] encounter on (see date below). My clinical findings indicate that the patient is home bound per the above criteria and the Home Health Services noted in these orders are medically necessary. The primary reason for the [id number]-[id number] encounter is related to the fact that the patient requires home health services. Date Certifying [id number]-Sepb Physician Encounter: 11/04/24 Physician's Name who will Assume Oversight for Services: Jeremy Clinton Physician's Phone No.who will Assume Oversight for Service: GRID TRIMMER - Community Resources: Yes PT to Evaluate: Yes PT to evaluate and provide a treatmnet plan to increase patient's mobility and strength. Wound Care: No IV Therapy: No RN Safety Evaluation: Yes RN to evaluate and create a plan of care that will produce positive outcomes. Palliative Treatment: No Palliative treatment and evaluate the need for hospice. Home Health Aide - Personal Care: Yes Home Health Aide to assist with any ADL's. Exam Vital Signs Temp Pulse Resp BP Pulse Ox O2 Del Method O2 Flow Rate 97.4 F 88 20 135/70 H 96 Room Air 3 11/11/24 12:11/11/24 12:11/11/24 12:11/11/24 12:11/11/24 12:00 11/11/24 07:41 11/08/24 16:15 Discharge Plan Plan Patient Disposition: Home w/HOME HEALTH Patient condition on transfer: Stable Care Plan Goals: - Recommend to maintain adequate oral intake, but to avoid thin liquids to prevent choking/coughing/aspiration (thick liquids ok) - Continue insulin glargine 15 units at night and Lispro insulin sliding scale, follow-up with PCP to optimize dosage within one week of discharge. - Otherwise, continue taking all other home medications as prescribed - Follow-up with PCP within one week of discharge to reconcile and optimize medications - Return to the ED if symptoms worsen or recur Prescriptions/Referrals Prescriptions/Med Rec: New insulin glargine-yfgn 100 unit/mL (3 mL) insulin pen 15 unit subcut QPM Qty: 15 0RF insulin lispro 100 unit/mL insulin pen 1 sliding scale dose subcut USEASDIRECTD Qty: 15 0RF Continued escitalopram oxalate 10 mg Tablet 10 mg PO QDAY amlodipine 5 mg Tablet 5 mg PO QDAY atorvastatin 40 mg Tablet 40 mg PO QPM tamsulosin 0.4 mg Capsule 0.4 mg PO QDAY albuterol sulfate [Ventolin HFA] 90 mcg/actuation HFA aerosol inhaler 2 inh inhalation QID PRN (Reason: shortness of breath or wheezing) albuterol sulfate 5 mg/mL solution for nebulization 5 mg inhalation TID (DME) pen needle, diabetic 29 gauge x 1/2 needle See Rx Instructions .Route Qty: 100 3RF Rx Instructions: As directed Baqsimi 3 mg/actuation spray,non-aerosol 3 mg intranasal PRN PRN (Reason: for low blood sugars) Qty: 1 0RF (DME) FreeStyle Lavinia 3 [place] Misc See Rx Instructions .Route Qty: 1 0RF Rx Instructions: As directed (DME) FreeStyle Lavinia 3 Sensor Device See Rx Instructions .Route Qty: 1 0RF Rx Instructions: As directed Held prednisone 10 mg tablet 10 mg PO QDAY Hold Instructions: Resume on 11/25/24. insulin glargine [Lantus Solostar U-100 Insulin] 100 unit/mL (3 mL) insulin pen 30 unit subcut QAM Qty: 2 0RF Hold Instructions: Resume on 11/25/24. Referrals: Jeremy Clinton MD [Primary Care Provider] - Patient/Caregiver Discharge Instructions Print Language: Arabic Stand Alone Forms: Brinda Award Info., Patient Portal Info Letter Attestestation MD Attestation I reviewed labs, imaging, EKG, home medications and prior available records. Face to face evaluation was performed by me. I have personally examined the patient and discussed assessment and plan with the IM team. I reviewed the resident note and agree with the plan with exceptions as below. Hypernatremia HILDA, possible prerenal Uncontrolled diabetes mellitus with hyperglycemia Brain tumor status postcraniotomy with neurodeficits Expressive aphasia Dysphagia COPD Chronic hypoxic respiratory failure 8 mm right renal calculus Thrombocytopenia Sodium level is now within normal range Monitor sodium level as outpatient Creatinine improved and currently stable. Discussed with nephrology: Okay to discharge. Follow-up with nephrology as outpatient monitor kidney function as outpatient Consulted GI: Status post EGD that showed esophageal stricture status post dilation Ordered modified barium swallow that showed pharyngeal aspiration. No aspiration with thick liquids. Will discharge on dysphagia 1 diet with thick liquids. Ensure good oral intake Started Lantus 15 units daily plus sliding scale insulin. Monitor fingersticks Outpatient follow-up with urology given the renal stone Monitor platelet level as outpatient Time spent is 40 minutes. More than 50% of the time was spent on patient education and coordination of care.
--- NOTE | 2024-11-11 12:50 | ESPR_ITS ---
Documentation for date of: 11/11/24 Subjective Subjective Interval history: Patient evaluated Patient still has episodes of choking based on what is going on He will benefit from placement of a PEG tube Exam Vital Signs Temp Pulse Resp BP Pulse Ox O2 Del Method O2 Flow Rate 97.4 F 88 20 135/70 H 96 Room Air 3 11/11/24 12:00 11/11/24 12:00 11/11/24 12:00 11/11/24 12:00 11/11/24 12:00 11/11/24 07:41 11/08/24 16:15 Objective Labs 11/11/24 04:33 11/11/24 20:05 Labs: Laboratory Results - last 24 hr 11/10/24 11/11/24 13:00 04:33 WBC 8.3 RBC 3.49 L Hgb 10.6 L Hct 31.1 L MCV 89 MCH 30.4 MCHC 34.1 RDW Std Deviation 39.9 Plt Count 125 L D Neut % (Auto) 67 Lymph % (Auto) 19 [place] % (Auto) 9 Eos % (Auto) 3 Baso % (Auto) 0 Neut # (Auto) 5.5 Lymph # (Auto) 1.6 [place] # (Auto) 0.8 Eos # (Auto) 0.3 Baso # (Auto) 0.0 Immature Gran # (Auto) 0.13 H Absolute Nucleated RBC 0.00 Immature Gran % 2 H Nucleated RBC % 0 Sodium 143 147 H Potassium 3.1 L Chloride 112 H Carbon Dioxide 27.0 Anion Gap 8 BUN 46 H Creatinine 3.4 H Estim Creat Clear Calc 16.9 L eGFR 18 L BUN/Creatinine Ratio 14 Glucose 147 H Calculated Osmolality 307 H Calcium 8.0 L Corrected Calcium 9.0 Phosphorus 3.6 Magnesium 1.7 Total Bilirubin 0.4 AST 120 H ALT 115 H Alkaline Phosphatase 122 H Total Protein 5.5 L Albumin 2.7 L Globulin 2.8 Albumin/Globulin Ratio 1.0 L Impressions Impression: # Dysphagia # Choking spell Consider placement of a PEG tube prior to discharge ABG Interpretation ABG results: 11/04/24 06:04 ABG pH 7.37 ABG pCO2 39 ABG pO2 78 L ABG HCO3 22 ABG O2 Saturation 93 ABG Base Excess -3 Assessment & Plan A&P Narrative # Dysphagia Informed consent obtained from the daughter in the presence of the patient for fiberoptic esophagogastroduodenoscopy with possible esophageal dilatation possible biopsies under intravenous moderate sedation scheduled for tomorrow N.p.o. midnight tonight TSH JAMIE Other medical problems include CVA Brain tumor requiring left frontal craniotomy Expressive aphasia Dementia Essential hypertension Dehydration with hypernatremia IDDM COPD on home oxygen at 4 L nasal cannula Thank you very much for the opportunity to participate in the care of this patient Time Spent With Patient Time: Total time spent is greater than 50% in coordination of care (as documented) at patient's floor/unit and/or counseling patient:
--- NOTE | 2024-11-11 18:30 | EKG_ITS ---
[facility] Test Date: 2024-11-11 Pat Name: LEONOR MCGRATH [facility] Gender[facility] Psychological Aide: CHRIS : 1950 Requested By: Yunior Bobby Order Number: [id number] Reading MD: Yunior Bobby Measurements Intervals [place] Rate: 109 P: 72 ND: 155 QRS: -3 QRSD: 80 T: 69 QT: 334 QTc: 452 Interpretive Statements SINUS TACHYCARDIA ABNORMAL RHYTHM ECG Compared to ECG 11/04/2024 06:04:57 T-wave abnormality no longer present /store/S0/[id number].pdf
--- NOTE | 2024-11-11 18:30 | XR_ITS ---
Examination: AP chest single view TECHNIQUE: AP portable upright chest single view Exam date and time: November 11, 2024, 1846 hours Comparison November 04, 2024 INDICATIONS: Choking and shortness of breath today. FINDINGS: Normal heart size. No aspiration pneumonia. Mild to moderate elevation right hemidiaphragm. Moderate osteopenia IMPRESSION: Negative for aspiration pneumonia
[2024-11-11 18:43] LABS: Base Excess 1 (-3-3); HCO3 25 mEq/L (20-26); Inspired O2, VO2 Liters 3 L/min; Inspired Oxygen, FIO2 21 %; O2 Saturation 96 % (91-98); PCO2 39 mmHg (32.0-48.0); PO2 87 mmHg (83-108); pH, Arterial 7.42 (7.35-7.45)
[2024-11-11 18:52] LABS: Allen Test Performed/OK; Puncture Site Right Radial
--- NOTE | 2024-11-11 18:55 | XR_ITS ---
Examination: Duplex scan of the lower extremity, unilateral left Date and time of exam: November 11, 2024 2014 hours INDICATIONS: Left leg swelling today Technique: Duplex scan of the extremity veins using B-mode/grayscale imaging and Doppler spectral analysis and color flow Attention is directed to internal echogenicity, compression and augmentation involving these veins, color flow assessment, spectral analysis Findings: Major deep venous structures in the extremity demonstrate normal course and caliber. There is no evidence of deep vein thrombosis. Normal color flow and spectral analysis Impression: Negative for DVT..
--- NOTE | 2024-11-11 18:55 | XR_ITS ---
Examination: Duplex scan of the upper extremity, unilateral right complete Date and time of exam: November 11, 2024 at 2032 hours INDICATIONS: Left arm swelling beginning today Technique: Duplex scan of the extremity veins using B-mode/grayscale imaging and Doppler spectral analysis and color flow Attention is directed to internal echogenicity, compression and augmentation involving these veins, color flow assessment, spectral analysis Findings: Major deep venous structures in the extremity demonstrate normal course and caliber. There is no evidence of deep vein thrombosis. Normal color flow and spectral analysis No visualization superficial cephalic vein Impression: Negative for DVT..
--- NOTE | 2024-11-11 19:35 | PD.RESEVENT ---
Documentation for date of: 11/11/24 Event Note Event Note: Rapid response called at approximately 6:22 PM for aspiration event. Per staff, patient was being fed thick orange juice when he started to cough and become tachypneic. Initial vitals of O2 85% on room air, RR 37, HR 108, BP 170/91. Oxy mask temporarily placed but at end of rapid not needed and O2 96% on RA. Other vital signs stabilized to HR of 82, RR 20, BP 130/68 without intervention. EKG showed sinus tachycardia, CXR negative for aspiration pneumonia, ABG showed pH 7.4, pCO2 39, and pO2 of 87. ----- Plan discussed with attending physician Dr. Jody Brandon MD PGY-1 Internal Medicine
--- NOTE | 2024-11-11 19:42 | ESPR_ITS ---
Documentation for date of: 11/11/24 Subjective Subjective Interval history: Delroy Ngo is a 74-y/o male with PMHx of CVA, brain tumor at s/p left frontal craniotomy, expressive aphasia, dementia, HTN, IDDM, COPD on 4 L O2, and BPH who presented on 11/04 with encephalopathy and admitted for management of hyperosmotic hypernatremia and now dysphagia. 11/08: No acute overnight events noted. Seen and examined at bedside. Upon evaluation, patient answering questions and follow some commands but has difficulty with verbilization. Currently on room air and laying down comfortably in bed but grimaces upon palpation of lower extremities. Pending EGD and n.p.o. at this time. 11/09: No acute overnight events noted. Seen and examined at bedside, resting comfortably in bed. Underwent EGD yesterday without complications and without significant findings. Otherwise, patient does not have any complaints at this time. 11/10: No acute overnight events noted. Seen and examined at bedside, resting comfortably in bed. Otherwise, patient does not have any complaints at this time. Spoke to ssn/ssbn assistant navigator regarding hypernatremia and HILDA and observed for one more night. 11/11: No acute overnight events noted. Seen and examined at bedside in AM, resting comfortably in bed. Originally planned for discharge today as he has been able to tolerate his current diet well until the evening time when rapid response was called for aspiration event (please see event note for details). Thus, discharge canceled and will plan to talk to family tomorrow regarding PEG tube placement. Exam Vital Signs Temp Pulse Resp BP Pulse Ox O2 Del Method O2 Flow Rate 97.4 F 82 20 132/68 H 96 Room Air 3 11/11/24 15:47 11/11/24 18:43 11/11/24 18:43 11/11/24 18:43 11/11/24 18:43 11/11/24 15:47 11/08/24 16:15 Narrative Exam Exam in AM: General: Alert, laying comfortably in bed on RA, follows some commands HEENT: NC/AT, mucous membranes moist, bilateral sclera anicteric Cardiovascular: regular rate and rhythm, S1/S2 present, no murmurs appreciated Pulmonary: clear to auscultation bilaterally, no rales/rhonchi/wheezes Abdominal: diffuse tenderness to palpation, non-distended, no rebound/guarding Musculoskeletal: normal ROM, no peripheral edema, pain to palpation of right and left lower extremities, RUE edematous Skin: warm and dry, intact, no rashes Neuro: unable to assess Objective Labs 11/13/24 04:54 11/13/24 04:54 Labs: Laboratory Results - last 24 hr 11/11/24 11/11/24 04:33 18:37 WBC 8.3 RBC 3.49 L Hgb 10.6 L Hct 31.1 L MCV 89 MCH 30.4 MCHC 34.1 RDW Std Deviation 39.9 Plt Count 125 L D Neut % (Auto) 67 Lymph % (Auto) 19 [place] % (Auto) 9 Eos % (Auto) 3 Baso % (Auto) 0 Neut # (Auto) 5.5 Lymph # (Auto) 1.6 [place] # (Auto) 0.8 Eos # (Auto) 0.3 Baso # (Auto) 0.0 Immature Gran # (Auto) 0.13 H Absolute Nucleated RBC 0.00 Immature Gran % 2 H Nucleated RBC % 0 Puncture Site Right Radial ABG pH 7.42 ABG pCO2 39 ABG pO2 87 ABG HCO3 25 ABG O2 Saturation 96 ABG Base Excess 1 Oxygen Liter Flow 3 FiO2 21 Sodium 147 H Potassium 3.1 L Chloride 112 H Carbon Dioxide 27.0 Anion Gap 8 BUN 46 H Creatinine 3.4 H Estim Creat Clear Calc 16.9 L eGFR 18 L BUN/Creatinine Ratio 14 Glucose 147 H Calculated Osmolality 307 H Calcium 8.0 L Corrected Calcium 9.0 Phosphorus 3.6 Magnesium 1.7 Total Bilirubin 0.4 AST 120 H ALT 115 H Alkaline Phosphatase 122 H Total Protein 5.5 L Albumin 2.7 L Globulin 2.8 Albumin/Globulin Ratio 1.0 L ABG Interpretation ABG results: 11/04/24 11/11/24 06:04 18:37 ABG pH 7.37 7.42 ABG pCO2 39 39 ABG pO2 78 L 87 ABG HCO3 22 25 ABG O2 Saturation 93 96 ABG Base Excess -3 1 Quality Measures Quality Measures VTE prophylaxis Advance care planning discussed with:: patient Assessment & Plan Assessment Current Active Medications: Generic Name Dose Route Start Last Admin Trade Name Freq PRN Reason Stop Dose Admin Acetaminophen 650 mg 11/08/24 10:50 11/08/24 11:13 Acetaminophen Supp 650 Mg Supp SC 12/08/24 10:49 650 mg Q6HR PRN Administration PAIN OR FEVER > 100.4 Amlodipine Besylate 5 mg 11/08/24 09:00 11/11/24 08:10 Amlodipine Besylate 5 Mg Tablet PO 12/08/24 08:59 5 mg QDAY MERLY Administration Dextrose 25 ml 11/04/24 09:27 Dextrose 50%-Water Inj 50 Ml Syringe IV 12/04/24 09:26 Q15MIN PRN BG 50-70 responsive npo pt Dextrose 50 ml 11/04/24 09:27 Dextrose 50%-Water Inj 50 Ml Syringe IV 12/04/24 09:26 Q15MIN PRN BG <50 OR BG <70 & pt unresponsive Glucagon 1 mg 11/04/24 09:27 Glucagon Inj 1 Mg Vial IM Q15MIN PRN BG <70, and no IV access Heparin Sodium (Porcine) 5,000 unit 11/09/24 21:00 11/11/24 08:11 Heparin Sod Inj 5000 Unit/Ml Vial SC 11/23/24 20:59 Not Given BID MERLY Insulin Glargine 5 unit 11/07/24 21:00 11/10/24 20:26 Insulin Glargine (Lantus) 5 Unit/0.05 Ml (Per 5 Units) SC 12/07/24 20:59 5 unit HS MERLY Administration Insulin Human Lispro 0 unit 11/09/24 17:00 11/11/24 16:47 Insulin Lispro (Admelog) 1 Unit/0.01 Ml Unit SC 12/09/24 16:59 1 unit ACHS MERLY Administration Protocol Ondansetron HCl 4 mg 11/04/24 09:24 Ondansetron Inj 2 Mg/Ml Inj 2 Ml IV 12/04/24 09:23 Q6H PRN NAUSEA OR VOMITING Protocol Pantoprazole Sodium 40 mg 11/08/24 09:00 11/11/24 08:10 Pantoprazole Inj 40 Mg Vial IV 12/08/24 08:59 40 mg DAILY MERLY Administration Sennosides 1 tab 11/04/24 09:24 Senna Tablet PO 12/04/24 09:23 QDAY PRN constipation Protocol Plan Delroy Ngo is a 74-year-old male with a PMHx of brain tumor at s/p left frontal craniotomy, acute CVA with residual deficit of broca's aphagia, hypertension, insulin-dependent diabetes, COPD on 4 L O2, and BPH who presented on 11/04/24 via ambulance due to altered mental status. Patient was admitted to the ICU on 11/04-11/07 for hypernatremia after which he was then downgraded to floors. #History of CVA with residual deficit of #Broca's aphasia #New onset dysphagia #History of childhood brain tumor s/p craniotomy At baseline able to swallow but noticed during admission increased difficulty swallowing solids and liquids ? GI consulted, appreciate recommendations ? Status post EGD on 11/08 that showed benign-appearing esophageal stenosis that was dilated and biopsies taken ? Barium swallow showed pharyngeal aspiration ? Discussed with speech therapy that patient has trouble with thin liquids and will continue with recommended diet ? Aspiration event on 11/11 after eating thick apple juice, thus will have discussion with family tomorrow regarding PEG tube placement -> failed discharge ? If family agrees, will let GI know #Hyperosmotic hypernatremia, improving On admission, Na 165 (corrected with glucose to be 169). Received 2 L crystalloid in ED. US renal: bilateral renal cortical thinning, 8 mm nonobstructing right renal calculus Free water deficit ~1.4 L with goal Na of 145 ? Nephrology consulted, appreciate recommendations ? D5W at 80 cc/h ? Given 500 mL of D5W x 1 #HILDA, prerenal in the setting of dehydration vs ATN, improving #Diabetic nephropathy Baseline Cr 1.0, 5.0 on admission. Continues to have good urine output. ? Nephrology consulted, appreciate recommendations ? Continue IVF as above ? Avoid nephrotoxic agents, renally dose medications ? Urine protein to creatinine ratio of 677 (0.7 g/day) #Hypokalemia #Hypomagnesemia Repleted with 30 mill equivalents KCl and 2 g magnesium ? Follow-up AM labs and replete as needed #Transaminitis, improving Suspect to be due to anesthetics from endoscopy ? Continue to monitor #IDDM, A1c 11% on 11/04/24 ? 5 units glargine HS ? SSI, hypoglycemia protocol in place #History of COPD Per daughter, uses 4 L O2 at night and prednisone 10 mg daily. ? Supplemental O2 if less than 88%, with goal of 88 to 92% #History of BPH Per daughter, patient is wheelchair-bound and wears diapers ? Unable to resume home tamsulosin 0.4 mg daily due to dysphagia #History of HTN ? Resumed home amlodipine 5 mg daily Health Maintenance Disposition: monitoring on new diet, management of hypernatremia IVF: D5W at 80 cc/h DVT Prophylaxis: Heparin SC BID GI Prophylaxis: Pantoprozol 40 IV daily Diet: N.p.o. Lines: Peripheral lines Code status: full code ----- Plan discussed with attending physician Dr. Jody Brandon MD PGY-1 Internal Medicine Attending Provider Attestation/Addendum I reviewed labs, imaging, EKG, home medications and prior available records. Face to face evaluation was performed by me. I have personally examined the patient and discussed assessment and plan with the IM team. I reviewed the resident note and agree with the plan with exceptions as below. Hypernatremia HILDA, possible prerenal Uncontrolled diabetes mellitus with hyperglycemia Brain tumor status postcraniotomy with neurodeficits Expressive aphasia Dysphagia COPD Chronic hypoxic respiratory failure 8 mm right renal calculus Thrombocytopenia Sodium level improved and back to baseline Continue to monitor BMP Monitor kidney function: Slightly improved. Avoid nephrotoxins. Renally dose medications Consulted GI: Status post EGD that showed esophageal stricture status post dilation Ordered modified barium swallow that showed pharyngeal aspiration. However, he does not aspirate on thin liquids. Continue dysphagia 1 diet with thick liquids Nephrology is following: Recommended to keep the patient till/2 for further monitoring of his creatinine Started Lantus plus sliding scale insulin. Monitor fingersticks Outpatient follow-up with urology given the renal stone Monitor platelet level Ordered home health Rapid response was called in the late afternoon. See event note. Will keep the patient for close monitoring.
[2024-11-11 20:38] LABS: Anion Gap 10 (7-16); BUN/Creatinine Ratio 15 Ratio (12-20); Blood Urea Nitrogen 48 mg/dL (9-23); Calcium 8.3 mg/dL (8.3-10.6); Carbon Dioxide 25.4 mMol/L (20.0-31.0); Chloride 108 mMol/L (98-107); Creatinine (Component) 3.1 mg/dL (0.6-1.3); Estimated Creatinine Clearance 18.6 mL/min (>60); Glucose 292 mg/dL (74-106); Osmolality,Calculated 308 (275-295); Potassium 3.8 mMol/L (3.4-5.1); Sodium 143 mMol/L (136-145); eGFR 20 See Note
[2024-11-11] MEDS: DEXTROSE 5%-WATER 1,000 ML 80 ML IV (21:13)
[2024-11-11] MEDS: INSULIN GLARGINE (Lantus) 5 UNIT/0.05 ML (PER 5 UNITS) SC (21:13)
[2024-11-11] MEDS: HEPARIN SOD INJ 5000 UNIT/ML VIAL SC (22:00)
--- NOTE | 2024-11-11 22:04 | PC.NURSE ---
Contacted Dr. Burton regarding heparin documentation shows held per MD, contacted if heparin needed to be held again MD looked into chart, ok to give.
[2024-11-12] VITALS (9 sets, daily range): BP systolic 122–146; BP diastolic 65–78; PULSE 69–87; RESP 17–24; TEMP 36.1–36.7; O2SAT 95–99; BMI 23.5
[2024-11-12] MEDS: INSULIN LISPRO (AdmeLOG) 1 UNIT/0.01 ML UNIT SC ×2 (01:05→08:08)
[2024-11-12 05:52] LABS: Basophils # (Auto) 0.1 Thou/mm3 (0.0-0.2); Basophils % (Auto) 1 % (0-2.5); Eosinophils # (Auto) 0.3 Thou/mm3 (0.0-0.5); Eosinophils % (Auto) 3 % (0-10); Hematocrit 35.3 % (41.0-53.0); Hemoglobin 11.9 g/dL (13.5-16.0); Immature Granulocytes % (Auto) 2 % (0-0); Immature Granulocytes Auto 0.17 Thou/mm3 (0.00-0.00); Lymphocytes # (Auto) 1.4 Thou/mm3 (1.0-4.8); Lymphocytes % (Auto) 14 % (10-50); Mean Corpuscular HGB Conc 33.7 g/dl (31.0-37.0); Mean Corpuscular Hemoglobin 30.4 pg (25.0-35.0); Mean Corpuscular Volume 90 fL (80-100); Monocytes # (Auto) 0.7 Thou/mm3 (0.0-0.8); Monocytes % (Auto) 8 % (0-12); Neutrophils % (Auto) 73 % (37-80); Nucleated Red Blood Cell % 0 /100 WBC (0); Platelet Count 152 Thou/mm3 (140-440); Red Blood Count 3.91 Miln/mm3 (4.50-5.90); White Blood Count 9.6 Thou/mm3 (3.8-10.6)
[2024-11-12 06:36] LABS: Alanine Aminotransferase 141 U/L (10-49); Albumin, Serum 3.2 gm/dL (3.4-4.8); Albumin/Globulin Ratio 0.9 (1.2-2.2); Alkaline Phosphatase 154 U/L (46-116); Anion Gap 12 (7-16); Aspartate Amino Transferase 112 U/L (0-34); BUN/Creatinine Ratio 14 Ratio (12-20); Bilirubin,Total 0.5 mg/dL (0.3-1.2); Blood Urea Nitrogen 42 mg/dL (9-23); Calcium 8.7 mg/dL (8.3-10.6); Calcium (Corrected) 9.3 mg/dL (8.5-10.1); Carbon Dioxide 24.8 mMol/L (20.0-31.0); Chloride 106 mMol/L (98-107); Creatinine (Component) 2.9 mg/dL (0.6-1.3); Estimated Creatinine Clearance 19.9 mL/min (>60); Globulin 3.4 gm/dL (2.3-3.5); Glucose 289 mg/dL (74-106); Magnesium 1.8 mg/dL (1.6-2.6); Osmolality,Calculated 306 (275-295); Phosphorous 2.3 mg/dL (2.4-5.1); Potassium 3.6 mMol/L (3.4-5.1); Sodium 143 mMol/L (136-145); Total Protein 6.6 gm/dL (5.7-8.2); eGFR 22 See Note
[2024-11-12] MEDS: RINGERS LACTATED 1000 ML 1,000 ML 80 ML IV ×2 (08:49→20:58)
[2024-11-12] MEDS: Magnesium Sulfate 2 GM Ivpb 2 GM/50 ML BAG IV (08:49)
[2024-11-12] MEDS: POT PHOS 15 mMol in NS 250 ML 15 MMOL/250 ML BAG 62.5 MMOL IV (08:49)
[2024-11-12] MEDS: HEPARIN SOD INJ 5000 UNIT/ML VIAL SC ×2 (08:50→20:58)
[2024-11-12] MEDS: PANTOPRAZOLE INJ 40 MG VIAL IV (08:50)
--- NOTE | 2024-11-12 09:10 | PC.SS ---
Addendum entered by YORDAN Gooden 11/12/24 16:18: Rounding note: pending speech eval, possible peg tube. Original Note: SS update: patient d/c held yesterday as patient had a rapid response called due to aspiration. Medical team informs they will meet with the family to discuss possible PEG tube for the patient.
--- NOTE | 2024-11-12 10:55 | PD.RESPRO ---
Documentation for date of: 11/12/24 Subjective Subjective Interval history: Delroy Ngo is a 74-y/o male with PMHx of CVA, brain tumor at s/p left frontal craniotomy, expressive aphasia, dementia, HTN, IDDM, COPD on 4 L O2, and BPH who presented on 11/04 with encephalopathy and admitted for management of hyperosmotic hypernatremia and now dysphagia. 11/08: No acute overnight events noted. Seen and examined at bedside. Upon evaluation, patient answering questions and follow some commands but has difficulty with verbilization. Currently on room air and laying down comfortably in bed but grimaces upon palpation of lower extremities. Pending EGD and n.p.o. at this time. 11/09: No acute overnight events noted. Seen and examined at bedside, resting comfortably in bed. Underwent EGD yesterday without complications and without significant findings. Otherwise, patient does not have any complaints at this time. 11/10: No acute overnight events noted. Seen and examined at bedside, resting comfortably in bed. Otherwise, patient does not have any complaints at this time. Spoke to data management analyst regarding hypernatremia and HILDA and observed for one more night. 11/11: No acute overnight events noted. Seen and examined at bedside in AM, resting comfortably in bed. Originally planned for discharge today as he has been able to tolerate his current diet well until the evening time when rapid response was called for aspiration event (please see event note for details). Thus, discharge canceled and will plan to talk to family tomorrow regarding PEG tube placement. 11/12: After rapid response, no further acute overnight events noted. Seen and examined at bedside in AM on 2 L oxymask, breathing comfortably and will wean off as tolerated. Spoke to daughter over the phone regarding aspiration event and discussed option of PEG tube placement vs another evaluation by speech therapy, and daughter opted to pursue another evaluation by speech therapy. Also discussed that we will try changes recommended by speech therapy and if fails, will re-visit topic of PEG tube. Exam Vital Signs Temp Pulse Resp BP Pulse Ox O2 Del Method O2 Flow Rate 97 F 78 18 146/67 H 99 Oxy Mask 1.5 11/12/24 07:18 11/12/24 07:18 11/12/24 07:18 11/12/24 07:18 11/12/24 07:18 11/12/24 07:18 11/12/24 07:18 Narrative Exam General: Alert, laying comfortably in bed on oxymask, follows some commands, one word answers HEENT: NC/AT, mucous membranes moist, bilateral sclera anicteric Cardiovascular: regular rate and rhythm, S1/S2 present, no murmurs appreciated Pulmonary: clear to auscultation bilaterally, no rales/rhonchi/wheezes Abdominal: diffuse tenderness to palpation, non-distended, no rebound/guarding Musculoskeletal: normal ROM, no peripheral edema, pain to palpation of right and left lower extremities, RUE edematous Skin: warm and dry, intact, no rashes Neuro: unable to assess Objective Labs 11/14/24 04:08 11/14/24 04:08 Labs: Laboratory Results - last 24 hr 11/11/24 11/11/24 11/12/24 18:37 20:05 05:00 WBC 9.6 RBC 3.91 L Hgb 11.9 L Hct 35.3 L MCV 90 MCH 30.4 MCHC 33.7 RDW Std Deviation 40.0 Plt Count 152 D Neut % (Auto) 73 Lymph % (Auto) 14 [place] % (Auto) 8 Eos % (Auto) 3 Baso % (Auto) 1 Neut # (Auto) 7.0 Lymph # (Auto) 1.4 [place] # (Auto) 0.7 Eos # (Auto) 0.3 Baso # (Auto) 0.1 Immature Gran # (Auto) 0.17 H Absolute Nucleated RBC 0.00 Immature Gran % 2 H Nucleated RBC % 0 Puncture Site Right Radial ABG pH 7.42 ABG pCO2 39 ABG pO2 87 ABG HCO3 25 ABG O2 Saturation 96 ABG Base Excess 1 Oxygen Liter Flow 3 FiO2 21 Sodium 143 143 Potassium 3.8 D 3.6 Chloride 108 H 106 Carbon Dioxide 25.4 24.8 Anion Gap 10 12 BUN 48 H 42 H Creatinine 3.1 H 2.9 H Estim Creat Clear Calc 18.6 L 19.9 L eGFR 20 L 22 L BUN/Creatinine Ratio 15 14 Glucose 292 H D 289 H Calculated Osmolality 308 H 306 H Calcium 8.3 8.7 Corrected Calcium 9.3 Phosphorus 2.3 L Magnesium 1.8 Total Bilirubin 0.5 AST 112 H ALT 141 H Alkaline Phosphatase 154 H D Total Protein 6.6 Albumin 3.2 L D Globulin 3.4 Albumin/Globulin Ratio 0.9 L ABG Interpretation ABG results: 11/04/24 11/11/24 06:04 18:37 ABG pH 7.37 7.42 ABG pCO2 39 39 ABG pO2 78 L 87 ABG HCO3 22 25 ABG O2 Saturation 93 96 ABG Base Excess -3 1 Quality Measures Quality Measures VTE prophylaxis Advance care planning discussed with:: patient and child Assessment & Plan Assessment Current Active Medications: Generic Name Dose Route Start Last Admin Trade Name Freq PRN Reason Stop Dose Admin Acetaminophen 650 mg 11/08/24 10:50 11/08/24 11:13 Acetaminophen Supp 650 Mg Supp NC 12/08/24 10:49 650 mg Q6HR PRN Administration PAIN OR FEVER > 100.4 Amlodipine Besylate 5 mg 11/08/24 09:00 11/12/24 08:02 Amlodipine Besylate 5 Mg Tablet PO 12/08/24 08:59 Not Given QDAY MERLY Dextrose 25 ml 11/04/24 09:27 Dextrose 50%-Water Inj 50 Ml Syringe IV 12/04/24 09:26 Q15MIN PRN BG 50-70 responsive npo pt Dextrose 50 ml 11/04/24 09:27 Dextrose 50%-Water Inj 50 Ml Syringe IV 12/04/24 09:26 Q15MIN PRN BG <50 OR BG <70 & pt unresponsive Glucagon 1 mg 11/04/24 09:27 Glucagon Inj 1 Mg Vial IM Q15MIN PRN BG <70, and no IV access Heparin Sodium (Porcine) 5,000 unit 11/09/24 21:00 11/12/24 08:50 Heparin Sod Inj 5000 Unit/Ml Vial SC 11/23/24 20:59 5,000 unit BID MERLY Administration Potassium Phosphate 15 mmol in 250 mls @ 62.5 mls/hr 11/12/24 07:36 11/12/24 08:49 Pot Phos 15 Mmol In Ns 250 Ml IV 11/12/24 11:35 62.5 mls/hr X1 ONE Administration Lactated Ringer's 1,000 mls @ 80 mls/hr 11/12/24 07:45 11/12/24 08:49 Lactated Ringers IV 11/14/24 07:44 80 mls/hr .[id number] MERLY Administration Insulin Glargine 5 unit 11/07/24 21:00 11/11/24 21:13 Insulin Glargine (Lantus) 5 Unit/0.05 Ml (Per 5 Units) SC 12/07/24 20:59 5 unit HS MERLY Administration Insulin Human Lispro 0 unit 11/12/24 07:43 11/12/24 08:08 Insulin Lispro (Admelog) 1 Unit/0.01 Ml Unit SC 12/12/24 07:42 3 unit Q6HR MERLY Administration Protocol Ondansetron HCl 4 mg 11/04/24 09:24 Ondansetron Inj 2 Mg/Ml Inj 2 Ml IV 12/04/24 09:23 Q6H PRN NAUSEA OR VOMITING Protocol Pantoprazole Sodium 40 mg 11/08/24 09:00 11/12/24 08:50 Pantoprazole Inj 40 Mg Vial IV 12/08/24 08:59 40 mg DAILY MERLY Administration Sennosides 1 tab 11/04/24 09:24 Senna Tablet PO 12/04/24 09:23 QDAY PRN constipation Protocol Plan Delroy Ngo is a 74-year-old male with a PMHx of brain tumor at s/p left frontal craniotomy, acute CVA with residual deficit of broca's aphagia, hypertension, insulin-dependent diabetes, COPD on 4 L O2, and BPH who presented on 11/04/24 via ambulance due to altered mental status. Patient was admitted to the ICU on 11/04-11/07 for hypernatremia after which he was then downgraded to floors. #History of CVA with residual deficit of #Broca's aphasia #New onset dysphagia #History of childhood brain tumor s/p craniotomy At baseline able to swallow but noticed during admission increased difficulty swallowing solids and liquids Barium swallow on 11/09 showed pharyngeal aspiration, and speech therapy recommended avoidance of thin liquids ? GI consulted, appreciate recommendations ? Status post EGD on 11/08 that showed benign-appearing esophageal stenosis that was dilated and biopsies taken ? Aspiration event on 11/11 after eating thick apple juice, discussed PEG tube with family and decided on another speech therapy evaluation ? Pending speech therapy evaluation, order placed ? If fails new recommended diet, will revisit PEG tube with family #Hyperosmotic hypernatremia, improving On admission, Na 165 (corrected with glucose to be 169). US renal: bilateral renal cortical thinning, 8 mm nonobstructing right renal calculus Previously on D5W but causing hyperglycemia -> LR ? Nephrology consulted, appreciate recommendations ? LR at 80 cc/hr #HILDA, prerenal in the setting of dehydration vs ATN, improving #Diabetic nephropathy Baseline Cr 1.0, 5.0 on admission. Continues to have good urine output. ? Nephrology consulted, appreciate recommendations ? Continue IVF as above ? Avoid nephrotoxic agents, renally dose medications ? Urine protein to creatinine ratio of 677 (0.7 g/day) #Hypokalemia, resolved #Hypomagnesemia, resolved #Hypophosphatemia ? Follow-up AM labs and replete as needed #Transaminitis, improving Suspect to be due to anesthetics from endoscopy ? Continue to monitor #IDDM, A1c 11% on 11/04/24 ? 5 units glargine HS ? SSI, hypoglycemia protocol in place #History of COPD Per daughter, uses 4 L O2 at night and prednisone 10 mg daily. ? Supplemental O2 as needed if less than 88%, with goal of 88 to 92% #History of BPH Per daughter, patient is wheelchair-bound and wears diapers Home tamsulosin 0.4 mg daily #History of HTN ? Resumed home amlodipine 5 mg daily Health Maintenance Disposition: pending speech evaluation for new recs, possible PEG tube if fails new diet IVF: LR at 80 cc/h DVT Prophylaxis: Heparin SC BID GI Prophylaxis: Pantoprozol 40 IV daily Diet: N.p.o. Lines: Peripheral lines Code status: full code ----- Plan discussed with attending physician Dr. Janay Brandon MD PGY-1 Internal Medicine Attending Provider Attestation/Addendum Face to face evaluation was performed by me. I have personally seen and examined the patient. I discussed the assessment and plan with the entire medicine team. I reviewed available medical records, imaging studies, laboratory results. I agree with the above subjective data, objective findings, assessment and plan except as corrected by me or noted below Hypernatrmia uncontrolled T2 DM with hyperglycemia Oropharyngeal dysphasia HILDA, due to volume depletion/ intravascular volume loss -ST eval again- if fails might need G tube - will reach out to GI -IV Fluids More than > 30 minutes spent on the encounter
--- NOTE | 2024-11-12 20:42 | ESPR_ITS ---
Documentation for date of: 11/12/24 Subjective Subjective Interval history: Patient evaluated Patient's daughter wants to have another swallowing evaluation before she decides for a PEG placement Exam Vital Signs Temp Pulse Resp BP Pulse Ox O2 Del Method O2 Flow Rate 97.0 F 69 17 136/78 H 95 Room Air 1.5 11/12/24 16:00 11/12/24 19:25 11/12/24 16:00 11/12/24 16:00 11/12/24 16:00 11/12/24 16:00 11/12/24 07:18 Objective Labs 11/12/24 05:00 11/12/24 05:00 Labs: Laboratory Results - last 24 hr 11/11/24 11/12/24 20:05 05:00 WBC 9.6 RBC 3.91 L Hgb 11.9 L Hct 35.3 L MCV 90 MCH 30.4 MCHC 33.7 RDW Std Deviation 40.0 Plt Count 152 D Neut % (Auto) 73 Lymph % (Auto) 14 [place] % (Auto) 8 Eos % (Auto) 3 Baso % (Auto) 1 Neut # (Auto) 7.0 Lymph # (Auto) 1.4 [place] # (Auto) 0.7 Eos # (Auto) 0.3 Baso # (Auto) 0.1 Immature Gran # (Auto) 0.17 H Absolute Nucleated RBC 0.00 Immature Gran % 2 H Nucleated RBC % 0 Sodium 143 143 Potassium 3.8 D 3.6 Chloride 108 H 106 Carbon Dioxide 25.4 24.8 Anion Gap 10 12 BUN 48 H 42 H Creatinine 3.1 H 2.9 H Estim Creat Clear Calc 18.6 L 19.9 L eGFR 20 L 22 L BUN/Creatinine Ratio 15 14 Glucose 292 H D 289 H Calculated Osmolality 308 H 306 H Calcium 8.3 8.7 Corrected Calcium 9.3 Phosphorus 2.3 L Magnesium 1.8 Total Bilirubin 0.5 AST 112 H ALT 141 H Alkaline Phosphatase 154 H D Total Protein 6.6 Albumin 3.2 L D Globulin 3.4 Albumin/Globulin Ratio 0.9 L Impressions Impression: Failure to thrive Dysphagia Await swallowing evaluation before PEG decision is made by the daughter ABG Interpretation ABG results: 11/04/24 11/11/24 06:04 18:37 ABG pH 7.37 7.42 ABG pCO2 39 39 ABG pO2 78 L 87 ABG HCO3 22 25 ABG O2 Saturation 93 96 ABG Base Excess -3 1 Assessment & Plan A&P Narrative # Dysphagia Informed consent obtained from the daughter in the presence of the patient for fiberoptic esophagogastroduodenoscopy with possible esophageal dilatation possible biopsies under intravenous moderate sedation scheduled for tomorrow N.p.o. midnight tonight TSH JAMIE Other medical problems include CVA Brain tumor requiring left frontal craniotomy Expressive aphasia Dementia Essential hypertension Dehydration with hypernatremia IDDM COPD on home oxygen at 4 L nasal cannula Thank you very much for the opportunity to participate in the care of this patient Time Spent With Patient Time: Total time spent is greater than 50% in coordination of care (as documented) at patient's floor/unit and/or counseling patient:
[2024-11-12] MEDS: INSULIN GLARGINE (Lantus) 5 UNIT/0.05 ML (PER 5 UNITS) SC (20:58)
[2024-11-13] VITALS (11 sets, daily range): BP systolic 126–159; BP diastolic 64–82; PULSE 61–85; RESP 15–19; TEMP 36.1–37.1; O2SAT 97–100
[2024-11-13 05:31] LABS: Basophils # (Auto) 0.1 Thou/mm3 (0.0-0.2); Basophils % (Auto) 1 % (0-2.5); Eosinophils # (Auto) 0.3 Thou/mm3 (0.0-0.5); Eosinophils % (Auto) 4 % (0-10); Hematocrit 35.9 % (41.0-53.0); Immature Granulocytes % (Auto) 1 % (0-0); Immature Granulocytes Auto 0.11 Thou/mm3 (0.00-0.00); Lymphocytes # (Auto) 1.4 Thou/mm3 (1.0-4.8); Lymphocytes % (Auto) 16 % (10-50); Mean Corpuscular HGB Conc 33.4 g/dl (31.0-37.0); Mean Corpuscular Hemoglobin 29.9 pg (25.0-35.0); Mean Corpuscular Volume 90 fL (80-100); Monocytes # (Auto) 0.7 Thou/mm3 (0.0-0.8); Monocytes % (Auto) 8 % (0-12); Neutrophils # (Auto) 5.8 Thou/mm3 (1.8-7.7); Neutrophils % (Auto) 70 % (37-80); Nucleated Red Blood Cell % 0 /100 WBC (0); Platelet Count 192 Thou/mm3 (140-440); RDW Standard Deviation 40.3 fL (35.1-43.9); Red Blood Count 4.01 Miln/mm3 (4.50-5.90); White Blood Count 8.3 Thou/mm3 (3.8-10.6)
[2024-11-13 06:17] LABS: Alanine Aminotransferase 106 U/L (10-49); Albumin, Serum 3.1 gm/dL (3.4-4.8); Alkaline Phosphatase 131 U/L (46-116); Anion Gap 9 (7-16); Aspartate Amino Transferase 70 U/L (0-34); BUN/Creatinine Ratio 13 Ratio (12-20); Bilirubin,Total 0.5 mg/dL (0.3-1.2); Blood Urea Nitrogen 30 mg/dL (9-23); Calcium 8.7 mg/dL (8.3-10.6); Calcium (Corrected) 9.4 mg/dL (8.5-10.1); Carbon Dioxide 27.1 mMol/L (20.0-31.0); Chloride 108 mMol/L (98-107); Creatinine (Component) 2.3 mg/dL (0.6-1.3); Globulin 3.1 gm/dL (2.3-3.5); Glucose 152 mg/dL (74-106); Magnesium 1.8 mg/dL (1.6-2.6); Osmolality,Calculated 296 (275-295); Phosphorous 3.5 mg/dL (2.4-5.1); Sodium 144 mMol/L (136-145); Total Protein 6.2 gm/dL (5.7-8.2); eGFR 29 See Note
[2024-11-13] MEDS: PANTOPRAZOLE INJ 40 MG VIAL IV (08:00)
[2024-11-13] MEDS: HEPARIN SOD INJ 5000 UNIT/ML VIAL SC ×2 (08:00→20:10)
[2024-11-13] MEDS: RINGERS LACTATED 1000 ML 1,000 ML 80 ML IV ×2 (10:02→23:12)
--- NOTE | 2024-11-13 10:46 | ESPR_ITS ---
<Statement entered by James Akhtar MD - 11/14/24 07:18> Senior Resident Attestation: I supervised/discussed management plan with policy intern physician Dr. Brandon, and was involved in the care of this patient. I personally saw and examined the patient and discussed the assessment and plan with the entire medicine team, including my attending. I agree with the assessment and plan as documented. Patient's care was discussed with attending physician, Dr. Gustafson. James Akhtar MD PGY-2. Documentation for date of: 11/13/24 Subjective Subjective Interval history: Delroy Ngo is a 74-y/o male with PMHx of CVA, brain tumor at s/p left frontal craniotomy, expressive aphasia, dementia, HTN, IDDM, COPD on 4 L O2, and BPH who presented on 11/04 with encephalopathy and admitted for management of hyperosmotic hypernatremia and now dysphagia. 11/08: No acute overnight events noted. Seen and examined at bedside. Upon evaluation, patient answering questions and follow some commands but has difficulty with verbilization. Currently on room air and laying down comfortably in bed but grimaces upon palpation of lower extremities. Pending EGD and n.p.o. at this time. 11/09: No acute overnight events noted. Seen and examined at bedside, resting comfortably in bed. Underwent EGD yesterday without complications and without significant findings. Otherwise, patient does not have any complaints at this time. 11/10: No acute overnight events noted. Seen and examined at bedside, resting comfortably in bed. Otherwise, patient does not have any complaints at this time. Spoke to batter mixer regarding hypernatremia and HILDA and observed for one more night. 11/11: No acute overnight events noted. Seen and examined at bedside in AM, resting comfortably in bed. Originally planned for discharge today as he has been able to tolerate his current diet well until the evening time when rapid response was called for aspiration event (please see event note for details). Thus, discharge canceled and will plan to talk to family tomorrow regarding PEG tube placement. 11/12: After rapid response, no further acute overnight events noted. Seen and examined at bedside in AM on 2 L oxymask, breathing comfortably and will wean off as tolerated. Spoke to daughter over the phone regarding aspiration event and discussed option of PEG tube placement vs another evaluation by speech therapy, and daughter opted to pursue another evaluation by speech therapy. Also discussed that we will try changes recommended by speech therapy and if fails, will re-visit topic of PEG tube. 11/13: No acute overnight events. Seen and examined at bedside in a.m., resting comfortably in bed. Currently still awaiting speech evaluation as was not able to be done yesterday for updated recommendations for diet. If patient cannot tolerate, will revisit topic of PEG tube and GI following. Exam Vital Signs Temp Pulse Resp BP Pulse Ox O2 Del Method O2 Flow Rate 98.7 F 65 18 126/80 100 Oxy Mask 1.5 11/13/24 08:00 11/13/24 08:01 11/13/24 08:00 11/13/24 08:01 11/13/24 08:00 11/13/24 08:00 11/13/24 08:00 Narrative Exam General: Alert, laying comfortably in bed on oxymask, follows some commands, one word answers HEENT: NC/AT, mucous membranes moist, bilateral sclera anicteric Cardiovascular: regular rate and rhythm, S1/S2 present, no murmurs appreciated Pulmonary: clear to auscultation bilaterally, no rales/rhonchi/wheezes Abdominal: diffuse tenderness to palpation, non-distended, no rebound/guarding Musculoskeletal: normal ROM, no peripheral edema, pain to palpation of right and left lower extremities, RUE edematous Skin: warm and dry, intact, no rashes Neuro: unable to assess Objective Labs 11/14/24 04:08 11/14/24 04:08 Labs: Laboratory Results - last 24 hr 11/13/24 04:54 WBC 8.3 RBC 4.01 L Hgb 12.0 L Hct 35.9 L MCV 90 MCH 29.9 MCHC 33.4 RDW Std Deviation 40.3 Plt Count 192 D Neut % (Auto) 70 Lymph % (Auto) 16 [place] % (Auto) 8 Eos % (Auto) 4 Baso % (Auto) 1 Neut # (Auto) 5.8 Lymph # (Auto) 1.4 [place] # (Auto) 0.7 Eos # (Auto) 0.3 Baso # (Auto) 0.1 Immature Gran # (Auto) 0.11 H Absolute Nucleated RBC 0.00 Immature Gran % 1 H Nucleated RBC % 0 Sodium 144 Potassium 4.0 Chloride 108 H Carbon Dioxide 27.1 Anion Gap 9 BUN 30 H Creatinine 2.3 H D Estim Creat Clear Calc 25.0 L eGFR 29 L BUN/Creatinine Ratio 13 Glucose 152 H D Calculated Osmolality 296 H Calcium 8.7 Corrected Calcium 9.4 Phosphorus 3.5 Magnesium 1.8 Total Bilirubin 0.5 AST 70 H ALT 106 H Alkaline Phosphatase 131 H D Total Protein 6.2 Albumin 3.1 L Globulin 3.1 Albumin/Globulin Ratio 1.0 L ABG Interpretation ABG results: 11/04/24 11/11/24 06:04 18:37 ABG pH 7.37 7.42 ABG pCO2 39 39 ABG pO2 78 L 87 ABG HCO3 22 25 ABG O2 Saturation 93 96 ABG Base Excess -3 1 Quality Measures Quality Measures VTE prophylaxis Advance care planning discussed with:: patient and child Assessment & Plan Assessment Current Active Medications: Generic Name Dose Route Start Last Admin Trade Name Freq PRN Reason Stop Dose Admin Acetaminophen 650 mg 11/08/24 10:50 11/08/24 11:13 Acetaminophen Supp 650 Mg Supp MN 12/08/24 10:49 650 mg Q6HR PRN Administration PAIN OR FEVER > 100.4 Amlodipine Besylate 5 mg 11/08/24 09:00 11/13/24 08:01 Amlodipine Besylate 5 Mg Tablet PO 12/08/24 08:59 Not Given QDAY MERLY Dextrose 25 ml 11/04/24 09:27 Dextrose 50%-Water Inj 50 Ml Syringe IV 12/04/24 09:26 Q15MIN PRN BG 50-70 responsive npo pt Dextrose 50 ml 11/04/24 09:27 Dextrose 50%-Water Inj 50 Ml Syringe IV 12/04/24 09:26 Q15MIN PRN BG <50 OR BG <70 & pt unresponsive Glucagon 1 mg 11/04/24 09:27 Glucagon Inj 1 Mg Vial IM Q15MIN PRN BG <70, and no IV access Heparin Sodium (Porcine) 5,000 unit 11/09/24 21:00 11/13/24 08:00 Heparin Sod Inj 5000 Unit/Ml Vial SC 11/23/24 20:59 5,000 unit BID MERLY Administration Lactated Ringer's 1,000 mls @ 80 mls/hr 11/12/24 07:45 11/13/24 10:02 Lactated Ringers IV 11/14/24 07:44 80 mls/hr .[id number] MERLY Administration Insulin Glargine 5 unit 11/07/24 21:00 11/12/24 20:58 Insulin Glargine (Lantus) 5 Unit/0.05 Ml (Per 5 Units) SC 12/07/24 20:59 5 unit HS MERLY Administration Insulin Human Lispro 0 unit 11/12/24 07:43 11/13/24 05:13 Insulin Lispro (Admelog) 1 Unit/0.01 Ml Unit SC 12/12/24 07:42 Not Given Q6HR MERLY Protocol Ondansetron HCl 4 mg 11/04/24 09:24 Ondansetron Inj 2 Mg/Ml Inj 2 Ml IV 12/04/24 09:23 Q6H PRN NAUSEA OR VOMITING Protocol Pantoprazole Sodium 40 mg 11/08/24 09:00 11/13/24 08:00 Pantoprazole Inj 40 Mg Vial IV 12/08/24 08:59 40 mg DAILY MERLY Administration Sennosides 1 tab 11/04/24 09:24 Senna Tablet PO 12/04/24 09:23 QDAY PRN constipation Protocol Plan Delroy Ngo is a 74-year-old male with a PMHx of brain tumor at s/p left frontal craniotomy, acute CVA with residual deficit of broca's aphagia, hypertension, insulin-dependent diabetes, COPD on 4 L O2, and BPH who presented on 11/04/24 via ambulance due to altered mental status. Patient was admitted to the ICU on 11/04-11/07 for hypernatremia after which he was then downgraded to floors. #History of CVA with residual deficit of #Broca's aphasia #New onset dysphagia #History of childhood brain tumor s/p craniotomy At baseline able to swallow but noticed during admission increased difficulty swallowing solids and liquids Barium swallow on 11/09 showed pharyngeal aspiration, and speech therapy recommended avoidance of thin liquids ? GI consulted, appreciate recommendations ? Status post EGD on 11/08 that showed benign-appearing esophageal stenosis that was dilated and biopsies taken ? Aspiration event on 11/11 after eating thick apple juice, discussed PEG tube with family and decided on another speech therapy evaluation ? Discussed with speech therapy that patient will likely be able to tolerate thick liquids with small bites/sips with spoon, no straws ? Plan for speech therapy to discuss with daughter tomorrow and give instructions for discharge ? If fails new recommended diet, will revisit PEG tube with family #Hyperosmotic hypernatremia, resolved On admission, Na 165 (corrected with glucose to be 169). US renal: bilateral renal cortical thinning, 8 mm nonobstructing right renal calculus Previously on D5W but causing hyperglycemia -> LR ? Nephrology consulted, appreciate recommendations ? LR at 80 cc/hr #HILDA, prerenal in the setting of dehydration vs ATN, improving #Diabetic nephropathy Baseline Cr 1.0, 5.0 on admission. Continues to have good urine output. ? Nephrology consulted, appreciate recommendations ? Continue IVF as above ? Avoid nephrotoxic agents, renally dose medications ? Urine protein to creatinine ratio of 677 (0.7 g/day) #Hypokalemia, resolved #Hypomagnesemia, resolved #Hypophosphatemia, resolved ? Follow-up AM labs and replete as needed #Transaminitis, improving Suspect to be due to anesthetics from endoscopy ? Continue to monitor #IDDM, A1c 11% on 11/04/24 ? 5 units glargine HS ? SSI, hypoglycemia protocol in place #History of COPD Per daughter, uses 4 L O2 at night and prednisone 10 mg daily. ? Supplemental O2 as needed if less than 88%, with goal of 88 to 92% #History of BPH Per daughter, patient is wheelchair-bound and wears diapers Home tamsulosin 0.4 mg daily #History of HTN ? Resumed home amlodipine 5 mg daily Health Maintenance Disposition: pending speech evaluation for new recs, possible PEG tube if fails new diet IVF: LR at 80 cc/h DVT Prophylaxis: Heparin SC BID GI Prophylaxis: Pantoprozol 40 IV daily Diet: N.p.o. Lines: Peripheral lines Code status: full code ----- Plan discussed with attending physician Dr. Janay Brandon MD PGY-1 Internal Medicine Attending Provider Attestation/Addendum Face to face evaluation was performed by me. I have personally seen and examined the patient. I discussed the assessment and plan with the entire medicine team. I reviewed available medical records, imaging studies, laboratory results. I agree with the above subjective data, objective findings, assessment and plan except as corrected by me or noted below Hypernatrmia uncontrolled T2 DM with hyperglycemia Oropharyngeal dysphasia HILDA, due to volume depletion/ intravascular volume loss -ST eval again pending, -IV Fluids -Will reach out to GI or [facility] if G tube is needed and they agree More than > 30 minutes spent on the encounter
--- NOTE | 2024-11-13 11:37 | PC.SS ---
Update: Speech evaluation is pending. Possible PEG tube placement discussion to be conducted with patient's family.
--- NOTE | 2024-11-13 15:05 | PC.SS ---
Rounding Note: Plan is for speech evaluation to be conducted.
--- NOTE | 2024-11-13 19:20 | PD.IMPROG ---
Documentation for date of: 11/13/24 Subjective Subjective Interval history: No report of swallowing evaluation available Will wait till that issue resolved before deciding for PEG placement Exam Vital Signs Temp Pulse Resp BP Pulse Ox O2 Del Method O2 Flow Rate 98.2 F 85 17 144/79 H 100 Room Air 1.5 11/13/24 15:58 11/13/24 16:00 11/13/24 15:58 11/13/24 15:58 11/13/24 15:58 11/13/24 15:58 11/13/24 08:00 Objective Labs 11/13/24 04:54 11/13/24 04:54 Labs: Laboratory Results - last 24 hr 11/13/24 04:54 WBC 8.3 RBC 4.01 L Hgb 12.0 L Hct 35.9 L MCV 90 MCH 29.9 MCHC 33.4 RDW Std Deviation 40.3 Plt Count 192 D Neut % (Auto) 70 Lymph % (Auto) 16 [place] % (Auto) 8 Eos % (Auto) 4 Baso % (Auto) 1 Neut # (Auto) 5.8 Lymph # (Auto) 1.4 [place] # (Auto) 0.7 Eos # (Auto) 0.3 Baso # (Auto) 0.1 Immature Gran # (Auto) 0.11 H Absolute Nucleated RBC 0.00 Immature Gran % 1 H Nucleated RBC % 0 Sodium 144 Potassium 4.0 Chloride 108 H Carbon Dioxide 27.1 Anion Gap 9 BUN 30 H Creatinine 2.3 H D Estim Creat Clear Calc 25.0 L eGFR 29 L BUN/Creatinine Ratio 13 Glucose 152 H D Calculated Osmolality 296 H Calcium 8.7 Corrected Calcium 9.4 Phosphorus 3.5 Magnesium 1.8 Total Bilirubin 0.5 AST 70 H ALT 106 H Alkaline Phosphatase 131 H D Total Protein 6.2 Albumin 3.1 L Globulin 3.1 Albumin/Globulin Ratio 1.0 L Impressions Impression: Dysphagia Failure to thrive Plan Waiting for swallowing evaluation before deciding for PEG please ABG Interpretation ABG results: 11/04/24 11/11/24 06:04 18:37 ABG pH 7.37 7.42 ABG pCO2 39 39 ABG pO2 78 L 87 ABG HCO3 22 25 ABG O2 Saturation 93 96 ABG Base Excess -3 1 Assessment & Plan A&P Narrative # Dysphagia Informed consent obtained from the daughter in the presence of the patient for fiberoptic esophagogastroduodenoscopy with possible esophageal dilatation possible biopsies under intravenous moderate sedation scheduled for tomorrow N.p.o. midnight tonight TSH JAMIE Other medical problems include CVA Brain tumor requiring left frontal craniotomy Expressive aphasia Dementia Essential hypertension Dehydration with hypernatremia IDDM COPD on home oxygen at 4 L nasal cannula Thank you very much for the opportunity to participate in the care of this patient Time Spent With Patient Time: Total time spent is greater than 50% in coordination of care (as documented) at patient's floor/unit and/or counseling patient:
[2024-11-13] MEDS: INSULIN GLARGINE (Lantus) 5 UNIT/0.05 ML (PER 5 UNITS) SC (20:10)
[2024-11-14] VITALS: BP 153/75; PULSE 66; PULSE 76; RESP 20; TEMP 36.2; O2SAT 100
[2024-11-14 04:00] VITALS: BP 150/76; PULSE 66; PULSE 75; RESP 19; TEMP 36.2; O2SAT 100
[2024-11-14 05:05] LABS: Basophils # (Auto) 0.1 Thou/mm3 (0.0-0.2); Basophils % (Auto) 1 % (0-2.5); Eosinophils # (Auto) 0.3 Thou/mm3 (0.0-0.5); Eosinophils % (Auto) 4 % (0-10); Hematocrit 31.9 % (41.0-53.0); Hemoglobin 10.7 g/dL (13.5-16.0); Immature Granulocytes % (Auto) 1 % (0-0); Lymphocytes # (Auto) 1.4 Thou/mm3 (1.0-4.8); Lymphocytes % (Auto) 16 % (10-50); Mean Corpuscular HGB Conc 33.5 g/dl (31.0-37.0); Mean Corpuscular Volume 89 fL (80-100); Monocytes # (Auto) 0.7 Thou/mm3 (0.0-0.8); Monocytes % (Auto) 8 % (0-12); Neutrophils % (Auto) 70 % (37-80); Nucleated Red Blood Cell % 0 /100 WBC (0); Platelet Count 197 Thou/mm3 (140-440); RDW Standard Deviation 40.1 fL (35.1-43.9); Red Blood Count 3.57 Miln/mm3 (4.50-5.90); White Blood Count 8.5 Thou/mm3 (3.8-10.6)
[2024-11-14 05:26] LABS: Alanine Aminotransferase 74 U/L (10-49); Albumin, Serum 2.9 gm/dL (3.4-4.8); Alkaline Phosphatase 122 U/L (46-116); Anion Gap 9 (7-16); Aspartate Amino Transferase 41 U/L (0-34); BUN/Creatinine Ratio 13 Ratio (12-20); Bilirubin,Total 0.5 mg/dL (0.3-1.2); Blood Urea Nitrogen 25 mg/dL (9-23); Calcium 8.5 mg/dL (8.3-10.6); Calcium (Corrected) 9.4 mg/dL (8.5-10.1); Carbon Dioxide 28.2 mMol/L (20.0-31.0); Chloride 108 mMol/L (98-107); Creatinine (Component) 1.9 mg/dL (0.6-1.3); Estimated Creatinine Clearance 30.3 mL/min (>60); Glucose 118 mg/dL (74-106); Magnesium 1.6 mg/dL (1.6-2.6); Osmolality,Calculated 294 (275-295); Phosphorous 3.6 mg/dL (2.4-5.1); Potassium 3.9 mMol/L (3.4-5.1); Sodium 145 mMol/L (136-145); Total Protein 5.9 gm/dL (5.7-8.2); eGFR 36 See Note
[2024-11-14 06:00] VITALS: BMI 23.1
[2024-11-14 07:32] VITALS: BP 150/76; BP 151/79; PULSE 67; RESP 18; TEMP 36.4; O2SAT 100
[2024-11-14 08:00] VITALS: BP 150/76; PULSE 67
[2024-11-14] MEDS: PANTOPRAZOLE INJ 40 MG VIAL IV (08:00)
[2024-11-14] MEDS: HEPARIN SOD INJ 5000 UNIT/ML VIAL SC (08:00)
[2024-11-14] MEDS: amLODIPine BESYLATE 5 MG TABLET PO (08:00)
--- NOTE | 2024-11-14 09:00 | PC.DIETICIAN ---
Nutrition Prescription: a) If oral intake is feasible: consider ONS Glucerna BID if pt intake falls <50% per meal. b)If PEG tube is placed; start Glucerna 1.2 at 20ml/hr, increase as tolerated by 10ml/hr Q 8hrs to goal of 63ml/hr x 24hrs via g tube by pump.. If no IVF give AF 35ml/hr x24hrs. Thank you!
--- NOTE | 2024-11-14 10:47 | ESDS_ITS ---
Planned Discharge Date 11/14/24 DS: Providers Provider Date of admission: 11/04/24 09:24 Primary care physician: Jeremy Clinton MD Admitting Provider: Colin Michele MD Attending Provider on Admission: Rachid Gustafson MD Consults: 11/04/24 08:27 Consult to Nephrology Stat Comment: ARF Consulting Provider: Bradley Singer 11/04/24 19:43 Referral Speech Therapy Routine Comment: 11/04/24 20:38 Referral Physical Therapy Routine Comment: Physician Instructions: Referral Respiratory Therapy Routine Comment: Referral Speech Therapy Routine Comment: Health Equity Referral - Knowledge Deficit Routine Comment: Positive screening for knowledge deficit needs. 11/06/24 00:56 Referral Wound Care Stat Comment: 11/06/24 10:16 Referral Nutritional Services Routine Comment: Instructions: Wounds 11/07/24 15:20 Consult to Gastroenterology Routine Comment: aspiration risk, ?PEG placement Consulting Provider: James Elaine 11/12/24 13:10 Referral Speech Therapy Urgent Comment: 11/12/24 15:48 Referral Speech Therapy Urgent Comment: Instructions: Please re-evaluate to see what diet patient can tolerate as he had an aspiration event while consuming thick apple juice. Attending Provider on DC: Richard Brandon MD Discharging Provider: Richard Brandon MD DS: Diagnosis Problem List Completed Was Problem List Reviewed/Reconciled?: Yes Hospital Course Hospital Course Hospital course: Delroy Ngo is a 74-year-old male with past medical history of CVA, brain tumor s/p left frontal craniotomy, expressive aphasia, dementia, hypertension, insulin dependent T2DM, BPH, COPD who presented to the ED on 11/04 for encephalopathy. Per chart review, patient was found at home on the ground covered in feces. Given encephalopathy and aphasia, history was obtained from daughter, whom patient lives with and helps with some ADLs and that at baseline he is mostly nonverbal but will say one to two word sentences. She also states that he had become confused over the last day and was having decreased PO intake. He was found more confused compared to his baseline and EMS was called. In ED, labs significant for Na [address] showed pneumonia in right lung. Nephrology was consulted and patient was admitted to the ICU for further management. He was given a full course of IV antibiotics, including zosyn and rocephin, during hospital stay with resolution of leukocytosis. Also started on D5W for hypernatremia that was corrected no more than 8 mEq in first 24 hours and eventually corrected to within normal limits upon discharge. Patient noted to have developed dysphagia during admission and underwent EGD on 11/08 that only showed benign esophageal stenosis that was dilated. Speech therapy evaluat ed patient and recommended thick liquids as patient underwent modified Barium swallow that patient was not able tolerate thin liquids. Patient was started on recommended diet and was able to tolerate for a few days but had an aspiration event on day he was planned for discharge. Thus, patient was again placed NPO and discussed with daughter that we can try another swallow evaluation and see if there any other modifications that can be made or pursue PEG tube placement. Daughter elected for second speech evaluation, who stated that patient can resume previous diet but with small bites/sips via spoon sip only and no straws. Following day, patient was resumed with diet and tolerated well. Daughter was informed and was able to talk to speech therapy who was able to give instructions on how to safely feed patient. Diagnoses during admission: #History of CVA with residual deficit of #Broca's aphasia #New onset dysphagia #History of childhood brain tumor s/p craniotomy #Hyperosmotic hypernatremia, resolved #HILDA, prerenal in the setting of dehydration vs ATN, improving #Diabetic nephropathy #Hypokalemia, resolved #Hypomagnesemia, resolved #Hypophosphatemia, resolved #Transaminitis, improving #IDDM, A1c 11% on 11/04/24 #History of COPD #History of BPH #History of HTN Discharge instructions: - Recommend to maintain adequate oral intake, but to avoid thin liquids to prevent choking/coughing/aspiration (thick liquids ok) - Recommend to continue diet with small bites and sips via SPOON SIP ONLY, no straws - Consider ONS Glucerna twice per day if patient intake falls < 50% per meal - Continue insulin glargine 15 units at night and Lispro insulin sliding scale, follow-up with PCP to optimize dosage within one week of discharge - Otherwise, continue taking all other home medications as prescribed - Follow-up with PCP within one week of discharge to reconcile and optimize medications - Return to the ED if symptoms worsen or recur ----- Plan discussed with attending physician Dr. Gustafson and senior resident physician Dr. Giovana Brandon MD PGY-1 Internal Medicine Time Spent with Patient Time attestation: Total time spent providing and/or coordinating discharge services: Exam Vital Signs Temp Pulse Resp BP Pulse Ox O2 Del Method O2 Flow Rate 97.5 F 67 18 150/76 H 100 Oxy Mask 1.5 11/14/24 07:32 11/14/24 08:00 11/14/24 07:32 11/14/24 08:00 11/14/24 07:32 11/14/24 07:32 11/14/24 07:32 Narrative Exam General: Alert, laying comfortably in bed on oxymask, follows some commands, one word answers HEENT: NC/AT, mucous membranes moist, bilateral sclera anicteric Cardiovascular: regular rate and rhythm, S1/S2 present, no murmurs appreciated Pulmonary: clear to auscultation bilaterally, no rales/rhonchi/wheezes Abdominal: diffuse tenderness to palpation, non-distended, no rebound/guarding Musculoskeletal: normal ROM, no peripheral edema, pain to palpation of right and left lower extremities, RUE edematous Skin: warm and dry, intact, no rashes Neuro: unable to assess Discharge Plan Plan Patient Disposition: Home w/HOME HEALTH Patient condition on transfer: Stable Care Plan Goals: - Recommend to maintain adequate oral intake, but to avoid thin liquids to prevent choking/coughing/aspiration (thick liquids ok) - Recommend to continue diet with small bites and sips via SPOON SIP ONLY, no straws - Consider ONS Glucerna twice per day if patient intake falls < 50% per meal - Continue insulin glargine 15 units at night and Lispro insulin sliding scale, follow-up with PCP to optimize dosage within one week of discharge - Otherwise, continue taking all other home medications as prescribed - Follow-up with PCP within one week of discharge to reconcile and optimize medications - Return to the ED if symptoms worsen or recur Prescriptions/Referrals Prescriptions/Med Rec: New insulin glargine-yfgn 100 unit/mL (3 mL) insulin pen 15 unit subcut QPM Qty: 15 0RF insulin lispro 100 unit/mL insulin pen 1 sliding scale dose subcut USEASDIRECTD Qty: 15 0RF (DME) blood-glucose meter Kit See Rx Instructions .Route Qty: 1 0RF Rx Instructions: Check blood sugars before each meal. (DME) lancets [Accu-Chek Softclix Lancets] Misc See Rx Instructions .Route Qty: 100 0RF Rx Instructions: Use for checking blood sugars prior to each meal. (DME) Accu-Chek SmartView Test Strip Strip See Rx Instructions .Route Qty: 100 0RF Rx Instructions: Used to check blood sugars before each meal. Continued escitalopram oxalate 10 mg Tablet 10 mg PO QDAY amlodipine 5 mg Tablet 5 mg PO QDAY atorvastatin 40 mg Tablet 40 mg PO QPM tamsulosin 0.4 mg Capsule 0.4 mg PO QDAY albuterol sulfate [Ventolin HFA] 90 mcg/actuation HFA aerosol inhaler 2 inh inhalation QID PRN (Reason: shortness of breath or wheezing) prednisone 10 mg tablet 10 mg PO QDAY albuterol sulfate 5 mg/mL solution for nebulization 5 mg inhalation TID (DME) pen needle, diabetic 29 gauge x 1/2 needle See Rx Instructions .Route Qty: 100 3RF Rx Instructions: As directed Baqsimi 3 mg/actuation spray,non-aerosol 3 mg intranasal PRN PRN (Reason: for low blood sugars) Qty: 1 0RF (DME) FreeStyle Lavinia 3 [place] Misc See Rx Instructions .Route Qty: 1 0RF Rx Instructions: As directed (DME) FreeStyle Lavin[place] 3 Sensor Device See Rx Instructions .Route Qty: 1 0RF Rx Instructions: As directed Held insulin glargine [Lantus Solostar U-100 Insulin] 100 unit/mL (3 mL) insulin pen 30 unit subcut QAM Qty: 2 0RF Hold Instructions: Resume on 11/25/24. Referrals: Jeremy Clinton MD [Primary Care Provider] - Patient/Caregiver Discharge Instructions Print Language: German Stand Alone Forms: Brinda Award Info., Patient Portal Info Letter Discharge Order Discharge Orders: Discharge (Routine); Ordered 11/14/24 Ordered By: Rachid (HOSPITALIST) Janay Quality Discharge Quality Measures VTE prophylaxis Attestestation Attestation Face to face evaluation was performed by me. I have personally seen and examined the patient. I discussed the assessment and plan with the entire medicine team. I reviewed available medical records, imaging studies, laboratory results. I agree with the above subjective data, objective findings, assessment and plan except as corrected by me or noted below Hypernatrmia uncontrolled T2 DM with hyperglycemia Oropharyngeal dysphasia HILDA, due to volume depletion/ intravascular volume loss ST done- family/patient does not want g tube DC HHC More than > 30 minutes spent on the encounter
--- NOTE | 2024-11-14 11:39 | PC.SS ---
[employer] set up transportation via [facility] for pt, ETA [id number]. #[id number]
[2024-11-14] MEDS: INSULIN LISPRO (AdmeLOG) 1 UNIT/0.01 ML UNIT SC (11:52)
[2024-11-14 12:00] VITALS: BP 142/76; BP 150/76; PULSE 69; PULSE 80; RESP 18; TEMP 36.4; O2SAT 98
--- NOTE | 2024-11-14 14:00 | PD.IMPROG ---
Documentation for date of: 11/14/24 Subjective Subjective Interval history: Case discussed with internal medicine team Okay to discharge patient home to be followed by PCP Dietary recommendation given by the dietitian Exam Vital Signs Temp Pulse Resp BP Pulse Ox O2 Del Method O2 Flow Rate 97.5 F 80 18 150/76 H 98 Room Air 1.5 11/14/24 12:00 11/14/24 12:00 11/14/24 12:00 11/14/24 12:00 11/14/24 12:00 11/14/24 12:00 11/14/24 07:32 Objective Labs 11/14/24 04:08 11/14/24 04:08 Labs: Laboratory Results - last 24 hr 11/14/24 04:08 WBC 8.5 RBC 3.57 L Hgb 10.7 L Hct 31.9 L MCV 89 MCH 30.0 MCHC 33.5 RDW Std Deviation 40.1 Plt Count 197 Neut % (Auto) 70 Lymph % (Auto) 16 Bartholomew % (Auto) 8 Eos % (Auto) 4 Baso % (Auto) 1 Neut # (Auto) 6.0 Lymph # (Auto) 1.4 Bartholomew # (Auto) 0.7 Eos # (Auto) 0.3 Baso # (Auto) 0.1 Immature Gran # (Auto) 0.10 H Absolute Nucleated RBC 0.00 Immature Gran % 1 H Nucleated RBC % 0 Sodium 145 Potassium 3.9 Chloride 108 H Carbon Dioxide 28.2 Anion Gap 9 BUN 25 H Creatinine 1.9 H Estim Creat Clear Calc 30.3 L eGFR 36 L BUN/Creatinine Ratio 13 Glucose 118 H Calculated Osmolality 294 Calcium 8.5 Corrected Calcium 9.4 Phosphorus 3.6 Magnesium 1.6 Total Bilirubin 0.5 AST 41 H ALT 74 H Alkaline Phosphatase 122 H Total Protein 5.9 Albumin 2.9 L Globulin 3.0 Albumin/Globulin Ratio 1.0 L Impressions Impression: Dysphagia diet as recommended by the dietitian ABG Interpretation ABG results: 11/04/24 11/11/24 06:04 18:37 ABG pH 7.37 7.42 ABG pCO2 39 39 ABG pO2 78 L 87 ABG HCO3 22 25 ABG O2 Saturation 93 96 ABG Base Excess -3 1 Assessment & Plan A&P Narrative # Dysphagia Informed consent obtained from the daughter in the presence of the patient for fiberoptic esophagogastroduodenoscopy with possible esophageal dilatation possible biopsies under intravenous moderate sedation scheduled for tomorrow N.p.o. midnight tonight TSH JAMIE Other medical problems include CVA Brain tumor requiring left frontal craniotomy Expressive aphasia Dementia Essential hypertension Dehydration with hypernatremia IDDM COPD on home oxygen at 4 L nasal cannula Thank you very much for the opportunity to participate in the care of this patient Time Spent With Patient Time: Total time spent is greater than 50% in coordination of care (as documented) at patient's floor/unit and/or counseling patient:
[2024-11-14 15:35] VITALS: BP 136/72; BP 150/76; PULSE 70; RESP 18; TEMP 36.4; O2SAT 98
--- NOTE | 2024-11-15 08:20 | PC.CC ---
Addendum entered by Margie Reyes RN 11/15/24 09:16: [facility] accepted the pt. Booked [facility]. Start of care date is 11/17/24. Original Note: HH referral sent on [facility]. Awaiting responses. Pending Start of care date.
--- NOTE | 2024-11-18 15:22 | PC.CC ---
Notified by Dr. Brandon that pharmacy is unable to fill prescriptions for glucometer, test strips, lancets due to not meeting Medicare requirements and provider not registered with [facility]. Advised by Dr. Brandon that patient may also benefit from a CGM and to contact daughterChyna. S/W daughter who advised they have been trying to obtain a CGM from another provider, but it was never approved by insurance. Daughter agreeable to a CGM ordered by [facility]. S/W Dr. Vera who sent E-Rx for glucometer, test strips and lancets with SIG and ICD10 code per Medicare requirements. Submitted signed orders from Dr. Vera for CGM to [facility] via [employer]. Per provider portal, order has cleared initial review and daughter is being contacted to arrange delivery. Updated Dr. Brandon.
== END 2024-11-14 15:49 | disposition home health service (06) | DRG 640 ==
LOC: SERX 06:46 → SERHOLD 10:01 → S2SX 19:12 → S2NX 11-07 21:27 → S3NX 11-08 19:15
PROVIDERS: Specialist; Student in an Organized Health Care Education/Training Program; Admitting Provider Internal Medicine; Emergency Provider Emergency Medicine; PCP Family Medicine; Visit Provider Internal Medicine
PROC: 0DB48ZX Excision of Esophagogastric Junction, Via Natural or Artificial Opening Endoscopic, Diagnostic (ICD-10-PCS; CPT 43239; principal; 2024-11-08 14:00)
DX: E87.0 Hyperosmolality and hypernatremia (principal); J18.9 Pneumonia, unspecified organism; J44.0 Chronic obstructive pulmonary disease with (acute) lower respiratory infection; N17.9 Acute kidney failure, unspecified; N39.0 Urinary tract infection, site not specified; J96.11 Chronic respiratory failure with hypoxia; G93.40 Encephalopathy, unspecified; R47.01 Aphasia; K22.2 Esophageal obstruction; E87.1 Hypo-osmolality and hyponatremia; E11.65 Type 2 diabetes mellitus with hyperglycemia; F03.90 Unspecified dementia, unspecified severity, without behavioral disturbance, psychotic disturbance, mood disturbance, and anxiety; I10 Essential (primary) hypertension; N40.0 Benign prostatic hyperplasia without lower urinary tract symptoms; E78.5 Hyperlipidemia, unspecified; R91.1 Solitary pulmonary nodule; N20.0 Calculus of kidney; R62.7 Adult failure to thrive; R13.10 Dysphagia, unspecified; E87.6 Hypokalemia; D72.829 Elevated white blood cell count, unspecified; E83.42 Hypomagnesemia; E11.21 Type 2 diabetes mellitus with diabetic nephropathy; M79.671 Pain in right foot; K29.70 Gastritis, unspecified, without bleeding; K20.90 Esophagitis, unspecified without bleeding; R00.0 Tachycardia, unspecified; I69.320 Aphasia following cerebral infarction; E83.39 Other disorders of phosphorus metabolism; E86.0 Dehydration; D69.6 Thrombocytopenia, unspecified; Z99.81 Dependence on supplemental oxygen; Z79.4 Long term (current) use of insulin; Z87.440 Personal history of urinary (tract) infections; Z99.3 Dependence on wheelchair
CPT/HCPCS: 36415; 36600; 70450; 71045; 71250; 73630; 74176; 74230; 76770; 80048; 80053; 80069; 80307; 80320; 80329; 81001; 82140; 82150; 82248; 82436; 82550; 82570; 82803; 83036; 83605; 83690; 83735; 83880; 84100; 84133; 84145; 84156; 84295; 84300; 84443; 84484; 85025; 85379; 85610; 85652; 85730; 86140; 87040; 87081; 87086; 87400; 87811; 92526; 92610; 93005; 93225; 93971; 96361; 96365; 96372; 97161; 99291; C1769; J0696; J1200; J1643; J1815; J2250; J2470; J2543; J3010; J3475; J3480; J7030; J7060; J7070; J7120; J7999; A9270; G0480

== ENCOUNTER 2025-02-25 02:56 | Inpatient (IN) | payer MEDICARE, MEDICAID, SELFPAY ==
[2025-02-25] VITALS (14 sets, daily range): BP systolic 143–170; BP diastolic 72–94; PULSE 79–105; RESP 16–96; TEMP 36.3–36.9; O2SAT 19–100; BMI 25.8
--- NOTE | 2025-02-25 03:14 | PD.EDRECHK ---
ED Recheck Abnl Lab Rx-RME/HPI General Chief Complaint: General Adult/Misc Complain Stated Complaint: HYPOGLYCEMIA Arrival date/time: 02/25/25 02:56 RME / HPI RME / HPI narrative: This section includes all my notes and documentations, including HPI, PE, and ED course. Aaron Tovar MD HPI: 74yo male BIBA from home here with hypoglycemia. Per EMS, patient did not eat his usual amount of dinner, but was still given 11 units fast-acting insulin and 30 units delayed release insulin tonight by family. Family found the patient altered and was unable to eat any food. Blood sugar with family was 49 and with EMS was 75. D10 (250 mL) administered en route and the blood sugar went up to 95. ROS: Unobtainable from the patient due to dementia and aphasia. Physical Exam: General: Alert. No acute distress when remaining still. Eyes: Conjunctivae and lids clear. ENT: No nasal congestion. Neck: Supple. Heart: RRR. Lungs: Mild respiratory distress. Moderately decreased air movement with rhonchi. Abdomen: Soft and nontender. Skin: Warm and dry. Neuro: Alert and oriented X 1. I reviewed EMS notes. I reviewed all diagnostic test results. My interpretation of the EKG is NSR with nonspecific ST-T changes. My interpretation of the chest x-ray is increased bronchial markings. Blood tests remarkable for WBC 15.8, Magnesium 1.2, CRP 1.0. COVID/Influenza negative. At this point, diagnoses include hypoglycemia, hypomagnesemia, and bronchospasm. Treatment here included Solumedrol. Zofran, NS, D50 X 2, Duoneb, and Magnesium. At 6 AM on 02/25/2025, the care of the patient was transferred to Dr. Jack. Aaron Tovar MD Related Data Home Medications ?Medication ?Instructions ?Recorded ?Confirmed atorvastatin 40 mg tablet 40 mg PO QPM 11/04/19 09/24/24 tamsulosin 0.4 mg capsule 0.4 mg PO QDAY 10/11/20 09/24/24 escitalopram oxalate 10 mg tablet 10 mg PO QDAY 12/15/20 09/24/24 amlodipine 5 mg tablet 5 mg PO QDAY 05/31/21 09/24/24 albuterol sulfate 90 mcg/actuation 2 inh inhalation QID PRN shortness 06/25/22 09/24/24 aerosol inhaler (Ventolin HFA) of breath or wheezing prednisone 10 mg tablet 10 mg PO QDAY 08/02/22 09/24/24 albuterol sulfate 5 mg/mL(0.5 %) 5 mg inhalation TID 09/24/24 09/24/24 solution for nebulization Previous Rx's ?Medication ?Instructions ?Recorded blood-glucose sensor (FreeStyle #1 ea 09/25/24 Lavinia 3 Sensor device) blood-glucose,program clinician,cont #1 ea 09/25/24 (FreeStyle Lavinia 3 [place]) glucagon 3 mg/actuation nasal 3 mg intranasal PRN PRN for low 09/25/24 spray (Baqsimi) blood sugars #1 ea pen needle, diabetic 29 gauge x #100 ea 09/25/24 1/ insulin glargine 100 unit/mL (3 30 unit (0.3 mL) subcut QAM Type 09/26/24 mL) subcutaneous pen (Lantus II Diabetes #2 mL Solostar U-100 Insulin) Held on 11/11/24. Instructions: Resume on 11/25/24. insulin glargine-yfgn 100 unit/mL 15 unit (0.15 mL) subcut QPM #15 mL 11/11/24 (3 mL) subcutaneous pen insulin lispro 100 unit/mL 1 sliding scale dose subcut 11/11/24 subcutaneous pen USEASDIRECTD #15 mL blood-glucose sensor (FreeStyle #1 ea 11/17/24 Lavinia 3 Plus Sensor device) insulin glargine-yfgn 100 unit/mL 15 unit (0.15 mL) subcut QPM #15 mL 11/17/24 (3 mL) subcutaneous pen pen needle, diabetic 29 gauge x #100 ea 11/17/24/ blood sugar diagnostic (Blood #50 ea 11/18/24 Glucose Test strips) blood sugar diagnostic (Blood #50 ea 11/18/24 Glucose Test strips) blood-glucose meter #1 ea 11/18/24 blood-glucose meter #1 ea 11/18/24 lancets #100 ea 11/18/24 lancets #200 ea 11/18/24 Allergies Allergy/AdvReac Type Severity Reaction Status Date / Time silicone Allergy Severe Fever Verified 08/01/22 15:46 tuberculin,PPD,multi-puncture Allergy Verified 08/01/22 15:46 Review of Systems Review of Systems ROS Unobtainable: other (unobtainable due to the patient having expressive aphasia) Past Medical History Past Medical History NEUROLOGIC: Positive Neurological Disorders, Cerebrovascular Accident, Transient Ischemic Attacks (TIA), Dementia and Brain Tumor; Negative Alzheimer's Disease, Parkinson's Disease, Meningitis, Seizures, Epilepsy, Multiple Sclerosis, Cerebral Palsy, Amyotrophic Lateral Sclerosis (ALS/Brinda Gehrig's), Guillain-Lubec Syndrome, Spina Bifida, Paralysis, Peripheral Neuropathy, Laughlin's Palsy, Subdural Hematoma, Migraine, Head Trauma, Spinal Cord Injury or Traumatic Brain Injury CARDIAC: Positive Cardiac Disorders, Hypercholesterolemia and Hypertension; Negative Myocardial Infarction, Cardiac Arrhythmia, Atrial Fibrillation, Angina, Heart Murmur, Coronary Artery Disease, Atherosclerotic Heart Disease, Peripheral Vascular Disease, Aneurysm, Congestive Heart Failure, Congenital Heart Disease, Valvular Heart Disease, Rheumatic Fever, Cardiomyopathy, Edema, Pericarditis, Cellulitis, Deep Vein Thrombosis, Hypotension or Varicose Veins RESPIRATORY: Positive Chronic Obstructive Pulmonary Disease (COPD) and Asthma; Negative Bronchitis, Emphysema, Pneumonia, Pulmonary Fibrosis, Cystic Fibrosis, Tuberculosis, Pulmonary Embolism, Pulmonary Edema or Sleep Apnea GASTROINTESTINAL: Negative Gastrointestinal Disorders, Hepatitis, Cirrhosis, Pancreatitis, Celiac Disease, Gall Bladder Disease, Gastrointestinal Bleed, Esophageal Varices, Levine's Esophagus, Colitis, Ulcerative Colitis, Diverticulitis, Diverticulosis, Ulcer, Colorectal Cancer, Irritable Bowel, Crohn's Disease, Obstructive Bowel, Hiatal Hernia, Hemorrhoids, Gastroesophageal Reflux Disease or Obesity GENITOURINARY: Positive Benign Prostatic Hyperplasia; Negative Genitourinary Disorders, Renal Disease, Kidney Stones, Polycystic Kidney Disease, Neurogenic Bladder, Inguinal Hernia, Dialysis or Prostate Cancer REPRODUCTIVE: Negative Breast Cancer, Fibroids, Genital Herpes, Gonorrhea, Syphilis or Testicular Cancer MUSCULOSKELETAL: Negative Musculoskeletal Disorders, Muscular Dystrophy, Myasthenia Gravis, Marfan's Syndrome, Bone Cancer, Arthritis, Rheumatoid Arthritis, Osteoporosis, Degenerative Disk Disease, Gout, Scoliosis, Carpal Tunnel Syndrome, Fibromyalgia, Fractures, Degenerative Joint Disease, Osteomyelitis or Poliovirus ENT: Negative Cataracts, Glaucoma, Blind, Retinal Detachment, Macular Degeneration, Ear Infection, Deafness, Head Trauma or Eye Prosthesis ENDOCRINE: Positive Endocrine Disorders and Diabetes Mellitus Type 2; Negative Diabetes Mellitus Type 1, Hypoglycemia, Saba's Syndrome, Arley's Disease, Hyperthyroidism, Hypothyroidism, Parathyroid Disease, Pituitary Disease, Systemic Lupus Erythematosus, Syndrome of Inappropriate Antidiuretic Hormone (SIADH), Adrenal Disease or Graves' Disease HEMATOLOGIC: Negative Blood Disorders, Anemia, Leukemia, Hemophilia, Thalassemia, Sickle Cell Disease or Clotting Problems PSYCHO/SOCIAL: Negative Psychiatric Problems, Schizophrenia, Recreational Drug Use, Bipolar Disorder, Depression, Anxiety, Behavior Problems, Self-Mutilation, Attention Deficit Disorder, Attention Deficit Hyperactivity Disorder, Depression, Post Traumatic Stress Disorder or Eating Disorder OTHER HISTORY: Negative Hospitalization, Autoimmune Disease, Down Syndrome, Autism, Developmental Delay, Shingles, Falls, Blood Transfusions, Blood Transfusion Reaction, Anesthesia Reactions, Organ Transplant, Chemotherapy, Radiation Therapy, Hyperbaric Therapy, MRSA, VRSA, Vancomycin-Resistant Enterococci, Human Immunodeficiency Virus (HIV), Chicken Pox, Measles, Mumps, Rubella (Ecuadorean Measles), Pertussis, Clostridium Difficile, Cancer, Breast Cancer, Cervical Cancer, Colorectal Cancer, Lung Cancer, Ovarian Cancer, Prostate Cancer or Testicular Cancer Surgical History SURGICAL: Positive Neurologic Surgery; Negative Cardiac Surgery, Open Heart Surgery, Coronary Artery Bypass Graft, Valve Replacement, Vascular Surgery, Coronary Stent, Cardiac Catheterization, Pacemaker, Angiogram, Auto Implanted Cardiovert Defib, Carotid Endarterectomy, Endocrine Surgery, Thyroidectomy, Ear Surgery, Tympanostomy Tube, Eye Surgery, Nose Surgery, Oral Surgery, Tonsillectomy, Adenoidectomy, Cochlear Implant, Corneal Transplant, Throat Surgery, Abdominal Surgery, Tracheostomy, Gastric Bypass Surgery, Gastrostomy, Bowel Surgery, Nephrectomy, Transurethral Resection, Joint Replacement, Amputation, Open Reduction Internal Fixation, Arthroscopy, Brain Shunt, Mastectomy, Lumpectomy, Hysterectomy, Tubal Ligation, Section, Vasectomy or Organ Transplant Social History SMOKING STATUS: Unknown if ever smoked SECOND HAND EXPOSURE: No SUBSTANCE USE: does not use ED Exam Narrative Physical exam: As noted in HPI. Course Quality Measures none Orders Category Date Time Status Bedside COVID-19 Antigen Test NOW Care 02/25/25 03:19 Active Bedside Influenza A&B Antigen Test NOW Care 02/25/25 03:19 Completed Asw/Asuw Tactical Air Controller Q4H START 00 Care 02/25/25 05:29 Active EKG (ED ONLY) *Do not use* NOW Care 02/25/25 03:40 Completed Glucose [Bedside Blood Glucose] NOW Care 02/25/25 03:19 Active Glucose [Bedside Blood Glucose] NOW Care 02/25/25 05:20 Active Saline [Insert IV] NOW Care 02/25/25 03:19 Active Straight [In and Out Catheter] X1 Care 02/25/25 03:19 Completed EKG (ED Only) Stat Exams 02/25/25 03:40 Ordered XR chest 1V portable Stat Exams 02/25/25 03:40 Taken BNP [B-Type Natriuretic Peptide] Stat Lab 02/25/25 04:37 Completed Bilirubin,Direct Stat Lab 02/25/25 04:37 Completed Blood Culture (Lab) Stat Lab 02/25/25 04:37 Received CBC Stat Lab 02/25/25 04:37 Completed CMP [Comprehensive Metabolic Panel] Stat Lab 02/25/25 04:37 Completed CRP [C-Reactive Protein] Stat Lab 02/25/25 04:37 Completed D-Dimer Stat Lab 02/25/25 04:37 Completed ESR [Sed Rate (ESR)] Stat Lab 02/25/25 04:37 Completed Free T4 (Free Thyroxine) Stat Lab 02/25/25 04:37 Completed Hemoglobin A1C [Glycohemoglobin w (eAG)] Stat Lab 02/25/25 04:37 Completed Lactate (Lactic Acid) Stat Lab 02/25/25 04:37 Completed Magnesium Stat Lab 02/25/25 04:37 Completed PT [Prothrombin Time with INR] Stat Lab 02/25/25 04:37 Completed PTT [Partial Thromboplastin Time] Stat Lab 02/25/25 04:37 Completed Procalcitonin Stat Lab 02/25/25 04:37 Completed TSH [Thyroid Stimulating Hormone] Stat Lab 02/25/25 04:37 Completed Troponin I Stat Lab 02/25/25 04:37 Completed UA, C/S IF [Urinalysis, C/S if Indicated] Stat Lab 02/25/25 04:11 Completed Albuterol/Ipratr Rt Deepali [Duoneb Rt Deepali] Med 02/25/25 03:54 Discontinued 3 ml INH X1 ONE Dextrose 50% Syr [D50w Syringe Abboject] Med 02/25/25 03:54 Discontinued 50 ml IVP X1 ONE Dextrose 50% Syr [D50w Syringe Abboject] Med 02/25/25 05:29 Discontinued 50 ml IVP X1 ONE Magnesium Sulfate 2 GM Ivpb [Magnesium Sulfate Ivpb] Med 02/25/25 05:32 Active 2 gm in 50 ml IV X1 Magnesium Sulfate 2 GM Ivpb [Magnesium Sulfate Ivpb] Med 02/25/25 05:49 Pending 2 gm in 50 ml IV X1 MethylPREDNISolone.* [SoluMEDROL Inj] Med 02/25/25 03:54 Discontinued 125 mg IVP X1 ONE Ondansetron Inj [Zofran Inj] Med 02/25/25 03:54 Discontinued 4 mg IVP X1 ONE Sodium Chloride 0.9% 1000 ml [Ns] 1,000 ml Med 02/25/25 03:54 Discontinued IV 999 mls/hr Vital Signs Vital signs: Vital Signs Temperature 98.5 F 02/25/25 03:37 Pulse Rate 94 02/25/25 03:37 Respiratory Rate 22 H 02/25/25 03:37 Blood Pressure 170/92 H 02/25/25 03:37 Pulse Oximetry (%) 97 02/25/25 03:37 Oxygen Delivery Method Room Air 02/25/25 03:37 Recheck / Abnormal Lab / Rx MDM Narrative MDM Narrative:: 74yo male BIBA from home here with hypoglycemia. Per EMS, patient did not eat his usual amount of dinner, but was still given 11 units fast-acting insulin and 30 units delayed release insulin tonight by family. Family found the patient altered and was unable to eat any food. Blood sugar with family was 49 and with EMS was 75. D10 (250 mL) administered en route and the blood sugar went up to 95. Patient data External records reviewed:: [facility] previous records (Per chart review, patient was admitted here on 11/04/24 for AMS.) and EMS form Clinical information provided by:: EMS Social determinants that could affect healthcare access:: none Patient has the following chronic illnesses:: CVA, brain tumor s/p left frontal craniotomy, expressive aphasia, dementia, HTN, T2DM, BPH, COPD How is presenting disease/condition affected by chronic disease/condition?: caused by Evaluation data The following diagnostics were reviewed and interpreted by me:: lab results, radiology exam(s) and EKG tracing(s) (My interpretation of the EKG is: Sinus rhythm (93 bpm) with nonspecific ST-T changes. Aaron Tovar MD) Lab and/or radiology exams considered but not ordered:: none Interpretation Summary: I reviewed all diagnostic test results. My interpretation of the EKG is NSR with nonspecific ST-T changes. My interpretation of the chest x-ray is increased bronchial markings. Blood tests remarkable for WBC 15.8, Magnesium 1.2, CRP 1.0. COVID/Influenza negative. Medications / Prescriptions Medications or Prescriptions considered but not ordered:: none Medication administrations:: Medication Administration History Magnesium Sulfate (Magnesium Sulfate Ivpb) 2 gm in 50 mls @ 25 mls/hr IV X1 ONE Stop: 02/25/25 07:31 Last Admin: 02/25/25 05:48 Dose: 25 mls/hr Documented By: BD Magnesium Sulfate (Magnesium Sulfate Ivpb) 2 gm in 50 mls @ 25 mls/hr IV X1 ONE Stop: 02/25/25 07:48 Discontinued Medications Albuterol/Ipratropium (Albuterol/Ipratropium (Duoneb) Rt Deepali 3 Ml Nebu) 3 ml INH X1 ONE Stop: 02/25/25 03:55 Last Admin: 02/25/25 04:11 Dose: 3 ml Documented By: NE Dextrose (Dextrose 50%-Water Inj 50 Ml Syringe) 50 ml IVP X1 ONE Stop: 02/25/25 03:55 Last Admin: 02/25/25 04:16 Dose: 50 ml Documented By: BD Dextrose (Dextrose 50%-Water Inj 50 Ml Syringe) 50 ml IVP X1 ONE Stop: 02/25/25 05:30 Last Admin: 02/25/25 05:33 Dose: 50 ml Documented By: BD Sodium Chloride (Ns) 1,000 mls @ 999 mls/hr IV .Q1H1M ONE Stop: 02/25/25 04:54 Last Infusion: 02/25/25 05:08 Dose: Infused Documented By: Admin: 02/25/25 04:15 Dose: 999 mls/hr Documented By: BD Methylprednisolone Sodium Succinate (Methylprednisolone Sod Succ 62.5 Mg/Ml 2ml Vial) 125 mg IVP X1 ONE Stop: 02/25/25 03:55 Last Admin: 02/25/25 04:14 Dose: 125 mg Documented By: BD Ondansetron HCl (Ondansetron Inj 2 Mg/Ml Inj 2 Ml) 4 mg IVP X1 ONE; Protocol Stop: 02/25/25 03:55 Last Admin: 02/25/25 04:15 Dose: 4 mg Documented By: BD Solumedrol. Susan, NS, D50 X 2, Duoneb, Magnesium Consultations Consultation(s) initiated? (list below): No Diagnosis Recheck Differential Diagnosis: other (Hypoglycemia, insulin toxicity, dehydration, electrolyte abnormalities, UTI, pneumonia, sepsis) Most likely diagnosis given after review of the tests above:: Insulin toxicity, hypomagnesemia, and bronchospasm Admission Indicated Admission indicated?: not indicated Explain why admission is indicated or not indicated:: Complete diagnostics and treatments not completed. Admission Request Was there a request for admission?: No Disposition Plan Disposition Plan: other (specify) (Signed out to Dr. Jack at 6 AM.) Discharge Plan Prescriptions/Referrals Prescriptions/Med Rec: No Action escitalopram oxalate 10 mg Tablet 10 mg PO QDAY amlodipine 5 mg Tablet 5 mg PO QDAY atorvastatin 40 mg Tablet 40 mg PO QPM tamsulosin 0.4 mg Capsule 0.4 mg PO QDAY albuterol sulfate [Ventolin HFA] 90 mcg/actuation HFA aerosol inhaler 2 inh inhalation QID PRN (Reason: shortness of breath or wheezing) insulin glargine-yfgn 100 unit/mL (3 mL) insulin pen 15 unit subcut QPM Qty: 15 0RF insulin lispro 100 unit/mL insulin pen 1 sliding scale dose subcut USEASDIRECTD Qty: 15 0RF insulin glargine-yfgn 100 unit/mL (3 mL) insulin pen 15 unit subcut QPM Qty: 15 0RF Rx Instructions: Administer 15 units of insulin glargine every night (DME) pen needle, diabetic 29 gauge x 1/2 needle See Rx Instructions .Route Qty: 100 0RF Rx Instructions: Use for insulin injections (DME) FreeStyle Lavinia 3 Plus Sensor Device See Rx Instructions .Route Qty: 1 0RF Rx Instructions: Used to monitor blood sugar levels (DME) blood-glucose meter Kit See Rx Instructions .ROUTE .MEDSUPPLY Qty: 1 0RF Rx Instructions: Test blood sugars three times daily before meals ICD 10: E11.65 (DME) Blood Glucose Test Strip See Rx Instructions .Route Qty: 50 0RF Rx Instructions: Test blood sugars three times daily before meals ICD 10: E11.65 (DME) lancets Misc See Rx Instructions .Route Qty: 100 0RF Rx Instructions: Test blood sugars three times daily before meals ICD 10: E11.65 (DME) Blood Glucose Test Strip See Rx Instructions .Route Qty: 50 0RF Rx Instructions: Test three times daily (DME) blood-glucose meter Kit See Rx Instructions .Route Qty: 1 0RF Rx Instructions: Test three times daily (DME) lancets Misc See Rx Instructions .Route Qty: 200 0RF Rx Instructions: Test three times daily prednisone 10 mg tablet 10 mg PO QDAY albuterol sulfate 5 mg/mL solution for nebulization 5 mg inhalation TID (DME) pen needle, diabetic 29 gauge x 1/2 needle See Rx Instructions .Route Qty: 100 3RF Rx Instructions: As directed Baqsimi 3 mg/actuation spray,non-aerosol 3 mg intranasal PRN PRN (Reason: for low blood sugars) Qty: 1 0RF (DME) FreeStyle Lavinia 3 [place] Misc See Rx Instructions .Route Qty: 1 0RF Rx Instructions: As directed (DME) FreeStyle Lavinia 3 Sensor Device See Rx Instructions .Route Qty: 1 0RF Rx Instructions: As directed insulin glargine [Lantus Solostar U-100 Insulin] 100 unit/mL (3 mL) insulin pen 30 unit subcut QAM Qty: 2 0RF Referrals: Jeremy Clinton MD [Primary Care Provider] - In 1 week Problem List Clinical Impression: Hypoglycemia, Hypomagnesemia, Bronchospasm Patient/Caregiver Discharge Instructions Print Language: Vietnamese
--- NOTE | 2025-02-25 03:40 | XR_ITS ---
Examination: AP chest single view TECHNIQUE: AP portable semiupright chest single view Date and time: February 25, 2025 0349 hours Comparison November 11, 2024 INDICATIONS: Shortness of breath today. FINDINGS: Normal heart size. Lungs are clear. Moderate osteopenia IMPRESSION: No active disease.
[2025-02-25] MEDS: ALBUTEROL/IPRATROPIUM (Duoneb) RT SOL 3 ML NEBU INH ×2 (04:11→17:25)
[2025-02-25] MEDS: MethylPREDNISolone SOD SUCC 62.5 MG/ML 2ML VIAL 125 MG IVP (04:14)
[2025-02-25] MEDS: SODIUM CHLORIDE 0.9% 1000 ML 1,000 ML 999 ML IV (04:15)
[2025-02-25] MEDS: ONDANSETRON INJ 2 MG/ML INJ 2 ML 4 MG IVP (04:15)
[2025-02-25] MEDS: DEXTROSE 50%-WATER INJ 50 ML SYRINGE IVP ×2 (04:16→05:33)
[2025-02-25 04:44] LABS: Collection Type, Urine Clean Catch
[2025-02-25 04:47] LABS: Lactate (Lactic Acid) 1.6 mMol/L (0.4-2.0)
[2025-02-25 04:55] LABS: Basophils # (Auto) 0.1 Thou/mm3 (0.0-0.2); Basophils % (Auto) 1 % (0-2.5); Eosinophils # (Auto) 0.2 Thou/mm3 (0.0-0.5); Eosinophils % (Auto) 1 % (0-10); Hematocrit 38.9 % (41.0-53.0); Hemoglobin 13.1 g/dL (13.5-16.0); Immature Granulocytes Auto 0.04 Thou/mm3 (0.00-0.00); Lymphocytes # (Auto) 1.7 Thou/mm3 (1.0-4.8); Lymphocytes % (Auto) 11 % (10-50); Mean Corpuscular HGB Conc 33.7 g/dl (31.0-37.0); Mean Corpuscular Hemoglobin 31.0 pg (25.0-35.0); Mean Corpuscular Volume 92 fL (80-100); Monocytes # (Auto) 1.1 Thou/mm3 (0.0-0.8); Monocytes % (Auto) 7 % (0-12); Neutrophils # (Auto) 12.8 Thou/mm3 (1.8-7.7); Neutrophils % (Auto) 80 % (37-80); Nucleated Red Blood Cell # 0.00 Thou/mm3 (0.00-0.00); Nucleated Red Blood Cell % 0 /100 WBC (0); Platelet Count 227 Thou/mm3 (140-440); RDW Standard Deviation 44.9 fL (35.1-43.9); Red Blood Count 4.23 Miln/mm3 (4.50-5.90); White Blood Count 15.8 Thou/mm3 (3.8-10.6)
[2025-02-25 05:09] LABS: INR 1.0 (0.9-1.3); Partial Thromboplastin Time 25.8 Seconds (22.0-36.0); Prothrombin Time 11.0 Seconds (9.0-12.2)
[2025-02-25 05:11] LABS: B-Type Natriuretic Peptide < 20 pg/mL (0-100)
[2025-02-25 05:12] LABS: Glucose Estimated Average 166 mg/dL (80-131); Hemoglobin A1C 7.4 % Hgb (4.8-6.0)
[2025-02-25 05:24] LABS: Bilirubin,Urine Negative (Negative); Blood,Urine Negative (Negative); Clarity,Urine Clear (Clear/Hazy); Color,Urine Lt-Yellow (Lt Yel-Yel); Culture Indicated,Urine Not Indicated; Glucose, Urine 2+ (Negative); Ketones,Urine Negative (Negative); Leukocyte Esterase,Urine Negative (Negative); Nitrite,Urine Negative (Negative); PH,Urine 5.5 (5.0-7.0); Protein,Urine 2+ (Neg - Trace); RBC,Urine 1 /hpf (0-3); Specific Gravity,Urine 1.018 (1.001-1.035); Squamous Epithelial Cell,Urine < 1 /hpf (0-5); Urobilinogen,Urine Negative mg/dL (0.0-1.0); WBC,Urine 2 /hpf (0-5)
[2025-02-25 05:26] LABS: Alanine Aminotransferase < 7 U/L (10-49); Albumin, Serum 3.4 gm/dL (3.4-4.8); Albumin/Globulin Ratio 1.1 (1.2-2.2); Alkaline Phosphatase 77 U/L (46-116); Anion Gap 5 (7-16); Aspartate Amino Transferase 13 U/L (0-34); BUN/Creatinine Ratio 19 Ratio (12-20); Bilirubin,Direct 0.2 mg/dL (0.0-0.3); Bilirubin,Total 0.6 mg/dL (0.3-1.2); Blood Urea Nitrogen 19 mg/dL (9-23); C-Reactive Protein 1.0 mg/dL (0.0-0.9); Calcium 8.6 mg/dL (8.3-10.6); Calcium (Corrected) 9.1 mg/dL (8.5-10.1); Carbon Dioxide 29.2 mMol/L (20.0-31.0); Chloride 107 mMol/L (98-107); Creatinine (Component) 1.0 mg/dL (0.6-1.3); Estimated Creatinine Clearance 57.6 mL/min (>60); Free T4 (Free Thyroxine) 1.40 ng/dL (0.89-1.76); Globulin 3.2 gm/dL (2.3-3.5); Glucose 180 mg/dL (74-106); Magnesium 1.2 mg/dL (1.6-2.6); Osmolality,Calculated 288 (275-295); Potassium 4.0 mMol/L (3.4-5.1); Procalcitonin 0.11 ng/ml (0.0-0.49); Sodium 141 mMol/L (136-145); Thyroid Stimulating Hormone 1.03 uIU/mL (0.55-4.78); Total Protein 6.6 gm/dL (5.7-8.2); Troponin I < 0.020 ng/mL (0.0-0.045); eGFR > 60 See Note
[2025-02-25 05:34] LABS: Sed Rate (ESR) 35 mm/hr (0-20)
[2025-02-25] MEDS: Magnesium Sulfate 2 GM Ivpb 2 GM/50 ML BAG IV ×2 (05:48→10:51)
[2025-02-25 05:53] LABS: D-Dimer 580 ng/mL (<600)
--- NOTE | 2025-02-25 06:30 | PD.EDADDENDU ---
Emergency Room Addendum Addendum Narrative: 0600: Care assumed from Dr. Tovar, the previous shift emergency physician. Past medical, surgical, social and family history reviewed. Vitals and home medications reviewed. I will assume the care of the patient at this time, pending remainder of labs and final disposition. Please refer to the emergency department record for history and examination from initial visit.? Physical exam by me shows patient under no acute distress at this time. 1000: Discussed test HPI, PMHx, lab, radiology results and/or management with resident working with the hospitalist. Will admit for further evaluation and management. Accepts patient for admission.
--- NOTE | 2025-02-25 06:48 | PC.NURSE ---
notified of trending glucose with d50
--- NOTE | 2025-02-25 07:50 | PC.NURSE ---
Report received from pm nurse patient to er with c/o hypoglycemia,, patient alert to person not place or time patient has h/o dementia, skin is warm dry and pink, last fsbs 125mg/dl at this time, orders received. patient has no other needs at this time, patient awaiting re evalation by hospitalists for possible admission, call light within reach,
[2025-02-25] MEDS: DEXTROSE 10%-WATER 1000 ML 1,000 ML 50 ML IV (07:56)
--- NOTE | 2025-02-25 08:35 | PC.NURSE ---
Magnesium 2gm ivpb not in our pyxis, called pharmacists spoke with Susu and states they will come to er to restock shortly.
--- NOTE | 2025-02-25 09:47 | PC.NURSE ---
pt finished all breakfast and Dr. Thapa is at bedside to assess him. pt does not respond coherently to doctor when asked questions but that is patients baseline. pt awake alert.
[2025-02-25] MEDS: ENOXAPARIN SOD INJ 40 MG/0.4 ML SYRINGE SC (10:52)
[2025-02-25] MEDS: DOCUSATE SOD 100 MG CAPSULE PO (10:52)
--- NOTE | 2025-02-25 11:28 | ESHP_ITS ---
<Statement entered by González Cohen MD - 02/25/25 18:38> Patient was seen and examined at the bedside. Patient came in due to hypoglycemia related to insulin administration. Patient was given amp of D50 and dextrose solution. Patient was wheezing therefore was given breathing treatment. Chest x-ray showed no active disease. Will follow-up with blood sugars tomorrow and anticipate discharge in the morning. Aspiration precautions. I discussed and supervised with the supply chain intern physician who took care of this patient. I personally saw and examined the patient. I agree with most of the assessment and plan. Disclaimer: Despite multiple revisions, due to the dictation software being used, the document bellow may not be free of grammatical errors including phonetic/typographic errors. However, this does not deter from our commitment to providing health care in the patient's best interest in mind. Plan of care discussed with attending Physician Dr. Pearl Cohen MD PGY-3 Documentation for date of: 02/25/25 HPI History of Present Illness History of present illness: Mr. Ngo is a 74 yo gentleman with a hx of CVA, brain tumor, s/p fronal craniotamy, expressive aphasia, dementia, HTN, T2DM on insulin, BPH, COPD on 4L o2 at home, who was previously admitted in october 2024, for encephalopathy 2/2 hyperglycemia. history was obtained through chart review and ED provider notes given no family at bedside and pt had significant expressive aphasia. Per ED note, pt was noted to have eaten less of his dinner, he was given 11 units of fast acting glucose and subsequently recieved 30 units of extended release before bed. he was brought in by ambulance due to altered mental status noted by family, who was found to have BG of 49. on recheck BG 75, after D10 was given, BG increased to 95. ROS obtained by yes or no questioning of the patient. denies shortness of breath, chest pain, dysuria, ED course Dx * CXR with no active disease, ED provider reports that per his read he is concerned about increased markings * Bcx pending * UA bland * A1c 7.4 * Lactic Acid 1.6 * procalcitonin wnl Tx * Zofran * duoneb * Mg * NS * solumedrol Review of Systems Review of Systems Systems Reviewed: All systems reviewed, normal except as documented Narrative Review of Systems: per HPI Allergic/Immunologic Comments: NKDA Past Medical History Past Medical History NEUROLOGIC: Positive Neurological Disorders, Cerebrovascular Accident, Transient Ischemic Attacks (TIA), Dementia and Brain Tumor; Negative Alzheimer's Disease, Parkinson's Disease, Meningitis, Seizures, Epilepsy, Multiple Sclerosis, Cerebral Palsy, Amyotrophic Lateral Sclerosis (ALS/Brinda Gehrig's), Guillain-[place] Syndrome, Spina Bifida, Paralysis, Peripheral Neuropathy, Laughlin's Palsy, Subdural Hematoma, Migraine, Head Trauma, Spinal Cord Injury or Traumatic Brain Injury CARDIAC: Positive Cardiac Disorders, Hypercholesterolemia and Hypertension; Negative Myocardial Infarction, Cardiac Arrhythmia, Atrial Fibrillation, Angina, Heart Murmur, Coronary Artery Disease, Atherosclerotic Heart Disease, Peripheral Vascular Disease, Aneurysm, Congestive Heart Failure, Congenital Heart Disease, Valvular Heart Disease, Rheumatic Fever, Cardiomyopathy, Edema, Pericarditis, Cellulitis, Deep Vein Thrombosis, Hypotension or Varicose Veins RESPIRATORY: Positive Chronic Obstructive Pulmonary Disease (COPD) and Asthma; Negative Bronchitis, Emphysema, Pneumonia, Pulmonary Fibrosis, Cystic Fibrosis, Tuberculosis, Pulmonary Embolism, Pulmonary Edema or Sleep Apnea GASTROINTESTINAL: Negative Gastrointestinal Disorders, Hepatitis, Cirrhosis, Pancreatitis, Celiac Disease, Gall Bladder Disease, Gastrointestinal Bleed, Esophageal Varices, Levine's Esophagus, Colitis, Ulcerative Colitis, Diverticulitis, Diverticulosis, Ulcer, Colorectal Cancer, Irritable Bowel, Crohn's Disease, Obstructive Bowel, Hiatal Hernia, Hemorrhoids, Gastroesophageal Reflux Disease or Obesity GENITOURINARY: Positive Benign Prostatic Hyperplasia; Negative Genitourinary Disorders, Renal Disease, Kidney Stones, Polycystic Kidney Disease, Neurogenic Bladder, Inguinal Hernia, Dialysis or Prostate Cancer REPRODUCTIVE: Negative Breast Cancer, Fibroids, Genital Herpes, Gonorrhea, Syphilis or Testicular Cancer MUSCULOSKELETAL: Negative Musculoskeletal Disorders, Muscular Dystrophy, Myasthenia Gravis, Marfan's Syndrome, Bone Cancer, Arthritis, Rheumatoid Arthritis, Osteoporosis, Degenerative Disk Disease, Gout, Scoliosis, Carpal Tunnel Syndrome, Fibromyalgia, Fractures, Degenerative Joint Disease, Osteomyelitis or Poliovirus ENT: Negative Cataracts, Glaucoma, Blind, Retinal Detachment, Macular Degeneration, Ear Infection, Deafness, Head Trauma or Eye Prosthesis ENDOCRINE: Positive Endocrine Disorders and Diabetes Mellitus Type 2; Negative Diabetes Mellitus Type 1, Hypoglycemia, Saba's Syndrome, Arley's Disease, Hyperthyroidism, Hypothyroidism, Parathyroid Disease, Pituitary Disease, Systemic Lupus Erythematosus, Syndrome of Inappropriate Antidiuretic Hormone (SIADH), Adrenal Disease or Graves' Disease HEMATOLOGIC: Negative Blood Disorders, Anemia, Leukemia, Hemophilia, Thalassemia, Sickle Cell Disease or Clotting Problems PSYCHO/SOCIAL: Negative Psychiatric Problems, Schizophrenia, Recreational Drug Use, Bipolar Disorder, Depression, Anxiety, Behavior Problems, Self-Mutilation, Attention Deficit Disorder, Attention Deficit Hyperactivity Disorder, Depression, Post Traumatic Stress Disorder or Eating Disorder OTHER HISTORY: Negative Hospitalization, Autoimmune Disease, Down Syndrome, Autism, Developmental Delay, Shingles, Falls, Blood Transfusions, Blood Transfusion Reaction, Anesthesia Reactions, Organ Transplant, Chemotherapy, Radiation Therapy, Hyperbaric Therapy, MRSA, VRSA, Vancomycin-Resistant Enterococci, Human Immunodeficiency Virus (HIV), Chicken Pox, Measles, Mumps, Rubella ([place] Measles), Pertussis, Clostridium Difficile, Cancer, Breast Cancer, Cervical Cancer, Colorectal Cancer, Lung Cancer, Ovarian Cancer, Prostate Cancer or Testicular Cancer Family History OTHER FAMILY HX: non contributory Surgical History SURGICAL: Positive Neurologic Surgery; Negative Cardiac Surgery, Open Heart Surgery, Coronary Artery Bypass Graft, Valve Replacement, Vascular Surgery, Coronary Stent, Cardiac Catheterization, Pacemaker, Angiogram, Auto Implanted Cardiovert Defib, Carotid Endarterectomy, Endocrine Surgery, Thyroidectomy, Ear Surgery, Tympanostomy Tube, Eye Surgery, Nose Surgery, Oral Surgery, Tonsillectomy, Adenoidectomy, Cochlear Implant, Corneal Transplant, Throat Surgery, Abdominal Surgery, Tracheostomy, Gastric Bypass Surgery, Gastrostomy, Bowel Surgery, Nephrectomy, Transurethral Resection, Joint Replacement, Amputation, Open Reduction Internal Fixation, Arthroscopy, Brain Shunt, Mastectomy, Lumpectomy, Hysterectomy, Tubal Ligation, Section, Vasectomy or Organ Transplant OTHER SURGICAL HX: pt has surgical incision scar well healed on abdomen, pt unable to report what the surgery was Social History SMOKING STATUS: Unknown if ever smoked SECOND HAND EXPOSURE: No SUBSTANCE USE: does not use Exam Vital Signs Temp Pulse Resp BP Pulse Ox O2 Del Method 97.5 F 101 H 19 166/91 H 97 Room Air 02/25/25 09:33 02/25/25 09:33 02/25/25 09:33 02/25/25 09:33 02/25/25 09:33 02/25/25 09:33 Narrative Exam GENERAL: no acute distress, pt alert and oriented to self., comfortably laying in bed HEENT: Head AT/ NC. Mucous membranes moist. PERRL. NECK: Supple, no lymphadenopathy, no carotid bruits. CARDIOVASCULAR: RRR. Normal S1/S2, No m/r/g. No pitting edema of bilateral LEs. RESPIRATORY: CTAB. No wheezing, rhonchi, crackles. GASTROINTESTINAL: Abdomen soft, non tender no palpable masses. Bowel sounds present, surgical incision site well healed from prior. MUSCULOSKELETAL:? No cyanosis or edema, no visible joint swelling. NEUROLOGICAL: CN II-XII grossly intact. expressive aphasia, able to answer yes or no to questions . Sensation intact, symmetric.R arm flexed and weak, unable to squeeze fingers PSYCHIATRIC: Awake and alert, not agitated, normal mood and affect. SKIN: No obvious rashes, no jaundice, normal turgor. Results: Labs 02/26/25 05:04 02/26/25 05:04 Labs: Short CBC 02/25/25 Range/Units 04:37 WBC 15.8 H (3.8-10.6) Thou/mm3 Hgb 13.1 L (13.5-16.0) g/dL Hct 38.9 L (41.0-53.0) % Plt Count 227 (140-440) Thou/mm3 BMP 02/25/25 04:37 Sodium 141 Potassium 4.0 Chloride 107 Carbon Dioxide 29.2 BUN 19 Creatinine 1.0 Glucose 180 H Calcium 8.6 Cardiac Enzymes 02/25/25 Range/Units 04:37 Troponin I < 0.020 (0.0-0.045) ng/mL Liver Function 02/25/25 Range/Units 04:37 Total Bilirubin 0.6 (0.3-1.2) mg/dL Direct Bilirubin 0.2 (0.0-0.3) mg/dL AST 13 (0-34) U/L ALT < 7 L (10-49) U/L Alkaline Phosphatase 77 (46-116) U/L Albumin 3.4 (3.4-4.8) gm/dL Urine 02/25/25 Range/Units 04:11 Urine Color Lt-Yellow (Lt Yel-Yel) Urine Clarity Clear (Clear/Hazy) Urine pH 5.5 (5.0-7.0) Ur Specific [place] 1.018 (1.001-1.035) Urine Protein 2+ A (Neg - Trace) Urine Glucose (UA) 2+ A (Negative) Quality Measures Quality Measures VTE prophylaxis Advance care planning discussed with:: other Medications Home Medications and Allergies Home Medications ?Medication ?Instructions ?Recorded ?Confirmed ?Type atorvastatin 40 mg tablet 40 mg PO QPM 11/04/19 History tamsulosin 0.4 mg capsule 0.4 mg PO QDAY 10/11/2009/12 History escitalopram oxalate 10 mg tablet 10 mg PO QDAY 09/24/24 History amlodipine 5 mg tablet 5 mg PO QDAY 05/31/21 History albuterol sulfate 90 mcg/actuation 2 inh inhalation QI D PRN shortness 06/25/22 09/24/24 History aerosol inhaler (Ventolin HFA) of breath or wheezing prednisone 10 mg tablet 10 mg PO QDAY 08/02/2209/24 History albuterol sulfate 5 mg/mL(0.5 %) 5 mg inhalation TID 0 09/24/24 09/24/24 History solution for nebulization Allergies Allergy/AdvReac Type Severity Reaction Status Date / Time silicone Allergy Severe Fever Verified 08/01/22 15:46 tuberculin,PPD,multi-puncture Allergy Verified 08/01/22 15:46 Visit Medications Acetaminophen (Acetaminophen 325 Mg Tablet) 650 mg PO Q6H PRN PRN Reason: Fever >100.4 or pain Stop: 03/27/25 10:15 Dextrose (Dextrose 50%-Water Inj 50 Ml Syringe) 25 ml IV Q15MIN PRN PRN Reason: BG 50-70 responsive npo pt Stop: 03/27/25 10:15 Dextrose (Dextrose 50%-Water Inj 50 Ml Syringe) 50 ml IV Q15MIN PRN PRN Reason: BG <50 OR BG <70 & pt unresponsive Stop: 03/27/25 10:15 Docusate Sodium (Docusate Sod 100 Mg Capsule) 100 mg PO QDAY MERLY; Protocol Stop: 03/27/25 10:29 Last Admin: 02/25/25 10:52 Dose: 100 mg Enoxaparin Sodium (Enoxaparin Sod Inj 40 Mg/0.4 Ml Syringe) 40 mg SC QDAY MERLY Stop: 03/11/25 10:29 Last Admin: 02/25/25 10:52 Dose: 40 mg Glucagon (Glucagon Inj 1 Mg Vial) 1 mg IM Q15MIN PRN PRN Reason: BG <70, and no IV access Dextrose (D10w 1000 Ml) 1,000 mls @ 50 mls/hr IV .Q20H MERLY Stop: 02/26/25 02:47 Last Admin: 02/25/25 07:56 Dose: 50 mls/hr Insulin Human Lispro (Insulin Lispro (Admelog) 1 Unit/0.01 Ml Unit) 0 unit SC AC MERLY; Protocol Stop: 03/27/25 11:29 Ondansetron HCl (Ondansetron Inj 2 Mg/Ml Inj 2 Ml) 4 mg IVP Q6H PRN; Protocol PRN Reason: NAUSEA OR VOMITING Stop: 03/27/25 10:15 Sennosides (Senna Tablet) 1 tab PO QDAY PRN; Protocol PRN Reason: constipation Stop: 03/27/25 10:15 Discontinued Medications Albuterol/Ipratropium (Albuterol/Ipratropium (Duoneb) Rt Deepali 3 Ml Nebu) 3 ml INH X1 ONE Stop: 02/25/25 03:55 Last Admin: 02/25/25 04:11 Dose: 3 ml Dextrose (Dextrose 50%-Water Inj 50 Ml Syringe) 50 ml IVP X1 ONE Stop: 02/25/25 03:55 Last Admin: 02/25/25 04:16 Dose: 50 ml Dextrose (Dextrose 50%-Water Inj 50 Ml Syringe) 50 ml IVP X1 ONE Stop: 02/25/25 05:30 Last Admin: 02/25/25 05:33 Dose: 50 ml Sodium Chloride (Ns) 1,000 mls @ 999 mls/hr IV .Q1H1M ONE Stop: 02/25/25 04:54 Last Infusion: 02/25/25 05:08 Dose: Infused Magnesium Sulfate (Magnesium Sulfate Ivpb) 2 gm in 50 mls @ 25 mls/hr IV X1 ONE Stop: 02/25/25 07:31 Last Infusion: 02/25/25 08:35 Dose: Infused Magnesium Sulfate (Magnesium Sulfate Ivpb) 2 gm in 50 mls @ 25 mls/hr IV X1 ONE Stop: 02/25/25 09:31 Last Admin: 02/25/25 10:51 Dose: 25 mls/hr Methylprednisolone Sodium Succinate (Methylprednisolone Sod Succ 62.5 Mg/Ml 2ml Vial) 125 mg IVP X1 ONE Stop: 02/25/25 03:55 Last Admin: 02/25/25 04:14 Dose: 125 mg Ondansetron HCl (Ondansetron Inj 2 Mg/Ml Inj 2 Ml) 4 mg IVP X1 ONE; Protocol Stop: 02/25/25 03:55 Last Admin: 02/25/25 04:15 Dose: 4 mg Assessment & Plan Assessment Mr. Ngo is a 74 yo gentleman with a hx of CVA, brain tumor, s/p fronal craniotamy, expressive aphasia, dementia, HTN, T2DM on insulin, BPH, COPD on 4L o2 at home, who was previously admitted in october 2024, for encephalopathy 2/2 hyperglycemia, who BIBA for hyoglycemia and AMS which resolved with D50. Weezing noted in the ed, which improved with breathing treatment. isolated leukocytosis without systemic signs of infxn, f/u am labs. #t2dm insulin dependent #Hypoglycemia pt presented to the ed with AMS, BG was 49, after d50 amps BG increased and pt began to mentate appropriately. D5 weaned and pt able to eat in the ED. per daughter, pt recieved insulin doses that were more than what he was eating. -CTM BG with Q6H BG checks - ISS step.2 #leukocytosis WBC 15, UA bland, procal -, lactate wnl no obvious source of infection dx CXR no PNA Bcx pending f/u cbc to see if downtrending, consider abx for possible PNA pulmonary symptoms. #History of CVA with residual deficit of #Broca's aphasia #New onset dysphagia #History of childhood brain tumor s/p craniotomy pt mentating per his baseline, answering questions appropriately and able to cooperate during exam. #Esophageal stricture-benign per egd done on October 2024 admission. Status post EGD on 11/08 that showed benign-appearing esophageal stenosis that was dilated and biopsies taken, on prior admission speech reccomended dysphagia 1 diet given difficulty with swallowing #Electrolyte Abnormalities -daily CMP -Replete as needed Mg>2 K >4 #Wheezing #History of COPD Per daughter, uses 4 L O2 at night and prednisone 10 mg daily. pt wheezing on intake, s/p 1x steroids and duoneb, which helped relieve symptoms. ? Supplemental O2 if less than 88%, with goal of 88 to 92% - duonebs q6hr prn #History of BPH Per daughter, patient is wheelchair-bound and wears diapers ? Unable to resume home tamsulosin 0.4 mg daily due to dysphagia #History of HTN ? Amlodipine 5 mg daily Dispo: Diet: Carb consistent with dysphagia 1 Bowel Reg: Senna PRN Lines: Condom Cath, IV VTE ppx: Hearin SC BID GI ppx: protonix 40 QD Code status: Full Case discussed with my senior resident Dr. Cohen Case discussed with my attending Dr. Pearl Carrion MD PGY-1 Attending Provider Attestation/Addendum Jenna Live DO, attest that I was physically present for the watson portions of the service and evaluated the patient with the resident and I reviewed and discussed the case with the resident and agree with the resident's findings and plans of care as documented above Patient is a 74-year-old male with past medical history of CVA, brain tumor status post frontal craniotomy, expressive aphasia, dementia, hypertension, type 2 insulin-dependent diabetes mellitus, BPH, COPD who was brought to ED due to encephalopathy. Patient had not been eating well for the past few days per ER signout, but patient received his regular insulin doses at home. Patient was subsequently found to have blood glucose of 49 leading to the alteration of his mental status. In the ED, patient remains on D5 drip and has been able to eat, but concern for fluctuating blood glucose given that patient received his long- acting insulin yesterday. Patient also noted to have some wheezing on exam. He received Solu-Medrol IV in the ED that appeared to improve his respiratory status initially. Will give another dose of Solu-Medrol and continue with breathing treatments. Suspect acute COPD exacerbation. Will admit patient to med/surge for further workup medical management of hypoglycemia and further observe overnight. No family at bedside at time of evaluation.
[2025-02-25] MEDS: INSULIN LISPRO (AdmeLOG) 1 UNIT/0.01 ML UNIT SC ×3 (11:55→22:45)
--- NOTE | 2025-02-25 13:36 | XR_ITS ---
Examination: Duplex scan of the lower extremity, unilateral right Date and time of exam: February 25, 2025 1417 hours INDICATIONS: Right leg swelling intermittent for years Technique: Duplex scan of the extremity veins using B-mode/grayscale imaging and Doppler spectral analysis and color flow Attention is directed to internal echogenicity, compression and augmentation involving these veins, color flow assessment, spectral analysis Findings: Major deep venous structures in the extremity demonstrate normal course and caliber. There is no evidence of deep vein thrombosis. Normal color flow and spectral analysis Impression: Negative for DVT..
--- NOTE | 2025-02-25 17:16 | XR_ITS ---
Examination: AP chest single view TECHNIQUE: AP portable semiupright chest single view Date and time: February 25, 2025, 1731 hours Comparison February 25, 2025 0349 hours INDICATIONS: Shortness of breath today. FINDINGS: Skinfold over the right hemithorax Normal heart size. No pneumonia or pulmonary edema IMPRESSION: No pneumonia or pulmonary edema.
--- NOTE | 2025-02-25 20:57 | PC.NURSE ---
Notify MD Read of patients blood sugar 262. MD will check the chart and will put an order.
--- NOTE | 2025-02-25 22:42 | PC.NURSE ---
MD Read said okay to give Haloperidol through IV.
[2025-02-25] MEDS: HALOPERIDOL LACT INJ 5 MG/ML VIAL 2.5 MG IV (22:44)
[2025-02-26] VITALS (8 sets, daily range): BP systolic 142–178; BP diastolic 71–98; PULSE 74–97; RESP 15–94; TEMP 36.1–36.9; O2SAT 94–99
--- NOTE | 2025-02-26 05:37 | PC.NURSE ---
Family member will be notified to bring pt's home medication. Pt is unable to provide any information regarding his home medication.
[2025-02-26 06:26] LABS: Basophils # (Auto) 0.1 Thou/mm3 (0.0-0.2); Basophils % (Auto) 1 % (0-2.5); Eosinophils # (Auto) 0.1 Thou/mm3 (0.0-0.5); Eosinophils % (Auto) 0 % (0-10); Hematocrit 37.1 % (41.0-53.0); Hemoglobin 12.9 g/dL (13.5-16.0); Immature Granulocytes Auto 0.04 Thou/mm3 (0.00-0.00); Lymphocytes # (Auto) 2.1 Thou/mm3 (1.0-4.8); Lymphocytes % (Auto) 15 % (10-50); Mean Corpuscular HGB Conc 34.8 g/dl (31.0-37.0); Mean Corpuscular Hemoglobin 30.4 pg (25.0-35.0); Mean Corpuscular Volume 87 fL (80-100); Monocytes # (Auto) 1.2 Thou/mm3 (0.0-0.8); Monocytes % (Auto) 9 % (0-12); Neutrophils # (Auto) 10.7 Thou/mm3 (1.8-7.7); Neutrophils % (Auto) 75 % (37-80); Nucleated Red Blood Cell # 0.00 Thou/mm3 (0.00-0.00); Nucleated Red Blood Cell % 0 /100 WBC (0); Platelet Count 228 Thou/mm3 (140-440); RDW Standard Deviation 41.2 fL (35.1-43.9); Red Blood Count 4.25 Miln/mm3 (4.50-5.90); White Blood Count 14.2 Thou/mm3 (3.8-10.6)
[2025-02-26 07:08] LABS: Alanine Aminotransferase < 7 U/L (10-49); Albumin, Serum 3.3 gm/dL (3.4-4.8); Albumin/Globulin Ratio 1.0 (1.2-2.2); Alkaline Phosphatase 80 U/L (46-116); Anion Gap 8 (7-16); Aspartate Amino Transferase 12 U/L (0-34); BUN/Creatinine Ratio 22 Ratio (12-20); Bilirubin,Total 0.6 mg/dL (0.3-1.2); Blood Urea Nitrogen 24 mg/dL (9-23); Calcium 8.9 mg/dL (8.3-10.6); Calcium (Corrected) 9.5 mg/dL (8.5-10.1); Carbon Dioxide 26.3 mMol/L (20.0-31.0); Chloride 109 mMol/L (98-107); Creatinine (Component) 1.1 mg/dL (0.6-1.3); Estimated Creatinine Clearance 48.5 mL/min (>60); Globulin 3.2 gm/dL (2.3-3.5); Glucose 102 mg/dL (74-106); Magnesium 2.1 mg/dL (1.6-2.6); Osmolality,Calculated 288 (275-295); Phosphorous 2.6 mg/dL (2.4-5.1); Potassium 3.8 mMol/L (3.4-5.1); Sodium 143 mMol/L (136-145); Total Protein 6.5 gm/dL (5.7-8.2); eGFR > 60 See Note
--- NOTE | 2025-02-26 07:49 | ESPR_ITS ---
<Statement entered by González Cohen MD - 02/26/25 17:57> Patient was seen and examined at the bedside. Patient is at his baseline. Wheezing has significantly improved. 1/2 blood cultures grew GPC therefore blood cultures were repeated. Blood sugars have been stable. Speech therapist recommended dysphagia diet and keep aspiration precautions. Azithromycin was added. Will likely follow-up with repeat blood cultures. Continue with current management. I discussed and supervised with the international logistics manager physician who took care of this patient. I personally saw and examined the patient. I agree with most of the assessment and plan. Disclaimer: Despite multiple revisions, due to the dictation software being used, the document bellow may not be free of grammatical errors including phonetic/typographic errors. However, this does not deter from our commitment to providing health care in the patient's best interest in mind. Plan of care discussed with attending Physician Dr. Pearl Cohen MD PGY-3 Documentation for date of: 02/26/25 Subjective Subjective Interval history: No acute events overnight Patient sitting upright in bed responds to questions and reports having eaten breakfast Exam Vital Signs Temp Pulse Resp BP Pulse Ox O2 Del Method 97.0 F 77 15 150/80 H 99 Room Air 02/26/25 07:30 02/26/25 07:30 02/26/25 07:30 02/26/25 07:30 02/26/25 07:30 02/26/25 07:30 Narrative Exam GENERAL: no acute distress, pt alert and oriented to self., comfortably laying in bed HEENT: Head AT/ NC. Mucous membranes moist. PERRL. NECK: Supple, no lymphadenopathy, no carotid bruits. CARDIOVASCULAR: RRR. Normal S1/S2, No m/r/g. No pitting edema of bilateral LEs. RESPIRATORY: CTAB. No wheezing, rhonchi, crackles. GASTROINTESTINAL: Abdomen soft, non tender no palpable masses. Bowel sounds present, surgical incision site well healed from prior. MUSCULOSKELETAL:? No cyanosis or edema, no visible joint swelling. NEUROLOGICAL:expressive aphasia, able to answer yes or no to questions . Sensation intact, symmetric.R arm flexed and weak, unable to squeeze fingers PSYCHIATRIC: Awake and alert, not agitated, normal mood and affect. SKIN: No obvious rashes, no jaundice, Objective Labs 02/27/25 04:41 02/27/25 04:41 Labs: Laboratory Results - last 24 hr 02/26/25 05:04 WBC 14.2 H RBC 4.25 L Hgb 12.9 L Hct 37.1 L MCV 87 MCH 30.4 MCHC 34.8 RDW Std Deviation 41.2 Plt Count 228 Neut % (Auto) 75 Lymph % (Auto) 15 [place] % (Auto) 9 Eos % (Auto) 0 Baso % (Auto) 1 Neut # (Auto) 10.7 H Lymph # (Auto) 2.1 [place] # (Auto) 1.2 H Eos # (Auto) 0.1 Baso # (Auto) 0.1 Immature Gran # (Auto) 0.04 H Absolute Nucleated RBC 0.00 Immature Gran % 0 Nucleated RBC % 0 Sodium 143 Potassium 3.8 Chloride 109 H Carbon Dioxide 26.3 Anion Gap 8 BUN 24 H Creatinine 1.1 Estim Creat Clear Calc 48.5 L eGFR > 60 BUN/Creatinine Ratio 22 H Glucose 102 D Calculated Osmolality 288 Calcium 8.9 Corrected Calcium 9.5 Phosphorus 2.6 Magnesium 2.1 Total Bilirubin 0.6 AST 12 ALT < 7 L Alkaline Phosphatase 80 Total Protein 6.5 Albumin 3.3 L Globulin 3.2 Albumin/Globulin Ratio 1.0 L Quality Measures Quality Measures VTE prophylaxis Advance care planning discussed with:: patient Assessment & Plan Assessment Current Active Medications: Generic Name Dose Route Start Last Admin Trade Name Freq PRN Reason Stop Dose Admin Acetaminophen 650 mg 02/25/25 10:16 Acetaminophen 325 Mg Tablet PO 03/27/25 10:15 Q6H PRN Fever >100.4 or pain Albuterol/Ipratropium 3 ml 02/25/25 17:17 Albuterol/Ipratropium (Duoneb) Rt Deepali 3 Ml Nebu INH 03/27/25 18:59 Q6HRRT PRN wheezing Dextrose 25 ml 02/25/25 10:16 Dextrose 50%-Water Inj 50 Ml Syringe IV 03/27/25 10:15 Q15MIN PRN BG 50-70 responsive npo pt Dextrose 50 ml 02/25/25 10:16 Dextrose 50%-Water Inj 50 Ml Syringe IV 03/27/25 10:15 Q15MIN PRN BG <50 OR BG <70 & pt unresponsive Docusate Sodium 100 mg 02/25/25 10:30 02/25/25 10:52 Docusate Sod 100 Mg Capsule PO 03/27/25 10:29 100 mg QDAY MERLY Administration Protocol Glucagon 1 mg 02/25/25 10:16 Glucagon Inj 1 Mg Vial IM Q15MIN PRN BG <70, and no IV access Heparin Sodium (Porcine) 5,000 unit 02/26/25 09:00 Heparin Sod Inj 5000 Unit/Ml Vial SC 03/12/25 08:59 Q12HR MERLY Insulin Human Lispro 0 unit 02/25/25 22:35 02/25/25 22:45 Insulin Lispro (Admelog) 1 Unit/0.01 Ml Unit SC 03/27/25 22:34 4 unit ACHS MERLY Administration Protocol Ondansetron HCl 4 mg 02/25/25 10:16 Ondansetron Inj 2 Mg/Ml Inj 2 Ml IVP 03/27/25 10:15 Q6H PRN NAUSEA OR VOMITING Protocol Sennosides 1 tab 02/25/25 10:16 Senna Tablet PO 03/27/25 10:15 QDAY PRN constipation Protocol Plan Mr. Ngo is a 74 yo gentleman with a hx of CVA, brain tumor, s/p fronal craniotamy, expressive aphasia, dementia, HTN, T2DM on insulin, BPH, COPD on 4L o2 at home, who was previously admitted in october 2024, for encephalopathy 2/2 hyperglycemia, who BIBA for hyoglycemia and AMS which resolved with D50. Weezing noted in the ed, which improved with breathing treatment. isolated leukocytosis without systemic signs of infxn, 1 out of 2 blood cultures growing GPC low level suspicion for bacteremia given clinical presentation follow-up repeat blood cultures, started on azithromycin for potential pulmonary source given wheezing. #Acute COPD exacerbation Per daughter, uses 4 L O2 at night and prednisone 10 mg daily. pt wheezing on intake, s/p 1x steroids and duoneb, which helped relieve symptoms. ? Supplemental O2 if less than 88%, with goal of 88 to 92% - duonebs q6hr prn - started on azithromycin for antiinflammatory effects # GPC bacteremia versus contamination #leukocytosis, downtrending # WBC 15, UA bland, procal -, lactate wnl no obvious source of infection Dx -CXR no PNA -Bcx 1 out of 2 growing GPC -Repeat blood cultures pending Tx ? Azithromycin 500 mg one-time - Azithromycin 250 mg for 4 days #t2dm insulin dependent #Hypoglycemia-resolved pt presented to the ed with AMS, BG was 49, after d50 amps BG increased and pt began to mentate appropriately. D5 weaned and pt able to eat in the ED. per daughter, pt recieved insulin doses that were more than what he was eating. -CTM BG with Q6H BG checks - ISS step.2 #Delirium #Agitation -Okay for Seroquel if agitated overnight -Melatonin 3 mg nightly #History of CVA with residual deficit of #Broca's aphasia #New onset dysphagia #History of childhood brain tumor s/p craniotomy pt mentating per his baseline, answering yes and no, answering questions appropriately and able to cooperate during exam. #Esophageal stricture-benign per egd done on October 2024 admission. Status post EGD on 11/08 that showed benign-appearing esophageal stenosis that was dilated and biopsies taken, on prior admission speech reccomended dysphagia 1 diet given difficulty with swallowing - Speech evaluation:Aspiration of thin liquids per MBSS/VFSS October 2024. Rec: Dysphagia 1/MT2. #Electrolyte Abnormalities -daily CMP -Replete as needed Mg>2 K >4 #History of BPH Per daughter, patient is wheelchair-bound and wears diapers ? Unable to resume home tamsulosin 0.4 mg daily due to dysphagia - Condom catheter to minimize soiling and changing #History of HTN ? Amlodipine 5 mg daily Dispo: Diet: Carb consistent with dysphagia 1 Bowel Reg: Senna PRN Lines: Condom Cath, IV VTE ppx: Hearin SC BID GI ppx: protonix 40 QD Code status: Full Case discussed with my senior resident Dr. Cohen Case discussed with my attending Dr. Pearl Carrion MD PGY-1 Attending Provider Attestation/Addendum I, Jenna Kang, DO, attest that I was physically present for the watson portions of the service and evaluated the patient with the resident and I reviewed and discussed the case with the resident and agree with the resident's findings and plans of care as documented above Patient seen and eval this a.m. Patient is responding appropriately and appears to be at baseline. Blood cultures are positive for GPC 1 out of 2 bottles. He remains to have elevated leukocytosis. Patient occasionally has wheezing, concerning for acute COPD exacerbation. Will continue with breathing treatments as needed. Patient started azithromycin due to concern for acute COPD exacerbation. Low suspicion for bacteremia versus contamination. Will repeat BCX. BG within normal limits. Will continue wtih current management of Acute COPD exacerbation.
[2025-02-26] MEDS: DOCUSATE SOD 100 MG CAPSULE PO (08:47)
[2025-02-26] MEDS: HEPARIN SOD INJ 5000 UNIT/ML VIAL SC ×2 (08:47→20:14)
--- NOTE | 2025-02-26 09:09 | CHAP ---
Patient was sleeping. Said a silent prayer.
--- NOTE | 2025-02-26 09:13 | CHAP ---
Patient expressed gratitude for visit and prayer.
--- NOTE | 2025-02-26 10:19 | PC.SS ---
Patient Delroy Ngo is a 74 year old male admitted for Hypoglcemia. Patient's daughter Chyna, contacted to assist with providing information. Patient lives at home with daughter Chyna, who is the patient's [facility] caregiver. Per Chyna, Patient utilized a wheel chair to assist with ambulation. Patient is bed-bound and patient's daughter assist with ADL's. Patient utilizes home O2 during the night on 4L. Patient has home O2 concentrator at home. Patient PCP is Dr. Clinton at [facility]. Pharmacy is [facility]. Discharge plan is for patient to return home, patient's daughter is requesting for patient to be transported via ambulance. D/c plan: home Next of kin: Chyna Crawley
--- NOTE | 2025-02-26 11:23 | PCS.ST ---
Chronic dysphagia. Aspiration of thin liquids per MBSS/VFSS October 2024. Rec: Dysphagia 1/MT2.
[2025-02-26] MEDS: AZITHROMYCIN INJ 500 MG in SODIUM CHLORIDE 0.9% 250 ML 250 ML 250 MG IV (11:56)
[2025-02-26] MEDS: INSULIN LISPRO (AdmeLOG) 1 UNIT/0.01 ML UNIT SC ×2 (11:59→16:59)
[2025-02-26] MEDS: ALBUTEROL/IPRATROPIUM (Duoneb) RT SOL 3 ML NEBU INH (18:44)
[2025-02-26] MEDS: MELATONIN 3 MG TABLET PO (20:14)
[2025-02-27] VITALS (9 sets, daily range): BP systolic 120–179; BP diastolic 72–94; PULSE 72–94; RESP 17–96; TEMP 36–36.7; O2SAT 92–99
[2025-02-27 05:51] LABS: Basophils # (Auto) 0.1 Thou/mm3 (0.0-0.2); Basophils % (Auto) 1 % (0-2.5); Eosinophils # (Auto) 0.3 Thou/mm3 (0.0-0.5); Eosinophils % (Auto) 3 % (0-10); Hematocrit 36.7 % (41.0-53.0); Hemoglobin 12.0 g/dL (13.5-16.0); Immature Granulocytes Auto 0.02 Thou/mm3 (0.00-0.00); Lymphocytes # (Auto) 1.9 Thou/mm3 (1.0-4.8); Lymphocytes % (Auto) 20 % (10-50); Mean Corpuscular HGB Conc 32.7 g/dl (31.0-37.0); Mean Corpuscular Hemoglobin 30.6 pg (25.0-35.0); Mean Corpuscular Volume 94 fL (80-100); Monocytes # (Auto) 0.9 Thou/mm3 (0.0-0.8); Monocytes % (Auto) 9 % (0-12); Neutrophils # (Auto) 6.7 Thou/mm3 (1.8-7.7); Neutrophils % (Auto) 68 % (37-80); Nucleated Red Blood Cell # 0.00 Thou/mm3 (0.00-0.00); Nucleated Red Blood Cell % 0 /100 WBC (0); Platelet Count 207 Thou/mm3 (140-440); RDW Standard Deviation 45.1 fL (35.1-43.9); Red Blood Count 3.92 Miln/mm3 (4.50-5.90); White Blood Count 9.9 Thou/mm3 (3.8-10.6)
[2025-02-27 06:44] LABS: Alanine Aminotransferase < 7 U/L (10-49); Albumin, Serum 3.0 gm/dL (3.4-4.8); Albumin/Globulin Ratio 1.0 (1.2-2.2); Alkaline Phosphatase 78 U/L (46-116); Anion Gap 10 (7-16); Aspartate Amino Transferase 10 U/L (0-34); BUN/Creatinine Ratio 19 Ratio (12-20); Bilirubin,Total 0.6 mg/dL (0.3-1.2); Blood Urea Nitrogen 17 mg/dL (9-23); Calcium 8.4 mg/dL (8.3-10.6); Calcium (Corrected) 9.2 mg/dL (8.5-10.1); Carbon Dioxide 26.9 mMol/L (20.0-31.0); Chloride 107 mMol/L (98-107); Creatinine (Component) 0.9 mg/dL (0.6-1.3); Estimated Creatinine Clearance 59.3 mL/min (>60); Globulin 2.9 gm/dL (2.3-3.5); Glucose 143 mg/dL (74-106); Magnesium 1.4 mg/dL (1.6-2.6); Osmolality,Calculated 290 (275-295); Phosphorous 2.6 mg/dL (2.4-5.1); Potassium 3.8 mMol/L (3.4-5.1); Sodium 144 mMol/L (136-145); Total Protein 5.9 gm/dL (5.7-8.2); eGFR > 60 See Note
--- NOTE | 2025-02-27 07:46 | PC.NURSE ---
Made MD Briones aware of pts current am bp of 179/94-85 HR. Pt stable no other complains stated by pt. Per MD will restart pts home meds this morning. No orders received at this time.
[2025-02-27] MEDS: AZITHROMYCIN INJ 250 MG, Sterile Water 2.5 ML in SODIUM CHLORIDE 0.9% 250 ML 250 ML 252.5 MG IV (09:33)
[2025-02-27] MEDS: Magnesium Sulfate 4 GM Ivpb 4 GM/50 ML BAG IV (09:34)
[2025-02-27] MEDS: DOCUSATE SOD 100 MG CAPSULE PO (10:02)
[2025-02-27] MEDS: HEPARIN SOD INJ 5000 UNIT/ML VIAL SC ×2 (10:09→21:07)
--- NOTE | 2025-02-27 10:41 | ESPR_ITS ---
<Statement entered by Daniel Thapa MD - 02/27/25 16:26> Patient seen and examined at bedside. I discussed and supervised with the diversity intern physician who took care of this patient. I personally saw and examined the patient. I agree with most of the assessment and plan. Patient is alert and interactive, difficulty communicating due to aphasia. Had episode of coughing followed by significant upper airway wheeze on inspiration/expiration, soft tissue CT neck ordered. Not hypoxic. Blood culture grew strep pyogenes, repeat cultures pending. Remains on azithromycin. Echo ordered to rule out vegetations. Plan of care discussed with attending Dr. Kang. Daniel Thapa MD PGY-2 Documentation for date of: 02/27/25 Subjective Subjective Interval history: No overnight events. Evaluated at bedside. Pt found to have inspiratory and expiratory wheeze, pending CT soft tissue neck. Exam Vital Signs Temp Pulse Resp BP Pulse Ox O2 Del Method 97.3 F 82 19 141/73 H 94 L Room Air 02/27/25 08:00 02/27/25 10:20 02/27/25 08:00 02/27/25 10:20 02/27/25 08:00 02/27/25 08:00 Narrative Exam GENERAL: no acute distress, pt alert and oriented to self. HEENT: Head AT/ NC. Mucous membranes moist. PERRL. NECK: Supple, no lymphadenopathy, no carotid bruits. CARDIOVASCULAR: RRR. Normal S1/S2, No m/r/g. No pitting edema of bilateral LEs. RESPIRATORY: Audible wheezing to upper airway. GASTROINTESTINAL: Abdomen soft, non tender no palpable masses. Bowel sounds present, surgical incision site well healed from prior. MUSCULOSKELETAL:? No cyanosis or edema, no visible joint swelling. NEUROLOGICAL:expressive aphasia, able to answer yes or no to questions . Sensation intact, symmetric.R arm flexed and weak, unable to squeeze fingers PSYCHIATRIC: Awake and alert, not agitated, normal mood and affect. SKIN: No obvious rashes, no jaundice, Objective Labs 02/28/25 04:45 02/28/25 04:45 Labs: Laboratory Results - last 24 hr 02/27/25 04:41 WBC 9.9 RBC 3.92 L Hgb 12.0 L Hct 36.7 L MCV 94 MCH 30.6 MCHC 32.7 RDW Std Deviation 45.1 H Plt Count 207 Neut % (Auto) 68 Lymph % (Auto) 20 [place] % (Auto) 9 Eos % (Auto) 3 Baso % (Auto) 1 Neut # (Auto) 6.7 Lymph # (Auto) 1.9 [place] # (Auto) 0.9 H Eos # (Auto) 0.3 Baso # (Auto) 0.1 Immature Gran # (Auto) 0.02 H Absolute Nucleated RBC 0.00 Immature Gran % 0 Nucleated RBC % 0 Sodium 144 Potassium 3.8 Chloride 107 Carbon Dioxide 26.9 Anion Gap 10 BUN 17 Creatinine 0.9 Estim Creat Clear Calc 59.3 L eGFR > 60 BUN/Creatinine Ratio 19 Glucose 143 H Calculated Osmolality 290 Calcium 8.4 Corrected Calcium 9.2 Phosphorus 2.6 Magnesium 1.4 L Total Bilirubin 0.6 AST 10 ALT < 7 L Alkaline Phosphatase 78 Total Protein 5.9 Albumin 3.0 L Globulin 2.9 Albumin/Globulin Ratio 1.0 L Quality Measures Quality Measures VTE prophylaxis Advance care planning discussed with:: patient Assessment & Plan Assessment Current Active Medications: Generic Name Dose Route Start Last Admin Trade Name Freq PRN Reason Stop Dose Admin Acetaminophen 650 mg 02/25/25 10:16 Acetaminophen 325 Mg Tablet PO 03/27/25 10:15 Q6H PRN Fever >100.4 or pain Albuterol/Ipratropium 3 ml 02/25/25 17:17 02/26/25 18:44 Albuterol/Ipratropium (Duoneb) Rt Deepali 3 Ml Nebu INH 03/27/25 18:59 3 ml Q6HRRT PRN Administration wheezing Amlodipine Besylate 5 mg 02/27/25 09:00 02/27/25 10:20 Amlodipine Besylate 5 Mg Tablet PO 03/29/25 08:59 5 mg QDAY MERLY Administration Dextrose 25 ml 02/25/25 10:16 Dextrose 50%-Water Inj 50 Ml Syringe IV 03/27/25 10:15 Q15MIN PRN BG 50-70 responsive npo pt Dextrose 50 ml 02/25/25 10:16 Dextrose 50%-Water Inj 50 Ml Syringe IV 03/27/25 10:15 Q15MIN PRN BG <50 OR BG <70 & pt unresponsive Docusate Sodium 100 mg 02/25/25 10:30 02/27/25 10:02 Docusate Sod 100 Mg Capsule PO 03/27/25 10:29 100 mg QDAY MERLY Administration Protocol Glucagon 1 mg 02/25/25 10:16 Glucagon Inj 1 Mg Vial IM Q15MIN PRN BG <70, and no IV access Heparin Sodium (Porcine) 5,000 unit 02/26/25 09:00 02/27/25 10:09 Heparin Sod Inj 5000 Unit/Ml Vial SC 03/12/25 08:59 5,000 unit Q12HR MERLY Administration Azithromycin 250 mg/ Sterile 252.5 mls @ 252.5 mls/hr 02/27/25 09:00 02/27/25 09:33 Water 2.5 ml/ Sodium Chloride IV 03/06/25 08:59 252.5 mls/hr QDAY MERLY Administration Magnesium Sulfate 4 gm in 50 mls @ 12.5 mls/hr 02/27/25 08:38 02/27/25 09:34 Magnesium Sulfate Ivpb IV 02/27/25 12:37 12.5 mls/hr X1 ONE Administration Insulin Human Lispro 0 unit 02/25/25 22:35 02/27/25 07:40 Insulin Lispro (Admelog) 1 Unit/0.01 Ml Unit SC 03/27/25 22:34 Not Given ACHS MERLY Protocol Melatonin 3 mg 02/26/25 21:00 02/26/25 20:14 Melatonin 3 Mg Tablet PO 03/28/25 20:59 3 mg HS MERLY Administration Ondansetron HCl 4 mg 02/25/25 10:16 Ondansetron Inj 2 Mg/Ml Inj 2 Ml IVP 03/27/25 10:15 Q6H PRN NAUSEA OR VOMITING Protocol Sennosides 1 tab 02/25/25 10:16 Senna Tablet PO 03/27/25 10:15 QDAY PRN constipation Protocol Plan Mr. Ngo is a 74 yo gentleman with a hx of CVA, brain tumor, s/p fronal craniotamy, expressive aphasia, dementia, HTN, T2DM on insulin, BPH, COPD on 4L o2 at home, who was previously admitted in october 2024, for encephalopathy 2/2 hyperglycemia, who BIBA for hyoglycemia and AMS which resolved with D50. Weezing noted in the ed, which improved with breathing treatment. isolated leukocytosis without systemic signs of infxn, 1 out of 2 blood cultures growing GPC low level suspicion for bacteremia given clinical presentation follow-up repeat blood cultures, started on azithromycin for potential pulmonary source given wheezing. Concern for possible aspiration or upper airway obstruction, pending soft tissue neck CT. Pending repeated blood cultures. # GPC bacteremia 1/2? Unlikely #leukocytosis - resolved WBC 15 yesterday, WBC 9.9 today. UA bland, procal -, lactate wnl no obvious source of infection Dx -CXR no PNA -Bcx 1 out of 2 growing GPC -Repeat blood cultures pending Tx ? Azithromycin 500 mg one-time - Azithromycin 250 mg for 4 days #Wheezing #History of COPD Per daughter, uses 4 L O2 at night and prednisone 10 mg daily. pt wheezing on intake, s/p 1x steroids and duoneb, which helped relieve symptoms. ? Supplemental O2 if less than 88%, with goal of 88 to 92% - duonebs q6hr prn - CT soft tissue neck ordered due to concern for upper airway obstruction and audible wheeze. Pending result. #t2dm insulin dependent #Hypoglycemia-resolved pt presented to the ed with AMS, BG was 49, after d50 amps BG increased and pt began to mentate appropriately. D5 weaned and pt able to eat in the ED. per daughter, pt recieved insulin doses that were more than what he was eating. -CTM BG with Q6H BG checks - ISS step.2 #Acute COPD exac #Strep pyogene A bacternimia #Delirium #Agitation -Okay for Seroquel if agitated overnight -Melatonin 3 mg nightly #History of CVA with residual deficit of #Broca's aphasia #New onset dysphagia #History of childhood brain tumor s/p craniotomy pt mentating per his baseline, answering yes and no, answering questions appropriately and able to cooperate during exam. #Esophageal stricture-benign per egd done on October 2024 admission. Status post EGD on 11/08 that showed benign-appearing esophageal stenosis that was dilated and biopsies taken, on prior admission speech reccomended dysphagia 1 diet given difficulty with swallowing - Speech evaluation:Aspiration of thin liquids per MBSS/VFSS October 2024. Rec: Dysphagia 1/MT2. #Electrolyte Abnormalities -daily CMP -Replete as needed Mg>2 K >4 #History of BPH Per daughter, patient is wheelchair-bound and wears diapers ? Unable to resume home tamsulosin 0.4 mg daily due to dysphagia - Condom catheter to minimize soiling and changing #History of HTN ? Amlodipine 5 mg daily Dispo: Diet: Carb consistent with dysphagia 1 Bowel Reg: Senna PRN Lines: Condom Cath, IV VTE ppx: Hearin SC BID GI ppx: not indicated Code status: Full Case discussed with my senior resident Dr. Thapa Case discussed with my attending Dr. Pearl Foster DO PGY1 Attending Provider Attestation/Addendum Jenna Live DO, attest that I was physically present for the watson portions of the service and evaluated the patient with the resident and I reviewed and discussed the case with the resident and agree with the resident's findings and plans of care as documented above Patient seen and eval this a.m. Patient is much more alert. No acute events overnight. He remains on azithromycin at this time. Blood culture 1 out of 2 shows group A strep. However, no open wounds noted on exam. Patient does have several abrasions and scratches that are healing over his bilateral shins. Pending repeat blood cultures and will obtain echocardiogram. He continues to have wheezing that appears to be resonating from the upper airways. Soft tissue neck was done and shows no obstruction. Will continue with treatment of acute COPD exacerbation. Will restart patient's home prednisone.
--- NOTE | 2025-02-27 10:58 | ECHO_ITS ---
Transthoracic Echo Report Ht (in): 66 Wt (lb): 130 Exam Location: Echo Lab Status: Inpatient General Accountant: Mckenzie Gil Indications: Procedure Performed: BP: 147 / 81 HR: 84 Technical Quality: Very technically difficult study MEASUREMENTS (Male / Female) Normal Values 2D ECHO LV Diastolic Diameter PLAX 3.9 cm 4.2 - 5.9 / 3.9 - 5.3 cm LV Systolic Diameter PLAX 2.9 cm IVS Diastolic Thickness 0.9 cm 0.6 - 1.0 / 0.6 - 0.9 cm LVPW Diastolic Thickness 1.0 cm 0.6 - 1.0 / 0.6 - 0.9 cm LV Relative Wall Thickness 0.5 LVOT Diameter 1.5 cm Aortic Root Diameter 2.8 cm M-MODE Aortic Root Diameter MM 2.8 cm LA Systolic Diameter MM 2.5 cm LA Ao Ratio MM 0.9 AV Cusp Separation MM 1.5 cm DOPPLER AV Peak Velocity 99.0 cm/s AV Peak Gradient 3.9 mmHg AV Mean Gradient 2.0 mmHg AV Velocity Time Integral 21.1 cm LVOT Peak Velocity 62.1 cm/s LVOT Peak Gradient 1.5 mmHg LVOT Velocity Time Integral 13.2 cm LVOT Cardiac Index 1183.5 cm?/min?m? AV Area Cont Eq vti 1.1 cm? AV Area Cont Eq pk 1.1 cm? MV Area PHT 3.9 cm? Mitral E Point Velocity 49.0 cm/s Mitral A Point Velocity 71.8 cm/s Mitral E to A Ratio 0.7 PV Peak Velocity 90.9 cm/s PV Peak Gradient 3.3 mmHg FINDINGS Left Ventricle Normal left ventricular size, wall thickness, systolic function with no obvious regional wall motion abnormalities. The ejection fraction is visually estimated at 55-60 %. There is grade I diastolic dysfunction of the left ventricle (impaired relaxation pattern). Right Ventricle The right ventricle is normal in size and systolic function. Left Atrium Left atrium not well visualized. Right Atrium Right atrium is not well visualized. Atrial Septum The interatrial septum appears normal with no evidence of a shunt. Aorta The aorta is normal by two-dimensional, color flow and Doppler interrogation. Mitral Valve The mitral valve is not well visualized. Aortic Valve The aortic valve is not well visualized. Tricuspid Valve The tricuspid valve is not well visualized. Pulmonic Valve The pulmonic valve is not well visualized. There is no significant pulmonic valve regurgitation. Vessels Inferior vena cava not well visualized. Pericardium The pericardium is normal by two-dimensional imaging. There is no significant pericardial effusion. CONCLUSIONS Indication: Eval for vegetations suboptimal images Normal LV size, wall thickness. Estimated EF at 55-60 %. There is grade I diastolic dysfunction. Mitral valve thickening with evidence of mild calcification in the mitral leaflet unchanged from previous study in 2021. No evidence of vegetations. Aortic root is normal in number show developed pressure tenderness show normal excursions. The RV is normal in size and systolic function. Tricuspid valve appears normal Pulmonic valve not seen well. Agnes Colbert (Electronically Signed) Final Date: 28 February 2025 16:01
--- NOTE | 2025-02-27 11:54 | XR_ITS ---
Examination: CT soft tissue neck, without intravenous contrast. 2-D coronal reconstructions. 2-D sagittal reconstructions. Date and time of exam :February 27, 2025, 1510 hrs. Indications: Upper airway wheezing today. CTDI: vol (mGy):14 DLP: (mGycm):360 Technique: 1.25 mm axial sections of the neck of the obtained. Coronal and sagittal reconstructions have been obtained. Low dose protocols were performed. One or more of the following dose reduction techniques were used; automated exposure control, adjustment of the mA and/or KV according to patient size, use of iterative reconstruction technique. Findings: Encephalomalacia in the left temporal lobe The images are tilted which makes assessment difficult Symmetrical nasopharynx and oropharynx Small carotid triangle lymph nodes No laryngeal mass depicted Thyroid lobes are not enlarged The epiglottis is not thickened There is advanced degenerative disc disease C4-C5, C5-C6 Impression: The study is severely limited, tilted with continual patient motion Normal epiglottis Recommend repeating this study with intravenous contrast when the patient can cooperate
[2025-02-27] MEDS: INSULIN LISPRO (AdmeLOG) 1 UNIT/0.01 ML UNIT SC ×3 (12:07→21:07)
--- NOTE | 2025-02-27 15:32 | PC.SS ---
SS provided medicare information in [place] language; pt was alert and oriented x3; translation provided by medical team
[2025-02-27] MEDS: MELATONIN 3 MG TABLET PO (21:07)
[2025-02-28] VITALS (11 sets, daily range): BP systolic 118–147; BP diastolic 62–81; PULSE 72–103; RESP 19–98; TEMP 36.1–36.7; O2SAT 92–100
--- NOTE | 2025-02-28 | PC.NURSE ---
Called RT Iain for pts breathing treatment, pt has audible wheezing.
[2025-02-28] MEDS: ALBUTEROL/IPRATROPIUM (Duoneb) RT SOL 3 ML NEBU INH ×2 (00:05→16:24)
[2025-02-28 05:18] LABS: Basophils # (Auto) 0.1 Thou/mm3 (0.0-0.2); Basophils % (Auto) 1 % (0-2.5); Eosinophils # (Auto) 0.3 Thou/mm3 (0.0-0.5); Eosinophils % (Auto) 2 % (0-10); Hematocrit 39.3 % (41.0-53.0); Hemoglobin 12.9 g/dL (13.5-16.0); Immature Granulocytes Auto 0.03 Thou/mm3 (0.00-0.00); Lymphocytes # (Auto) 1.8 Thou/mm3 (1.0-4.8); Lymphocytes % (Auto) 16 % (10-50); Mean Corpuscular HGB Conc 32.8 g/dl (31.0-37.0); Mean Corpuscular Hemoglobin 30.6 pg (25.0-35.0); Mean Corpuscular Volume 93 fL (80-100); Monocytes # (Auto) 1.0 Thou/mm3 (0.0-0.8); Monocytes % (Auto) 9 % (0-12); Neutrophils # (Auto) 8.0 Thou/mm3 (1.8-7.7); Neutrophils % (Auto) 71 % (37-80); Nucleated Red Blood Cell # 0.00 Thou/mm3 (0.00-0.00); Nucleated Red Blood Cell % 0 /100 WBC (0); Platelet Count 212 Thou/mm3 (140-440); RDW Standard Deviation 44.7 fL (35.1-43.9); Red Blood Count 4.21 Miln/mm3 (4.50-5.90); White Blood Count 11.2 Thou/mm3 (3.8-10.6)
[2025-02-28 06:21] LABS: Alanine Aminotransferase < 7 U/L (10-49); Albumin, Serum 3.1 gm/dL (3.4-4.8); Albumin/Globulin Ratio 1.0 (1.2-2.2); Alkaline Phosphatase 80 U/L (46-116); Anion Gap 8 (7-16); Aspartate Amino Transferase 11 U/L (0-34); BUN/Creatinine Ratio 19 Ratio (12-20); Bilirubin,Total 0.5 mg/dL (0.3-1.2); Blood Urea Nitrogen 15 mg/dL (9-23); Calcium 8.5 mg/dL (8.3-10.6); Calcium (Corrected) 9.2 mg/dL (8.5-10.1); Carbon Dioxide 25.8 mMol/L (20.0-31.0); Chloride 108 mMol/L (98-107); Creatinine (Component) 0.8 mg/dL (0.6-1.3); Estimated Creatinine Clearance 66.7 mL/min (>60); Globulin 3.1 gm/dL (2.3-3.5); Glucose 110 mg/dL (74-106); Magnesium 1.6 mg/dL (1.6-2.6); Osmolality,Calculated 284 (275-295); Phosphorous 2.7 mg/dL (2.4-5.1); Potassium 3.7 mMol/L (3.4-5.1); Sodium 142 mMol/L (136-145); Total Protein 6.2 gm/dL (5.7-8.2); eGFR > 60 See Note
--- NOTE | 2025-02-28 07:09 | ESPR_ITS ---
<Statement entered by González Cohen MD - 02/28/25 14:28> Patient was seen and examined at the bedside. No acute overnight events were reported. Patient was conversational and markedly improved in his speech. Blood sugars have been controlled. White count slightly elevated. Magnesium was repleted. Currently awaiting on echocardiogram. Blood cultures growing Streptococcus pyogenes therefore we will continue with antibiotic. Will follow- up with echocardiogram results. Will discuss dose of insulin administration with family as patient per chart review has been taking 15 units at night. Continue aspiration precautions. All labs and orders were reviewed. I discussed and supervised with the agronomy internship physician who took care of this patient. I personally saw and examined the patient. I agree with most of the assessment and plan. Disclaimer: Despite multiple revisions, due to the dictation software being used, the document bellow may not be free of grammatical errors including phonetic/typographic errors. However, this does not deter from our commitment to providing health care in the patient's best interest in mind. Plan of care discussed with attending Physician Dr. Pearl Cohen MD PGY-3 Documentation for date of: 02/28/25 Subjective Subjective Interval history: No acute events overnight Exam Vital Signs Temp Pulse Resp BP Pulse Ox O2 Del Method 97.5 F 84 19 147/81 H 95 Room Air 02/28/25 04:00 02/28/25 04:00 02/28/25 04:00 02/28/25 04:00 02/28/25 04:00 02/28/25 04:00 Narrative Exam GENERAL: no acute distress, pt alert and oriented to self. HEENT: Head AT/ NC. Mucous membranes moist. PERRL. NECK: Supple, no lymphadenopathy, no carotid bruits. CARDIOVASCULAR: RRR. Normal S1/S2, No m/r/g. No pitting edema of bilateral LEs. RESPIRATORY: no audible wheezing appreciated on exam today, not on NC. GASTROINTESTINAL: Abdomen soft, non tender no palpable masses. Bowel sounds present, surgical incision site well healed from prior. MUSCULOSKELETAL:? No cyanosis or edema, no visible joint swelling. NEUROLOGICAL:expressive aphasia, able to answer yes or no to questions, Responds in malian or greenlandic. Sensation intact, symmetric.R arm flexed and weak, unable to squeeze fingers PSYCHIATRIC: Awake and alert, not agitated, normal mood and affect. SKIN: No obvious rashes, no jaundice, Objective Labs 03/01/25 04:49 03/01/25 04:49 Labs: Laboratory Results - last 24 hr 02/28/25 04:45 WBC 11.2 H RBC 4.21 L Hgb 12.9 L Hct 39.3 L MCV 93 MCH 30.6 MCHC 32.8 RDW Std Deviation 44.7 H Plt Count 212 Neut % (Auto) 71 Lymph % (Auto) 16 Rincon % (Auto) 9 Eos % (Auto) 2 Baso % (Auto) 1 Neut # (Auto) 8.0 H Lymph # (Auto) 1.8 Rincon # (Auto) 1.0 H Eos # (Auto) 0.3 Baso # (Auto) 0.1 Immature Gran # (Auto) 0.03 H Absolute Nucleated RBC 0.00 Immature Gran % 0 Nucleated RBC % 0 Sodium 142 Potassium 3.7 Chloride 108 H Carbon Dioxide 25.8 Anion Gap 8 BUN 15 Creatinine 0.8 Estim Creat Clear Calc 66.7 eGFR > 60 BUN/Creatinine Ratio 19 Glucose 110 H Calculated Osmolality 284 Calcium 8.5 Corrected Calcium 9.2 Phosphorus 2.7 Magnesium 1.6 Total Bilirubin 0.5 AST 11 ALT < 7 L Alkaline Phosphatase 80 Total Protein 6.2 Albumin 3.1 L Globulin 3.1 Albumin/Globulin Ratio 1.0 L Quality Measures Quality Measures VTE prophylaxis Advance care planning discussed with:: patient Assessment & Plan Assessment Current Active Medications: Generic Name Dose Route Start Last Admin Trade Name Freq PRN Reason Stop Dose Admin Acetaminophen 650 mg 02/25/25 10:16 Acetaminophen 325 Mg Tablet PO 03/27/25 10:15 Q6H PRN Fever >100.4 or pain Albuterol/Ipratropium 3 ml 02/25/25 17:17 02/28/25 00:05 Albuterol/Ipratropium (Duoneb) Rt Deepali 3 Ml Nebu INH 03/27/25 18:59 3 ml Q6HRRT PRN Administration wheezing Amlodipine Besylate 5 mg 02/27/25 09:00 02/27/25 10:20 Amlodipine Besylate 5 Mg Tablet PO 03/29/25 08:59 5 mg QDAY MERLY Administration Dextrose 25 ml 02/25/25 10:16 Dextrose 50%-Water Inj 50 Ml Syringe IV 03/27/25 10:15 Q15MIN PRN BG 50-70 responsive npo pt Dextrose 50 ml 02/25/25 10:16 Dextrose 50%-Water Inj 50 Ml Syringe IV 03/27/25 10:15 Q15MIN PRN BG <50 OR BG <70 & pt unresponsive Docusate Sodium 100 mg 02/25/25 10:30 02/27/25 10:02 Docusate Sod 100 Mg Capsule PO 03/27/25 10:29 100 mg QDAY MERLY Administration Protocol Glucagon 1 mg 02/25/25 10:16 Glucagon Inj 1 Mg Vial IM Q15MIN PRN BG <70, and no IV access Heparin Sodium (Porcine) 5,000 unit 02/26/25 09:00 02/27/25 21:07 Heparin Sod Inj 5000 Unit/Ml Vial SC 03/12/25 08:59 5,000 unit Q12HR MERLY Administration Azithromycin 250 mg/ Sterile 252.5 mls @ 252.5 mls/hr 02/27/25 09:00 02/27/25 09:33 Water 2.5 ml/ Sodium Chloride IV 03/06/25 08:59 252.5 mls/hr QDAY MERLY Administration Insulin Human Lispro 0 unit 02/25/25 22:35 02/27/25 21:07 Insulin Lispro (Admelog) 1 Unit/0.01 Ml Unit SC 03/27/25 22:34 4 unit ACHS MERLY Administration Protocol Melatonin 3 mg 02/26/25 21:00 02/27/25 21:07 Melatonin 3 Mg Tablet PO 03/28/25 20:59 3 mg HS MERLY Administration Ondansetron HCl 4 mg 02/25/25 10:16 Ondansetron Inj 2 Mg/Ml Inj 2 Ml IVP 03/27/25 10:15 Q6H PRN NAUSEA OR VOMITING Protocol Prednisone 10 mg 02/27/25 11:00 02/27/25 12:08 Prednisone 5 Mg Tablet PO 03/29/25 10:59 10 mg QDAY MERLY Administration Sennosides 1 tab 02/25/25 10:16 Senna Tablet PO 03/27/25 10:15 QDAY PRN constipation Protocol Plan Mr. Ngo is a 74 yo gentleman with a hx of CVA, brain tumor, s/p fronal craniotamy, expressive aphasia, dementia, HTN, T2DM on insulin, BPH, COPD on 4L o2 at home, who was previously admitted in october 2024, for encephalopathy 2/2 hyperglycemia, who BIBA for hyoglycemia and AMS which resolved with D50. Weezing noted in the ed, which improved with breathing treatment. isolated leukocytosis without systemic signs of infxn, 1 out of 2 blood cultures growing strep pyogenes, however low level suspicion for bacteremia given clinical presentation follow-up repeat blood cultures NGTD @24 hr, however, leukocytosis persists, continues on azithromycin (5 days total) for potential pulmonary source given wheezing. pending ECHO given strep pyogenes on bcx. #Strep pyogene A bacteremia 1/2 tubes #leukocytosis WBC up from prior 11.2. UA bland, procal -, lactate wnl no obvious source of infection Dx -CXR no PNA -Bcx 1 out of 2 growing GPC, strep pyogene -Repeat blood cultures pending, NGTD @24 hr -PENDING ECHO Tx ? Azithromycin 500 mg one-time - Azithromycin 250 mg for 4 days #Acute COPD exac #Wheezing #History of COPD Per daughter, uses 4 L O2 at night and prednisone 10 mg daily. pt wheezing on intake, s/p 1x steroids and duoneb, which helped relieve symptoms. ? Supplemental O2 if less than 88%, with goal of 88 to 92% - duonebs q6hr prn -cont predisone 10 mg daily (ensure pt on protonix qd) - CT soft tissue neck ordered due to concern for upper airway obstruction and audible wheeze: nl epiglottis, imaging limited by pt motion. #t2dm insulin dependent #Hypoglycemia-resolved pt presented to the ed with AMS, BG was 49, after d50 amps BG increased and pt began to mentate appropriately. D5 weaned and pt able to eat in the ED. per daughter, pt recieved insulin doses that were more than what he was eating. follow up with pt family prior to discharge to clarify insulin dosing and ensure proper understanding of DM education. -CTM BG with Q6H BG checks - ISS step.2 #Delirium #Agitation -Okay for Seroquel if agitated overnight -Melatonin 3 mg nightly #History of CVA with residual deficit of #Broca's aphasia #New onset dysphagia #History of childhood brain tumor s/p craniotomy pt mentating per his baseline, answering yes and no, answering questions appropriately and able to cooperate during exam. #Esophageal stricture-benign per egd done on October 2024 admission. Status post EGD on 11/08 that showed benign-appearing esophageal stenosis that was dilated and biopsies taken, on prior admission speech reccomended dysphagia 1 diet given difficulty with swallowing - Speech evaluation:Aspiration of thin liquids per MBSS/VFSS October 2024. Rec: Dysphagia 1/MT2. #Electrolyte Abnormalities -daily CMP -Replete as needed Mg>2 K >4 #History of BPH Per daughter, patient is wheelchair-bound and wears diapers ? Unable to resume home tamsulosin 0.4 mg daily due to dysphagia - Condom catheter to minimize soiling and changing #History of HTN ? Amlodipine 5 mg daily Dispo: Diet: Carb consistent with dysphagia 1 Bowel Reg: Senna PRN Lines: Condom Cath, IV VTE ppx: Hearin SC BID GI ppx: not indicated Code status: Full Case discussed with my senior resident Dr. Cohen Case discussed with my attending Dr. Pearl Carrion MD PGY-1 Attending Provider Attestation/Addendum I, Jenna Kang, , attest that I was physically present for the watson portions of the service and evaluated the patient with the resident and I reviewed and discussed the case with the resident and agree with the resident's findings and plans of care as documented above Patient seen and evaluated this a.m. He is much more interactive and alert today. He has no active complaints. Patient was eating well during breakfast. Blood glucose has been stable. Pending echocardiogram to rule out any signs of endocarditis due to group A strep noted on blood cultures. Mild elevation in WBCs likely secondary to prednisone 10 mg p.o. daily. Respiratory status is improved minimal wheezing at this time. Will follow-up with echocardiogram and anticipate discharge within the next 24 hours if echo does not show any evidence of endocarditis. Will continue with azithromycin as per sensitivities. Patient has otherwise been afebrile. Patient has not been requiring much insulin here in the hospital despite eating well, may need to speak to family regarding insulin regimen prior to discharge. No family at bedside for the past few days.
[2025-02-28] MEDS: AZITHROMYCIN INJ 250 MG, Sterile Water 2.5 ML in SODIUM CHLORIDE 0.9% 250 ML 250 ML 252.5 MG IV (09:46)
[2025-02-28] MEDS: Magnesium Sulfate 4 GM Ivpb 4 GM/50 ML BAG IV (09:46)
[2025-02-28] MEDS: POTASSIUM CHLORIDE 10% 20 MEQ/15 ML UDC 40 MEQ PO (09:46)
[2025-02-28] MEDS: DOCUSATE SOD 100 MG CAPSULE PO (09:47)
[2025-02-28] MEDS: HEPARIN SOD INJ 5000 UNIT/ML VIAL SC ×2 (09:53→20:23)
[2025-02-28] MEDS: INSULIN LISPRO (AdmeLOG) 1 UNIT/0.01 ML UNIT SC ×3 (12:09→20:23)
[2025-02-28] MEDS: MELATONIN 3 MG TABLET PO (20:23)
[2025-03-01] VITALS: BP 119/72; PULSE 70; PULSE 77; RESP 19; TEMP 36.1; O2SAT 96
[2025-03-01] MEDS: ALBUTEROL/IPRATROPIUM (Duoneb) RT SOL 3 ML NEBU INH (03:50)
[2025-03-01 03:52] VITALS: PULSE 86; RESP 17; O2SAT 100
[2025-03-01 04:00] VITALS: BP 126/74; PULSE 86; PULSE 88; RESP 18; TEMP 36.1; O2SAT 97
[2025-03-01 05:33] LABS: Basophils # (Auto) 0.1 Thou/mm3 (0.0-0.2); Basophils % (Auto) 1 % (0-2.5); Eosinophils # (Auto) 0.4 Thou/mm3 (0.0-0.5); Eosinophils % (Auto) 3 % (0-10); Hematocrit 38.6 % (41.0-53.0); Hemoglobin 12.6 g/dL (13.5-16.0); Immature Granulocytes Auto 0.02 Thou/mm3 (0.00-0.00); Lymphocytes # (Auto) 2.7 Thou/mm3 (1.0-4.8); Lymphocytes % (Auto) 25 % (10-50); Mean Corpuscular HGB Conc 32.6 g/dl (31.0-37.0); Mean Corpuscular Hemoglobin 30.3 pg (25.0-35.0); Mean Corpuscular Volume 93 fL (80-100); Monocytes # (Auto) 0.9 Thou/mm3 (0.0-0.8); Monocytes % (Auto) 8 % (0-12); Neutrophils # (Auto) 6.9 Thou/mm3 (1.8-7.7); Neutrophils % (Auto) 63 % (37-80); Nucleated Red Blood Cell # 0.00 Thou/mm3 (0.00-0.00); Nucleated Red Blood Cell % 0 /100 WBC (0); Platelet Count 214 Thou/mm3 (140-440); RDW Standard Deviation 44.0 fL (35.1-43.9); Red Blood Count 4.16 Miln/mm3 (4.50-5.90); White Blood Count 10.9 Thou/mm3 (3.8-10.6)
[2025-03-01 05:55] LABS: Alanine Aminotransferase < 7 U/L (10-49); Albumin, Serum 3.2 gm/dL (3.4-4.8); Albumin/Globulin Ratio 1.1 (1.2-2.2); Alkaline Phosphatase 82 U/L (46-116); Anion Gap 12 (7-16); Aspartate Amino Transferase < 8 U/L (0-34); BUN/Creatinine Ratio 18 Ratio (12-20); Bilirubin,Total 0.6 mg/dL (0.3-1.2); Blood Urea Nitrogen 16 mg/dL (9-23); Calcium 8.6 mg/dL (8.3-10.6); Calcium (Corrected) 9.2 mg/dL (8.5-10.1); Carbon Dioxide 25.0 mMol/L (20.0-31.0); Chloride 106 mMol/L (98-107); Creatinine (Component) 0.9 mg/dL (0.6-1.3); Estimated Creatinine Clearance 59.3 mL/min (>60); Globulin 2.9 gm/dL (2.3-3.5); Glucose 137 mg/dL (74-106); Magnesium 1.9 mg/dL (1.6-2.6); Osmolality,Calculated 288 (275-295); Phosphorous 2.6 mg/dL (2.4-5.1); Potassium 3.7 mMol/L (3.4-5.1); Sodium 143 mMol/L (136-145); Total Protein 6.1 gm/dL (5.7-8.2); eGFR > 60 See Note
[2025-03-01 07:40] VITALS: BMI 20.9
--- NOTE | 2025-03-01 07:46 | ESDS_ITS ---
<Statement entered by Jenna Kang DO - 03/02/25 13:49> I, Jenna Kang DO, attest that I was physically present for the watson portions of the service and evaluated the patient with the resident and I reviewed and discussed the case with the resident and agree with the resident's findings and plans of care as documented above <Statement entered by González Cohen MD - 03/01/25 09:29> I discussed and supervised with the real estate internship physician who took care of this patient. I personally saw and examined the patient. I agree with most of the assessment and plan. Disclaimer: Despite multiple revisions, due to the dictation software being used, the document bellow may not be free of grammatical errors including phonetic/typographic errors. However, this does not deter from our commitment to providing health care in the patient's best interest in mind. Plan of care discussed with attending Physician Dr. Pearl Cohen MD PGY-3 Planned Discharge Date 03/01/25 DS: Providers Provider Date of admission: 02/27/25 14:09 Primary care physician: Jeremy Clinton MD Admitting Provider: Jenna Kang DO Attending Provider on Admission: Jenna Kang DO Consults: 02/26/25 09:19 Referral Speech Therapy Routine Comment: aphasic, needs swallow eval Attending Provider on DC: Dr. Kang Discharging Provider: RESIDENT Berta DS: Diagnosis Problem List Completed Was Problem List Reviewed/Reconciled?: Yes Hospital Course Hospital Course Hospital course: Hospital Course Mr. Nog is a 74 yo gentleman with a hx of CVA, brain tumor, s/p fronal craniotomy, expressive aphasia, dementia, HTN, poorly controlled T2DM on insulin, BPH, COPD (per daughter:on 4L o2 at home), who was previously admitted in october 2024, for encephalopathy 2/2 HYPERglycemia, who BIBA for HYPOglycemia and AMS which resolved with D50. Weezing was noted in the ED, which improved with duoneb. pt also hadisolated leukocytosis without systemic signs of infxn, 1 out of 2 blood cultures grew strep pyogenes, however low level suspicion for bacteremia given clinical presentation (no systemic signs of infxn) follow-up repeat blood cultures NGTD @48 h. , leukocytosis resolving, started on azithromycin (5 days total 500mg day one, 250 4 days) for potential pulmonary source given wheezing while inpatient. Ucx negative. pt will be discharged with amoxicillin for 10 day additional days to complete a full 14 day course of abx given 1/2 strep pyogenes blood culture. Pt did not require O2 while inpatient. pt underwent breathing treatments with Duonebs to help with upper airway wheezing on exam, CT neck soft tissue was performed with nl epiglottis noted, however read was limited due to pt motion artifact during scan. reccomend outpatient follow up with ENT. Discussed with pt daughter, Chyna, about DM education regarding when to dose insulin and sliding scale insulin with meals. Continued PO steroids while inpatient, however recommend out patient follow up with PCP for when to stop. pt was able to eat carb consistent diet with dysphagia 1 modifications, well tolerated. Speech evaluation was conducted. Patient stable and medically cleared for discharge Diagnoses #Strep pyogene A bacteremia #Acute COPD Exacerbation #Hypoglycemia #t2dm insulin dependent #Delirium #Agitation #History of CVA with residual deficit of #Broca's aphasia #New onset dysphagia #History of childhood brain tumor s/p craniotomy #Esophageal stricture-benign per egd done on October 2024 admission. #History of BPH #History of HTN Discharge instructions You have been started on the following medications: please follow up with ENT for work up of wheezing and neck soft tissue given wheezing while inpatient (CT neck, hard to read given pt motion during scan) Please take all other meds as previously prescribed. Take amoxicillin 875 mg twice a day for 10 more days to complete antibiotic course You need to see your PCP for management for steroids which you have been taking for quiet a long time and they need to be tapered due to risk of bleeding,increase risk of bone osteoporosis and causes elevation in blood sugars and even mcfp use can cause pscyhosis Please administer only Insulin 15 units at night and insulin sliding scale Subcut TID with meals Please check blood sugars before administering insulin Please follow up with your primary doctor within 7-10 days. Please return to ED if you develop new or worsening symptoms. Case discussed with my senior resident Dr. Cohen Case discussed with my attending Dr. Pearl Carrion MD PGY-1 Time Spent with Patient Time attestation: Total time spent providing and/or coordinating discharge services: Time spent: Greater than 30 minutes Exam Vital Signs Temp Pulse Resp BP Pulse Ox O2 Del Method 97.0 F 88 18 126/74 97 Room Air 03/01/25 04:00 03/01/25 04:00 03/01/25 04:00 03/01/25 04:00 03/01/25 04:00 03/01/25 04:00 Narrative Exam GENERAL: no acute distress, pt alert and oriented to self. HEENT: Head AT/ NC. Mucous membranes moist. PERRL. NECK: Supple, no lymphadenopathy, no carotid bruits. CARDIOVASCULAR: RRR. Normal S1/S2, No m/r/g. No pitting edema of bilateral LEs. RESPIRATORY: no audible wheezing appreciated on exam today, not on NC. GASTROINTESTINAL: Abdomen soft, non tender no palpable masses. Bowel sounds present, surgical incision site well healed from prior. MUSCULOSKELETAL:? No cyanosis or edema, no visible joint swelling. NEUROLOGICAL:expressive aphasia, able to answer yes or no to questions, Responds in nicaraguan or sao tomean. Sensation intact, symmetric.R arm flexed and weak, unable to squeeze fingers PSYCHIATRIC: Awake and alert, not agitated, normal mood and affect. SKIN: No obvious rashes, no jaundice, Discharge Plan Plan Patient Disposition: HOME (Self Care) Patient condition on transfer: Stable Care Plan Goals: You have been started on the following medications: Please take all other meds as previously prescribed. Take amoxicillin 875 mg twice a day for 10 more days to complete antibiotic course You need to see your PCP for management for steroids which you have been taking for quiet a long time and they need to be tapered due to risk of bleeding,increase risk of bone osteoporosis and causes elevation in blood sugars and even watermelon inspector use can cause pscyhosis Please administer only Insulin 15 units at night and insulin sliding scale Subcut TID with meals Please check blood sugars before administering insulin Please follow up with ENT for wheezing. Please follow up with your primary doctor within 7-10 days. Please return to ED if you develop new or worsening symptoms. Prescriptions/Referrals Prescriptions/Med Rec: New amoxicillin 875 mg tablet 875 mg PO BID 10 Days Qty: 20 0RF Continued amlodipine 5 mg Tablet 5 mg PO QDAY atorvastatin 40 mg Tablet 40 mg PO QPM tamsulosin 0.4 mg Capsule 0.4 mg PO QDAY albuterol sulfate [Ventolin HFA] 90 mcg/actuation HFA aerosol inhaler 2 inh inhalation QID PRN (Reason: shortness of breath or wheezing) (DME) pen needle, diabetic 29 gauge x 1/2 needle See Rx Instructions .Route Qty: 100 0RF Rx Instructions: Use for insulin injections (DME) FreeStyle Lavinia 3 Plus Sensor Device See Rx Instructions .Route Qty: 1 0RF Rx Instructions: Used to monitor blood sugar levels (DME) lancets Misc See Rx Instructions .Route Qty: 100 0RF Rx Instructions: Test blood sugars three times daily before meals ICD 10: E11.65 (DME) Blood Glucose Test Strip See Rx Instructions .Route Qty: 50 0RF Rx Instructions: Test three times daily (DME) blood-glucose meter Kit See Rx Instructions .Route Qty: 1 0RF Rx Instructions: Test three times daily (DME) lancets Misc See Rx Instructions .Route Qty: 200 0RF Rx Instructions: Test three times daily insulin aspart U-100 100 unit/mL (3 mL) insulin pen 1 sliding scale dose SUBCUT TID insulin glargine-yfgn 100 unit/mL (3 mL) insulin pen 15 unit subcut QAM Rx Instructions: Administer 15 units of insulin glargine every night prednisone 10 mg tablet 10 mg PO QDAY (DME) pen needle, diabetic 29 gauge x 1/2 needle See Rx Instructions .Route Qty: 100 3RF Rx Instructions: As directed Baqsimi 3 mg/actuation spray,non-aerosol 3 mg intranasal PRN PRN (Reason: for low blood sugars) Qty: 1 0RF (DME) FreeStyle Lavinia 3 [place] Misc See Rx Instructions .Route Qty: 1 0RF Rx Instructions: As directed (DME) FreeStyle Lavinia 3 Sensor Device See Rx Instructions .Route Qty: 1 0RF Rx Instructions: As directed Referrals: Jeremy Clinton MD [Primary Care Provider] - Patient/Caregiver Discharge Instructions Discharge Activity: activity as tolerated Education Materials: Hypoglycemia (Low Blood Sugar), Hypoglycemia Steps Print Language: Mongolian Stand Alone Forms: Brinda Award Info., Patient Portal Info Letter, Work/Release Restrictions Discharge Order Discharge Orders: Discharge (Routine); Ordered 03/01/25 Ordered By: Dionne De Paz Quality Discharge Quality Measures VTE prophylaxis
[2025-03-01 08:00] VITALS: BP 141/82; PULSE 88; RESP 15; TEMP 36.1; O2SAT 95
[2025-03-01] MEDS: POTASSIUM CHLORIDE 10% 20 MEQ/15 ML UDC GT (08:49)
[2025-03-01] MEDS: Magnesium Sulfate 4 GM Ivpb 4 GM/50 ML BAG IV (08:52)
[2025-03-01 08:53] VITALS: BP 141/82; PULSE 88
[2025-03-01] MEDS: DOCUSATE SOD 100 MG CAPSULE PO (08:53)
[2025-03-01] MEDS: HEPARIN SOD INJ 5000 UNIT/ML VIAL SC (08:53)
[2025-03-01] MEDS: AZITHROMYCIN INJ 250 MG, Sterile Water 2.5 ML in SODIUM CHLORIDE 0.9% 250 ML 250 ML 252.5 MG IV (09:11)
--- NOTE | 2025-03-01 10:49 | PC.SS ---
Hospital Bed Patients diagnosis requires positioning of the head or upper body to be elevated more than 30 degrees. Also the diagnosis requires positioning in order to alleviate pain and if the patient requires frequent changes in the body positioning and/or has an immediate need for change in the body position. Pillows and wedges have been considered and ruled out. winston lift Patient needs a winston lift for home: Patient requires transfer between the bed, chair, wheelchair and commode that requires the assistance of more than one person. Without the use of the lift the patient would be confined or dependent transfer.
--- NOTE | 2025-03-01 11:25 | PC.SS ---
ss contacted by Jamila at [facility] and informed ss that pt. is not eligible for hospital bed due to receiving one in 2020 through [facility]. ss contacted patients daughter and made aware. Patients daughter verbalized understanding.
--- NOTE | 2025-03-01 11:53 | PC.SS ---
SS set up transportation for pt. through [employer], reference number [id number]. SS notified patients daughter Chyna that pt. will be discharging today. SS will follow up once ETA available. SS notified pt. bedside nurse, Buddy.
[2025-03-01] MEDS: INSULIN LISPRO (AdmeLOG) 1 UNIT/0.01 ML UNIT SC (11:59)
[2025-03-01 12:00] VITALS: BP 117/62; PULSE 80; PULSE 87; RESP 21; TEMP 36.1; O2SAT 95
--- NOTE | 2025-03-01 12:27 | PC.SS ---
SS follow up note; SS was contacted by Amanda from [facility] who provided ETA for 1400 for patient to discharge home. SS contacted patient's daughter, Chyna as well as informed patient's nurse, Alayna.
--- NOTE | 2025-03-01 13:50 | PC.NURSE ---
attempted to call rashard Clemente's daughter @[phone] and left [facility] to transport at 1400. Packet sent with ambulance.
--- NOTE | 2025-03-01 13:57 | PC.NURSE ---
Called Chyna and went over d/c instructions with her. She states there will be someone home and his w/c is out front because the gurney does not fit in the front door. Discharge packet sent with ambulance to be given to family when pt arrives. Chyna aware and will tell family to ask for the packet.
== END 2025-03-01 14:00 | disposition home or self-care (01) | DRG 191 ==
LOC: SERX 07:39 → SERHOLD 10:57 → S3NX 13:06
PROVIDERS: Emergency Medicine; Admitting Provider Internal Medicine; Emergency Provider Family Medicine; PCP Family Medicine; Visit Provider Internal Medicine
DX: J44.1 Chronic obstructive pulmonary disease with (acute) exacerbation (principal); G93.40 Encephalopathy, unspecified; R78.81 Bacteremia; I69.320 Aphasia following cerebral infarction; F03.90 Unspecified dementia, unspecified severity, without behavioral disturbance, psychotic disturbance, mood disturbance, and anxiety; I10 Essential (primary) hypertension; N40.0 Benign prostatic hyperplasia without lower urinary tract symptoms; D72.829 Elevated white blood cell count, unspecified; R13.10 Dysphagia, unspecified; E83.42 Hypomagnesemia; K22.2 Esophageal obstruction; R45.1 Restlessness and agitation; E11.649 Type 2 diabetes mellitus with hypoglycemia without coma; R41.0 Disorientation, unspecified; Z99.81 Dependence on supplemental oxygen; Z79.4 Long term (current) use of insulin; Z99.3 Dependence on wheelchair; B95.0 Streptococcus, group A, as the cause of diseases classified elsewhere
CPT/HCPCS: 36415; 70490; 71045; 80053; 81001; 82248; 83036; 83605; 83735; 83880; 84100; 84145; 84439; 84443; 84484; 85025; 85379; 85610; 85652; 85730; 86140; 87040; 87186; 87400; 87811; 92526; 92610; 93005; 93225; 93306; 93971; 94640; 94762; 96361; 96365; 96366; 96375; A4216; A9270; G0378; J0456; J1630; J1644; J1650; J1815; J2405; J2919; J3475; J7030; J7050; J7512